=== PATIENT | female | born 1995 | race Caucasian/White ===

== ENCOUNTER 2024-05-22 09:03 | Day surgery (SDC) | payer OTHER, SELFPAY ==
[2024-05-16 11:35] VITALS: BMI 21.6
--- NOTE | 2024-05-21 12:05 | P.CONAN_ITS ---
Documented by User: Crystal Walker NP 05/21/24 12:06 HPI - Anesthesia Eval Consult details Narrative: 28yo F for Lateral Rectus Eye Muscle Recession Medically optimized for surgery per [facility] Past Medical History Medical History (Updated 05/16/24 @ 11:25 by Rsoeanna Chinchilla RN) Weakness of pelvic floor Pelvic pain Pelvic floor dysfunction Palpitations Ovarian cyst Mononucleosis Migraine Long COVID IBS (irritable bowel syndrome) Fibromyalgia Dyspareunia in female Diarrhea Cystic acne COVID-19 Chest pain Back pain Anemia Abnormal TSH Abdominal pain Hiatal hernia Surgical History Surgical History (Updated 05/16/24 @ 11:26 by Roseanna Chinchilla RN) History of laparoscopy H/O colonoscopy History of esophagogastroduodenoscopy (EGD) Social History Social History Patient Tobacco Use Status: Never used Tobacco Use of substances other than those prescribed or required for medical reasons: No Are you DNR?: No Advance Directives: No Advance Directives Information Provided: Yes Advance Directives on File: No Recently lost weight without trying: No Nutrition Risks: No Nutritional Risk Patient : No Meds Allergies Allergy/AdvReac Type Severity Reaction Status Date / Time environmental allergies Allergy Unknown Verified 05/16/24 11:27 metoclopramide [From Reglan] AdvReac Agitated Verified 05/22/24 09:29 Home Medications ?Medication ?Instructions ?Recorded ?Confirmed ?Last Taken ?Type acetaminophen 325 mg tablet 650 mg PO Q6H PRN Pain 05/16/24 05/16/24 Unknown History diclofenac sodium 1 % topical gel 2 g topical QID PRN Pain 05/16/24 05/16/24 Unknown History (Voltaren Arthritis Pain) famotidine 20 mg tablet 20 mg PO BID PRN Acid Reflux 05/16/24 05/16/24 Unknown History fluticasone propionate 50 1 spray intranasal BID 05/16/24 05/16/24 Unknown History mcg/actuation nasal spray,suspension hydroxyzine HCl 10 mg tablet 10 mg PO TID PRN Anxiety 05/16/24 05/16/24 Unknown History pantoprazole 20 mg tablet,delayed 20 mg PO DAILY 05/16/24 05/16/24 Unknown History release (Protonix) Exam Height,Weight and Vital Signs: Height 5 ft 6.14 in Weight 61 kg Pertinent Lab Results Pertinent Lab Results: CBC and BMP 04/2024 from outside facility WNL Narrative Narrative: EKG 04/2024 NSR Assessment and Plan Assessment Anesthesia Assessment: Chart Reviewed Documented by User: Therese Jose MD 05/22/24 11:04 [facility] Past Medical History Medical History (Updated 05/16/24 @ 11:25 by Roseanna Chinchilla RN) Weakness of pelvic floor Pelvic pain Pelvic floor dysfunction Palpitations Ovarian cyst Mononucleosis Migraine Long COVID IBS (irritable bowel syndrome) Fibromyalgia Dyspareunia in female Diarrhea Cystic acne COVID-19 Chest pain Back pain Anemia Abnormal TSH Abdominal pain Hiatal hernia Family History Family history of problems with anesthesia: No Surgical History Surgical History (Updated 05/16/24 @ 11:26 by Roseanna Chinchilla RN) History of laparoscopy H/O colonoscopy History of esophagogastroduodenoscopy (EGD) History of Problems with Anesthesia: No Social History Social History Patient Tobacco Use Status: Never used Tobacco Use of substances other than those prescribed or required for medical reasons: No Are you DNR?: No Advance Directives: No Advance Directives Information Provided: Yes Advance Directives on File: No Recently lost weight without trying: No Nutrition Risks: No Nutritional Risk Patient : No Meds Allergies Allergy/AdvReac Type Severity Reaction Status Date / Time environmental allergies Allergy Unknown Verified 05/16/24 11:27 metoclopramide [From Reglan] AdvReac Agitated Verified 05/22/24 09:29 Home Medications ?Medication ?Instructions ?Recorded ?Confirmed ?Last Taken ?Type acetaminophen 325 mg tablet 650 mg PO Q6H PRN Pain 05/16/24 05/16/24 Unknown History diclofenac sodium 1 % topical gel 2 g topical QID PRN Pain 05/16/24 05/16/24 Unknown History (Voltaren Arthritis Pain) famotidine 20 mg tablet 20 mg PO BID PRN Acid Reflux 05/16/24 05/16/24 Unknown History fluticasone propionate 50 1 spray intranasal BID 05/16/24 05/16/24 Unknown History mcg/actuation nasal spray,suspension hydroxyzine HCl 10 mg tablet 10 mg PO TID PRN Anxiety 05/16/24 05/16/24 Unknown History pantoprazole 20 mg tablet,delayed 20 mg PO DAILY 05/16/24 05/16/24 Unknown History release (Protonix) Exam Airway Mallampati Class: II TM Dist: >3cm Neck ROM: Full Heart: rrr Lungs: cta Assessment and Plan Assessment Anesthesia Assessment: Anesthesia Plan Discussed Final Anesthetic Review Family History of Problems with Anesthesia: No History of Problems with Anesthesia: No NPO: Yes ASA Class: II Final Preanesthetic Review: No Changes in Pt Med Stat, Meds/Allgs Chart Reviewed and Consent Obtained/Reviewed Patient Risk: Low Procedure Risk: Low Anesthetic Plan Anesthetic Plan: GA Disposition: Standard PACU
[2024-05-22] VITALS (8 sets, daily range): BP systolic 111–130; BP diastolic 70–83; PULSE 62–85; RESP 14–16; TEMP 36.3–36.4; O2SAT 100; BMI 21.4
--- OUTSIDE RECORDS SUMMARY | 2024-05-22 09:06 | XMS_ITS | Continuity of Care Document ---
Author Organization [facility] Address [address] [place] [address]- Care Team Providers Care Wood Box Maker Name Role Phone Mary Ellen SRINIVASAN, Anitha Primary Care Physician Encounter [facility] Date(s): 02/22/20 - 02/22/[address] [address]- [place] Encounter Diagnosis Abdominal pain, diffuse(Final) - 02/22/20 Discharge Disposition: A-D/C Home Attending Physician: Ulysses Monique MD Admitting Physician: Ulysses Monique MD Referring Physician: Not on Staff, Referring MD Allergies, Adverse Reactions, Alerts Substance Reaction Severity Status NKA Active Immunizations Given and Recorded Vaccine Date Status Refusal Reason influenza virus vaccine, inactivated 1 07/22/19 Gi pedro pablo influenza virus vaccine, inactivated 07/13/18 Give n influenza virus vaccine, inactivated 2 07/19/17 Re corded influenza virus vaccine, inactivated 07/27/16 Give n tetanus/diphtheria/pertussis, acel(Tdap) 01/26/17 Given tetanus/diphtheria/pertussis, acel(Tdap) 12/06/05 Given Varicella Virus Vaccine 3 05/21/09 Given Meningococcal Polysaccharide Vaccine 12/14/07 Give n Gardasil (oldterm) 4 06/19/07 Given Gardasil (oldterm) 02/14/07 Given Gardasil (oldterm) 12/13/06 Given Measles/Mumps/Rubella Virus Vaccine 5 11/30/98 Giv en Hepatitis B Vaccine (old term) 6 09/07/94 Given 1Result Comment: [facility] [id number] [facility] 3Admin Note: 1st dove 11/21/1995 2nd done 05/21/2009 4Admin Note: 1st done 12/13/2006 2nd done 02/14/2007 3rd done 06/19/2007 5Admin Note: 1st done 02/24/1995 2nd done 11/30/1998 6Admin Note: 1st done 1993 2nd done 1993 3rd done 09/07/1994 Medications Bactrim DS 800 mg-160 mg oral tablet 1 tablet, By Mouth, Every 12 hours, for 5 days, # 10 tablet, 0 Refills, Acute 02/24/20 15:40:00 EDT, 02/19/20 15:40:00 EDT, Tablet, [facility]/pharmacy #[id number], 1 tablet By Mouth Every 12 hours,x5 days, 168, cm, 02/19/20 15:07:00 EDT, Height, 64, kg, 09/08/19... Start Date: 02/19/20 Stop Date: 02/24/20 Status: Ordered naratriptan 2.5 mg oral tablet 1 tablet = 2.5 mg, By Mouth, Daily, PRN for migraine headache, may repeat dose once in 4 hours, # 9tablet, 1 Refills, Maintenance, 10/11/19 14:31:00 EST, Tablet, [facility]/pharmacy #[id number], 168, cm, 10/11/19 13:21:00 EST, Height, 64, kg, 09/08/19 14:41:00 ES... Start Date: 10/11/19 Status: Ordered Taytulla 1 mg-20 mcg oral capsule 1 capsule, By Mouth, Daily, # 28 capsule, 0 Refills, Maintenance, 09/12/19 16:20:00 EST, Capsule Start Date: 09/12/19 Status: Ordered Problem List Condition Effective Dates Status Health Status Inform ant Anxiety(Confirmed) Active Back pain(Confirmed) Active Diarrhea(Confirmed) Active Fibromyalgia(Confirmed) 1 09/15/17 Active IBS - Irritable bowel syndrome(Confirmed) 2 Active Anemia, iron deficiency(Confirmed) 3 Active Migraine(Confirmed) 2005 Active Ovarian cyst(Confirmed) Active 1negative celiac screen in [address] romero 3she does have heavy monthly period Vital Signs Most recent to oldest [Reference Range]: 1 2 Height 165 cm (6/6/20 7:11 PM) 165 cm (02/22/20 5:12 PM) Weight 60.9 kg (02/22/20:11 PM) 60.9 kg (02/22/20:12 PM) Oxygen Saturation [94-100 %] 100 % (02/22/20:11 PM) 100 % (02/22/20:12 PM) Pulse Rate [55-90 bpm] 83 bpm (02/22/20:11 PM) 83 bpm (02/22/20:12 PM) Body Mass Index [18.5-24.99] 22.37 (02/22/20: PM) Blood Pressure [90-138/55-84 mm Hg] 114/ 81mm Hg (02/22/20:11 PM) 125/80mm Hg (02/22/20:12 PM) Respiratory Rate [16-30 br/min] 17 br/mi n (02/22/20:11 PM) 17 br/min (02/22/20:12 PM) Temperature [96.8-100.4 DegF] 97.5 DegF (02/22/20 5:12 PM) Temperature Route Temporal (02/22/20 5:12 PM) Dry Weight 60.9 kg (02/22/20:11 PM) 60.9 kg (02/22/20:12 PM) Dry Weight Obtained Via Standing scale (02/22/20 5:12 PM) Social History Social History Type Response Smoking Status Never smoker; Tobacc o user in household: No entered on: 09/26/13 Sex
--- OUTSIDE RECORDS SUMMARY | 2024-05-22 09:06 | XMS_ITS | Continuity of Care Document ---
Author Organization [facility] Address [address] [place] [address]- Care Team Providers Care Portrait Studio Photographer Name Role Phone Nicholas HAULAGE BOSS, Elisa M Primary Care Physician Encounter [facility] Date(s): 05/26/20 - 06/27/20 [facility] [address] [place] [address]- [facility] Attending Physician: Bony Padilla Allergies, Adverse Reactions, Alerts Substance Reaction Severity [...] (old term) 6 09/07/94 Given 1Result Comment: [facility] [id number] [facility] 3Admin Note: 1st dove 11/21/1995 2nd done 05/21/2009 4Admin Note: 1st done 12/13/2006 2nd done 02/14/2007 3rd done 06/19/2007 5Admin Note: 1st done 02/24/1995 2nd done 11/30/1998 6Admin Note: 1st done 1993 2nd done 1993 3rd done 09/07/1994 Medications Carafate 1 gm oral tablet 1 Gm, 1, tablet, By Mouth, 2 times a day, # 60 tablet, Refills 0, Tot. Refills 0, Maintenance, 06/08/20 9:10:00 EDT, Route to Pharmacy Electronically, [facility]/pharmacy #[id number], 168, cm, 06/08/20 7:01:00 EDT, Height, 58.7, kg, 06/08/20 7:01:00 EDT, Dry Weight Start Date: 06/08/20 Status: Ordered Lo Loestrin Fe By Mouth, Daily, 0 Refills, Maintenance, 04/05/20 20:23:00 EDT Start Date: 04/05/20 Status: Ordered omeprazole 20 mg oral delayed release tablet 1 tablet = 20 mg, By Mouth, Daily, # 90 tablet, 0 Refills, Maintenance, 06/17/20 14:00:00 EDT, CR Tablet Start Date: 06/17/20 Status: Ordered Problem List Condition Effective Dates Status Health Status Inform ant Anxiety(Confirmed) Active Back pain(Confirmed) Active Chronic back pain(Confirmed) Active Diarrhea(Confirmed) Active Fibromyalgia(Confirmed) 1 09/15/17 Active IBS - Irritable bowel syndrome(Confirmed) 2 Active Anemia, iron deficiency(Confirmed) 3 Active Migraine(Confirmed) 2005 Active Ovarian cyst(Confirmed) Active 1negative celiac screen in [address] romero 3she does have heavy monthly period Social History Social History Type Response Smoking Status Never smoker; Tobacc o user in household: No entered on: 09/26/13 Sex
--- OUTSIDE RECORDS SUMMARY | 2024-05-22 09:06 | XMS_ITS | Continuity of Care Document ---
Author Organization [facility] Address [address] [place] [id number]- Care Team Providers Care Nut Dehydrator Operator Name Role Phone Nicholas HOTEL MAINTENANCE TECHNICIAN, Elisa M Primary Care Physician Encounter [facility] Date(s): 08/03/23 - 09/02/23 [facility] [address] [place] [id number]- [place] Allergies, Adverse Reactions, Alerts Substance Reaction Severity Status Reglan agitation Active Immunizations Given and Recorded Vaccine Date Status Refusal Reason influenza virus vaccine, inactivated 1 08/08/22 Gi pedro pablo influenza virus vaccine, inactivated 2 08/02/21 Gi pedro pablo influenza virus vaccine, inactivated 07/17/20 Give n influenza virus vaccine, inactivated 3 07/22/19 Gi pedro pablo influenza virus vaccine, inactivated 07/13/18 Give n influenza virus vaccine, inactivated 4 07/19/17 Re corded influenza virus vaccine, inactivated 07/27/16 Give n influenza virus vaccine, inactivated 06/28/11 Stevan rded influenza virus vaccine, inactivated 10/20/09 Stevan rded influenza virus vaccine, inactivated 08/23/08 Stevan rded SARS-CoV-2 (COVID-19) mRNA BNT-162b2 vac 10/14/21 Recorded SARS-CoV-2 (COVID-19) mRNA BNT-162b2 vac 01/12/21 Recorded SARS-CoV-2 (COVID-19) mRNA BNT-162b2 vac 12/22/20 Recorded tetanus/diphtheria/pertussis, acel(Tdap) 01/26/17 Given tetanus/diphtheria/pertussis, acel(Tdap) 12/06/05 Given Varicella Virus Vaccine 5 05/21/09 Given Varicella Virus Vaccine 11/21/95 Recorded Meningococcal Polysaccharide Vaccine 12/14/07 Give n Meningococcal Conjugate Vaccine 12/14/07 Recorded Gardasil (oldterm) 6 06/19/07 Given Gardasil (oldterm) 02/14/07 Given Gardasil (oldterm) 12/13/06 Given Measles/Mumps/Rubella Virus Vaccine 7 11/30/98 Giv en Measles/Mumps/Rubella Virus Vaccine 02/24/95 Recor ded diphtheria/tetanus/pertussis, acel(DTaP) 11/26/98 Recorded Hepatitis B Vaccine (old term) 8 09/07/94 Given hepatitis B pediatric vaccine 93 Recorded hepatitis B pediatric vaccine 93 Recorded 1Result Comment: [facility] [id number] 2Result Comment: [facility]: [id number] 3Result Comment: [facility] [id number] [facility] 5Admin Note: 1st dove 11/21/1995 2nd done 05/21/2009 6Admin Note: 1st done 12/13/2006 2nd done 02/14/2007 3rd done 06/19/2007 7Admin Note: 1st done 02/24/1995 2nd done 11/30/1998 8Admin Note: 1st done 1993 2nd done 1993 3rd done 09/07/1994 Medications Ajovy 225 mg/1.5 mL subcutaneous solution = 225 mg, Subcutaneous Infusion, Every 28 days, 0 Refills, Maintenance, 06/29/23 9:04:00 EDT, Partial fill upon patient request if the prescription is for a schedule II opioid drug. Start Date: 06/29/23 Status: Ordered Carafate 1 gm/10 ml oral suspension 10 mL = 1 Gm, By Mouth, 3 times a day before meals and bedtime, # 560 mL, 0 Refills, Maintenance, 05/19/23 22:44:00 EDT, [facility]/pharmacy #[id number], Partial fill upon patient request if the prescription is for a schedule II opioid drug., 165.1, cm, 05/19/23 1... Start Date: 05/19/23 Stop Date: 06/02/23 Status: Ordered cefuroxime 500 mg oral tablet 1 tablet = 500 mg, By Mouth, 2 times a day, # 14 tablet, 0 Refills, Maintenance, 08/19/23 11:00:00 EST, Tablet, Partial fill upon patient request if the prescription is for a schedule II opioid drug. Start Date: 08/19/23 Stop Date: 08/26/23 Status: Ordered chlorhexidine topical 0.12% liquid 15 mL = 0.018 Gm, By Mouth, 2 times a day, # 480 mL, 0 Refills, Maintenance, 06/29/23 12:46:00 EDT,Liquid, [id number], Partial fill upon patient request if the prescription is for a scheduleII opioid drug., 15 mL By Mouth 2 times a day, 165.... Start Date: 06/29/23 Status: Ordered diclofenac sodium 75 mg oral delayed release tablet 1 tablet = 75 mg, By Mouth, 2 times a day, PRN PAIN, with food, # 30 tablet, 0 Refills, Maintenance, 07/03/23 16:09:00 EDT, EC Tablet, [id number], Partial fill upon patient request if the prescription is for a schedule II opioid drug., 165.1,... Start Date: 07/03/23 Stop Date: 07/18/23 Status: Ordered Diflucan 150 mg oral tablet 1 tablet = 150 mg, By Mouth, Once, # 1 tablet, 1 Refills, Soft Stop, 08/31/23 14:59:00 EST, Tablet,[id number], Partial fill upon patient request if the prescription is for a schedule II opioid drug., 168, cm, 08/30/23 13:48:00 EST, Height, 58... Start Date: 08/31/23 Status: Ordered fluticasone 27.5 mcg/inh nasal spray 1 sprays, Nares, Both, Daily, PRN Cold Symptoms, # 10 Gm, 0 Refills, Maintenance, 07/24/23 15:00:00EST, [place], [id number], Partial fill upon patient request if the prescription is for a schedule II opioid drug., 1 sprays Nares, Both Daily,PRN... Start Date: 07/24/23 Status: Ordered gabapentin 300 mg oral capsule 300 mg, 1, capsule, By Mouth, Daily at bedtime, PRN, # 15 capsule, Refills 0, Tot. Refills 0, Maintenance, [facility], 07/03/23 16:09:00 EDT, Route to Pharmacy Electronically, [facility]/pharmacy #[id number], Partial fill upon patient request if the prescriptio... Start Date: 07/03/23 Stop Date: 07/18/23 Status: Ordered June By Mouth, Daily, 0 Refills, Maintenance, 08/08/22 13:49:00 EST, Partial fill upon patient request if the prescription is for a schedule II opioid drug. Start Date: 08/08/22 Status: Ordered metroNIDAZOLE 500 mg oral tablet 1 tablet = 500 mg, By Mouth, Every 8 hours, for 7 days, do not drink alcohol may take with food to minimize abdominal discomfort, # 21 tablet, 0 Refills, Acute 09/07/23 15:43:00 EST, 08/31/23 15:43:00 EST, Tablet, [facility]/pharmacy #[id number], Partial fill upo... Start Date: 08/31/23 Stop Date: 09/07/23 Status: Ordered mirtazapine 7.5 mg oral tablet See Instructions, TAKE 1 TABLET BY MOUTH DAILY FOR 1 WEEK AND THEN INCREASE TO 2 TABLETS DAILY, # 180 tablet, 1 Refills, Maintenance, 07/07/23 6:25:00 EDT, [id number], 165.1, cm, 07/03/23 15:14:00 EDT, Height, 64.3, kg, 05/19/23 19:22:00 EDT, Dry... Start Date: 07/07/23 Status: Ordered omeprazole 20 mg oral enteric coated capsule 1 capsule, By Mouth, 2 times a day, # 180 capsule, 1 Refills, Maintenance, 06/24/23 16:07:00 EDT, [id number], 165.1, cm, 06/12/23 14:42:00 EDT, Height, 64.3, kg, 05/19/23 19:22:00 EDT, Dry Weight Start Date: 06/24/23 Status: Ordered Xyzal 5 mg oral tablet 1 tablet = 5 mg, By Mouth, Daily in PM, # 30 tablet, 6 Refills, Maintenance, 08/30/23 14:06:00 EST,Tablet, [facility]/pharmacy #[id number], Partial fill upon patient request if the prescription is for a scheduleII opioid drug., 1 tablet By Mouth Daily in PM,x30... Start Date: 08/30/23 Stop Date: 03/27/24 Status: Ordered Problem List Condition Confirmation Course Effective Dates Status Health St atus Informant Anxiety Confirmed Active Anxiety about health Confirmed Active Back pain Confirmed Active Chronic back pain Confirmed Active Diarrhea Confirmed Active Fibromyalgia 1 Confirmed 09/15/17 Active IBS - Irritable bowel syndrome 2 Confirmed Active Anemia, iron deficiency 3 Confirmed Active Migraine Confirmed 2005 Active Ovarian cyst Confirmed Active 1negative celiac screen in [address] romero 3she does have heavy monthly period Social History Social History Type Response Smoking Status Never smoker; Tobacc o user in household: No entered on: 09/26/13 Sex Patient Care team information Care Team Personnel Name: Ulysses Desai MD Position: [facility] OCTAVE BOARD RACKER MD Member Role: [employer] OCTAVE BOARD RACKER Physician Address: Address: [address] [place] [address] [facility] [address]- Name: Elisa Peterson NP Position: [facility] PCO Associate Professional Member Role: PCP Address: Address: [address] [place] [id number] Name: Josette Bhardwaj [place] Position: [facility] RN Member Role: Primary Care Nurse Care Team Related Persons Name: HUBER ORLANDO Address: [address] [place] [address] Name: HUBER ORLANDO Address: home [address] [place] [address] Name: HUBER ORLANDO Address: home [address] [place] [address] Name: JUAN ORLANDO Address: home [address]
--- OUTSIDE RECORDS SUMMARY | 2024-05-22 09:06 | XMS_ITS | Continuity of Care Document ---
Author Organization [facility] Address [address] [place] [address]- Care Team Providers Care Barrel Straightener Name Role Phone Nicholas TOE FORMER, Elisa M Primary Care Physician Encounter [facility] Date(s): 10/15/21 - 11/14/21 [facility] [address] [place] [address]- Attending Physician: Alejandro Lamb Admitting Physician: AdmAlejandro cooley Referring Physician: AdmtrAlejandro Allergies, Adverse Reactions, Alerts Substance Reaction Severity Status Reglan agitation Active Immunizations Given and Recorded Vaccine Date Status Refusal Reason influenza virus vaccine, inactivated 1 08/02/21 Gi pedro pablo influenza virus vaccine, inactivated 07/17/20 Give n influenza virus vaccine, inactivated 2 07/22/19 Gi pedro pablo influenza virus vaccine, inactivated 07/13/18 Give n influenza virus vaccine, inactivated 3 07/19/17 Re corded influenza virus vaccine, inactivated 07/27/16 Give n tetanus/diphtheria/pertussis, acel(Tdap) 01/26/17 Given tetanus/diphtheria/pertussis, acel(Tdap) 12/06/05 Given Varicella Virus Vaccine 4 05/21/09 Given Meningococcal Polysaccharide Vaccine 12/14/07 Give n Gardasil (oldterm) 5 06/19/07 Given Gardasil (oldterm) 02/14/07 Given Gardasil (oldterm) 12/13/06 Given Measles/Mumps/Rubella Virus Vaccine 6 11/30/98 Giv en Hepatitis B Vaccine (old term) 7 09/07/94 Given 1Result Comment: [facility]: [id number] 2Result Comment: [facility] [phone] 3Location History: [facility] 4Admin Note: 1st dove 11/21/1995 2nd done 05/21/2009 5Admin Note: 1st done 12/13/2006 2nd done 02/14/2007 3rd done 06/19/2007 6Admin Note: 1st done 02/24/1995 2nd done 11/30/1998 7Admin Note: 1st done 1993 2nd done 1993 3rd done 09/07/1994 Medications docusate-senna 50 mg-187 mg oral tablet See Instructions, may take 2 tablets twice a day until regularly moving bowels, then prn, # 60 tablet, 0 Refills, Acute 09/30/22 10:00:00 EST, 09/30/21 19:43:00 EST, Tablet, [facility]/pharmacy #[id number], may take 2 tablets twice a day until regularly moving bow... Start Date: 09/30/21 Stop Date: 09/30/22 Status: Ordered famotidine 20 mg oral tablet 20 mg, 1, tablet, By Mouth, 2 times a day, # 20 tablet, Refills 0, Tot. Refills 0, Maintenance, 10/07/21 8:52:00 EST, Route to Pharmacy Electronically, [facility]/pharmacy #[id number], Partial fill upon patient request if the prescription is for a schedule II opio... Start Date: 10/07/21 Stop Date: 10/17/21 Status: Ordered Misc Rx bcp pill, By Mouth, Daily, Refills 0, Maintenance, 08/11/21 20:44:00 EST, Supply Start Date: 08/11/21 Status: Ordered omeprazole 20 mg oral enteric coated capsule 1 capsule = 20 mg, By Mouth, Daily, # 14 tablet, 0 Refills, Maintenance, 10/17/21 15:42:00 EST, EC Capsule, [facility]/pharmacy #[id number], Partial fill upon patient request if the prescription is for a scheduleII opioid drug., 168, cm, 10/17/21 12:39:00 EST, He... Start Date: 10/17/21 Status: Ordered Problem List Condition Effective Dates [...]
--- OUTSIDE RECORDS SUMMARY | 2024-05-22 09:06 | XMS_ITS | Continuity of Care Document ---
Author Organization [facility] Address [address] [place] [address]- Care Team Providers Care Polysomnography Technician Name Role Phone Elisa Peterson NP Primary Care Physician Encounter [facility] Date(s): 07/23/20 - 11/20/[facility] [address] [address]- Attending Physician: Elisa Peterson NP Allergies, Adverse Reactions, Alerts Substance Reaction Severity Status NKA Active Immunizations Given and Recorded Vaccine Date Status Refusal Reason influenza virus vaccine, inactivated 07/17/20 Give n influenza virus vaccine, inactivated 1 07/22/19 Gi [...] (old term) 6 09/07/94 Given 1Result Comment: [facility] [id number] [facility] 3Admin Note: 1st dove 11/21/1995 2nd done 05/21/2009 4Admin Note: 1st done 12/13/2006 2nd done 02/14/2007 3rd done 06/19/2007 5Admin Note: 1st done 02/24/1995 2nd done 11/30/1998 6Admin Note: 1st done 1993 2nd done 1993 3rd done 09/07/1994 Medications diclofenac 3% topical gel 1 application, Topically, 2 times a day, PRN Pain , Moderate, # 100 Gm, 0 Refills, Maintenance, 11/13/20 15:14:00 EST, Gel, [facility]/pharmacy #[id number], Partial fill upon patient request if the prescription is for a schedule II opioid drug., 1 application Topi... Start Date: 11/13/20 Status: Ordered ibuprofen 800 mg oral tablet 800 mg, 1, tablet, By Mouth, 3 times a day, for 14 days, # 42 tablet, Refills 0, Tot. Refills 0, Acute 12/02/20 12:50:00 EDT, 11/18/20 12:50:00 EST, Route to Pharmacy Electronically, [facility]/pharmacy #[id number], Partial fill upon patient request if the prescri... Start Date: 11/18/20 Stop Date: 12/02/20 Status: Ordered Lo Loestrin Fe By Mouth, Daily, 0 Refills, Maintenance, 04/05/20 20:23:00 EDT Start Date: 04/05/20 Status: Ordered Problem List Condition Effective Dates [...]
--- OUTSIDE RECORDS SUMMARY | 2024-05-22 09:06 | XMS_ITS | Continuity of Care Document ---
Author Organization [facility] Address [address] [place] [address]- Care Team Providers Care Shoe Shanker Name Role Phone Elisa Peterson NP Primary Care Physician Encounter [facility] NBR [id number] Date(s): 06/17/20 - 06/24/20 [facility] [address] [address]- Encounter Diagnosis IBS - Irritable bowel syndrome(Discharge Diagnosis) - 06/17/20 Anxiety(Discharge Diagnosis) - 06/17/20 Multiple joint pain(Discharge Diagnosis) - 06/17/20 Chronic back pain(Discharge Diagnosis) - 06/17/20 Attending Physician: Elisa Peterson NP Allergies, Adverse [...] (old term) 6 09/07/94 Given 1Result Comment: [facility] [id number] 2[facility] 3Admin Note: [...] 06/08/20 9:10:00 EDT, Route to Pharmacy Electronically, [facility]/pharmacy #[id number], 168, cm, 06/08/20 7:01:00 [...] romero 3she does have heavy monthly period Diagnosis Diagnosis Type Effective Dates Health Status Cl inical Service Informant IBS - Irritable bowel syndrome Discharge Diagnosis 06/17/20 Anxiety Discharge Diagnosis 06/17/20 Multiple joint pain Discharge Diagnosis 06/17/20 Chronic back pain Discharge Diagnosis 06/17/20 Vital Signs Most recent to oldest [Reference Range]: 1 Height 168 cm (06/17/20 1:56 PM) Weight 59.2 kg (06/17/20 1:56 PM) Oxygen Saturation [94-100 %] 95 % (06/17/20 1:56 PM) Pulse Rate [55-90 bpm] 79 bpm (06/17/20 1:56 PM) Body Mass Index [18.5-24.99] 20.98 (06/17/20 1:56 PM) Blood Pressure [90-138/55-84 mm Hg] 122/ 84mm Hg (06/17/20 1:56 PM) Temperature [96.8-100.4 DegF] 97.6 DegF (06/17/20 1:56 PM) Liters per Minute 0 L/min (06/17/20 1:56 PM) Mode of Delivery (Oxygen) Room air (06/17/20 1:56 PM) Blood pressure sites Arm, left (06/17/20 1:56 PM) Temperature Route Temporal (06/17/20 1:56 PM) Weight Obtained Via Standing scale (06/17/20 1:56 PM) Social History Social History Type Response Smoking Status Never smoker; Tobacc o user in household: No entered on: 09/26/13 Sex
--- OUTSIDE RECORDS SUMMARY | 2024-05-22 09:06 | XMS_ITS | Continuity of Care Document ---
Author Organization [facility] Address [address] [place] [address]- Care Team Providers Care Wharf Worker Name Role Phone Nicholas OVER HAULER HELPER, Elisa M Primary Care Physician Encounter [facility] Date(s): 09/07/21 - 09/14/21 [facility] [address] [place] [address]- Attending Physician: Melvin Kate Allergies, Adverse Reactions, Alerts Substance Reaction Severity [...] (old term) 7 09/07/94 Given 1Result Comment: [facility]: [id number] 2Result Comment: [facility] [id number] 3[facility] 4Admin Note: 1st dove 11/21/1995 2nd done 05/21/2009 5Admin Note: 1st done 12/13/2006 2nd done 02/14/2007 3rd done 06/19/2007 6Admin Note: 1st done 02/24/1995 2nd done 11/30/1998 7Admin Note: 1st done 1993 2nd done 1993 3rd done 09/07/1994 Medications amitriptyline 10 mg oral tablet 10 mg, 1, tablet, By Mouth, Daily at bedtime, # 30 tablet, Refills 5, Tot. Refills 5, Maintenance, 08/02/21 7:53:00 EST, Route to Pharmacy Electronically, [facility]/pharmacy #[id number], 167.64, cm, 08/02/21 7:31:00 EST, Height, 63, kg, 06/24/21 0:41:00 EDT, Dry... Start Date: 08/02/21 Stop Date: 01/29/22 Status: Ordered amoxicillin-clavulanate 875 mg-125 mg oral tablet 1 tablet, By Mouth, Every 12 hours, for 10 days, # 20 tablet, 0 Refills, Acute 09/17/21 8:43:00 EST, 09/07/21 8:43:00 EST, Tablet, [facility]/pharmacy #[id number], Partial fill upon patient request if the prescription is for a schedule II opioid drug., 167.64, cm,... Start Date: 09/07/21 Stop Date: 09/17/21 Status: Ordered Flonase 50 mcg/inh nasal spray 1 sprays, Nares, Both, 2 times a day, # 16 Gm, 0 Refills, Maintenance, 01/29/21 20:47:00 EDT, [place], [facility]/pharmacy #[id number], Partial fill upon patient request if the prescription is for a schedule II opioid drug., 1 sprays Nares, Both 2 times a day, 168,... Start Date: 01/29/21 Status: Ordered LORazepam 0.5 mg oral tablet 1 tablet = 0.5 mg, By Mouth, Daily at bedtime, 0 Refills, Maintenance, 02/01/21 7:31:00 EDT, Tablet, Partial fill upon patient request if the prescription is for a schedule II opioid drug. Start Date: 02/01/21 Status: Ordered Misc Rx bcp pill, By Mouth, Daily, Refills 0, Maintenance, 08/11/21 20:44:00 EST, Supply Start Date: 08/11/21 Status: Ordered omeprazole 20 mg oral delayed release tablet 1 tablet = 20 mg, By Mouth, 2 times a day, # 28 tablet, 0 Refills, Maintenance, 08/12/21 0:53:00 EST, CR Tablet, [facility]/pharmacy #[id number], Partial fill upon patient request if the prescription is for a schedule II opioid drug., 167.64, cm, 08/11/21 20:39:00... Start Date: 08/12/21 Stop Date: 08/26/21 Status: Ordered ondansetron 4 mg oral tablet, disintegrating 1 tablet = 4 mg, By Mouth, Every 8 hours, PRN as needed for nausea/vomiting, # 12 tablet, 0 Refills, Maintenance, 08/12/21 0:54:00 EST, DIS Tablet, [facility]/pharmacy #[id number], Partial fill upon patient request if the prescription is for a schedule II opioid d... Start Date: 08/12/21 Status: Ordered Problem List Condition Effective Dates [...]
--- OUTSIDE RECORDS SUMMARY | 2024-05-22 09:06 | XMS_ITS | Continuity of Care Document ---
Author Organization [facility] Address [address] [place] [address]- Care Team Providers Care Recovery Specialist Name Role Phone Nicholas TRAVEL INSURANCE AGENT, Elisa M Primary Care Physician Encounter [facility] Date(s): 03/04/24 - 04/03/24 [facility] [address] [place] [address]- [place] Allergies, Adverse Reactions, Alerts Substance Reaction Severity Status Reglan agitation Active Other Environmental Allergy Active Immunizations Given and Recorded Vaccine Date [...] B pediatric vaccine 93 Recorded 1Result Comment: [facility] [id number] 2Result Comment: [facility]: [id number] 3Result Comment: [facility] [id number] 319 01 4[facility] 5Admin Note: 1st dove 11/21/1995 2nd done 05/21/2009 6Admin Note: 1st done 12/13/2006 2nd done 02/14/2007 3rd done 06/19/2007 7Admin Note: 1st done 02/24/1995 2nd done 11/30/1998 8Admin Note: 1st done 1993 2nd done 1993 3rd done 09/07/1994 Medications acetaminophen 325 mg oral tablet 650 mg, 2, tablet, By Mouth, Every 6 hours, PRN, # 24 tablet, Refills 0, Tot. Refills 0, Maintenance, Pain , Moderate, 01/29/24 14:53:00 EDT, Route to Pharmacy Electronically, [facility]/pharmacy #[id number], Partial fill upon patient request if the prescription i... Start Date: 01/29/24 Status: Ordered benzoyl peroxide-clindamycin 5%-1% topical gel 1 application, Topically, 2 times a day, # 50 Gm, 3 Refills, Maintenance, 03/29/24 11:48:00 EDT, Gel, [facility]/pharmacy #[id number], Partial fill upon patient request if the prescription is for a schedule II opioid drug., 1 application Topically 2 times a day,x3... Start Date: 03/29/24 Stop Date: 07/27/24 Status: Ordered Diflucan 150 mg oral tablet 1 tablet = 150 mg, By Mouth, Once, Repeat dose if symptoms persist after 48 hrs, # 2 tablet, 0 Refills, Soft Stop, 03/27/24 13:14:00 EDT, Tablet, [facility]/pharmacy #[id number], Partial fill upon patient requestif the prescription is for a schedule II opioid alyssa... Start Date: 03/27/24 Status: Ordered famotidine 20 mg oral tablet 20 mg, 1, tablet, By Mouth, 2 times a day, PRN, # 30 tablet, Refills 0, Tot. Refills 0, Maintenance, Control of Stomach Acid, 01/09/24 0:16:00 EDT, Route to Pharmacy Electronically, [facility]/pharmacy #[id number], Partial fill upon patient request if the prescrip... Start Date: 01/09/24 Status: Ordered fluticasone 50 mcg/inh nasal spray 1 sprays = 50 mcg, Nares, Both, 2 times a day, # 16 Gm, 0 Refills, Maintenance, 02/21/24 17:46:00 EDT, [place], [facility]/pharmacy #[id number], Partial fill upon patient request if the prescription is for a schedule II opioid drug., 1 sprays Nares, Both 2 times a d... Start Date: 02/21/24 Status: Ordered hydrOXYzine hydrochloride 10 mg oral tablet 1 tablet = 10 mg, By Mouth, 3 times a day, PRN for anxiety, # 42 tablet, 0 Refills, Maintenance, 01/16/24 16:47:00 EDT, Tablet, [facility]/pharmacy #[id number], Partial fill upon patient request if the prescription is for a schedule II opioid drug., 168, cm, 01/15... Start Date: 01/16/24 Status: Ordered hyoscyamine 0.125 mg oral tablet 0.125 mg, 1, tablet, By Mouth, 4 times a day, PRN, # 40 tablet, Refills 0, Tot. Refills 0, Maintenance, for spasm, 03/27/24 0:47:00 EDT, Route to Pharmacy Electronically, [facility]/pharmacy #[id number], Partial fill upon patient request if the prescription is for... Start Date: 03/27/24 Status: Ordered omeprazole 20 mg oral enteric coated capsule 1 capsule, By Mouth, 2 times a day, # 180 capsule, 0 Refills, Maintenance, 01/25/24 10:16:00 EDT, [id number], 168, cm, 01/24/24 14:42:00 EDT, Height, 63.5, kg, 01/08/24 20:41:00 EDT, Dry Weight Start Date: 01/25/24 Status: Ordered sucralfate 1 gm/10 ml oral suspension 10 mL = 1 Gm, By Mouth, 3 times a day before meals and bedtime, # 1,200 mL, 0 Refills, Maintenance,03/27/24 0:48:00 EDT, [facility]/pharmacy #[id number], Partial fill upon patient request if the prescription is for a schedule II opioid drug., 168, cm, 03/26/24 22... Start Date: 03/27/24 Status: Ordered Problem List Condition Confirmation Course Effective Dates Status Health St atus Informant Anxiety Confirmed Active Anxiety about health Confirmed Active Back pain Confirmed Active Chronic back pain Confirmed Active COVID-19 1 Confirmed 03/19/24 Active Cystic acne Confirmed Active Diarrhea Confirmed Active Fibromyalgia 2 Confirmed 09/15/17 Active IBS - Irritable bowel syndrome 3 Confirmed Active Anemia, iron deficiency 4 Confirmed Active Migraine Confirmed 2005 Active Ovarian cyst Confirmed Active Dyspareunia in female Confirmed Active Pelvic pain Confirmed Active Weakness of pelvic floor Confirmed Active Pelvic floor dysfunction Confirmed Active Abnormal TSH Confirmed Active 1Problem added by Discern Expert 2negative celiac screen in [address] romero 4she does have heavy monthly period Social History Social History Type Response Smoking Status Never smoker; Tobacc o user in household: No entered on: 09/26/13 Sex Patient Care team information Care Team Personnel Name: Giselle SRINIVASAN, Ulysses W Position: [facility] CUTLET MAKER PORK MD Member Role: Lifetime CUTLET MAKER PORK Physician Address: Address: [address] [place] [address] [facility] [address]- Name: Elisa Peterson NP Position: [facility] PCO Associate Professional Member Role: PCP Address: Address: [address] [place] [address]- Name: Josette Bhardwaj [place] Position: [facility] Staff Member Role: Primary Care Nurse Care Team Related Persons Name: HUBER ORLANDO Address: home [address] [place] [id number] Name: HUBER ORLANDO Address: home [address] [place] [address], [place] [address] Name: HUBER ORLANDO Address: home [address] [address] Name: JUAN ORLANDO Address: home [address] [address]
--- OUTSIDE RECORDS SUMMARY | 2024-05-22 09:06 | XMS_ITS | Continuity of Care Document ---
Author Organization [facility] Address [address] [place] [address]- Care Team Providers Care Net Web Application Developer Name Role Phone Nicholas PILE DRIVING TECHNICIAN, Elisa Reynaga Primary Care Physician Encounter [facility] Date(s): 06/19/20 - 07/19/20 [facility] [address] [place] [address]- Allergies, Adverse Reactions, Alerts Substance Reaction Severity [...] (old term) 6 09/07/94 Given 1Result Comment: [facility] [id number] [phone] 01 2[facility] 3Admin Note: 1st dove 11/21/1995 2nd done 05/21/2009 4Admin Note: 1st done 12/13/2006 2nd done 02/14/2007 3rd done 06/19/2007 5Admin Note: 1st done 02/24/1995 2nd done 11/30/1998 6Admin Note: 1st done 1993 2nd done 1993 3rd done 09/07/1994 Medications Lo Loestrin Fe By Mouth, Daily, 0 Refills, Maintenance, 04/05/20 20:23:00 EDT Start Date: 04/05/20 Status: Ordered Riboflavin By Mouth, Daily, 0 Refills, Maintenance, 07/17/20 14:12:00 EDT Start Date: 07/17/20 Status: Ordered Problem List Condition Effective Dates [...]
--- OUTSIDE RECORDS SUMMARY | 2024-05-22 09:06 | XMS_ITS | Continuity of Care Document ---
Author Organization [facility] Address [address] [place] [address]- Care Team Providers Care Accounting Officer Name Role Phone Nicholas DAMAGED FREIGHT INSPECTOR, Elisa M Primary Care Physician Encounter [facility] NBR [id number] Date(s): 03/04/21 - 03/04/[address] [address]- Discharge Disposition: A-D/C Home Attending Physician: Ousmane Guzman MD Admitting Physician: Ousmane Guzman MD Referring Physician: Not on Staff, Referring [...] Comment: [facility] [id number] [phone] 2[facility] 3Admin Note: 1st dove 11/21/1995 2nd done 05/21/2009 4Admin Note: 1st done 12/13/2006 2nd done 02/14/2007 3rd done 06/19/2007 5Admin Note: 1st done 02/24/1995 2nd done 11/30/1998 6Admin Note: 1st done 1993 2nd done 1993 3rd done 09/07/1994 Medications Bactrim DS 800 mg-160 mg oral tablet 1 tablet, By Mouth, 2 times a day, for 7 days, # 14 tablet, 0 Refills, Acute 03/11/21 22:50:00 EDT,03/04/21 22:50:00 EDT, Tablet, [facility]/pharmacy #[id number], Partial fill upon patient request if the prescription is for a schedule II opioid drug., 1 tablet By... Start Date: 03/04/21 Stop Date: 03/11/21 Status: Ordered Flonase 50 mcg/inh nasal spray 1 sprays, Nares, Both, 2 times a day, # 16 Gm, 0 Refills, Maintenance, 01/29/21 20:47:00 EDT, [place], [facility]/pharmacy #[id number], Partial fill upon patient request if the prescription is for a schedule II opioid drug., 1 sprays Nares, Both 2 times a day, 168,... Start Date: 01/29/21 Status: Ordered loratadine 10 mg oral capsule 1 capsule = 10 mg, By Mouth, Daily, # 24 capsule, 0 Refills, Maintenance, 01/29/21 20:47:00 EDT, Capsule, [facility]/pharmacy #[id number], Partial fill upon patient request if the prescription is for a schedule II opioid drug., 168, cm, 01/29/21 17:27:00 EDT, [place]... Start Date: 01/29/21 Status: Ordered LORazepam 0.5 mg oral tablet 1 tablet = 0.5 mg, By Mouth, Daily at bedtime, 0 Refills, Maintenance, 02/01/21 7:31:00 EDT, Tablet, Partial fill upon patient request if the prescription is for a schedule II opioid drug. Start Date: 02/01/21 Status: Ordered phenazopyridine 200 mg oral tablet 200 mg, 1, tablet, By Mouth, 3 times a day, for 3 days, # 9 tablet, Refills 0, Tot. Refills 0, Acute 03/07/21 22:50:00 EDT, 03/04/21 22:50:00 EDT, Route to Pharmacy Electronically, [facility]/pharmacy #[id number], Partial fill upon patient request if the prescript... Start Date: 03/04/21 Stop Date: 03/07/21 Status: Ordered Problem List Condition Effective Dates [...] recent to oldest [Reference Range]: 1 2 3 Height 168 cm (03/04/21 11:49 PM) 168 cm (03/04/21 3:59 PM) 168 cm (03/04/21 3:59 PM) Weight 61.9 kg (03/04/21 11:49 PM) 61.9 kg (03/04/21 3:59 PM) 61.9 kg (03/04/21 3:59 PM) Oxygen Saturation [94-100 %] 99 % (03/04/21 11:49 PM) 100 % (03/04/21 7:00 PM) 100 % (03/04/21 3:59 PM) Pulse Rate [55-90 bpm] 77 bpm (03/04/21 11:49 PM) 88 bpm (03/04/21 7:00 PM) 85 bpm (03/04/21 3:59 PM) Body Mass Index [18.5-24.99] 21.93 (03/04/21 11:49 PM) 21.93 (03/04/21 3:59 PM) Blood Pressure [90-138/55-84 mm Hg] 122/82mm Hg (03/04/21 11:49 PM) 146/83mm Hg *H* (03/04/21 7:00 PM) 144/90mm Hg *H* (03/04/21 3:59 PM) Respiratory Rate [16-30 br/min] 16 br/min (03/04/21 11:49 PM) 16 br/min (03/04/21 7:00 PM) 18 br/min (03/04/21 3:59 PM) Temperature [96.8-100.4 DegF] 99 DegF (03/04/21 3:59 PM) Mode of Delivery (Oxygen) Room air (03/04/21 11:49 PM) Room air (03/04/21 7:00 PM) Room air (03/04/21 3:59 PM) Blood pressure sites Arm, right (03/04/21 11:49 PM) Arm, left (03/04/21 7:00 PM) Arm, left (03/04/21 3:59 PM) Temperature Route Temporal (03/04/21 3:59 PM) Dry Weight 61.9 kg (03/04/21 11:49 PM) 61.9 kg (03/04/21 3:59 PM) 61.9 kg (03/04/21 3:59 PM) Social History Social History Type Response Smoking Status Never smoker; Tobacc o user in household: No entered on: 09/26/13 Sex
--- OUTSIDE RECORDS SUMMARY | 2024-05-22 09:07 | XMS_ITS | Continuity of Care Document ---
Author Organization [facility] Address [address] [facility] [facility], [address] Floor, [address] [place] [address]- Care Team Providers Care Global Marketing Manager Name Role Phone Nicholas GENERAL ENGINEER, Elisa M Primary Care Physician Encounter [facility] Date(s): 06/25/20 - 07/25/20 [facility] [address] [facility], [address]rd [address], [address] [place] [address] Allergies, Adverse Reactions, Alerts Substance Reaction Severity [...] Comment: [facility] [id number] [phone] 2[facility] 3Admin Note: [...]
--- OUTSIDE RECORDS SUMMARY | 2024-05-22 09:07 | XMS_ITS | Continuity of Care Document ---
Author Organization [facility] Address [address] [place] [address]- Care Team Providers Care Creative Services Producer Name Role Phone Nicholas POOL HALL INSPECTOR, Elisa Reynaga Primary Care Physician Encounter [facility] Date(s): 09/23/21 - 10/23/21 [facility] [address] [place] [address]- [place] Allergies, Adverse Reactions, Alerts Substance Reaction [...] (old term) 7 09/07/94 Given 1Result Comment: [facility]: [id number] 2Result Comment: [facility] [id number] [phone] 3[facility] 4Admin Note: [...] 09/30/22 10:00:00 EST, 09/30/21 19:43:00 EST, Tablet, [facility]/pharmacy #[id number], may take 2 tablets twice a day until regularly moving bow... Start Date: 09/30/21 Stop Date: 09/30/22 Status: Ordered famotidine 20 mg oral tablet 20 mg, 1, tablet, By Mouth, 2 times a day, # 20 tablet, Refills 0, Tot. Refills 0, Maintenance, 10/07/21 8:52:00 EST, Route to Pharmacy Electronically, [facility]/pharmacy #[id number], Partial fill upon patient request if the [...] Refills, Maintenance, 10/17/21 15:42:00 EST, EC Capsule, [facility]/pharmacy #[id number], Partial fill upon patient request if the [...]
--- OUTSIDE RECORDS SUMMARY | 2024-05-22 09:07 | XMS_ITS | Continuity of Care Document ---
Author Organization [facility] Address [address] [place] [address]- Care Team Providers Care Isolation Washer Name Role Phone Nicholas LABORER EGG [employer]UC[employer], Elisa M Primary Care Physician Encounter [facility] Date(s): 05/22/23 - 06/21/23 [facility] [address] [place] [address]- [place] Allergies, Adverse Reactions, Alerts Substance Reaction [...] influenza virus vaccine, inactivated 07/27/16 Give n SARS-CoV-2 (COVID-19) mRNA BNT-162b2 vac 10/14/21 Recorded [...] B pediatric vaccine 93 Recorded 1Result Comment: [facility] [id number] 2Result Comment: [facility]: [id number] 3Result Comment: [facility] [id number] [facility] 5[facility] Note: 1st dove 11/21/1995 2nd done 05/21/2009 6Admin Note: 1st done 12/13/2006 2nd done 02/14/2007 3rd done 06/19/2007 7Admin Note: 1st done 02/24/1995 2nd done 11/30/1998 8Admin Note: 1st done 1993 2nd done 1993 3rd done 09/07/1994 Medications Carafate 1 gm/10 ml oral suspension 10 mL = 1 Gm, By Mouth, 3 times a day before meals and bedtime, # 560 mL, 0 Refills, Maintenance, 05/19/23 22:44:00 EDT, [facility]/pharmacy #[id number], Partial fill upon patient request if the prescription is for a schedule II opioid drug., 165.1, cm, 05/19/23 1... Start Date: 05/19/23 Stop Date: 06/02/23 Status: Ordered By Mouth, Daily, 0 Refills, Maintenance, 08/08/22 13:49:00 EST, Partial fill upon patient request if the prescription is for a schedule II opioid drug. Start Date: 08/08/22 Status: Ordered Lomotil 0.025 mg-2.5 mg oral tablet 1, tablet, By Mouth, 4 times a day, PRN, for 10 days, # 24 tablet, Refills 1, Tot. Refills 1, Acute, for loose stool, 07/02/23 15:25:00 EDT, 06/12/23 15:25:00 EDT, Route to Pharmacy Electronically, [facility]/pharmacy #[id number] Tablet, Partial fill upon patient... Start Date: 06/12/23 Stop Date: 07/02/23 Status: Ordered omeprazole 20 mg oral enteric coated capsule 1 capsule, By Mouth, 2 times a day, # 180 capsule, 1 Refills, Maintenance, 11/01/22 10:45:00 EST, [id number], 168, cm, 11/01/22 10:19:00 EST, Height, 64, kg, 10/25/22 12:27:00 EST, Dry Weight Start Date: 11/01/22 Stop Date: 04/30/23 Status: Ordered Problem List Condition Confirmation Course Effective Dates Status Health St atus Informant Anxiety Confirmed Active Anxiety about health Confirmed Active Back pain Confirmed Active Chronic back pain Confirmed Active Diarrhea Confirmed Active Fibromyalgia 1 Confirmed 09/15/17 Active IBS - Irritable bowel syndrome 2 Confirmed Active Anemia, iron deficiency 3 Confirmed Active Migraine Confirmed 2006 Active Ovarian cyst Confirmed Active 1negative celiac screen in [address] romero 3she does have heavy monthly period Social History Social History Type Response Smoking Status Never smoker; Tobacc o user in household: No entered on: 09/26/13 Sex Patient Care team information Care Team Personnel Name: Giselle SRINIVASAN, Ulysses W Position: [facility] BUSHWALKING GUIDE MD Member Role: Lifetime BUSHWALKING GUIDE Physician Address: Address: [address] [place] [address] [place] [address]- Name: Elisa Peterson NP Position: [facility] PCO Associate Professional Member Role: PCP Address: Address: [address] [place] [id number] Name: Josette Bhardwaj [place] Position: [facility] RN Member Role: Primary Care Nurse Care Team Related Persons Name: JOHANNYHUBER Address: home [address] [place] [address] Name: JOHANNY HUBER Reynaga Address: home [address] [place] [address] Name: JOHANNY HUBER Reynaga Address: home [address] [place] [address] Name: JOHANNY JUAN Address: home [address]
--- OUTSIDE RECORDS SUMMARY | 2024-05-22 09:07 | XMS_ITS | Continuity of Care Document ---
Author Organization [facility] r Address [address] [place] [address]- Care Team Providers Care Tractor Trailer Operator Name Role Phone Nicholas SOLE TACKER, Elisa Reynaga Primary Care Physician Encounter [facility] NBR [id number] Date(s): 11/19/20 - 04/12/[address] [address]- Encounter Diagnosis Lumbago with sciatica, left side(Final) - Discharge Disposition: A-D/C Home Attending Physician: Jacki Smith NP Admitting Physician: Jacki Smith NP Referring Physician: Jacki Smith NP Allergies, Adverse Reactions, Alerts Substance Reaction [...] (old term) 6 09/07/94 Given 1Result Comment: [facility] [id number] [facility] 3Admin Note: 1st dove 11/21/1995 2nd done 05/21/2009 4Admin Note: 1st done 12/13/2006 2nd done 02/14/2007 3rd done 06/19/2007 5Admin Note: 1st done 02/24/1995 2nd done 11/30/1998 6Admin Note: 1st done 1993 2nd done 1993 3rd done 09/07/1994 Medications Flonase 50 mcg/inh nasal spray 1 sprays, Nares, Both, 2 times a day, # 16 Gm, 0 Refills, Maintenance, 01/29/21 20:47:00 EDT, [place], [facility]/pharmacy #[id number], Partial fill upon patient request if the prescription is for a schedule II opioid drug., 1 sprays Nares, Both 2 times a day, 168,... Start Date: 01/29/21 Status: Ordered loratadine 10 mg oral capsule 1 capsule = 10 mg, By Mouth, Daily, # 24 capsule, 0 Refills, Maintenance, 01/29/21 20:47:00 EDT, Capsule, [facility]/pharmacy #[id number], Partial fill upon patient [...] opioid drug. Start Date: 02/01/21 Status: Ordered Problem List Condition Effective Dates [...]
--- OUTSIDE RECORDS SUMMARY | 2024-05-22 09:07 | XMS_ITS | Continuity of Care Document ---
Author Organization [facility] Address [address] [place] [address]- Care Team Providers Care Hot Punch Press Operator Name Role Phone Elisa Peterson NP Primary Care Physician Encounter [facility] NBR [id number] Date(s): 03/29/24 - 04/05/24 [facility] [address] [place] [address]- Encounter Diagnosis IBS - Irritable bowel syndrome(Discharge Diagnosis) - 03/29/24 Migraine(Discharge Diagnosis) - 03/29/24 Cystic acne(Discharge Diagnosis) - 03/29/24 History of palpitations(Discharge Diagnosis) - 03/29/24 CAMERON (generalized anxiety disorder)(Discharge Diagnosis) - 03/29/24 Attending Physician: Elisa Peterson NP Allergies, Adverse [...] B pediatric vaccine 93 Recorded 1Result Comment: [facility] [id number] 2Result Comment: [facility]: [id number] 3Result Comment: [facility] [id number] [facility] 5Admin Note: [...] 01/29/24 14:53:00 EDT, Route to Pharmacy Electronically, [facility]/pharmacy #[id number], Partial fill upon patient request if the prescription i... Start Date: 01/29/24 Status: Ordered benzoyl peroxide-clindamycin 5%-1% topical gel 1 application, Topically, 2 times a day, # 50 Gm, 3 Refills, Maintenance, 03/29/24 11:48:00 EDT, Gel, [facility]/pharmacy #[id number], Partial fill upon patient request [...] Refills, Soft Stop, 03/27/24 13:14:00 EDT, Tablet, [facility]/pharmacy #[id number], Partial fill upon patient requestif the prescription is for a schedule II opioid alyssa... Start Date: 03/27/24 Status: Ordered famotidine 20 mg oral tablet 20 mg, 1, tablet, By Mouth, 2 times a day, PRN, # 30 tablet, Refills 0, Tot. Refills 0, Maintenance, Control of Stomach Acid, 01/09/24 0:16:00 EDT, Route to Pharmacy Electronically, [facility]/pharmacy #[id number], Partial fill upon patient request if the prescrip... Start Date: 01/09/24 Status: Ordered fluticasone 50 mcg/inh nasal spray 1 sprays = 50 mcg, Nares, Both, 2 times a day, # 16 Gm, 0 Refills, Maintenance, 02/21/24 17:46:00 EDT, [place], [facility]/pharmacy #[id number], Partial fill upon patient request if the prescription is for a schedule II opioid drug., 1 sprays Nares, Both 2 times a d... Start Date: 02/21/24 Status: Ordered hydrOXYzine hydrochloride 10 mg oral tablet 1 tablet = 10 mg, By Mouth, 3 times a day, PRN for anxiety, # 42 tablet, 0 Refills, Maintenance, 01/16/24 16:47:00 EDT, Tablet, [facility]/pharmacy #[id number], Partial fill upon patient request if the prescription is for a schedule II opioid drug., 168, cm, 01/15... Start Date: 01/16/24 Status: Ordered hyoscyamine 0.125 mg oral tablet 0.125 mg, 1, tablet, By Mouth, 4 times a day, PRN, # 40 tablet, Refills 0, Tot. Refills 0, Maintenance, for spasm, 03/27/24 0:47:00 EDT, Route to Pharmacy Electronically, [facility]/pharmacy #[id number], Partial fill upon patient request if the prescription is for... Start Date: 03/27/24 Status: Ordered omeprazole 20 mg oral enteric coated capsule 1 capsule, By Mouth, 2 times a day, # 180 capsule, 0 Refills, Maintenance, 01/25/24 10:16:00 EDT[id number], 168, cm, 01/24/24 14:42:00 EDT, Height, 63.5, kg, 01/08/24 20:41:00 EDT, Dry Weight Start Date: 01/25/24 Status: Ordered sucralfate 1 gm/10 ml oral suspension 10 mL = 1 Gm, By Mouth, 3 times a day before meals and bedtime, # 1,200 mL, 0 Refills, Maintenance,03/27/24 0:48:00 EDT, [id number], Partial fill upon patient request if the [...] 2negative celiac screen in [address] ormero 4she does have heavy monthly period Diagnosis Diagnosis Type Effective Dates Health Status Clinical Service Informant IBS - Irritable bowel syndrome Discharge Diagnosis 03/29/24 Migraine Discharge Diagnosis 03/29/24 Cystic acne Discharge Diagnosis 03/29/24 History of palpitations Discharge Diagnosis 03/29/24 CAMERON (generalized anxiety disorder) Discharge Diagnosis 03/29/24 Vital Signs Most recent to oldest [Reference Range]: 1 Height 168 cm (03/29/24 8:23 AM) Weight 62.1 kg (03/29/24 8:23 AM) Oxygen Saturation [94-100 %] 100 % (03/29/24 8:23 AM) Pulse Rate [55-90 bpm] 52 bpm *L* (03/29/24 8:23 AM) Body Mass Index [18.5-24.99 kg/m2] 22 kg /m2 (03/29/24 8:23 AM) Blood Pressure [90-138/55-84 mm Hg] 110/ 50mm Hg (03/29/24 8:23 AM) Respiratory Rate [16-30 br/min] 15 br/mi n *L* (03/29/24 8:23 AM) Mode of Delivery (Oxygen) Room air (03/29/24 8:23 AM) Blood pressure sites Arm, left (03/29/24 8:23 AM) Dry Weight 62.1 kg (03/29/24 8:23 AM) Weight Obtained Via Standing scale (03/29/24 8:23 AM) Dry Weight Obtained Via Standing scale (03/29/24 8:23 AM) Social History Social History Type Response Smoking Status Never smoker; Tobacc o user in household: No entered on: 09/26/13 Sex Note * Mary Naranjo: PERFORM Event Display: Patient Education/Instruction Authored Date: [id number] Ambulatory Adult Visit Summary [facility] [address] [address] Name: REGULO ORLANDO : 1995?? Visit: 03/29/2024 08:19?? Ambulatory Visit Instructions ?? Your Care Team Primary Care Provider Elisa Peterson NP? This Visit Provider Elisa ePterson NP. Your Diagnosis IBS - Irritable bowel syndrome Migraine Cystic acne History of palpitations CAMERON (generalized anxiety disorder) Vitals Signs Pulse Rate:??52 bpm??Low Height: 168 cm Respiratory Rate:??15 br/min??Low Weight: 62.1 kg Systolic Blood Pressure: 110 mm Hg Body Mass Index: 22 kg/m2 Diastolic Blood Pressure:??50 mm Hg??Low Body surface area: 1.7 Oxygen Saturation: 100 % ?? What to do next Scheduled Follow-Up Appointments Monday 11:30 AM EDT ?? With: Vandana EDGAR, Jade Reynaga Where: [facility] [address], [address] [place] [address]- Status: Pending Monday 11:00 AM EDT ?? With: Myke Cordova Where: [facility] [address] [place] [address] [address] [address]- Status: Pending Monday 3:15 PM EDT ?? With: Joellen SRINIVASAN, Enedina Reynaga Where: [facility] [address] [place] [address]- Status: Pending Monday 1:00 PM EDT ?? With: Nicholas EDGAR, Elisa Reynaga Where: [facility] [address] [place] [address]- Status: Pending Future Orders Chlamydia/Neisseria RNA, TMA, Ur/TP/Swab - Routine, Vagina, Once, Collected by Ashia Ray RN,02/14/24 17:39:58 EDT, Order for Today, [facility], Swab?? Vaginosis Vaginitis Panel (BV, CV/TV) - Routine, Vaginal Swab, Once, 02/14/24 17:46:00 EDT, Order for Today, [facility], Swab?? Medications The list below reflects the information in our records and provided by you today along with any changes made during this visit. Please continue your medications until treatment is completed or stopped by your provider. If this is different from the information you have or there are other questions,please contact the prescribing provider. What How Much When Why Instructions Unchanged Acetaminophen (acetaminophen 325 mg oral tablet) 2 tab(s) Oral Every 6 hours as needed for Pain , Moderate Neck pain Unchanged Benzoyl Peroxide-Clindamycin Topical (benzoyl peroxide-clindamycin 5%- 1% topical gel) 1 anne Topically Twice a day Duration: 30 Days Unchanged Famotidine (famotidine 20 mg oral tablet) 1 tab(s) Oral Twice a day as needed for Control of Stomach Acid Unchanged Fluconazole (Diflucan 150 mg oral tablet) 1 tab(s) Oral Once Repeat dose if symptoms persist after 48 hrs ?? Unchanged Fluticasone Nasal (fluticasone 50 mcg/ inh nasal spray) 1 spray(s) Nares, Both Twice a day Unchanged HydrOXYzine (hydrOXYzine hydrochloride 10 mg oral tablet) 1 tab(s) Oral 3 times a day as needed for for anxiety Unchanged Hyoscyamine (hyoscyamine 0.125 mg oral tablet) 1 tab(s) Oral 4 times a day as needed for for spasm Unchanged Omeprazole (omeprazole 20 mg oral enteric coated capsule) 1 capsule Oral Twice a day Unchanged Ondansetron (ondansetron 4 mg oral tablet, disintegrating) 1 tab(s) Oral Every 8 hours as needed for Nausea & Vomiting Unchanged Sucralfate (sucralfate 1 gm/ 10 ml oral suspension) 10 Milliliter Oral 3 times a day before meals and bedtime Medications and Immunizations Administered Medications Given During Visit No medications given during this visit.?? Allergies (NKA means No Known Allergies) Other Environmental Allergy Reglan??(agitation) Common Emergency Awareness Tips IS IT A STROKE? Act FAST and Check for these signs: FACE Does the face look uneven? ARM Does one arm drift down? SPEECH Does their speech sound strange? TIME Call at any sign of stroke ?? Heart Attack Signs Chest discomfort: Most heart attacks involve discomfort in the center of the chest and lasts more than a few minutes, or goes away and comes back. It can feel like uncomfortable pressure, squeezing, fullness or pain. Discomfort in upper body: Symptoms can include pain or discomfort in one or both arms, back, neck, jaw or stomach. Shortness of breath: With or without discomfort. Other signs: Breaking out in a cold sweat, nausea, or lightheaded. Remember, MINUTES DO MATTER. If you experience any of these heart attack warning signs, call to get immediate medical attention! ?? Smoking can increase your chances of developing chronic health problems and can cause harmful effects to other family members in your house. If you smoke, you are strongly encouraged to quit. Please call [employer] Link at [phone] or 3-934-481-[employer] (0854) or log in to [email or web address] for referrals to smoking cessation programs. ?? The National Suicide Prevention Hotline is available 10/04 if you or someone you know needs to find a reason to keep living. By calling 6-058-478-oend (3619) you'll be connected to a skilled, trained counselor at a crisis center in your area. [facility] [employer] Portal You can view and manage your care through the patient portal or by using a health care anne of your choosing. [employer] is a website that allows you to securely view your medical information including your hospital discharge summary, office visit summaries, medications and follow-up visits. You can also request appointments, renew medications, and request access to your medical information using a health care anne of your choosing, or just ask a question. You can enroll at [email or web address] or register during your next office visit. [facility], in keeping with [facility] guidance, no longer requires face masks for staff, patientsor visitors in most situations. Similiar to time spent indoors at other locations, there is the chance that you were exposed to repiratory viruses during your time with us (such as flu or COVID-19). If you develop symptoms concerning for a viral respiratory infection, please seek testing (and treatment if indicated) from your medical provider or home test kit. ?? Disclaimer: The information provided is of a general nature and is intended to be used in conjunction with the recommendations and advice of your health care practitioner. Every effort has been made to ensure that the information provided is accurate and complete at the time it is provided to you however, as your needs change, or, as new information becomes available, different or additional instructions may be required. ?? If you have questions, please consult with your primary care provider or pharmacist, as appropriate. This information is not intended to serve as substitution for assessment and evaluation by a qualified health care provider. If you do not have a primary care provider, you may find a [facility] provider by calling [facility] [employer] Link at [phone]. Patient Care team information Care Team Personnel Name: Ulysses Desai MD Position: [facility] MIXER AND SCALER MD Member Role: Lifetime MIXER AND SCALER Physician Address: Address: [address] [place] [address] [place] [address]- [place] Name: Elisa Peterson NP Position: [facility] PCO Associate Professional Member Role: PCP Address: Address: [address] [place] [id number]- [place] Name: Josette Bhardwaj [place] Position: [facility] Office Staff Member Role: Primary Care Nurse Care Team Related Persons Name: JOHANNYHUBER Spears Address: home [address] [place] [address] Name: HUBER ORLANDO Address: home [address] [place] [address] Name: HUBER ORLANDO Address: home [address] [place] [address] Name: JUAN ORLANDO Address: home [address] [address]
--- OUTSIDE RECORDS SUMMARY | 2024-05-22 09:07 | XMS_ITS | Continuity of Care Document ---
Author Organization [facility] Address [address] [place] [address]- Care Team Providers Care Chemical Engineer Name Role Phone Nicholas SENIOR INFRASTRUCTURE ENGINEER, Elisa Reynaga Primary Care Physician Encounter [facility] Date(s): 03/26/24 - 03/27/[address] [address]- Discharge Disposition: A-D/C Home Attending Physician: Karel Garcia MD Admitting Physician: Karel Garcia MD Referring Physician: Not on Staff, Referring [...] B pediatric vaccine 93 Recorded 1Result Comment: [facility] [id number] 2Result Comment: [facility]: [id number] 3Result Comment: [facility] [id number] [phone] 4Location History: [facility] 5Admin Note: 1st dove 11/21/1995 2nd done [...] 01/29/24 14:53:00 EDT, Route to Pharmacy Electronically, [facility]/pharmacy #[id number], Partial fill upon patient request if the prescription i... Start Date: 01/29/24 Status: Ordered Diflucan 150 mg oral tablet 1 tablet = 150 mg, By Mouth, Once, Repeat dose if symptoms persist after 48 hrs, # 2 tablet, 0 Refills, Soft Stop, 03/27/24 13:14:00 EDT, Tablet, [facility]/pharmacy #[id number], Partial fill upon patient requestif the prescription is for a schedule II opioid alyssa... Start Date: 03/27/24 Status: Ordered famotidine 20 mg oral tablet 20 mg, 1, tablet, By Mouth, 2 times a day, PRN, # 30 tablet, Refills 0, Tot. Refills 0, Maintenance, Control of Stomach Acid, 01/09/24 0:16:00 EDT, Route to Pharmacy Electronically, [facility]/pharmacy #[id number], Partial fill upon patient request if the prescrip... Start Date: 01/09/24 Status: Ordered fluticasone 50 mcg/inh nasal spray 1 sprays = 50 mcg, Nares, Both, 2 times a day, # 16 Gm, 0 Refills, Maintenance, 02/21/24 17:46:00 EDT, [place], [facility]/pharmacy #[id number], Partial fill upon patient request if the prescription is for a schedule II opioid drug., 1 sprays Nares, Both 2 times a d... Start Date: 02/21/24 Status: Ordered hydrOXYzine hydrochloride 10 mg oral tablet 1 tablet = 10 mg, By Mouth, 3 times a day, PRN for anxiety, # 42 tablet, 0 Refills, Maintenance, 01/16/24 16:47:00 EDT, Tablet, [facility]/pharmacy #[id number], Partial fill upon patient request if the prescription is for a schedule II opioid drug., 168, cm, 01/15... Start Date: 01/16/24 Status: Ordered hyoscyamine 0.125 mg oral tablet 0.125 mg, 1, tablet, By Mouth, 4 times a day, PRN, # 40 tablet, Refills 0, Tot. Refills 0, Maintenance, for spasm, 03/27/24 0:47:00 EDT, Route to Pharmacy Electronically, [facility]/pharmacy #[id number], Partial fill upon patient request if the prescription is for... Start Date: 03/27/24 Status: Ordered omeprazole 20 mg oral enteric coated capsule 1 capsule, By Mouth, 2 times a day, # 180 capsule, 0 Refills, Maintenance, 01/25/24 10:16:00 EDT, [facility] STORE [id number], 168, cm, 01/24/24 14:42:00 EDT, Height, 63.5, kg, 01/08/24 20:41:00 EDT, Dry Weight Start Date: 01/25/24 Status: Ordered ondansetron 4 mg oral tablet, disintegrating 1 tablet = 4 mg, By Mouth, Every 8 hours, PRN Nausea & Vomiting, # 20 tablet, 0 Refills, Acute 04/03/24 0:48:00 EDT, 03/27/24 0:47:00 EDT, Tablet, [facility]/pharmacy #[id number], Partial fill upon patient request if the prescription is for a schedule II opioid Start Date: 03/27/24 Stop Date: 04/03/24 Status: Ordered sucralfate 1 gm/10 ml oral suspension 10 mL = 1 Gm, By Mouth, 3 times a day before meals and bedtime, # 1,200 mL, 0 Refills, Maintenance,03/27/24 0:48:00 EDT, [id number], Partial fill upon patient request if the prescription is for a schedule II opioid drug., 168, cm, 03/26/24 22... Start Date: 03/27/24 Status: Ordered Problem List Condition Confirmation Course Effective Dates Status Health St atus Informant Anxiety Confirmed Active Anxiety about health Confirmed Active Back pain Confirmed Active Chronic back pain Confirmed Active COVID-19 1 Confirmed 03/19/24 Active Diarrhea Confirmed Active Fibromyalgia 2 Confirmed [...] romero 4she does have heavy monthly period Results Radiology Reports * Exam Date Time Procedure Performing Provider Status 03/26/24 10:[address] Abd/Pelvis W/ IV Contrast Only Tanya Bazan; Auth (Verified) Notes: (CT Abd/Pelvis W/ IV Contrast Only) Reason For Exam: Pain RESULT: CT Abd/Pelvis W/ IV Contrast Only CT Abd/Pelvis W/ IV Contrast Only INDICATION: upper abd pain, nausea, acid reflux and diarrhea x4 days. Denies fever chills. +covid 1.5 weeks ago.; TECHNIQUE: Helical CT scan through the abdomen and pelvis with IV contrast formatted in 3 planes. 100 cc of Omnipaque 300 was administered intravenously.Weight-based protocol using automatic tube modulation was used to optimize exposure parameters. CTDIvol Body: 10.14 mGy, DLP Body: 497 mGy*cm. COMPARISON: 10/17/2023 FINDINGS: VEHICLE CALIBRATION ENGINEER VIEW FINDINGS, LINES AND TUBES: None. LOWER CHEST: Clear lungs. No pleural abnormalities. Normal heart size. No pericardial effusion. DIAPHRAGM: Normal. LIVER: Normal. GALLBLADDER, BILE DUCTS AND JORGE LUIS HEPATIS: Normal. SPLEEN: Normal. PANCREAS: Normal. ADRENAL GLANDS: Normal. RIGHT KIDNEY AND URETER: Normal. LEFT KIDNEY AND URETER: Normal. URINARY BLADDER: Normal. STOMACH, SMALL BOWEL AND LARGE BOWEL: Normal. No evidence of intestinal inflammation, obstruction or mass. APPENDIX: Normal. REPRODUCTIVE ORGANS: Normal. No pelvic masses or fluid collections. OMENTUM, PERITONEUM AND MESENTERY: No ascites, pneumoperitoneum or omental lesions LYMPH NODES: Normal. VASCULATURE: Normal aorta, no aneurysm. No venous thrombosis. ABDOMINAL WALL and RETROPERITONEAL MUSCLES: Normal. BONES: Normal. IMPRESSION: Normal. WSN: [id number] Ordering Physician: Karel Garcia Dictated By: Hayden Olmedo MD Dictated Date/Time: 03/27/24 1:54 pm Reviewed By: Hayden Olmedo MD Signed By: Hayden Olmedo MD Signed Date/Time: 03/27/24 1:54 pm Transcribed By: SAVANNAH Transcribed Date/Time: 03/27/24 10:24 am Vital Signs Most recent to oldest [Reference Range]: 1 2 3 Height 168 cm (03/27/24 1:02 AM) 168 cm (03/26/24 10:19 PM) 168 cm (03/26/24 6:04 PM) Weight 61.6 kg (03/27/24 1:02 AM) 61.6 kg (03/26/24: PM) 61.6 kg (03/26/24 6:04 PM) Oxygen Saturation [94-100 %] 100 % (03/27/24 1:02 AM) 100 % (03/26/24: PM) 100 % (03/26/24 6:04 PM) Pulse Rate [55-90 bpm] 74 bpm (03/27/24 1:02 AM) 52 bpm *L* (03/26/24 10: PM) 94 bpm *H* (03/26/24 6:04 PM) Body Mass Index [18.5-24.99 kg/m2] 21.83 kg/m2 (03/27/24 1:02 AM) 21.83 kg/m2 (03/26/24 10:19 PM) Blood Pressure [90-138/55-84 mm Hg] 121/80mm Hg (03/27/24 1:02 AM) 114/90mm Hg (03/26/24 10:19 PM) 146/93mm Hg *H* (03/26/24 6:04 PM) Respiratory Rate [16-30 br/min] 19 br/min (03/27/24 1:02 AM) 12 br/min *L* (03/26/24 10:19 PM) 15 br/min *L* (03/26/24 6:04 PM) Temperature [96.8-100.4 DegF] 97.9 DegF (03/27/24 1:02 AM) 98.2 DegF (03/26/24 6:04 PM) Mode of Delivery (Oxygen) Room air (03/27/24 1:02 AM) Room air (03/26/24 10:19 PM) Room air (03/26/24 6:04 PM) Blood pressure sites Arm, left (03/27/24 1:02 AM) Arm, right (03/26/24 10:19 PM) Arm, left (03/26/24 6:04 PM) Temperature Route Oral (03/27/24 1:02 AM) Temporal (03/26/24 6:04 PM) Dry Weight 61.6 kg (03/27/24 1:02 AM) 61.6 kg (03/26/24 10:19 PM) 61.6 kg (03/26/24 6:04 PM) Weight Obtained Via Standing scale (03/26/24 6:04 PM) Dry Weight Obtained Via Standing scale (03/26/24 6:04 PM) Social History Social History Type Response Smoking Status Never smoker; Tobacc o user in household: No entered on: 09/26/13 Sex Note * Radha SRINIVASAN, Karel: PERFORM, SIGN, VERIFY Event Display: Patient Education Handout Authored Date: Patient Care team information Care Team Personnel Name: Ulysses Desai MD Position: [facility] RESIDUE FURNACE OPERATOR MD Member Role: Lifetime RESIDUE FURNACE OPERATOR Physician Address: Address: [address] [place] [address] [place] [address]- [place] Name: Nicholas EDGAR, Elisa Reynaga Position: [facility] PCO Associate Professional Member Role: PCP Address: Address: [address] [place] [id number]- Name: Josette Bhardwaj [place] Position: [facility] Office Staff Member Role: Primary Care Nurse Care Team Related Persons Name: HUBER ORLANDO Address: home [address] [place] [address] Name: HUBER ORLANDO Address: home [address] [place] [address] Name: HUBER ORLANDO Address: home [address] [place] [address] Name: JUAN ORLANDO Address: home [address] [address]
--- OUTSIDE RECORDS SUMMARY | 2024-05-22 09:07 | XMS_ITS | Continuity of Care Document ---
Author Organization [facility] Address [address] [place] [address]- Care Team Providers Care Shrimp Pond Laborer Name Role Phone Nicholas ROTARY KILN OPERATOR, Elisa Reynaga Primary Care Physician Encounter [facility] Date(s): 11/25/20 - 12/25/20 [facility] [address] [address] Attending Physician: Admlenora, Som8 Admitting Physician: Admtr, Som8 Referring Physician: Admtr, Ar8 Allergies, Adverse Reactions, Alerts Substance Reaction Severity [...] (old term) 6 09/07/94 Given 1Result Comment: [facility] [id number] [facility] 3Admin Note: [...] 0 Refills, Maintenance, 11/13/20 15:14:00 EST, Gel, [id number], Partial fill upon patient request if the prescription is for a schedule II opioid drug., 1 application Topi... Start Date: 11/13/20 Status: Ordered Lo Loestrin Fe By Mouth, [...]
--- OUTSIDE RECORDS SUMMARY | 2024-05-22 09:07 | XMS_ITS | Continuity of Care Document ---
Author Organization [facility] Address [address] [place] [address]- Care Team Providers Care Forge Hand Name Role Phone Nicholas JUNIOR NETWORK ENGINEER, Elisa M Primary Care Physician Encounter [facility] [id number] Date(s): 01/29/24 - 01/29/[address] [address]- Discharge Disposition: A-D/C Home Attending Physician: Enrico Magallanes MD Admitting Physician: Enrico Magallanes MD Referring Physician: Not on Staff, Referring [...] B pediatric vaccine 93 Recorded 1Result Comment: [facility] 30840-462-07 2Result Comment: [facility]: [id number] 3Result Comment: [facility] [id number] [phone] 4Location History: [facility] 5Admin Note: 1st dove 11/21/1995 2nd done [...] 01/29/24 14:53:00 EDT, Route to Pharmacy Electronically, [facility]/pharmacy #[id number], Partial fill upon patient request if the prescription i... Start Date: 01/29/24 Status: Ordered famotidine 20 mg oral tablet 20 mg, 1, tablet, By Mouth, 2 times a day, PRN, # 30 tablet, Refills 0, Tot. Refills 0, Maintenance, Control of Stomach Acid, 01/09/24 0:16:00 EDT, Route to Pharmacy Electronically, [facility]/pharmacy #0911, Partial fill upon patient request if the prescrip... Start Date: 01/09/24 Status: Ordered hydrOXYzine hydrochloride 10 mg oral tablet 1 tablet = 10 mg, By Mouth, 3 times a day, PRN for anxiety, # 42 tablet, 0 Refills, Maintenance, 01/16/24 16:47:00 EDT, Tablet, [facility]/pharmacy #[id number], Partial fill upon patient request if the prescription is for a schedule II opioid drug., 168, cm, 01/15... Start Date: 01/16/24 Status: Ordered ibuprofen 600 mg oral tablet 600 mg, 1, tablet, By Mouth, Daily, PRN, Take with food. Take sparingly, # 20 tablet, Refills 0, Tot. Refills 0, Acute 02/17/24 8:00:00 EDT, Headache, 12/26/23 16:09:00 EDT, Route to Pharmacy Electronically, [facility]/pharmacy #[id number], Partial fill upon patie... Start Date: 12/26/23 Stop Date: 02/17/24 Status: Ordered loratadine 10 mg oral capsule 1 capsule = 10 mg, By Mouth, Daily, As needed for symptoms of allergic reaction., # 10 capsule, 0 Refills, Maintenance, 12/31/23 1:48:00 EDT, Capsule, [facility]/pharmacy #[id number], Partial fill upon patient request if the prescription is for a schedule II opioi... Start Date: 12/31/23 Status: Ordered omeprazole 20 mg oral enteric coated capsule 1 capsule, By Mouth, 2 times a day, # 180 capsule, 0 Refills, Maintenance, 01/25/24 10:16:00 EDT, [facility], 168, cm, 01/24/24 14:42:00 EDT, Height, 63.5, kg, 01/08/24 20:41:00 EDT, Dry Weight Start Date: 01/25/24 Status: Ordered Xyzal 5 mg oral tablet 1 tablet = 5 mg, By Mouth, Daily in PM, # 30 tablet, 6 Refills, Maintenance, 08/30/23 14:06:00 EST,Tablet, [id number], Partial fill upon patient request [...] oldest [Reference Range]: 1 2 3 Height 165 cm (01/29/24 10:00 PM) 165 cm (01/29/24 7:07 PM) 165 cm (01/29/24 7:04 PM) Weight 61.6 kg (01/29/24 10:00 PM) 61.6 kg (01/29/24 7:07 PM) 61.6 kg (01/29/24 7:04 PM) Oxygen Saturation [94-100 %] 100 % (01/29/24 10:19 PM) 100 % (01/29/24 10:00 PM) 99 % (01/29/24 7:04 PM) Pulse Rate [55-90 bpm] 78 bpm (01/29/24 10:19 PM) 75 bpm (01/29/24 10:00 PM) 100 bpm *H* (01/29/24 7:04 PM) Body Mass Index [18.5-24.99 kg/m2] 22.63 kg/m2 (01/29/24 10:00 PM) 22.63 kg/m2 (01/29/24 7:04 PM) Blood Pressure [90-138/55-84 mm Hg] 116/85mm Hg (01/29/24 10:19 PM) 112/67mm Hg (01/29/24 10:00 PM) 140/90mm Hg *H* (01/29/24 7:07 PM) Respiratory Rate [16-30 br/min] 18 br/min (01/29/24 10:19 PM) 17 br/min (01/29/24 10:00 PM) 22 br/min (01/29/24 7:04 PM) Temperature [96.8-100.4 DegF] 97.8 DegF (01/29/24 7:04 PM) Mode of Delivery (Oxygen) Room air (01/29/24 10:19 PM) Room air (01/29/24 10:00 PM) Room air (01/29/24 7:04 PM) Blood pressure sites Arm, left (01/29/24 10:19 PM) Arm, left (01/29/24 10:00 PM) Arm, left (01/29/24 7:07 PM) Temperature Route Temporal (01/29/24 7:04 PM) Dry Weight 61.6 kg (01/29/24 10:00 PM) 61.6 kg (01/29/24 7:07 PM) 61.6 kg (01/29/24 7:04 PM) Weight Obtained Via Standing scale (01/29/24 7:04 PM) Social History Social History Type Response Smoking Status Never smoker; Tobacc o user in household: No entered on: 09/26/13 Sex Patient Care team information Care Team Personnel Name: Giselle SRINIVASAN, Ulysses Thornton Position: [facility] AV SPECIALIST MD Member Role: Lifetime AV SPECIALIST Physician Address: Address: [address] [place] [address] [facility] [place], [place] [address] Name: Elisa Peterson NP Position: [facility] PCO Associate Professional Member Role: PCP Address: Address: [address] [place] [id number] Name: Josette Bhardwaj [place] Position: [facility] RN Member Role: Primary Care Nurse Care Team Related Persons Name: HUBER ORLANDO Address: home [address] [place] [address] Name: JOHANNY HUBER Reynaga Address: home [address] [place] [address] Name: JOHANNY HUBER M Address: home [address] [place] [address] Name: JUAN ORLANDO Address: home [address]
--- OUTSIDE RECORDS SUMMARY | 2024-05-22 09:07 | XMS_ITS | Continuity of Care Document ---
Author Organization [facility] Address [address] [place] [address]- Care Team Providers Care Chief Librarian Extension Department Name Role Phone Nicholas STAFF SCIENTIST, Elisa Reynaga Primary Care Physician Encounter [facility] Date(s): 09/14/20 - 10/14/20 [facility] [address] [place] [address]- Allergies, Adverse Reactions, Alerts Substance Reaction Severity [...] (old term) 6 09/07/94 Given 1Result Comment: [facility] [id number] 2[facility] 3Admin Note: 1st dove 11/21/1995 2nd done 05/21/2009 4Admin Note: 1st done 12/13/2006 2nd done 02/14/2007 3rd done 06/19/2007 5Admin Note: 1st done 02/24/1995 2nd done 11/30/1998 6Admin Note: 1st done 1993 2nd done 1993 3rd done 09/07/1994 Medications amitriptyline 10 mg oral tablet 10 mg, 1, tablet, By Mouth, Daily at bedtime, # 30 tablet, Refills 0, Maintenance, 09/08/20 13:45:00 EST, Partial fill upon patient request if the prescription is for a schedule II opioid drug. Start Date: 09/08/20 Status: Ordered Lo Loestrin Fe By Mouth, [...]
--- OUTSIDE RECORDS SUMMARY | 2024-05-22 09:07 | XMS_ITS | Continuity of Care Document ---
Author Organization [facility] Address [address], [address], [address] [place] [address]- Care Team Providers Care Loom Operator Apprentice Name Role Phone Nicholas SSDS MK 2 ADVANCED OPERATOR, Elisa M Primary Care Physician En[place] [facility] Date(s): 04/10/23 - 07/12/23 [facility] [address], [address], [address] [place] [id number] Attending Physician: Not on Staff, Attending MD Allergies, Adverse Reactions, Alerts Substance Reaction [...] pediatric vaccine 93 Recorded 1Result Comment: [facility] [id number] 2Result Comment: [facility]: [id number] 3Result Comment: [facility] [id number] 4[facility] 5Admin Note: [...] opioid drug. Start Date: 06/29/23 Status: Ordered amoxicillin 500 mg oral tablet TAKE 1 TABLET BY MOUTH EVERY 6 HOURS UNTIL FINISHED Start Date: 07/03/23 Status: Ordered Carafate 1 gm/10 ml oral suspension 10 mL = 1 Gm, By Mouth, 3 times a day before meals and bedtime, # 560 mL, 0 Refills, Maintenance, 05/19/23 22:44:00 EDT, [facility]/pharmacy #[id number], Partial fill upon patient request if the prescription is for a schedule II opioid drug., 165.1, cm, 05/19/23 1... Start Date: 05/19/23 Stop Date: 06/02/23 Status: Ordered chlorhexidine topical 0.12% liquid 15 mL = 0.018 Gm, By Mouth, 2 times a day, # 480 mL, 0 Refills, Maintenance, 06/29/23 12:46:00 EDT,Liquid, [facility]/pharmacy #[id number], Partial fill upon patient [...] Refills, Maintenance, 07/03/23 16:09:00 EDT, EC Tablet, [facility]/pharmacy #[id number], Partial fill upon patient request if the prescription is for a schedule II opioid drug., 165.1,... Start Date: 07/03/23 Stop Date: 07/18/23 Status: Ordered gabapentin 300 mg oral capsule 300 mg, 1, capsule, By Mouth, Daily at bedtime, PRN, # 15 capsule, Refills 0, Tot. Refills 0, Maintenance, [facility], 07/03/23 16:09:00 EDT, Route to Pharmacy Electronically, [facility]/pharmacy #[id number], Partial fill upon patient request if the prescriptio... Start Date: 07/03/23 Stop Date: 07/18/23 Status: Ordered Junel Fe 1.5/30 By Mouth, Daily, 0 Refills, Maintenance, 08/08/22 13:49:00 EST, Partial fill upon patient request if the prescription is for a schedule II opioid drug. Start Date: 08/08/22 Status: Ordered mirtazapine 7.5 mg oral tablet See Instructions, TAKE 1 TABLET BY MOUTH DAILY FOR 1 WEEK AND THEN INCREASE TO 2 TABLETS DAILY, # 180 tablet, 1 Refills, Maintenance, 07/07/23 6:25:00 EDT, [id number], 165.1, cm, 07/03/23 15:14:00 EDT, Height, 64.3, kg, 05/19/23 19:22:00 EDT, Dry... Start Date: 07/07/23 Status: Ordered omeprazole 20 mg oral enteric coated capsule 1 capsule, By Mouth, 2 times a day, # 180 capsule, 1 Refills, Maintenance, 06/24/23 16:07:00 EDT, [facility], 165.1, cm, 06/12/23 14:42:00 EDT, Height, 64.3, kg, 05/19/23 19:22:00 EDT, Dry Weight Start Date: 06/24/23 Status: Ordered Problem List Condition Confirmation Course [...] Team Personnel Name: Ulysses Desai MD Position: [facility] SPECIAL INVESTIGATOR MD Member Role: Lifetime SPECIAL INVESTIGATOR Physician Address: Address: [address] [place] [address] [place] [address]- Name: Elisa Peterson NP Position: [facility] PCO Associate Professional Member Role: PCP Address: Address: [address] [place] [id number] Name: Josette Bhardwaj [place] Position: [facility] RN Member Role: Primary Care Nurse Care Team Related Persons Name: HUBER ORLANDO Address: home [address] [place] [address] Name: HUBER ORLANDO Address: home [address] [place] [address] Name: HUBER ORLANDO Address: home [address] [place] [address] Name: JUAN ORLANDO Address: home [address]
--- OUTSIDE RECORDS SUMMARY | 2024-05-22 09:07 | XMS_ITS | Continuity of Care Document ---
Author Organization [facility] [place] Address [address] [place] [address]- Care Team Providers Care Credit Control Assistant Name Role Phone Nicholas SECURITY SYSTEM ENGINEER, Elisa M Primary Care Physician Encounter [facility] Date(s): 06/12/20 - 07/12/20 [facility] [place] [address] [place] [address]- [facility] Allergies, Adverse Reactions, Alerts Substance Reaction Severity [...] (old term) 6 09/07/94 Given 1Result Comment: [facility] [id number] 2[facility] 3Admin Note: [...] 06/08/20 9:10:00 EDT, Route to Pharmacy Electronically, [facility]/pharmacy #[id number], 168, cm, 06/08/20 7:01:00 EDT, Height, [...]
--- OUTSIDE RECORDS SUMMARY | 2024-05-22 09:07 | XMS_ITS | Continuity of Care Document ---
[facility] Organization [facility] Address [address] [place] [address]- Care Team Providers Care Vice President Of Nursing Name Role Phone Elisa Peterson NP Primary Care Physician Encounter [facility] Date(s): 04/24/24 [facility] [address] [address]- [place] Encounter Diagnosis Myalgia(Discharge Diagnosis) - 04/24/24 Hiatal hernia with GERD(Discharge Diagnosis) - 04/24/24 Anxiety about health(Discharge Diagnosis) - 04/25/24 Cystic acne(Discharge Diagnosis) - 04/25/24 History of COVID-19(Discharge Diagnosis) - 04/25/24 Attending Physician: Elisa Peterson NP Allergies, Adverse [...] B pediatric vaccine 93 Recorded 1Result Comment: [facility] [id number] 2Result Comment: [facility]: [id number] 3Result Comment: [facility] [id number] 4[facility] 5Admin Note: [...] 01/29/24 14:53:00 EDT, Route to Pharmacy Electronically, [facility]/pharmacy #[id number], Partial fill upon patient request if the prescription i... Start Date: 01/29/24 Status: Ordered benzoyl peroxide 10% topical cream 1 application, Topically, Daily, keep away from eyes and mucous membranes clean affected area before application, # 120 Gm, 6 Refills, Maintenance, 04/24/24 13:03:00 EDT, Cream, Partial fill upon patient request if the prescription is for a schedule... Start Date: 04/24/24 Stop Date: 11/20/24 Status: Ordered clindamycin 1% topical gel 1 application, Topically, Daily at bedtime, apply a thin film apply a thin film to affected area after washing, # 30 Gm, 6 Refills, Maintenance, 04/24/24 13:02:00 EDT, Gel, [facility]/pharmacy #[id number], Partial fill upon patient request if the prescription is... Start Date: 04/24/24 Stop Date: 11/20/24 Status: Ordered Doxycycline Maintenance, 04/23/24 10:48:00 EDT Start Date: 04/23/24 Status: Ordered famotidine 20 mg oral tablet 20 mg, 1, tablet, By Mouth, 2 times a day, PRN, # 30 tablet, Refills 0, Tot. Refills 0, Maintenance, Control of Stomach Acid, 01/09/24 0:16:00 EDT, Route to Pharmacy Electronically, [facility]/pharmacy #[id number], Partial fill upon patient request if the prescrip... Start Date: 01/09/24 Status: Ordered fluticasone 50 mcg/inh nasal spray 1 sprays = 50 mcg, Nares, Both, 2 times a day, # 16 Gm, 0 Refills, Maintenance, 02/21/24 17:46:00 EDT, [place], [facility]/pharmacy #[id number], Partial fill upon patient request if the prescription is for a schedule II opioid drug., 1 sprays Nares, Both 2 times a d... Start Date: 02/21/24 Status: Ordered hydrOXYzine hydrochloride 10 mg oral tablet 1 tablet = 10 mg, By Mouth, 3 times a day, PRN for anxiety, # 42 tablet, 0 Refills, Maintenance, 01/16/24 16:47:00 EDT, Tablet, [id number], Partial fill upon patient request if the prescription is for a schedule II opioid drug., 168, cm, 01/15... Start Date: 01/16/24 Status: Ordered Protonix 20 mg oral delayed release tablet 1 tablet = 20 mg, By Mouth, Daily, # 30 tablet, 11 Refills, Maintenance, 04/15/24 11:34:00 EDT, CR Tablet, 168, cm, 04/15/24 11:16:00 EDT, Height, 60.6, kg, 04/15/24 7:38:00 EDT, Dry Weight Start Date: 04/15/24 Status: Ordered Voltaren Arthritis Pain 1% topical gel = 2 Gm, Topically, 4 times a day, PRN Pain , Moderate, not to exceed 8 grams/day/single joint of upper extremities, # 100 Gm, 0 Refills, Maintenance, 04/12/24 10:18:00 EDT, [id number], Partial fill upon patient request if the prescription is f... Start Date: 04/12/24 Status: Ordered Problem List Condition Confirmation Course Effective Dates Status Health St atus Informant Anxiety Confirmed Active Anxiety about health Confirmed Active Back pain Confirmed Active Chronic back pain Confirmed Active Long COVID Confirmed Active COVID-19 1 Confirmed 03/19/24 Active [...] romero 4she does have heavy monthly period Diagnosis Diagnosis Type Effective Dates Health Status inical Service Informant Anxiety about health Discharge Diagnosis 04/25/24 Cystic acne Discharge Diagnosis 04/25/24 History of COVID-19 Discharge Diagnosis 04/25/24 Myalgia Discharge Diagnosis 04/24/24 Hiatal hernia with GERD Discharge Diagnosis 04/24/24 Vital Signs Most recent to oldest [Reference Range]: 1 Height 165 cm (04/24/24 12:27 PM) Weight 60.6 kg (04/24/24 12: PM) Oxygen Saturation [94-100 %] 99 % (04/24/24 12: PM) Pulse Rate [55-90 bpm] 110 bpm *H* (04/24/24 12: PM) Body Mass Index [18.5-24.99 kg/m2] 22.26 kg/m2 (04/24/24 12:27 PM) Blood Pressure [90-138/55-84 mm Hg] 130/ 80mm Hg (04/24/24 12: PM) Respiratory Rate [16-30 br/min] 15 br/mi n *L* (04/24/24 12:27 PM) Mode of Delivery (Oxygen) Room air (04/24/24 12:27 PM) Blood pressure sites Arm, left (04/24/24 12:27 PM) Dry Weight 60.6 kg (04/24/24 12:27 PM) Weight Obtained Via Standing scale (04/24/24 12:27 PM) Dry Weight Obtained Via Standing scale (04/24/24 12:27 PM) Social History Social History Type Response Smoking Status Never smoker; Tobacc o user in household: No entered on: 09/26/13 Sex Note * Keeley Grewal: PERFORM Event Display: Patient Education/Instruction Authored Date: [id number] Ambulatory Adult Visit Summary [facility] [address] [address] Name: REGULO ORLANDO : 1995?? Visit: 04/24/2024 12:24?? Ambulatory Visit Instructions ?? Your Care Team Primary Care Provider Elisa Peterson NP? This Visit Provider Elisa Peterson NP. Your Diagnosis Myalgia Hiatal hernia with GERD Vitals Signs Pulse Rate:??110 bpm??High Height: 165 cm Respiratory Rate:??15 br/min??Low Weight: 60.6 kg Systolic Blood Pressure: 130 mm Hg Body Mass Index: 22.26 kg/m2 Diastolic Blood Pressure: 80 mm Hg Body surface area: 1.67 Oxygen Saturation: 99 % ?? What to do next Scheduled Follow-Up Appointments Monday 7:00 AM EDT ?? With: Elisa Peterson NP Where: [facility] [address] [address]- Status: Pending Monday 1:00 PM EDT ?? With: Elisa Peterson NP Where: [facility] [address] [address]- Status: Pending Monday 8:30 AM EDT ?? With: Vandana EDGAR, Jade Reynaga Where: [facility] [address] [facility] 3rd Floor, [address] [place] [address]- Status: Pending Future Orders Vaginosis Vaginitis Panel (BV, CV/TV) - Routine, [...] provider. What How Much When Why Instructions New Benzoyl Peroxide Topical (benzoyl peroxide 10% topical cream) 1 anne Topically Daily Duration: 30 Days Refills: 6 keep away from eyes and mucous membranes clean affected area before application ?? New Clindamycin Topical (clindamycin 1% topical gel) 1 anne Topically Daily at Bedtime Duration: 30 Days Refills: 6 apply a thin film apply a thin film to affected area after washing ?? Pickup at [facility]/pharmacy #[id number] Unchanged Acetaminophen (acetaminophen 325 mg oral tablet) 2 tab(s) Oral Every 6 hours as needed for Pain , Moderate Neck pain Unchanged Diclofenac Topical (Voltaren Arthritis Pain 1% topical gel) 2 gram Topically 4 times a day as needed for Pain , Moderate Neck pain without injury not to exceed 8 grams/ day/ single joint of upper extremities ?? Unchanged Doxycycline Unchanged Famotidine (famotidine 20 mg oral tablet) 1 tab(s) Oral Twice a day as needed for Control of Stomach Acid Unchanged Fluticasone Nasal (fluticasone 50 mcg/ inh nasal spray) 1 spray(s) Nares, Both Twice a day Unchanged HydrOXYzine (hydrOXYzine hydrochloride 10 mg oral tablet) 1 tab(s) Oral 3 times a day as needed for for anxiety Unchanged Pantoprazole (Protonix 20 mg oral delayed release tablet) 1 tab(s) Oral Daily Unchanged Sucralfate (sucralfate 1 gm/ 10 ml oral suspension) 10 Milliliter Oral 3 times a day before meals and bedtime Pharmacy Information [facility]/pharmacy #[id number]: [address], [place] [id number] [phone] Medications and Immunizations Administered Medications Given During [...] are strongly encouraged to quit. Please call [facility] [facility] at [phone] or [phone] ([phone]) or log in to [email or web address] for referrals to smoking cessation programs. ?? The National Suicide Prevention Hotline is available 10/04 if you or someone you know needs to find a reason to keep living. By calling 8-510-210-[employer] (5041) you'll be connected to a skilled, trained counselor at a crisis center in your area. [facility] Portal You can view and manage your care through the patient portal or by using a health care anne of your choosing. [employer] is a website that allows you to securely view your medical information including your hospital discharge summary, office visit summaries, medications and follow-up visits. You can also request appointments, renew medications, and request access to your medical information using a health care anne of your choosing, or just ask a question. You can enroll at [email or web address] or register during your next office visit. [facility], in keeping with [facility] guidance, no longer requires face masks for [...] primary care provider, you may find a [facility] provider by calling [facility] at [phone]. Patient Care team information Care Team Personnel Name: Ulysses Desai MD Position: [facility] ROD HANGER MD Member Role: Lifetime ROD HANGER Physician Address: Address: [address] [place] [address] [place] [address]- Name: Elisa Peterson NP Position: [facility] PCO Associate Professional Member Role: PCP Address: Address: [address] [place] [address] [facility] Name: Josette Bhardwaj [place] Position: [facility] Office Staff Member Role: Primary Care Nurse Care Team Related Persons Name: JOHANNY HUBER Address: home [address] [place] [address] Name: JOHANNY HUBER M Address: home [address] [place] [address] Name: JOHANNY HUBER M Address: home [address] [place] [address] Name: JUAN ORLANDO Address: home [address]
--- OUTSIDE RECORDS SUMMARY | 2024-05-22 09:07 | XMS_ITS | Continuity of Care Document ---
Author Organization [facility] Address [address] [facility], 3r d Floor, [address] [place] [address]- Care Team Providers Care Dermatology Physician Name Role Phone Nicholas EDGAR, Elisa M Primary Care Physician Encounter [facility] Date(s): 01/02/23 - 02/01/23 [facility] [address] [facility], 3rd Floor, [address] [place] [id number] Allergies, Adverse Reactions, Alerts Substance Reaction [...] B pediatric vaccine 93 Recorded 1Result Comment: [facility] [id number] 2Result Comment: [facility]: [id number] 3Result Comment: [facility] [id number] 4[facility] 5Admin Note: 1st dove 11/21/1995 2nd done 05/21/2009 6Admin Note: 1st done 12/13/2006 2nd done 02/14/2007 3rd done 06/19/2007 7Admin Note: 1st done 02/24/1995 2nd done 11/30/1998 8Admin Note: 1st done 1993 2nd done 1993 3rd done 09/07/1994 Medications Ajovy Autoinjector 225 mg/1.5 mL subcutaneous solution = 225 mg, Subcutaneous Injection, Every 28 days, # 1 kit, 2 Refills, Maintenance, 01/14/23 13:47:00EDT, [facility]/pharmacy #[id number], Partial fill upon patient request if the prescription is for a schedule IIopioid drug., 168, cm, 01/12/23 9:03:00 EDT, Height... Start Date: 01/14/23 Status: Ordered ARIPiprazole 2 mg oral tablet 2 mg, 1, tablet, TAKE 1 TABLET BY MOUTH EVERY DAY IN THE MORNING Start Date: 12/06/22 Status: Ordered Ativan 0.5 mg oral tablet 1 tablet = 0.5 mg, By Mouth, Daily, MassPat checked, # 5 tablet, 0 Refills, Maintenance, 12/17/21 15:33:00 EDT, Tablet, [facility]/pharmacy #[id number], Partial fill upon patient request if the prescription is for a schedule II opioid drug., 168, cm, 11/25/21 10:4... Start Date: 12/17/21 Status: Ordered diclofenac potassium 50 mg oral tablet 1 tablet = 50 mg, By Mouth, 3 times a day, PRN for pain, # 30 tablet, 0 Refills, Maintenance, 11/01/22 10:46:00 EST, Tablet, Partial fill upon patient request if the prescription is for a schedule IIopioid drug. Start Date: 11/01/22 Status: Ordered Flonase 50 mcg/inh nasal spray 1 sprays = 50 mcg, Nares, Both, 2 times a day, # 9.9 mL, 6 Refills, Maintenance, 11/01/22 10:44:00 EST, Nasal [place], [facility]/pharmacy #[id number], Partial fill upon patient request if the prescription is for aschedule II opioid drug., 1 sprays Nares, Both 2 ti... Start Date: 11/01/22 Status: Ordered .530 By Mouth, Daily, 0 Refills, Maintenance, 08/08/22 13:49:00 EST, Partial fill upon patient request if the prescription is for a schedule II opioid drug. Start Date: 08/08/22 Status: Ordered Misc Rx bcp pill, By Mouth, Daily, Refills 0, Maintenance, 08/11/21 20:44:00 EST, Supply Start Date: 08/11/21 Status: Ordered Nurtec ODT 75 mg oral tablet, disintegrating 1 tablet = 75 mg, By Mouth, Every 24 hours, PRN as needed for migraine headache, not to exceed 75 mg in 24 hours, # 8 tablet, 5 Refills, Acute 12/07/23 10:26:00 EDT, 12/06/22 10:26:00 EDT, DIS Tablet, [facility]/pharmacy #[id number], Partial fill upon patient requ... Start Date: 12/06/22 Stop Date: 12/07/23 Status: Ordered omeprazole 20 mg oral enteric coated capsule 1 capsule, By Mouth, 2 times a day, # 180 capsule, 1 Refills, Maintenance, 11/01/22 10:45:00 EST, [id number], 168, cm, 11/01/22 10:19:00 EST, Height, 64, kg, 10/25/22 12:27:00 EST, Dry Weight Start Date: 11/01/22 Stop Date: 04/30/23 Status: Ordered verapamil 120 mg oral capsule, extended release 1 capsule = 120 mg, By Mouth, Daily at bedtime, # 30 capsule, 2 Refills, Maintenance, 12/06/22 9:51:00 EDT, CR Capsule, [facility]/pharmacy #[id number], Partial fill upon patient request if the prescription is for a schedule II opioid drug., 168, cm, 12/06/22 9:08... Start Date: 12/06/22 Status: Ordered Xyzal 5 mg oral tablet 1 tablet = 5 mg, By Mouth, Daily in PM, # 90 tablet, 1 Refills, Maintenance, 10/24/22 16:56:00 EST,Tablet, [facility]/pharmacy #[id number], Partial fill upon patient request if the prescription is for a scheduleII opioid drug., 1 tablet By Mouth Daily in PM,x90... Start Date: 10/24/22 Stop Date: 04/22/23 Status: Ordered Problem List Condition Confirmation Course [...] Personnel Name: Giselle SRINIVASAN, Ulysses Thornton Position: [facility] HEAT TREATER HEAD MD Member Role: Lifetime HEAT TREATER HEAD Physician Address: Address: [address] [place] [address] [facility] [place], [place] [address] Name: Elisa Peterson NP Position: [facility] PCO Associate Professional Member Role: PCP Address: Address: [address] [place] [address]- Name: Josette De Anda Position: [facility] RN Member Role: Primary Care Nurse Care Team Related Persons Name: HUBER ORLANDO Address: home [address] [place] [address] Name: HUBER ORLANDO Address: home [address] [place] [address] Name: HUBER ORLANDO Address: home [address] [place] [address] [place] [address] Name: JUAN ORLANDO Address: home [address] [address]
--- OUTSIDE RECORDS SUMMARY | 2024-05-22 09:07 | XMS_ITS | Continuity of Care Document ---
Author Organization [facility] Address [address] [place] [address]- Care Team Providers Care Brick Or Block Maker Name Role Phone Anitha Hyde MD Primary Care Physician [place] [facility] Date[place] 04/28/20 - 05/28/20 [facility] [address] [place] [address]- [facility] Allergies, Adverse Reactions, Alerts Substance Reaction Severity [...] (old term) 6 09/07/94 Given 1Result Comment: [facility] [id number] 2[facility] 3Admin Note: [...]
--- OUTSIDE RECORDS SUMMARY | 2024-05-22 09:07 | XMS_ITS | Continuity of Care Document ---
Author Organization [facility] Address [address] [facility], 3r d Floor, [address] [place] [address]- Care Team Providers Care Optical Mechanic Apprentice Name Role Phone Nicholas WATERPROOFING SUPERVISOR, Elisa Reynaga Primary Care Physician Encounter [facility] Date(s): 05/25/23 - 06/24/23 [facility] [address] [facility], 3rd Floor, [address] [place] [address]- Allergies, Adverse Reactions, Alerts Substance Reaction Severity [...] vaccine 93 Recorded 1Result Comment: [facility] [id number] 2Result Comment: [facility]: [id number] 3Result Comment: [facility] [id number] [phone] 4[facility] 5Admin Note: [...] mL, 0 Refills, Maintenance, 05/19/23 22:44:00 EDT, [facility]/pharmacy #[id number], Partial fill upon patient request if the prescription is for a schedule II opioid drug., 165.1, cm, 05/19/23 1... Start Date: 05/19/23 Stop Date: 06/02/23 Status: Ordered June By Mouth, Daily, 0 [...] 06/12/23 15:25:00 EDT, Route to Pharmacy Electronically, [facility]/pharmacy #[id number] Tablet, Partial fill upon patient... Start Date: 06/12/23 Stop Date: 07/02/23 Status: Ordered omeprazole 20 mg oral enteric coated capsule 1 capsule, By Mouth, 2 times a day, # 180 capsule, 1 Refills, Maintenance, 06/24/23 16:07:00 EDT, [id number], 165.1, cm, 06/12/23 14:42:00 EDT, Height, 64.3, [...] Team Personnel Name: Ulysses Desai MD Position: [facility] SUPPLY CHAIN TECH MD Member Role: Lifetime SUPPLY CHAIN TECH Physician Address: Address: [address] [place] [address] [place] [address]- Name: Elisa Peterson NP Position: [facility] PCO Associate Professional Member Role: PCP Address: Address: [address] [place] [address] Name: Josette Bhardwaj [place] Position: [facility] RN Member Role: Primary Care Nurse Care Team Related Persons Name: HUBER ORLANDO Address: home [address] [place] [address] Name: HUBER ORLANDO Address: home [address] [place] [address] Name: JOHANNY HUBER M Address: home [address] [place] [address] Name: JUAN ORLANDO Address: home [address]
--- OUTSIDE RECORDS SUMMARY | 2024-05-22 09:07 | XMS_ITS | Continuity of Care Document ---
Author Organization [facility] Address [address] [place] [address]- Care Team Providers Care Scrubber System Attendant Name Role Phone Mary Ellen SRINIVASAN, Anitha Primary Care Physician Encounter [facility] Date(s): 09/08/19 - 09/15/19 [facility] [address] [place] [address]- [facility] Attending Physician: Araseli Lopez MD Referring Physician: Anitha Hyde MD Allergies, Adverse Reactions, Alerts Substance Reaction [...] term) 6 09/07/94 Given 1Result Comment: [facility] [id number] [phone] 2[facility] 3Admin Note: 1st dove 11/21/1995 2nd done 05/21/2009 4Admin Note: 1st done 12/13/2006 2nd done 02/14/2007 3rd done 06/19/2007 5Admin Note: 1st done 02/24/1995 2nd done 11/30/1998 6Admin Note: 1st done 1993 2nd done 1993 3rd done 09/07/1994 Medications Augmentin 875 mg-125 mg oral tablet 1 tablet, By Mouth, Every 12 hours, for 10 days, # 20 tablet, 0 Refills, Acute 09/22/19 16:21:00 EST, 09/12/19 16:21:00 EST, Tablet, [facility]/pharmacy #[id number], 168, cm, 09/12/19 15:53:00 EST, Height, 64, kg, 09/08/19 14:41:00 EST, Dry Weight Start Date: 09/12/19 Stop Date: 09/22/19 Status: Ordered sertraline 25 mg oral tablet 1 tablet = 25 mg, By Mouth, Daily, # 30 tablet, 0 Refills, Maintenance, 09/12/19 16:21:00 EST, Tablet, [facility]/pharmacy #[id number], 168, cm, 09/12/19 15:53:00 EST, Height, 64, kg, 09/08/19 14:41:00 EST, Dry Weight Start Date: 09/12/19 Stop Date: 10/12/19 Status: Ordered Taytulla 1 mg-20 mcg oral [...] oldest [Reference Range]: 1 Height 168 cm (09/08/19 2:41 PM) Weight 64 kg (09/08/19 2:41 PM) Oxygen Saturation [94-100 %] 100 % (09/08/19 2:41 PM) Pulse Rate [55-90 bpm] 70 bpm (09/08/19 2:41 PM) Body Mass Index [18.5-24.99] 22.68 (09/08/19 2:41 PM) Blood Pressure [90-138/55-84 mm Hg] 134/ 92mm Hg (09/08/19 2:41 PM) Respiratory Rate [16-30 br/min] 17 br/mi n (09/08/19 2:41 PM) Temperature [96.8-100.4 DegF] 99.0 DegF (09/08/19 2:41 PM) Mode of Delivery (Oxygen) Room air (09/08/19 2:41 PM) Blood pressure sites Arm, right (09/08/19 2:41 PM) Temperature Route Oral (09/08/19 2:41 PM) Dry Weight 64 kg (09/08/19 2:41 PM) Dry Weight Obtained Via Standing scale (09/08/19 2:41 PM) Social History Social History Type Response Smoking Status Never smoker; Tobacc o user in household: No entered on: 09/26/13 Sex
--- OUTSIDE RECORDS SUMMARY | 2024-05-22 09:07 | XMS_ITS | Continuity of Care Document ---
Author Organization [facility] Address [address] [place] [address]- Care Team Providers Care Sr. Merchandise Planner Name Role Phone Anitha Hyde MD Primary Care Physician ( [phone] Encounter [facility] Date(s): 05/06/20 - 06/05/20 [facility] [address] [place] [address]- [facility] Allergies, Adverse Reactions, Alerts Substance Reaction Severity [...] (old term) 6 09/07/94 Given 1Result Comment: [facility] [id number] 2[facility] 3Admin Note: [...]
--- OUTSIDE RECORDS SUMMARY | 2024-05-22 09:07 | XMS_ITS | Continuity of Care Document ---
Author Organization [facility] Address [address] [place] [address]- Care Team Providers Care Fire Systems Inspector Name Role Phone Nicholas WINDOWS SECURITY ENGINEER, Elisa M Primary Care Physician Encounter [facility] Date(s): 02/15/24 - 03/16/24 [facility] [address] [place] [address]- Allergies, Adverse Reactions, Alerts Substance Reaction Severity [...] B pediatric vaccine 93 Recorded 1Result Comment: [facility] 60683-366-54 2Result Comment: [facility]: [id number] 3Result Comment: [facility] [id number] 4[facility] 5Admin Note: [...] 01/29/24 14:53:00 EDT, Route to Pharmacy Electronically, [facility]/pharmacy #[id number], Partial fill upon patient request if the prescription i... Start Date: 01/29/24 Status: Ordered famotidine 20 mg oral tablet 20 mg, 1, tablet, By Mouth, 2 times a day, PRN, # 30 tablet, Refills 0, Tot. Refills 0, Maintenance, Control of Stomach Acid, 01/09/24 0:16:00 EDT, Route to Pharmacy Electronically, [facility]/pharmacy #[id number], Partial fill upon patient request if the prescrip... Start Date: 01/09/24 Status: Ordered fluticasone 50 mcg/inh nasal spray 1 sprays = 50 mcg, Nares, Both, 2 times a day, # 16 Gm, 0 Refills, Maintenance, 02/21/24 17:46:00 EDT, [place], [facility]/pharmacy #[id number], Partial fill upon patient request if the prescription is for a schedule II opioid drug., 1 sprays Nares, Both 2 times a d... Start Date: 02/21/24 Status: Ordered hydrOXYzine hydrochloride 10 mg oral tablet 1 tablet = 10 mg, By Mouth, 3 times a day, PRN for anxiety, # 42 tablet, 0 Refills, Maintenance, 01/16/24 16:47:00 EDT, Tablet, [facility]/pharmacy #[id number], Partial fill upon patient request if the prescription is for a schedule II opioid drug., 168, cm, 01/15... Start Date: 01/16/24 Status: Ordered loratadine 10 mg oral capsule 1 capsule = 10 mg, By Mouth, Daily, As needed for symptoms of allergic reaction., # 10 capsule, 0 Refills, Maintenance, 12/31/23 1:48:00 EDT, Capsule, [facility]/pharmacy #[id number], Partial fill upon patient request if the prescription is for a schedule II opioi... Start Date: 12/31/23 Status: Ordered loratadine 10 mg oral tablet 10 mg, 1, tablet, By Mouth, Daily, # 30 tablet, Refills 0, Tot. Refills 0, Maintenance, 02/21/24 17:46:00 EDT, Route to Pharmacy Electronically, [facility]/pharmacy #[id number], Partial fill upon patient request if the prescription is for a schedule II opioid drug... Start Date: 02/21/24 Status: Ordered omeprazole 20 mg oral enteric coated capsule 1 capsule, By Mouth, 2 times a day, # 180 capsule, 0 Refills, Maintenance, 01/25/24 10:16:00 EDT, [id number], 168, cm, 01/24/24 14:42:00 EDT, Height, 63.5, [...] dysfunction Confirmed Active Abnormal TSH Confirmed Active 1negative celiac screen in [address] romero 3she does have heavy monthly period Social History Social History Type Response Smoking Status Never smoker; Tobacc o user in household: No entered on: 09/26/13 Sex Patient Care team information Care Team Personnel Name: Giselle SRINIVASAN, Ulysses Thornton Position: [facility] PROMOTIONS OFFICER MD Member Role: Lifetime PROMOTIONS OFFICER Physician Address: Address: [address] [place] [address] [facility] [place], [place] [address] Name: Elisa Peterson NP Position: [facility] PCO Associate Professional Member Role: PCP Address: Address: [address] [place] [address]- Name: Josette Bhardwaj [place] Position: [facility] Office Staff Member Role: Primary Care Nurse Care Team Related Persons Name: JOHANNY HUBER Address: home [address] [place] [address] Name: HUBER ORLANDO Address: home [address] [place] [address] Name: JOHANNY HUBER M Address: home [address] [place] [address] Name: JUAN ORLANDO Address: home [address]
--- OUTSIDE RECORDS SUMMARY | 2024-05-22 09:07 | XMS_ITS | Continuity of Care Document ---
Author Organization [facility] Address [address] [place] [address]- Care Team Providers Care Mid Level Java Developer Name Role Phone Nicholas TRIMMER BUFFING WHEEL, Elisa M Primary Care Physician Encounter [facility] NBR [id number] Date(s): 07/31/23 - 08/30/23 [facility] [address] [place] [address]- [place] Allergies, Adverse Reactions, Alerts Substance Reaction [...] B pediatric vaccine 93 Recorded 1Result Comment: [facility] [id number] 2Result Comment: [facility]: [id number] 3Result Comment: [facility] [id number] 4[facility] 5Admin Note: [...] mL, 0 Refills, Maintenance, 05/19/23 22:44:00 EDT, [id number], Partial fill upon patient [...] mL, 0 Refills, Maintenance, 06/29/23 12:46:00 EDT,Liquid, [facility]/pharmacy #[id number], Partial fill upon [...] Refills, Maintenance, 07/03/23 16:09:00 EDT, EC Tablet, [facility]/pharmacy #[id number], Partial fill upon patient request if the prescription is for a schedule II opioid drug., 165.1,... Start Date: 07/03/23 Stop Date: 07/18/23 Status: Ordered fluticasone 27.5 mcg/inh nasal spray 1 sprays, Nares, Both, Daily, PRN Cold Symptoms, # 10 Gm, 0 Refills, Maintenance, 07/24/23 15:00:00EST, [place], [facility]/pharmacy #[id number], Partial fill upon patient request if the prescription is for a schedule II opioid drug., 1 sprays Nares, Both Daily,PRN... Start Date: 07/24/23 Status: Ordered gabapentin 300 mg oral capsule 300 mg, 1, capsule, By Mouth, Daily at bedtime, PRN, # 15 capsule, Refills 0, Tot. Refills 0, Maintenance, [facility], 07/03/23 16:09:00 EDT, Route to Pharmacy Electronically, [facility]/pharmacy #[id number], Partial fill upon patient request if the prescriptio... Start Date: 07/03/23 Stop Date: 07/18/23 Status: Ordered Junel Fe 1.530 By Mouth, Daily, 0 Refills, Maintenance, 08/08/22 13:49:00 EST, Partial fill upon patient request if the prescription is for a schedule II opioid drug. Start Date: 08/08/22 Status: Ordered mirtazapine 7.5 mg oral tablet See Instructions, TAKE 1 TABLET BY MOUTH DAILY FOR 1 WEEK AND THEN INCREASE TO 2 TABLETS DAILY, # 180 tablet, 1 Refills, Maintenance, 07/07/23 6:25:00 EDT, [id number], 165.1, cm, 07/03/23 15:14:00 EDT, Height, 64.3, kg, 05/19/23 19:22:00 EDT, Dry... Start Date: 07/07/23 Status: Ordered omeprazole 20 mg oral enteric coated capsule 1 capsule, By Mouth, 2 times a day, # 180 capsule, 1 Refills, Maintenance, 06/24/23 16:07:00 EDT, [id number], 165.1, cm, 06/12/23 14:42:00 EDT, Height, 64.3, kg, 05/19/23 19:22:00 EDT, Dry Weight Start Date: 06/24/23 Status: Ordered Xyzal 5 mg oral tablet 1 tablet = 5 mg, By Mouth, Daily in PM, # 30 tablet, 6 Refills, Maintenance, 08/30/23 14:06:00 EST,Tablet, [id number], Partial fill upon patient request if the [...] Team Personnel Name: Ulysses Desai MD Position: [facility] STRAIGHTENING MACHINE OPERATOR MD Member Role: Lifetime STRAIGHTENING MACHINE OPERATOR Physician Address: Address: [address] [place] [address] [facility] [address] Name: Elisa Peterson NP Position: [facility] PCO Associate Professional Member Role: PCP Address: Address: [address] [place] [address]- Name: Josette Bhardwaj [place] Position: [facility] RN Member Role: Primary Care Nurse Care Team Related Persons Name: HUBER ORLANDO Address: home [address] [place] [id number] Name: JOHANNY HUBER M Address: home [address] [place] [address] Name: HUBER ORLANDO Address: home [address] [place] [address] Name: JUAN ORLANDO Address: home [address] [address]
--- OUTSIDE RECORDS SUMMARY | 2024-05-22 09:07 | XMS_ITS | Continuity of Care Document ---
Author Organization [facility] Address [address] [place] [address]- Care Team Providers Care Lacquer Coater Name Role Phone Nicholas BODY CORPORATE MANAGER, Elisa Reynaga Primary Care Physician Encounter [facility] NBR [id number] Date(s): 01/18/23 - 02/17/23 [facility] [address] [place] [address]- [place] Allergies, Adverse Reactions, Alerts Substance Reaction [...] B pediatric vaccine 93 Recorded 1Result Comment: [facility] [id number] 2Result Comment: [facility]: [id number] 3Result Comment: [facility] [id number] 4[facility] 5Admin Note: [...] 1 kit, 2 Refills, Maintenance, 01/14/23 13:47:00EDT, [facility]/pharmacy #[id number], Partial fill upon [...] 0 Refills, Maintenance, 12/17/21 15:33:00 EDT, Tablet, [facility]/pharmacy #[id number], Partial fill upon [...] 6 Refills, Maintenance, 11/01/22 10:44:00 EST, Nasal [place], [facility]/pharmacy #[id number], Partial fill upon patient request if the prescription is for aschedule II opioid drug., 1 sprays Nares, Both 2 ti... Start Date: 11/01/22 Status: Ordered 1.530 By Mouth, Daily, 0 Refills, Maintenance, [...] 10:26:00 EDT, 12/06/22 10:26:00 EDT, DIS Tablet, [facility]/pharmacy #[id number], Partial fill upon patient requ... Start [...] Refills, Maintenance, 12/06/22 9:51:00 EDT, CR Capsule, [facility]/pharmacy #[id number], Partial fill upon patient request if the prescription is for a schedule II opioid drug., 168, cm, 12/06/22 9:08... Start Date: 12/06/22 Status: Ordered Xyzal 5 mg oral tablet 1 tablet = 5 mg, By Mouth, Daily in PM, # 90 tablet, 1 Refills, Maintenance, 10/24/22 16:56:00 EST,Tablet, [facility]/pharmacy #[id number], Partial fill upon [...] Team Personnel Name: Ulysses Desai MD Position: [facility] SUBSEA ENGINEER Member Role: Lifetime SUBSEA ENGINEER Physician Address: Address: [address] [place] [address] [facility] [place], [place] [address] Name: Elisa Peterson NP Position: [facility] PCO Associate Professional Member Role: PCP Address: Address: [address] [place] [address]- Name: Josette Bhardwaj [place] Position: [facility] GLENDY VERA Member Role: Primary Care Nurse Care Team Related Persons Name: HUBER ORLANDO Address: home [address] [place] [address] Name: HUBER ORLANDO Address: home [address] [place] [address] Name: HUBER ORLANDO Address: home [address] [place] [address], [place] [address] Name: JUAN ORLANDO Address: home [address] [address]
--- OUTSIDE RECORDS SUMMARY | 2024-05-22 09:07 | XMS_ITS | Continuity of Care Document ---
Author Organization [facility] [place] Address [address] [place] [address]- Care Team Providers Care Wind Turbine Engineer Name Role Phone Nicholas MEDICARE COMPLIANCE AUDITOR, Elisa M Primary Care Physician Encounter [facility] Date(s): 10/02/20 - 11/01/20 [facility] [place] [address] [place], [place] [address] Attending Physician: Alejandro Lamb Admitting Physician: Alejandro Lamb Referring Physician: Alejandro Lmab Allergies, Adverse Reactions, Alerts Substance Reaction Severity [...] Given 1Result Comment: [facility] [id number] 2[facility] 3Admin Note: [...]
--- OUTSIDE RECORDS SUMMARY | 2024-05-22 09:07 | XMS_ITS | Continuity of Care Document ---
Author Organization [facility] Address [address] [place] [address]- Care Team Providers Care Carpet Jack Name Role Phone Nicholas STEWARD/STEWARDESS THIRD, Elisa Reynaga Primary Care Physician Encounter [facility] Date(s): 11/18/20 - [facility]25/[email or web address] [address] [place] [address]- Attending Physician: Enedina Cuenca MD Allergies, Adverse Reactions, Alerts Substance Reaction [...] (old term) 6 09/07/94 Given 1Result Comment: [facility] [id number] 2[facility] 3Admin Note: [...] 0 Refills, Maintenance, 11/13/20 15:14:00 EST, Gel, [facility]/pharmacy #[id number], Partial fill upon patient request if the prescription is for a schedule II opioid drug., 1 application Topi... Start Date: 11/13/20 Status: Ordered ibuprofen 800 mg oral tablet 800 mg, 1, tablet, By Mouth, 3 times a day, for 14 days, # 42 tablet, Refills 0, Tot. Refills 0, Acute 12/02/20 12:50:00 EDT, 11/18/20 12:50:00 EST, Route to Pharmacy Electronically, [facility]/pharmacy #[id number], Partial fill upon patient [...] oldest [Reference Range]: 1 Height 168 cm (11/18/20 12:41 PM) Social History Social History Type Response Smoking Status Never smoker; Tobacc o user in household: No entered on: 09/26/13 Sex
--- OUTSIDE RECORDS SUMMARY | 2024-05-22 09:07 | XMS_ITS | Continuity of Care Document ---
Author Organization [facility] Address [address] [place] [address]- Care Team Providers Care Medical Lab Technologist Name Role Phone Nicholas WH[place] RIVER GUIDE, Elisa M Primary Care Physician Encounter [facility] Date(s): 03/10/22 - 04/09/22 [facility] [address] [place] [address]- [place] Allergies, Adverse Reactions, Alerts Substance Reaction [...] (old term) 7 09/07/94 Given 1Result Comment: [facility]: [id number] 2Result Comment: [facility] [id number] 3[facility] 4Admin Note: 1st dove 11/21/1995 2nd done 05/21/2009 5Admin Note: 1st done 12/13/2006 2nd done 02/14/2007 3rd done 06/19/2007 6Admin Note: 1st done 02/24/1995 2nd done 11/30/1998 7Admin Note: 1st done 1993 2nd done 1993 3rd done 09/07/1994 Medications Ativan 0.5 mg oral tablet 1 tablet = 0.5 mg, By Mouth, Daily, MassPat checked, # 5 tablet, 0 Refills, Maintenance, 12/17/21 15:33:00 EDT, Tablet, [facility]/pharmacy #[id number], Partial fill upon patient request if the prescription is for a schedule II opioid drug., 168, cm, 11/25/21 10:4... Start Date: 12/17/21 Status: Ordered docusate-senna 50 mg-187 mg oral tablet See Instructions, may take 2 tablets twice a day until regularly moving bowels, then prn, # 60 tablet, 0 Refills, Acute 09/30/22 10:00:00 EST, 09/30/21 19:43:00 EST, Tablet, [id number], may take 2 tablets twice a day until regularly moving bow... Start Date: 09/30/21 Stop Date: 09/30/22 Status: Ordered Misc Rx bcp pill, By Mouth, Daily, Refills 0, Maintenance, 08/11/21 20:44:00 EST, Supply Start Date: 08/11/21 Status: Ordered omeprazole 20 mg oral enteric coated capsule 1 capsule, By Mouth, Daily, # 30 capsule, 2 Refills, Maintenance, 03/15/22 9:38:00 EDT, [id number], 167, cm, 02/28/22 19:44:00 EDT, Height, 62, kg, 02/28/22 19:44:00 EDT, Dry Weight Start Date: 03/15/22 Status: Ordered Problem List Condition Effective Dates [...]
--- OUTSIDE RECORDS SUMMARY | 2024-05-22 09:07 | XMS_ITS | Continuity of Care Document ---
Author Organization [facility] Address [address] [place] [address]- Care Team Providers Care Military Equipment Specialist Name Role Phone Mary Ellen SRINIVASAN, Anitha Primary Care Physician En[facility] Date(s): 12/11/19 - 12/21/19 [facility] [address] [place] [address]- [facility] Attending Physician: AdmAlejandro cooley Admitting Physician: AdmtrAlejandro Referring Physician: Admtr, ArAury Allergies, Adverse Reactions, Alerts Substance Reaction Severity [...] (old term) 6 09/07/94 Given 1Result Comment: [facility] [id number] 2[facility] 3Admin Note: 1st dove 11/21/1995 2nd done 05/21/2009 4Admin Note: 1st done 12/13/2006 2nd done 02/14/2007 3rd done 06/19/2007 5Admin Note: 1st done 02/24/1995 2nd done 11/30/1998 6Admin Note: 1st done 1993 2nd done 1993 3rd done 09/07/1994 Medications naratriptan 2.5 mg oral tablet 1 tablet = 2.5 mg, By Mouth, Daily, PRN for migraine headache, may repeat dose once in 4 hours, # 9tablet, 1 Refills, Maintenance, 10/11/19 14:31:00 EST, Tablet, [facility]/pharmacy #[id number], 168, cm, 10/11/19 13:21:00 EST, Height, 64, kg, 09/08/19 14:41:00 ES... Start Date: 10/11/19 Status: Ordered sertraline 25 mg oral tablet 1 tablet = 25 mg, By Mouth, Daily, # 30 tablet, 5 Refills, Maintenance, 11/05/19 14:45:00 EST, Tablet, [facility]/pharmacy #[id number], 168, cm, 10/14/19 13:34:00 EST, Height, 64, kg, 09/08/19 14:41:00 EST, Dry Weight Start Date: 11/05/19 Stop Date: 05/03/20 Status: Ordered Taytulla 1 mg-20 mcg oral [...]
--- OUTSIDE RECORDS SUMMARY | 2024-05-22 09:08 | XMS_ITS | Continuity of Care Document ---
Author Organization [facility] Address [address], [address], [address] [place] [address]- Care Team Providers Care Aircraft Powertrain Repairer Name Role Phone Mary Ellen SRINIVASAN, Anitha Primary Care Physician ( [phone] Encounter [facility] Date(s): 11/26/19 - 12/03/19 [facility] [address], [address], [address] [place] [address] [facility] Attending Physician: Jacki Tucker MD Allergies, Adverse Reactions, Alerts Substance Reaction [...] (old term) 6 09/07/94 Given 1Result Comment: [facility] [id number] [phone] 2[facility] 3Admin Note: [...] 1 Refills, Maintenance, 10/11/19 14:31:00 EST, Tablet, [facility]/pharmacy #[id number], 168, cm, 10/11/19 13:21:00 EST, Height, 64, kg, 09/08/19 14:41:00 ES... Start Date: 10/11/19 Status: Ordered sertraline 25 mg oral tablet 1 tablet = 25 mg, By Mouth, Daily, # 30 tablet, 5 Refills, Maintenance, 11/05/19 14:45:00 EST, Tablet, [facility]/pharmacy #[id number], 168, cm, 10/14/19 13:34:00 EST, Height, [...]
--- OUTSIDE RECORDS SUMMARY | 2024-05-22 09:08 | XMS_ITS | Continuity of Care Document ---
Author Organization [facility] Address [address] [place] [address]- Care Team Providers Care Utility Mechanic Name Role Phone Nicholas INSEAMER, Elisa M Primary Care Physician Encounter [facility] Date(s): 06/29/23 - [facility] [address] [address]- [place] Encounter Diagnosis Acute pharyngitis(Discharge Diagnosis) - 06/29/23 Attending Physician: Cheng Galdamez MD Allergies, Adverse Reactions, Alerts Substance Reaction [...] pediatric vaccine 93 Recorded 1Result Comment: [facility] [id number] 2Result Comment: [facility]: [id number] 3Result Comment: [facility] [phone] [facility] 5Admin Note: [...] mL, 0 Refills, Maintenance, 05/19/23 22:44:00 EDT, [facility]/pharmacy #[id number], Partial fill upon patient request if the prescription is for a schedule II opioid drug., 165.1, cm, 05/19/23 1... Start Date: 05/19/23 Stop Date: 06/02/23 Status: Ordered chlorhexidine topical 0.12% liquid 15 mL = 0.018 Gm, By Mouth, 2 times a day, # 480 mL, 0 Refills, Maintenance, 06/29/23 12:46:00 EDT,Liquid, [facility]/pharmacy #[id number], Partial fill upon [...] Refills, Maintenance, 07/03/23 16:09:00 EDT, EC Tablet, [facility]/pharmacy #[id number], Partial fill upon patient request if the prescription is for a schedule II opioid drug., 165.1,... Start Date: 07/03/23 Stop Date: 07/18/23 Status: Ordered gabapentin 300 mg oral capsule 300 mg, 1, capsule, By Mouth, Daily at bedtime, PRN, # 15 capsule, Refills 0, Tot. Refills 0, Maintenance, [facility], 07/03/23 16:09:00 EDT, Route to Pharmacy Electronically, [facility]/pharmacy #[id number], Partial fill upon patient request if the prescriptio... Start Date: 07/03/23 Stop Date: 07/18/23 Status: Ordered June Fe 1.530 By Mouth, Daily, 0 Refills, [...] Refills, Maintenance, 07/07/23 6:25:00 EDT, [id number], 165.1, cm, 07/03/23 15:14:00 EDT, Height, 64.3, kg, 05/19/23 19:22:00 EDT, Dry... Start Date: 07/07/23 Status: Ordered omeprazole 20 mg oral enteric coated capsule 1 capsule, By Mouth, 2 times a day, # 180 capsule, 1 Refills, Maintenance, 06/24/23 16:07:00 EDT, [id number], 165.1, cm, 06/12/23 14:42:00 EDT, Height, 64.3, [...] Effective Dates Health Status Clinical Service Informant Acute pharyngitis Discharge Diagnosis 06/29/23 Vital Signs Most recent to oldest [Reference Range]: 1 Height 165.10 cm (06/29/23 9:01 AM) Social History Social History Type Response Smoking Status Never smoker; Tobacc o user in household: No entered on: 09/26/13 Sex Note * Kiana Bernabe: PERFORM, SIGN, VERIFY Event Display: Patient Education/Instruction Authored Date: [id number] [facility] *BMP Quab Adlt Med Bltn Clinical Summary Name REGULO ORLANDO Age 27 Years 1995 PCP Elisa Peterson NP PCP Visit Date 06/29/2023 09:02:00 Additional Instructions: Scheduled Appointments?? Future Appointments ?*BMP??Quab??Adlt??Med??Bltn ?[address]??[place],??[place],??[address] ?Phone:??--?Fax:??-- ?Appt. Date:??08/09/2023?1:00 PM ?Scheduled Provider:??Elisa Peterson NP. Follow-Up Instructions ?? Diagnosis Acute pharyngitis, unspecified Medications: Please continue your medications until treatment is completed or stopped by your provider. Discuss any questions related to medications with your provider. New Medications [facility]/pharmacy #[id number], [address] [place], [place] [id number], [phone] Chlorhexidine Topical (chlorhexidine topical 0.12% liquid) 15 Milliliter Oral twice a day. Refills:0. Next Dose: Medications to Continue with No Changes These medications were not printed or sent to your pharmacy Atropine / Diphenoxylate (Lomotil 0.025 mg-2.5 mg oral tablet) 1 tab(s) Oral 4 times a day as needed for loose stool for 10 Days. Refills: 1. Next Dose: Ethinyl Estradiol / Norethindrone () Oral Daily. Next Dose: fremanezumab (Ajovy 225 mg/1.5 mL subcutaneous solution) 225 Milligram Subcutaneous Infusion Every 28 days. Next Dose: Omeprazole (omeprazole 20 mg oral enteric coated capsule) 1 capsule Oral twice a day. Refills: 1. Next Dose: Sucralfate (Carafate 1 gm/10 ml oral suspension) 10 Milliliter Oral 3 times a day before meals and bedtime for 14 Days. Refills: 0. Next Dose: Allergy Info:?? Reglan Medications Given This Visit Future Orders ?No future orders Vital Signs Height 165.10 cm Weight BMI Blood Pressure / Temperature Pulse Rate Respiratory Rate 02 Sat Mode of Delivery / You can now view a summary of your hospital visit from the comfort of your home through a free online portal called Spotie. Spotie is a website that allows you to securely view your medical information including discharge summary, medications and follow-up visits. ??You can alsosend a secure electronic message to your doctor???s office to request appointments, renew medications or just ask a question. You can enroll at [email or web address] or register during your next office visit. Disclaimer:?? The information provided is of a general nature and is intended to be used in conjunction with the recommendations and advice of your health care practitioner. ??Every effort has been made to ensure that the information provided is accurate and complete at the time it is provided to you however, as your needs change, or, as new ??information becomes available, different or additional instructions may be required. If you have questions, please consult with your primary care provider or pharmacist, as appropriate. ??This information is not intended to serve as substitution for assessment and evaluation by a qualified health care provider. If you do not have a primary care provider, you may find a [facility] provider by calling [facility] at [phone]. [facility], in keeping with [facility] guidance, no longer requires face masks for staff, patientsor visitors in most situations. Similar to time spent indoors at other locations, there is the chance that you were exposed to respiratory viruses during your time with us (such as flu or COVID-19).? If you develop symptoms concerning for a viral respiratory infection, please seek testing (and treatment if indicated) from your medical provider or home test kit. For information about the plan of care including goals and instructions for your diagnosis, please see the patient education orders section of this document. Patient Education Materials?? The content of this educational material or handout may have been modified, supplemented, or adapted from its original content and format to support your individualized medical care. Patient Care team information Care Team Personnel Name: Ulysses Desai MD Position: S SYSTEMS PROJECT MANAGER Member Role: Lifetime SYSTEMS PROJECT MANAGER Physician Address: Address: [address] [place] [address] [facility] [address] Name: Nicholas INSEAMER, Elisa Reynaga Position: [facility] PCO Associate Professional Member Role: PCP Address: Address: [address] [place] [address] - Name: Josette Bhardwaj [place] Position: [facility] RN Member Role: Primary Care Nurse Care Team Related Persons Name: JOHANNYHUBER Spears Address: home [address] [place] [address] Name: HUBER ORLANDO Address: home [address] [place] [address] Name: JOHANNY HUBER M Address: home [address] [place] [address] Name: JUAN ORLANDO Address: home [address] [address]
--- OUTSIDE RECORDS SUMMARY | 2024-05-22 09:08 | XMS_ITS | Continuity of Care Document ---
Author Organization [facility] Address [address] [place] [address]- Care Team Providers Care Research Mechanic Name Role Phone Mary Ellen SRINIVASAN, Anitha Primary Care Physician ( [phone] Encounter [facility] Date(s): 09/08/19 - 09/18/19 [facility] [address] [place] [address]- [facility] Attending Physician: AdmAlejandro cooley Admitting Physician: AdmtrAlejandro Referring Physician: Admtr, Ar8 Allergies, Adverse Reactions, [...] Comment: [facility] [id number] [phone] 2[facility] 3Admin Note: [...] 09/22/19 16:21:00 EST, 09/12/19 16:21:00 EST, Tablet, [facility]/pharmacy #[id number], 168, cm, 09/12/19 15:53:00 EST, Height, 64, kg, 09/08/19 14:41:00 EST, Dry Weight Start Date: 09/12/19 Stop Date: 09/22/19 Status: Ordered sertraline 25 mg oral tablet 1 tablet = 25 mg, By Mouth, Daily, # 30 tablet, 0 Refills, Maintenance, 09/12/19 16:21:00 EST, Tablet, [facility]/pharmacy #[id number], 168, cm, 09/12/19 15:53:00 EST, Height, [...]
--- OUTSIDE RECORDS SUMMARY | 2024-05-22 09:08 | XMS_ITS | Continuity of Care Document ---
Author Organization [facility] al Address [address] [place] [address]- Care Team Providers Care Engineer System Administrator Name Role Phone Anitha Hyde MD Primary Care Physician Encounter [facility] Date(s): 04/25/20 - 04/25/[address] [address]- [facility] Discharge Disposition: A-D/C Home Attending Physician: Shantel Ramos MD Admitting Physician: Shantel Ramos MD Referring Physician: Not on Staff, Referring [...] (old term) 6 09/07/94 Given 1Result Comment: [facility] [id number] [phone] 2[facility] 3Admin Note: 1st dove 11/21/1995 2nd done 05/21/2009 4Admin Note: 1st done 12/13/2006 2nd done 02/14/2007 3rd done 06/19/2007 5Admin Note: 1st done 02/24/1995 2nd done 11/30/1998 6Admin Note: 1st done 1993 2nd done 1993 3rd done 09/07/1994 Medications Cymbalta 20 mg oral enteric coated capsule 1 capsule = 20 mg, By Mouth, 2 times a day, # 60 capsule, 0 Refills, Maintenance, 04/23/20 13:01:00EDT, EC Capsule, [id number], 165, cm, 04/09/20 13:14:00 EDT, Height, 60.45, kg, 04/05/20 22:39:00 EDT, Dry Weight Start Date: 04/23/20 Status: Ordered Lo Loestrin Fe By Mouth, Daily, 0 Refills, Maintenance, 04/05/20 20:23:00 EDT Start Date: 04/05/20 Status: Ordered magnesium oxide 400 mg oral tablet 1 tablet = 400 mg, By Mouth, Daily, for 30 days, # 30 tablet, 5 Refills, Acute 09/19/20 13:24:00 EST, 03/23/20 13:24:00 EDT, Tablet, [id number], 166, cm, 03/23/20 13:04:00 EDT, Height, 60.7, kg, 02/29/20 0:40:00 EDT, Dry Weight Start Date: 03/23/20 Stop Date: 09/19/20 Status: Ordered topiramate 25 mg oral tablet 2 tablet = 50 mg, By Mouth, 2 times a day, # 120 tablet, 3 Refills, Maintenance, 04/20/20 10:49:00 EDT, [id number], 165, cm, 04/09/20 13:14:00 EDT, Height, 60.45, kg, 04/05/20 22:39:00 EDT, Dry Weight Start Date: 04/20/20 Status: Ordered Problem List Condition Effective Dates Status Health Status Inform ant Anxiety(Confirmed) Active Back pain(Confirmed) Active Diarrhea(Confirmed) Active Fibromyalgia(Confirmed) 1 09/15/17 Active IBS - Irritable bowel syndrome(Confirmed) 2 Active Anemia, iron deficiency(Confirmed) 3 Active Migraine(Confirmed) 2006 Active Ovarian cyst(Confirmed) Active 1negative celiac screen in [address] romero 3she does have heavy monthly period Vital Signs Most recent to oldest [Reference Range]: 1 2 3 Height 167.64 cm (04/25/20 12:39 AM) Weight 59.7 kg (04/25/20 12:39 AM) Oxygen Saturation [94-100 %] 100 % (04/25/20 8:34 AM) 100 % (04/25/20 5:16 AM) 100 % (04/25/20 12:39 AM) Pulse Rate [55-90 bpm] 80 bpm (04/25/20 8:34 AM) 94 bpm *H* (04/25/20 5:16 AM) 101 bpm *H* (04/25/20 12:39 AM) Blood Pressure [90-138/55-84 mm Hg] 105/72mm Hg (04/25/20 8:34 AM) 133/95mm Hg (04/25/20 5:16 AM) 140/86mm Hg *H* (04/25/20 12:39 AM) Respiratory Rate [16-30 br/min] 16 br/min (04/25/20 5:16 AM) 18 br/min (04/25/20 12:39 AM) Mode of Delivery (Oxygen) Room air (04/25/20 8:34 AM) Room air (04/25/20 5:16 AM) Room air (04/25/20 12:39 AM) Dry Weight 59.7 kg (04/25/20 12:39 AM) Weight Obtained Via Standing scale (04/25/20 12:39 AM) Dry Weight Obtained Via Standing scale (04/25/20 12:39 AM) Social History Social History Type Response Smoking Status Never smoker; Tobacc o user in household: No entered on: 09/26/13 Sex
--- OUTSIDE RECORDS SUMMARY | 2024-05-22 09:08 | XMS_ITS | Continuity of Care Document ---
Author Organization [facility] Address [address] [place] [address]- Care Team Providers Care Fire Extinguisher Installer Name Role Phone Nicholas HAND KISS SETTER, Elisa M Primary Care Physician Encounter [facility] Date(s): 03/04/21 - [facility]03[facility] [address] [place] [address]- Allergies, Adverse Reactions, Alerts Substance Reaction Severity [...] (old term) 6 09/07/94 Given 1Result Comment: [facility] [id number] 2[facility] 3Admin Note: [...] Gm, 0 Refills, Maintenance, 01/29/21 20:47:00 EDT, [place], [id number], Partial fill upon patient request if the prescription is for a schedule II opioid drug., 1 sprays Nares, Both 2 times a day, 168,... Start Date: 01/29/21 Status: Ordered loratadine 10 mg oral capsule 1 capsule = 10 mg, By Mouth, Daily, # 24 capsule, 0 Refills, Maintenance, 01/29/21 20:47:00 EDT, Capsule, [id number], Partial fill upon patient request [...]
--- OUTSIDE RECORDS SUMMARY | 2024-05-22 09:08 | XMS_ITS | Continuity of Care Document ---
Author Organization [facility] r Address [address] [place] [address]- Care Team Providers Care Buoy Tender Name Role Phone Nicholas SHOP COOPER, Elisa Reynaga Primary Care Physician Encounter [facility] NBR [id number] Date(s): 01/25/23 - 02/24/[address] [address] Attending Physician: Alejandro Lamb Admitting Physician: AdmAlejandro [...] B pediatric vaccine 93 Recorded 1Result Comment: [facility] [id number] 2Result Comment: [facility]: [id number] 3Result Comment: [facility] [id number] [phone] 4[facility] 5Admin Note: [...] 1 kit, 2 Refills, Maintenance, 01/14/23 13:47:00EDT, [facility]/pharmacy #[id number], Partial fill upon patient request [...] 0 Refills, Maintenance, 12/17/21 15:33:00 EDT, Tablet, [facility]/pharmacy #[id number], Partial fill upon patient request [...] 6 Refills, Maintenance, 11/01/22 10:44:00 EST, Nasal [place], [facility]/pharmacy #[id number], Partial fill upon patient request [...] 10:26:00 EDT, 12/06/22 10:26:00 EDT, DIS Tablet, [id number], Partial fill upon patient requ... Start [...] Refills, Maintenance, 12/06/22 9:51:00 EDT, CR Capsule, [facility]/pharmacy #[id number], Partial fill upon patient request if the prescription is for a schedule II opioid drug., 168, cm, 12/06/22 9:08... Start Date: 12/06/22 Status: Ordered Xyzal 5 mg oral tablet 1 tablet = 5 mg, By Mouth, Daily in PM, # 90 tablet, 1 Refills, Maintenance, 10/24/22 16:56:00 EST,Tablet, [facility]/pharmacy #[id number], Partial fill upon patient request [...] Name: Ulysses Desai MD Position: [facility] SQUIRREL MAN MD Member Role: Lifetime SQUIRREL MAN Physician Address: Address: [address] [place] [address] [place] [address]- Name: Elisa Peterson NP Position: [facility] PCO Associate Professional Member Role: PCP Address: Address: [address] [place] [address]- [place] Name: Josette Bhardwaj [place] Position: [facility] RN Member Role: Primary Care Nurse Care Team Related Persons Name: HUBER ORLANDO Address: home [address] [place] [address] Name: HUBER ORLANDO M Address: home [address] [place] [address] Name: HUBER ORLANDO Address: home [address] [place] [address] Name: JUAN ORLANDO Address: [place] [id number]
--- OUTSIDE RECORDS SUMMARY | 2024-05-22 09:08 | XMS_ITS | Continuity of Care Document ---
Author Organization [facility] Address [address] [place] [address]- Care Team Providers Care Chef Instructor Name Role Phone Anitha Hyde MD Primary Care Physician Encounter [facility] Date(s): 04/03/20 - 05/03/20 [facility] [address] [place] [address]- [facility] Allergies, Adverse Reactions, Alerts Substance [...] term) 6 09/07/94 Given 1Result Comment: [facility] [id number] [phone] 2[facility] 3Admin Note: 1st dove 11/21/1995 2nd done 05/21/2009 4Admin Note: 1st done 12/13/2006 2nd done 02/14/2007 3rd done 06/19/2007 5Admin Note: 1st done 02/24/1995 2nd done 11/30/1998 6Admin Note: 1st done 1993 2nd done 1993 3rd done 09/07/1994 Medications Effexor XR 37.5 mg oral capsule, extended release 37.5 mg, 1, capsule, By Mouth, Daily, # 14 capsule, Refills 0, Tot. Refills 0, Maintenance, 05/01/20 11:14:00 EDT, Route to Pharmacy Electronically, [facility]/pharmacy #[id number], 167.64, cm, 04/25/20 0:39:00 EDT, Height, 60, kg, 04/26/20 21:40:00 EDT, Dry Weight Start Date: 05/01/20 Stop Date: 05/15/20 Status: Ordered Lo Loestrin Fe By Mouth, [...]
--- OUTSIDE RECORDS SUMMARY | 2024-05-22 09:08 | XMS_ITS | Continuity of Care Document ---
Author Organization [facility] Address [address] [place] [address]- Care Team Providers Care Bone Grinder Name Role Phone Nicholas BANK TELLER, Elisa Reynaga Primary Care Physician [facility] [id number] Date(s): 01/27/23 - 02/26/23 [facility] [address] [place] [address]- [place] Allergies, Adverse Reactions, Alerts Substance Reaction [...] pediatric vaccine 93 Recorded 1Result Comment: [facility] [id number] 2Result Comment: [facility]: [id number] 3Result Comment: [facility] [id number] 4[facility] 5Admin Note: [...] 1 kit, 2 Refills, Maintenance, 01/14/23 13:47:00EDT, [facility]/pharmacy #[id number], Partial fill upon patient request [...] 0 Refills, Maintenance, 12/17/21 15:33:00 EDT, Tablet, [facility]/pharmacy #[id number], Partial fill upon patient request [...] 6 Refills, Maintenance, 11/01/22 10:44:00 EST, Nasal [place], [facility]/pharmacy #[id number], Partial fill upon patient request [...] 10:26:00 EDT, 12/06/22 10:26:00 EDT, DIS Tablet, [facility]/pharmacy #[id number], Partial fill upon patient requ... [...] Refills, Maintenance, 12/06/22 9:51:00 EDT, CR Capsule, [facility]/pharmacy #[id number], Partial fill upon patient request if the prescription is for a schedule II opioid drug., 168, cm, 12/06/22 9:08... Start Date: 12/06/22 Status: Ordered Xyzal 5 mg oral tablet 1 tablet = 5 mg, By Mouth, Daily in PM, # 90 tablet, 1 Refills, Maintenance, 10/24/22 16:56:00 EST,Tablet, [facility]/pharmacy #[id number], Partial fill upon patient request [...] Personnel Name: Giselle SRINIVASAN, Ulysses Thornton Position: [facility] RN PROCEDURE MD Member Role: Lifetime RN PROCEDURE Physician Address: Address: [address] [place] [address] [facility] [place] [place] [address] Name: Elisa Peterson NP Position: [facility] PCO Associate Professional Member Role: PCP Address: Address: [address] [place] [address]- Name: Josette Bhardwaj [place] Position: [facility] RN Member Role: Primary Care Nurse Care Team Related Persons Name: HUBER ORLANDO Address: home [address] [place] [address] Name: HUBER ORLANDO Address: home [address] [place] [address] Name: HUBER ORLANDO Address: home [address] [place] [address], [place] [address] Name: JUAN ORLANDO Address: home [address] [address]
--- OUTSIDE RECORDS SUMMARY | 2024-05-22 09:08 | XMS_ITS | Continuity of Care Document ---
Author Organization [facility] Address [address] [place] [address]- Care Team Providers Care Braider Tender Name Role Phone Nicholas HARP MAKER, Elisa Reynaga Primary Care Physician Encounter [facility] Date(s): 02/29/24 - 03/01/[address] [address]- Encounter Diagnosis Body aches(Final) - 03/01/24 Headache(Final) - 03/01/24 Discharge Disposition: A-D/C Home Attending Physician: Kath Dumont DO Admitting Physician: Kath Dumont DO Referring Physician: Not on Staff, Referring MD [...] B pediatric vaccine 93 Recorded 1Result Comment: [facility] [id number] 2Result Comment: [facility]: [id number] 3Result Comment: [facility] [id number] 4[facility] 5Admin Note: [...] 01/29/24 14:53:00 EDT, Route to Pharmacy Electronically, [facility]/pharmacy #[id number], Partial fill upon patient request if the prescription i... Start Date: 01/29/24 Status: Ordered famotidine 20 mg oral tablet 20 mg, 1, tablet, By Mouth, 2 times a day, PRN, # 30 tablet, Refills 0, Tot. Refills 0, Maintenance, Control of Stomach Acid, 01/09/24 0:16:00 EDT, Route to Pharmacy Electronically, [facility]/pharmacy #[id number], Partial fill upon patient request if the prescrip... Start Date: 01/09/24 Status: Ordered fluticasone 50 mcg/inh nasal spray 1 sprays = 50 mcg, Nares, Both, 2 times a day, # 16 Gm, 0 Refills, Maintenance, 02/21/24 17:46:00 EDT, [place], [facility]/pharmacy #[id number], Partial fill upon patient request if the prescription is for a schedule II opioid drug., 1 sprays Nares, Both 2 times a d... Start Date: 02/21/24 Status: Ordered hydrOXYzine hydrochloride 10 mg oral tablet 1 tablet = 10 mg, By Mouth, 3 times a day, PRN for anxiety, # 42 tablet, 0 Refills, Maintenance, 01/16/24 16:47:00 EDT, Tablet, [facility]/pharmacy #[id number], Partial fill upon patient request if the prescription is for a schedule II opioid drug., 168, cm, 01/15... Start Date: 01/16/24 Status: Ordered loratadine 10 mg oral capsule 1 capsule = 10 mg, By Mouth, Daily, As needed for symptoms of allergic reaction., # 10 capsule, 0 Refills, Maintenance, 12/31/23 1:48:00 EDT, Capsule, [facility]/pharmacy #[id number], Partial fill upon patient request if the prescription is for a schedule II opioi... Start Date: 12/31/23 Status: Ordered loratadine 10 mg oral tablet 10 mg, 1, tablet, By Mouth, Daily, # 30 tablet, Refills 0, Tot. Refills 0, Maintenance, 02/21/24 17:46:00 EDT, Route to Pharmacy Electronically, [facility]/pharmacy #[id number], Partial fill upon patient request if the prescription is for a schedule II opioid drug... Start Date: 02/21/24 Status: Ordered omeprazole 20 mg oral enteric coated capsule 1 capsule, By Mouth, 2 times a day, # 180 capsule, 0 Refills, Maintenance, 01/25/24 10:16:00 EDT, [facility] STORE [id number], 168, cm, 01/24/24 14:42:00 EDT, Height, 63.5, kg, 01/08/24 20:41:00 EDT, Dry Weight Start Date: 01/25/24 Status: Ordered Xyzal 5 mg oral tablet 1 tablet = 5 mg, By Mouth, Daily in PM, # 30 tablet, 6 Refills, Maintenance, 08/30/23 14:06:00 EST,Tablet, [facility]/pharmacy #[id number], Partial fill upon patient request if the [...] 1negative celiac screen in [address] romreo 3she does have heavy monthly period Vital Signs Most recent to oldest [Reference Range]: 1 2 Height 168 cm (03/01/24 2:05 AM) 168 cm (02/29/24 10:12 PM) Weight 63.2 kg (03/01/24 2:05 AM) 63.2 kg (02/29/24 10:12 PM) Oxygen Saturation [94-100 %] 98 % (03/01/24 2:05 AM) 100 % (02/29/24 10:12 PM) Pulse Rate [55-90 bpm] 64 bpm (03/01/24 2:05 AM) 90 bpm (02/29/24 10:12 PM) Body Mass Index [18.5-24.99 kg/m2] 22.39 kg/m2 (03/01/24 2:05 AM) Blood Pressure [90-138/55-84 mm Hg] 107/ 66mm Hg (03/01/24 2:05 AM) 139/96mm Hg *H* (02/29/24 10:12 PM) Respiratory Rate [16-30 br/min] 15 br/mi n *L* (03/01/24 2:05 AM) 16 br/min (02/29/24 10:12 PM) Temperature [96.8-100.4 DegF] 98.4 DegF (02/29/24 10:12 PM) Mode of Delivery (Oxygen) Room air (03/01/24 2:05 AM) Room air (02/29/24 10:12 PM) Blood pressure sites Arm, left (03/01/24 2:05 AM) Arm, left (02/29/24 10:12 PM) Temperature Route Temporal (02/29/24 10:12 PM) Dry Weight 63.2 kg (03/01/24 2:05 AM) 63.2 kg (02/29/24 10:12 PM) Social History Social History Type Response Smoking Status Never smoker; Tobacc o user in household: No entered on: 09/26/13 Sex Note * Kath Dumont DO: PERFORM, SIGN, VERIFY Event Display: Patient Education Handout Authored Date: [id number] * Kath Dumont DO: PERFORM Event Display: Patient Education Leaflets Authored Date: [id number] Hypokalemia ?? [id number] Hypokalemia Hypokalemia means a low level of potassium in the blood. This most often occurs in people who take water pills (diuretics). It can also result from severe vomiting or diarrhea.??You may also have it if you??take laxatives for long periods of time. It sometimes happens if you have low magnesium (hypo magnesemia). If you have this,??your??healthcare provider will treat the low??magnesium first. A mild case of hypokalemia often causes no symptoms. It is only found with blood testing. More severe potassium loss causes: ??? Overall weakness ??? Muscle or stomach cramps ??? Rapid or irregular heartbeats (heart palpitations) ??? Low blood pressure ??? Muscle weakness ??? Short-term paralysis in some people Home care ??? Take any potassium supplements as prescribed. ??? Eat foods rich in potassium. High amounts of potassium are found in baked potatoes, baked sweet potatoes, spinach, cantaloupe, cod, halibut, salmon, and scallops. White, red, or lameida beans are also very good sources. So are avocados, orange juice, bananas, and tomato juice. ??? If you take certain types of diuretics, you will also need to take potassium supplements. Talk with your healthcare provider. ?? Follow-up care Follow up with your??healthcare provider??for a repeat blood test within the next week, or as advised by our staff. ?? When to get medical advice Call your healthcare provider right away if you have: ??? Increased weakness,??fatigue, or muscle cramps ??? Dizziness ?? Call 911 Call 911 if you have: ??? Irregular heartbeat, extra beats, or very fast heart rate ??? Loss of consciousness ?? Last Reviewed Date: 2022 ?? [id number] [employer]. All rights reserved. This information is not intended as a substitute for professional medical care. Always follow your healthcare professional's instructions. ?? * Kath Dumont DO: PERFORM Event Display: Patient Education Leaflets Authored Date: [id number] Headache, Unspecified ?? [id number] Headache, Unspecified A number of things can cause headaches. The cause of your headache isn???t clear. But it doesn???t seem to be a sign of any serious illness. Headache affects almost everyone at some time. It's the most common reason people miss days from work or school. A physical and nervous system exam can help rule out any serious causes of headache. Sometimes you may need more testing. This could include blood work or imaging tests of the head, such as a CAT scan or MRI. You could have a tension headache or a migraine headache. Stress can cause a tension headache. This can happen if you tense the muscles of your shoulders, neck, and scalp without knowing it. If this stress lasts long enough, you may develop a tension headache. It's not clear why migraines occur, but certain things called triggers can raise the risk of havinga migraine attack. Migraine triggers may include emotional stress or depression, or by hormone changes during the menstrual cycle. Other triggers include control pills and other medicines, alcohol or caffeine, foods with tyramine, such as aged cheese or wine, eyestrain, weather changes, missed meals, and lack of sleep or oversleeping. Other causes of headache include: ??? Viral illness with high fever ??? Head injury with concussion ??? Sinus, ear, or throat infection ??? Dental pain and jaw joint (TMJ) pain More serious but less common causes of headache include stroke, brain hemorrhage, brain tumor, meningitis, and encephalitis. Home care Follow these tips when taking care of yourself at home: ??? Don???t drive yourself home if you weregiven pain medicine for your headache. Instead, have someone else drive you home. Try to sleep whenyou get home. You should feel much better when you wake up. ??? Apply heat to the back of your neckto ease a neck muscle spasm. Take care of a migraine headache by putting an ice pack on your forehead or at the base of your skull. ??? If you have nausea or vomiting, eat a light diet until your headache eases. ??? If you have a migraine headache, use sunglasses when in the daylight or around bright indoor lighting until your symptoms get better. Bright glaring light can make this type of headache worse. ?? Follow-up care Follow up with your healthcare provider, or as advised. Talk with your provider if you have frequent headaches. They can help figure out a treatment plan. By knowing the earliest signs of headache, and starting treatment right away, you may be able to stop the pain yourself. ?? When to get medical advice Call your healthcare provider right away??if any of the following occur: ??? Your head pain suddenly gets worse after sexual intercourse or strenuous activity ??? Your head pain doesn???t get better within 24 hours ??? You have new symptoms ??? You aren???t able to keep liquids down (repeated vomiting) ??? Fever of 100.4??F (38??C) or higher, or as directed by your healthcare provider ??? Stiff neck ??? Extreme drowsiness, confusion, or fainting ??? Dizziness or dizziness with spinning sensation (vertigo) ??? Weakness in an arm or leg or one side of your face ??? You have trouble talking or seeing ?? Last Reviewed Date: 2022 ?? [id number] [employer]. All rights reserved. This information is not intended as a substitute for professional medical care. Always follow your healthcare professional's instructions. ?? Patient Care team information Care Team Personnel Name: Ulysses Desai MD Position: [facility] HVAC SALES REPRESENTATIVE MD Member Role: [employer] HVAC SALES REPRESENTATIVE Physician Address: Address: [address] [place] [address] [facility] [place] [address]- Name: Nicholas EDGAR, Elisa Reynaga Position: [facility] PCO Associate Professional Member Role: PCP Address: Address: [address] [place] [address]- Name: Josette Bhardwaj [place] Position: [facility] Office Staff Member Role: Primary Care Nurse Care Team Related Persons Name: HUBER ORLANDO Address: home [address] [place] [address] Name: HUBER ORLANDO Address: home [address] [place] [address] Name: HUBER ORLANDO Address: [address] [place] [address] Name: JUAN ORLANDO Address: home [address] [address]
--- OUTSIDE RECORDS SUMMARY | 2024-05-22 09:08 | XMS_ITS | Continuity of Care Document ---
Author Organization [facility] Address [address] [place] [address]- Care Team Providers Care Patient Safety Coordinator Name Role Phone Anitha Hyde MD Primary Care Physician Encounter [facility] Date(s): 05/07/20 - 06/06/20 [facility] [address] [place] [address]- [facility] Attending Physician: Alejandro Lamb Admitting Physician: Alejandro Lamb Referring Physician: Alejandro Lamb Allergies, Adverse Reactions, Alerts Substance Reaction Severity [...] (old term) 6 09/07/94 Given 1Result Comment: [facility] [id number] 2[facility] 3Admin Note: [...]
--- OUTSIDE RECORDS SUMMARY | 2024-05-22 09:08 | XMS_ITS | Continuity of Care Document ---
Author Organization [facility] Address [address] [place] [address]- Care Team Providers Care Blue Leather Setter Name Role Phone Nicholas AEROSPACE PROJECT MANAGER, Elisa M Primary Care Physician Encounter [facility] Date(s): 06/01/20 - 07/01/20 [facility] [address] [place] [address]- [facility] Attending Physician: Not on Staff, Attending MD Referring Physician: Bhavna Sanchez Allergies, Adverse Reactions, Alerts Substance Reaction Severity [...] (old term) 6 09/07/94 Given 1Result Comment: [facility] [id number] 2[facility] 3Admin Note: [...] 06/08/20 9:10:00 EDT, Route to Pharmacy Electronically, [facility]/pharmacy #[id number], 168, cm, 06/08/20 7:01:00 EDT, [...]
--- OUTSIDE RECORDS SUMMARY | 2024-05-22 09:08 | XMS_ITS | Continuity of Care Document ---
Author Organization [facility] Address [address] [place] [address]- Care Team Providers Care Hand Decorator Name Role Phone Nicholas APPLICATION SECURITY ARCHITECT, Elisa M Primary Care Physician Encounter [facility] Date(s): 10/07/21 - 11/06/21 [facility] [address] [place] [address]- Attending Physician: Alejandro Lamb Admitting Physician: Alejandro [...] term) 7 09/07/94 Given 1Result Comment: [facility]: [id number] 2Result Comment: [facility] [id number] 3Location History: [facility] 4Admin Note: 1st dove 11/21/1995 2nd done [...] 09/30/22 10:00:00 EST, 09/30/21 19:43:00 EST, Tablet, [facility]/pharmacy #[id number], may take 2 tablets twice a day until regularly moving bow... Start Date: 09/30/21 Stop Date: 09/30/22 Status: Ordered famotidine 20 mg oral tablet 20 mg, 1, tablet, By Mouth, 2 times a day, # 20 tablet, Refills 0, Tot. Refills 0, Maintenance, 10/07/21 8:52:00 EST, Route to Pharmacy Electronically, [facility]/pharmacy #[id number], Partial fill upon patient request if the prescription is for a schedule II opio... Start Date: 10/07/21 Stop Date: 10/17/21 Status: Ordered lidocaine 5% topical ointment 1 application, Topically, 3 times a day, for 10 days, # 30 Gm, 0 Refills, Acute 11/08/21 2:57:00 EST, 10/29/21 2:57:00 EST, Ointment, [facility]/pharmacy #[id number], Partial fill upon patient request if the prescription is for a schedule II opioid drug., 1 applic... Start Date: 10/29/21 Stop Date: 11/08/21 Status: Ordered Misc Rx bcp pill, By Mouth, Daily, Refills 0, Maintenance, 08/11/21 20:44:00 EST, Supply Start Date: 08/11/21 Status: Ordered omeprazole 20 mg oral enteric coated capsule 1 capsule = 20 mg, By Mouth, Daily, # 14 tablet, 0 Refills, Maintenance, 10/17/21 15:42:00 EST, EC Capsule, [facility]/pharmacy #[id number], Partial fill upon patient request if the prescription is for a scheduleII opioid drug., 168, cm, 10/17/21 12:39:00 Hardy BOOKER. Start Date: 10/17/21 Status: Ordered Problem List [...]
--- OUTSIDE RECORDS SUMMARY | 2024-05-22 09:08 | XMS_ITS | Continuity of Care Document ---
Author Organization [facility] Address [address] [place] [address]- Care Team Providers Care Social Work Professor Name Role Phone Nicholas CLINIC BUSINESS MANAGER, Elisa M Primary Care Physician Encounter [facility] Date(s): 03/10/22 - 04/09/22 [facility] [address] [place] [address]- [place] Allergies, Adverse Reactions, Alerts Substance Reaction [...] (old term) 7 09/07/94 Given 1Result Comment: [facility]: [id number] 2Result Comment: [facility] [id number] 3[facility] 4Admin Note: [...] 0 Refills, Maintenance, 12/17/21 15:33:00 EDT, Tablet, [facility]/pharmacy #[id number], Partial fill upon patient request if the prescription is for a schedule II opioid drug., 168, cm, 11/25/21 10:4... Start Date: 12/17/21 Status: Ordered docusate-senna 50 mg-187 mg oral tablet See Instructions, may take 2 tablets twice a day until regularly moving bowels, then prn, # 60 tablet, 0 Refills, Acute 09/30/22 10:00:00 EST, 09/30/21 19:43:00 EST, Tablet, [facility]/pharmacy #[id number], may take 2 tablets twice [...]
--- OUTSIDE RECORDS SUMMARY | 2024-05-22 09:08 | XMS_ITS | Continuity of Care Document ---
Author Organization [facility] Address [address] [place] [address]- Care Team Providers Care Furnace Attendant Name Role Phone Nicholas CIRCULATION REPRESENTATIVE, Elisa M Primary Care Physician Encounter [facility] Date(s): 06/13/23 - [facility] [address] [address]- [place] Allergies, Adverse Reactions, Alerts Substance Reaction [...] B pediatric vaccine 93 Recorded 1Result Comment: [facility] 13317-963-65 2Result Comment: [facility]: [id number] 3Result Comment: [facility] [id number] 4[facility] 5Admin Note: [...] mL, 0 Refills, Maintenance, 05/19/23 22:44:00 EDT, [facility]/pharmacy #[id number], Partial fill upon patient request if the prescription is for a schedule II opioid drug., 165.1, cm, 05/19/23 1... Start Date: 05/19/23 Stop Date: 06/02/23 Status: Ordered chlorhexidine topical 0.12% liquid 15 mL = 0.018 Gm, By Mouth, 2 times a day, # 480 mL, 0 Refills, Maintenance, 06/29/23 12:46:00 EDT,Liquid, [facility]/pharmacy #[id number], Partial fill upon patient [...] Refills, Maintenance, 07/03/23 16:09:00 EDT, EC Tablet, [facility]/pharmacy #[id number], Partial fill upon patient request if the prescription is for a schedule II opioid drug., 165.1,... Start Date: 07/03/23 Stop Date: 07/18/23 Status: Ordered gabapentin 300 mg oral capsule 300 mg, 1, capsule, By Mouth, Daily at bedtime, PRN, # 15 capsule, Refills 0, Tot. Refills 0, Maintenance, [facility], 07/03/23 16:09:00 EDT, Route to Pharmacy Electronically, [facility]/pharmacy #[id number], Partial fill upon patient [...] tablet, 1 Refills, Maintenance, 07/07/23 6:25:00 EDT, [facility], 165.1, cm, 07/03/23 15:14:00 EDT, Height, 64.3, kg, 05/19/23 19:22:00 EDT, Dry... Start Date: 07/07/23 Status: Ordered omeprazole 20 mg oral enteric coated capsule 1 capsule, By Mouth, 2 times a day, # 180 capsule, 1 Refills, Maintenance, 06/24/23 16:07:00 EDT, [facility] 75238, 165.1, cm, 06/12/23 14:42:00 EDT, Height, 64.3, [...] Personnel Name: Giselle SRINIVASAN, Ulysses Thornton Position: [facility] GRAY TENDER MD Member Role: [employer] GRAY TENDER Physician Address: Address: [address] [place] [address] [place] [address]- Name: Elisa Peterson NP Position: [facility] PCO Associate Professional Member Role: PCP Address: Address: [address] [place] [id number] Name: Josette Bhardwaj [place] Position: [facility] RN Member Role: Primary Care Nurse Care Team Related Persons Name: HUBER ORLANDO Address: home [address] [place] [address] Name: HUBER ORLANDO Address: home [address] [place] [address] Name: HUBER ORLANDO Address: home [address] [place] [address] Name: JUAN ORLANDO Address: home [address]
--- OUTSIDE RECORDS SUMMARY | 2024-05-22 09:08 | XMS_ITS | Continuity of Care Document ---
Author Organization [facility] Address [address] [place] [address]- Care Team Providers Care Test Consultant Name Role Phone Nicholas CUP SETTER LOCKSTITCH, Elisa M Primary Care Physician Encounter [email or web address] [id number] Date(s): 09/04/23 - 10/04/23 [facility] [address] [place] [address]- [place] Allergies, Adverse Reactions, Alerts Substance Reaction [...] B pediatric vaccine 93 Recorded 1Result Comment: [facility] 12514-891-09 2Result Comment: [facility][NOTE 3]: [id number] 3Result Comment: [facility]NOTE 3] [id number] 4[facility] 5Admin Note: 1st dove 11/21/1995 2nd done 05/21/2009 6Admin Note: 1st done 12/13/2006 2nd done 02/14/2007 3rd done 06/19/2007 7Admin Note: 1st done 02/24/1995 2nd done 11/30/1998 8Admin Note: 1st done 1993 2nd done 1993 3rd done 09/07/1994 Medications clindamycin 300 mg oral capsule 1 capsule = 300 mg, By Mouth, 3 times a day, for 10 days, # 30 capsule, 0 Refills, Acute 10/08/23 17:09:00 EST, 09/28/23 17:09:00 EST, Capsule, [facility]/pharmacy #[id number], Partial fill upon patient request if the prescription is for a schedule II opioid drug.... Start Date: 09/28/23 Stop Date: 10/08/23 Status: Ordered diclofenac sodium 75 mg oral [...] Date: 07/03/23 Stop Date: 07/18/23 Status: Ordered fluconazole 150 mg oral tablet See Instructions, 1 tablet By Mouth Once, may repeat every 3 days until symptoms resolve, # 3 tablet, 0 Refills, Soft Stop, 09/20/23 10:02:00 EST, [id number], Partial fill upon patient request if the prescription is for a schedule II opioid drYumiko. Start Date: 09/20/23 Status: Ordered fluticasone 27.5 mcg/inh nasal spray 1 sprays, Nares, Both, Daily, PRN Cold Symptoms, # 10 Gm, 0 Refills, Maintenance, 07/24/23 15:00:00EST, [place], [id number], Partial fill upon patient request if the prescription is for a schedule II opioid drug., 1 sprays Nares, Both Daily,PRN... Start Date: 07/24/23 Status: Ordered omeprazole 20 mg oral enteric coated capsule 1 capsule, By Mouth, 2 times a day, # 180 capsule, 1 Refills, Maintenance, 06/24/23 16:07:00 EDT, [facility], 165.1, cm, 06/12/23 14:42:00 EDT, Height, 64.3, [...] Team Personnel Name: Ulysses Desai MD Position: [facility] CATHEAD WORKER MD Member Role: [employer] CATHEAD WORKER Physician Address: Address: [address] [place] [address] [place] [address]- [place] Name: Elisa Peterson NP Position: [facility] PCO Associate Professional Member Role: PCP Address: Address: [address] [place] [address]- Name: Josette Bhardwaj [place] Position: [facility] RN Member Role: Primary Care Nurse Care Team Related Persons Name: HUBER ORLANDO Address: home [address] [place] [address] Name: HUBER ORLANDO Address: home [address] [place] [address] Name: HUBER ORLANDO Address: [address] [place] [address] Name: JUAN ORLANDO Address: [address]
--- OUTSIDE RECORDS SUMMARY | 2024-05-22 09:08 | XMS_ITS | Continuity of Care Document ---
Author Organization [facility] al Address [address] [place] [address]- Care Team Providers Care Nematologist Name Role Phone Nicholas MEDICAL SCIENTIFIC LIAISON, Elisa M Primary Care Physician Encounter [facility] Date(s): 10/17/21 - 10/17/[address] [address]- Discharge Disposition: A-D/C Home Attending Physician: Enrico [...] (old term) 7 09/07/94 Given 1Result Comment: [facility]: [id number] 2Result Comment: [facility] [id number] 3[facility] 4Admin Note: [...] 09/30/22 10:00:00 EST, 09/30/21 19:43:00 EST, Tablet, [facility]/pharmacy #[id number], may take 2 tablets twice a day until regularly moving bow... Start Date: 09/30/21 Stop Date: 09/30/22 Status: Ordered famotidine 20 mg oral tablet 20 mg, 1, tablet, By Mouth, 2 times a day, # 20 tablet, Refills 0, Tot. Refills 0, Maintenance, 10/07/21 8:52:00 EST, Route to Pharmacy Electronically, [facility]/pharmacy #[id number], Partial fill upon patient request if the [...] Refills, Maintenance, 10/17/21 15:42:00 EST, EC Capsule, [facility]/pharmacy #[id number], Partial fill upon patient [...] [Reference Range]: 1 2 Height 168 cm (10/17/21 3:54 PM) 168 cm (10/17/21 12:39 PM) Weight 62 kg (10/17/21 3:54 PM) 62 kg (10/17/21 12:39 PM) Oxygen Saturation [94-100 %] 100 % (10/17/21 3:54 PM) 99 % (10/17/21 12:39 PM) Pulse Rate [55-90 bpm] 88 bpm (10/17/21 3:54 PM) 86 bpm (10/17/21 12:39 PM) Body Mass Index [18.5-24.99] 21.97 (10/17/21 3:54 PM) Blood Pressure [90-138/55-84 mm Hg] 128/ 83mm Hg (10/17/21 3:54 PM) 125/84mm Hg (10/17/21 12:39 PM) Respiratory Rate [16-30 br/min] 18 br/mi n (10/17/21 3:54 PM) 18 br/min (10/17/21 12:39 PM) Temperature [96.8-100.4 DegF] 97.9 DegF (10/17/21 3:54 PM) 97.8 DegF (10/17/21 12:39 PM) Mode of Delivery (Oxygen) Room air (10/17/21 3:54 PM) Room air (10/17/21 12:39 PM) Blood pressure sites Arm, right (10/17/21 3:54 PM) Arm, right (10/17/21 12:39 PM) Temperature Route Oral (10/17/21 3:54 PM) Temporal (10/17/21 12:39 PM) Dry Weight 62 kg (10/17/21 3:54 PM) 62 kg (10/17/21 12:39 PM) Weight Obtained Via Standing scale (10/17/21 12:39 PM) Social History Social History Type Response Smoking Status Never smoker; Tobacc o user in household: No entered on: 09/26/13 Sex
--- OUTSIDE RECORDS SUMMARY | 2024-05-22 09:08 | XMS_ITS | Continuity of Care Document ---
Author Organization [facility] al Address [address] [place] [address]- Care Team Providers Care Mercury Recoverer Name Role Phone Nicholas CHILDREN'S COUNSELOR, Elisa Reynaga Primary Care Physician Encounter [facility] Date(s): 10/29/21 - 10/29/[address] [address]- Encounter Diagnosis Rib injury(Final) - 10/29/21 Discharge Disposition: A-D/C Home Attending Physician: Michael Gentile DO Admitting Physician: Michael Gentile DO Referring Physician: Not on Staff, Referring [...] (old term) 7 09/07/94 Given 1Result Comment: [facility]: [id number] 2Result Comment: [facility] [id number] 3[facility] 4Admin Note: [...] 09/30/22 10:00:00 EST, 09/30/21 19:43:00 EST, Tablet, [facility]/pharmacy #[id number], may take 2 tablets twice a day until regularly moving bow... Start Date: 09/30/21 Stop Date: 09/30/22 Status: Ordered famotidine 20 mg oral tablet 20 mg, 1, tablet, By Mouth, 2 times a day, # 20 tablet, Refills 0, Tot. Refills 0, Maintenance, 10/07/21 8:52:00 EST, Route to Pharmacy Electronically, [facility]/pharmacy #[id number], Partial fill upon patient request if the prescription is for a schedule II opio... Start Date: 10/07/21 Stop Date: 10/17/21 Status: Ordered lidocaine 5% topical ointment 1 application, Topically, 3 times a day, for 10 days, # 30 Gm, 0 Refills, Acute 11/08/21 2:57:00 EST, 10/29/21 2:57:00 EST, Ointment, [facility]/pharmacy #[id number], Partial [...] Refills, Maintenance, 10/17/21 15:42:00 EST, EC Capsule, [id number], Partial fill upon patient [...] romero 3she does have heavy monthly period Results Radiology Reports * Exam Date Time Procedure Performing Provider Status 10/29/21 2:39 AM Ribs W/ PA Chest Right Carleen Silva; Auth (Verified) Notes: (Ribs W/ PA Chest Right) Reason For Exam: Pain RESULT: Ribs W/ PA Chest Right Ribs W/ PA Chest Right PA chest with frontal and oblique views of the right ribs, 4 views total Hx of Present Illness: On Monday was doing on line challenge, pushed self too hard and now is having pain on right side. Axillary area around to back.; Reason: Pain; Clinical Question(s): Fracture COMPARISON: Chest radiograph 01/29/2021 FINDINGS: LINES AND TUBES: None. LUNGS AND PLEURA: The lungs are clear, and the pulmonary vascularity is normal. No effusion or pneumothorax. HEART, MEDIASTINUM AND ALESSANDRA: Normal. BONES: No fractures or bone lesions. SOFT TISSUES: Normal. IMPRESSION: Normal. WSN: [id number] Ordering Physician: Michael Gentile Dictated By: Enedina Buckner MD Dictated Date/Time: 10/29/21 8:15 am Reviewed By: Enedina Buckner MD Signed By: Enedina Buckner MD Signed Date/Time: 10/29/21 8:15 am Transcribed By: SAVANNAH Transcribed Date/Time: 10/29/21 8:13 am Vital Signs Most recent to oldest [Reference Range]: 1 2 Height 168 cm (10/29/21 1:47 AM) Weight 58.6 kg (10/29/21 1:47 AM) Oxygen Saturation [94-100 %] 99 % (10/29/21 3:48 AM) 98 % (10/29/21 1:47 AM) Pulse Rate [55-90 bpm] 86 bpm (10/29/21 3:48 AM) 92 bpm *H* (10/29/21 1:47 AM) Blood Pressure [90-138/55-84 mm Hg] 117/ 69mm Hg (10/29/21 3:48 AM) 121/82mm Hg (10/29/21 1:47 AM) Respiratory Rate [16-30 br/min] 20 br/mi n (10/29/21 3:48 AM) 20 br/min (10/29/21 1:47 AM) Temperature [96.8-100.4 DegF] 98.1 DegF (10/29/21 3:48 AM) Mode of Delivery (Oxygen) Room air (10/29/21 3:48 AM) Room air (10/29/21 1:47 AM) Blood pressure sites Arm, left (10/29/21 3:48 AM) Arm, left (10/29/21 1:47 AM) Temperature Route Oral (10/29/21 3:48 AM) Dry Weight 58.8 kg (10/29/21 1:47 AM) Weight Obtained Via Standing scale (10/29/21 1:47 AM) Dry Weight Obtained Via Standing scale (10/29/21 1:47 AM) Social History Social History Type Response Smoking Status Never smoker; Tobacc o user in household: No entered on: 09/26/13 Sex
--- OUTSIDE RECORDS SUMMARY | 2024-05-22 09:09 | XMS_ITS | Continuity of Care Document ---
Author Organization [facility] Address [address] [place] [address]- Care Team Providers Care Hatchery Manager Name Role Phone Mary Ellen SRINIVASAN, Anitha Primary Care Physician Encounter [facility] Date(s): 10/29/19 - 12/19/[address] [address]- [facility] Discharge Disposition: A-D/C Home Attending Physician: Jacki Tucker MD Admitting Physician: Jacki Tucker MD Referring Physician: Jacki Tucker MD Allergies, Adverse Reactions, [...] term) 6 09/07/94 Given 1Result Comment: [facility] [id number] 2[facility] 3Admin Note: [...] 1 Refills, Maintenance, 10/11/19 14:31:00 EST, Tablet, [facility]/pharmacy #[id number], 168, cm, 10/11/19 13:21:00 EST, Height, 64, kg, 09/08/19 14:41:00 ES... Start Date: 10/11/19 Status: Ordered sertraline 25 mg oral tablet 1 tablet = 25 mg, By Mouth, Daily, # 30 tablet, 5 Refills, Maintenance, 11/05/19 14:45:00 EST, Tablet, [facility]/pharmacy #[id number], 168, cm, 10/14/19 13:34:00 EST, Height, [...]
--- OUTSIDE RECORDS SUMMARY | 2024-05-22 09:09 | XMS_ITS | Continuity of Care Document ---
Author Organization [facility] Address [address] [place] [address]- Care Team Providers Care Economic Forecaster Name Role Phone Nicholas TAG MACHINE OPERATOR, Elisa M Primary Care Physician Encounter [facility] Date(s): 01/28/21 - 02/27/21 [facility] [address] [place] [address]- Allergies, Adverse Reactions, Alerts Substance Reaction Severity [...] (old term) 6 09/07/94 Given 1Result Comment: [facility] [id number] 2[facility] 3Admin Note: [...] Gm, 0 Refills, Maintenance, 01/29/21 20:47:00 EDT, [place], [id number], Partial fill upon patient request [...]
--- OUTSIDE RECORDS SUMMARY | 2024-05-22 09:09 | XMS_ITS | Continuity of Care Document ---
Author Organization [facility] Address [address] [place] [address]- Care Team Providers Care Valet Parker Name Role Phone Nicholas VENDING ATTENDANT, Elisa M Primary Care Physician Encounter [facility] Date(s): 08/17/20 - 09/16/20 [facility] [address] [place] [address]- Attending Physician: Alejandro Lamb Admitting Physician: Alejandro Lamb Referring Physician: AdmtrAlejandro Allergies, Adverse Reactions, Alerts [...] [facility] [id number] [phone] 2[facility] 3Admin Note: [...]
--- OUTSIDE RECORDS SUMMARY | 2024-05-22 09:09 | XMS_ITS | Continuity of Care Document ---
Author Organization [facility] Address [address] [place] [address]- Care Team Providers Care Dowel Sticker Operator Name Role Phone Elisa Peterson NP Primary Care Physician Encounter [facility] Date(s): 12/26/22 - 02/04/[address] [address] Attending Physician: Elisa Peterson NP Admitting Physician: Elisa Peterson NP Referring Physician: Elisa Peterson NP Allergies, Adverse Reactions, [...] B pediatric vaccine 93 Recorded 1Result Comment: [facility] [id number] 2Result Comment: [facility]: [id number] 3Result Comment: [facility] [id number] [phone] 4[facility] 5Admin Note: [...] 1 kit, 2 Refills, Maintenance, 01/14/23 13:47:00EDT, [facility]/pharmacy #[id number], Partial fill upon patient [...] 0 Refills, Maintenance, 12/17/21 15:33:00 EDT, Tablet, [facility]/pharmacy #[id number], Partial fill upon patient [...] 6 Refills, Maintenance, 11/01/22 10:44:00 EST, Nasal [place], [facility]/pharmacy #[id number], Partial fill upon patient request if the prescription is for aschedule II opioid drug., 1 sprays Nares, Both 2 ti... Start Date: 11/01/22 Status: Ordered June.530 By Mouth, Daily, 0 Refills, Maintenance, 08/08/22 [...] Refills, Maintenance, 12/06/22 9:51:00 EDT, CR Capsule, [facility]/pharmacy #[id number], Partial fill upon patient request if the prescription is for a schedule II opioid drug., 168, cm, 12/06/22 9:08... Start Date: 12/06/22 Status: Ordered Xyzal 5 mg oral tablet 1 tablet = 5 mg, By Mouth, Daily in PM, # 90 tablet, 1 Refills, Maintenance, 10/24/22 16:56:00 EST,Tablet, [facility]/pharmacy #[id number], Partial fill upon patient [...] Personnel Name: Giselle SRINIVASAN, Ulysses Thornton Position: [facility] ELECTRONIC PUBLISHER MD Member Role: Lifetime ELECTRONIC PUBLISHER Physician Address: Address: [address] [place] [address] [facility] [place] [address]- Name: Elisa Peterson NP Position: [facility] PCO Associate Professional Member Role: PCP Address: Address: [address] [place] [address]- Name: Josette De Anda Position: [facility] RN Member Role: Primary Care Nurse Care Team Related Persons Name: HUBER ORLANDO Address: home [address] [facility] [address] [place] [address] Name: HUBER ORLANDO Address: home [address] [place] [address] Name: HUBER ORLANDO Address: home [address] [place] [address] Name: JUAN ORLANDO Address: home [address] [address]
--- OUTSIDE RECORDS SUMMARY | 2024-05-22 09:09 | XMS_ITS | Continuity of Care Document ---
Author Organization [facility] Address [address] [place] [address]- Care Team Providers Care Sales & Service Associate Name Role Phone Nicholas MAJOR ACCOUNT REPRESENTATIVE, Elisa M Primary Care Physician [id number] Date(s): 08/31/23 - 09/30/[address] [facility] [address] [place] [address]- [place] Allergies, Adverse Reactions, Alerts Substance Reaction [...] B pediatric vaccine 93 Recorded 1Result Comment: [facility] [id number] 2Result Comment: [facility]: [id number] 3Result Comment: [facility] [id number] [phone] 4[facility] 5Admin Note: [...] 10/08/23 17:09:00 EST, 09/28/23 17:09:00 EST, Capsule, [facility]/pharmacy #[id number], Partial fill upon patient request if the prescription is for a schedule II opioid drug.... Start Date: 09/28/23 Stop Date: 10/08/23 Status: Ordered diclofenac sodium 75 mg oral delayed release tablet 1 tablet = 75 mg, By Mouth, 2 times a day, PRN PAIN, with food, # 30 tablet, 0 Refills, Maintenance, 07/03/23 16:09:00 EDT, EC Tablet, [facility]/pharmacy #[id number], Partial fill upon [...] 10 Gm, 0 Refills, Maintenance, 07/24/23 15:00:00EST, [place], [id number], Partial fill upon patient request if the prescription is for a schedule II opioid drug., 1 sprays Nares, Both Daily,PRN... Start Date: 07/24/23 Status: Ordered omeprazole 20 mg oral enteric coated capsule 1 capsule, By Mouth, 2 times a day, # 180 capsule, 1 Refills, Maintenance, 06/24/23 16:07:00 EDT, [id number], 165.1, cm, 06/12/23 14:42:00 EDT, Height, 64.3, [...] 1negative celiac screen in [address] rmoero 3she does have heavy monthly period Social History Social History Type Response Smoking Status Never smoker; Tobacc o user in household: No entered on: 09/26/13 Sex Patient Care team information Care Team Personnel Name: Ulysses Desai MD Position: [facility] DISTRIBUTION MANAGER MD Member Role: Lifetime DISTRIBUTION MANAGER Physician Address: Address: [address] [place] [address] [place] [address]- [place] Name: Elisa Peterson NP Position: [facility] PCO Associate Professional Member Role: PCP Address: Address: [address] [place] [address]- Name: Josette Bhardwaj [place] Position: [facility] RN Member Role: Primary Care Nurse Care Team Related Persons Name: HUBER ORLANDO Address: home [address] [place] [address] Name: HUBER ORLANDO Address: home [address] [place] [address] Name: HUBER ORLANDO Address: home [address] [place] [address] Name: JUAN ORLANDO Address: [address]
--- OUTSIDE RECORDS SUMMARY | 2024-05-22 09:09 | XMS_ITS | Continuity of Care Document ---
Author Organization [facility] Address [address] [place] [address]- Care Team Providers Care Social Welfare Clerk Name Role Phone Not on Staff, PCP Primary Care Physician Unavail able Encounter [facility] NBR [id number] Date(s): 04/14/23 - 04/15/[address] [address]- Encounter Diagnosis GERD (gastroesophageal reflux disease)(Final) - 04/15/23 Discharge Disposition: A-D/C Home Attending Physician: Kath [...] B pediatric vaccine 93 Recorded 1Result Comment: [facility] [id number] 2Result Comment: [facility]: [id number] 3Result Comment: [facility] [phone] 4Location History: [facility] 5Admin Note: 1st dove 11/21/1995 2nd done 05/21/2009 6Admin Note: 1st done 12/13/2006 2nd done 02/14/2007 3rd done 06/19/2007 7Admin Note: 1st done 02/24/1995 2nd done 11/30/1998 8Admin Note: 1st done 1993 2nd done 1993 3rd done 09/07/1994 Medications Ajovy Autoinjector 225 mg/1.5 mL subcutaneous solution = 225 mg, Subcutaneous Injection, Every 28 days, # 1 kit, 2 Refills, Maintenance, 01/14/23 13:47:00EDT, [facility]/pharmacy #[id number], Partial fill upon patient request if the prescription is for a schedule IIopioid drug., 168, cm, 01/12/23 9:03:00 EDT, Height... Start Date: 01/14/23 Status: Ordered Ativan 0.5 mg oral tablet 1 tablet = 0.5 mg, By Mouth, Daily, MassPat checked, # 5 tablet, 0 Refills, Maintenance, 12/17/21 15:33:00 EDT, Tablet, [facility]/pharmacy #[id number], Partial fill upon patient request if the prescription is for a schedule II opioid drug., 168, cm, 11/25/21 10:4... Start Date: 12/17/21 Status: Ordered cefpodoxime 100 mg oral tablet 1 tablet = 100 mg, By Mouth, Every 12 hours, for 5 days, # 10 tablet, 0 Refills, Acute 04/17/23 9:55:00 EDT, 04/12/23 9:55:00 EDT, Tablet, [facility]/pharmacy #[id number], Partial fill upon patient request if theprescription is for a schedule II opioid drug., 126... Start Date: 04/12/23 Stop Date: 04/17/23 Status: Ordered diclofenac potassium 50 mg oral [...] day, # 16 Gm, 0 Refills, Maintenance, 03/29/23 15:19:00 EDT, [place], [facility]/pharmacy #[id number], Partial fill upon patient request if the prescription is for a schedule II opioid drug., 1 sprays Nares, Both 2 times a day, 126.8... Start Date: 03/29/23 Status: Ordered Flonase 50 mcg/inh nasal spray 1 sprays = 50 mcg, Nares, Both, 2 times a day, # 9.9 mL, 6 Refills, Maintenance, 11/01/22 10:44:00 EST, Nasal [place], [facility]/pharmacy #[id number], Partial fill upon patient request if the prescription is for aschedule II opioid drug., 1 sprays Nares, Both 2 ti... Start Date: 11/01/22 Status: Ordered Junel Fe 1.5/30 By Mouth, Daily, 0 Refills, Maintenance, 08/08/22 13:49:00 EST, Partial fill upon patient request if the prescription is for a schedule II opioid drug. Start Date: 08/08/22 Status: Ordered loratadine 10 mg oral tablet 10 mg, 1, tablet, By Mouth, Daily, # 30 tablet, Refills 0, Tot. Refills 0, Maintenance, 03/29/23 15:20:00 EDT, Route to Pharmacy Electronically, [facility]/pharmacy #[id number], Partial fill upon patient request if the prescription is for a schedule II opioid drug... Start Date: 03/29/23 Status: Ordered magnesium oxide 400 mg oral tablet 1 tablet = 400 mg, By Mouth, Daily, # 30 tablet, 2 Refills, Acute 04/10/24 10:25:00 EDT, 04/10/23 10:25:00 EDT, [id number], Partial fill upon patient request if the prescription is for a schedule II opioid drug., 126.8, cm, 04/10/23 9:40:00 ED... Start Date: 04/10/23 Stop Date: 04/10/24 Status: Ordered mirtazapine 7.5 mg oral tablet 2 tablet = 15 mg, By Mouth, Daily at bedtime, Take 1 tablet by mouth for 1 week and then increase to 2 tablets by moth., # 60 tablet, 2 Refills, Maintenance, 04/10/23 10:26:00 EDT, [facility]/pharmacy #[id number], Partial fill upon patient request if the prescript... Start Date: 04/10/23 Status: Ordered Misc Rx bcp pill, By [...] Dry Weight Start Date: 11/01/22 Stop Date: 8/13/23 Status: Ordered Xyzal 5 mg oral tablet 1 tablet = 5 mg, By Mouth, Daily in PM, # 90 tablet, 1 Refills, Maintenance, 10/24/22 16:56:00 EST,Tablet, [id number], Partial fill upon patient request if the [...] oldest [Reference Range]: 1 2 3 Height 164 cm (04/15/23 1:27 AM) 164 cm (04/14/23 11:38 PM) 164 cm (04/14/23 9:11 PM) Weight 65.5 kg (04/15/23 1:27 AM) 65.5 kg (04/14/23 11:38 PM) 65.5 kg (04/14/23 9:11 PM) Oxygen Saturation [94-100 %] 98 % (04/15/23 1:27 AM) 96 % (04/14/23 11:38 PM) 100 % (04/14/23 9:11 PM) Pulse Rate [55-90 bpm] 76 bpm (04/15/23 1:27 AM) 79 bpm (04/14/23 11:38 PM) 85 bpm (04/14/23 9:11 PM) Body Mass Index [18.5-24.99 kg/m2] 24.35 kg/m2 (04/15/23 1:27 AM) 24.35 kg/m2 (04/14/23 11:38 PM) Blood Pressure [90-138/55-84 mm Hg] 112/78mm Hg (04/15/23 1:27 AM) 129/79mm Hg (04/14/23 11:38 PM) 134/92mm Hg (04/14/23 9:11 PM) Respiratory Rate [16-30 br/min] 18 br/min (04/15/23 1:27 AM) 18 br/min (04/14/23 11:38 PM) 20 br/min (04/14/23 9:11 PM) Temperature [96.8-100.4 DegF] 98.0 DegF (04/14/23 9:11 PM) Mode of Delivery (Oxygen) Room air (04/15/23 1:27 AM) Room air (04/14/23 11:38 PM) Room air (04/14/23 9:11 PM) Blood pressure sites Arm, left (04/15/23 1:27 AM) Arm, left (04/14/23 11:38 PM) Arm, left (04/14/23 9:11 PM) Temperature Route Temporal (04/14/23 9:11 PM) Dry Weight 65.5 kg (04/15/23 1:27 AM) 65.5 kg (04/14/23 11:38 PM) 65.5 kg (04/14/23 9:11 PM) Weight Obtained Via Standing scale (04/14/23 9:11 PM) Dry Weight Obtained Via Standing scale (04/14/23 9:11 PM) Social History Social History Type Response Smoking Status Never smoker; Tobacc o user in household: No entered on: 09/26/13 Sex Note * Kath Dumont DO: PERFORM, SIGN, VERIFY Event Display: Patient Education Handout Authored Date: [id number] * Kath Dumont DO: PERFORM Event Display: Patient Education Leaflets Authored Date: [id number] GERD (Adult) ?? [id number] GERD (Adult) The esophagus is a tube that carries food from the mouth to the stomach. A valve (lower esophageal sphincter) prevents stomach acid from flowing upward. Sometimes this valve doesn't work correctly. Then stomach contents may flow (reflux) into the esophagus. When it happens again and again, it's called??GERD (gastroesophageal reflux disease).??GERD can irritate the esophagus. It can cause pain. Itcan also cause problems with swallowing or breathing. In severe cases, GERD can cause pneumonia that keeps coming back. This is from breathing in particles (aspiration). Symptoms of reflux include burning, pressure, or sharp pain in the upper belly (abdomen). Symptoms may also be in the mid- to lower chest. The pain can spread to the neck, back, or shoulder. You may have: ??? Belching ??? Acid taste in the back of the throat ??? Chronic cough ??? Sore throat ??? Hoarseness GERD symptoms often occur during the day after a big meal. They can also occur at night when lying down.?? Home care Lifestyle changes can help ease symptoms. Your healthcare provider may also prescribe medicines.??Symptoms often get better with treatment. But if treatment is stopped, the symptoms often return after a few months. Most people with GERD will need to continue treatment. Or they may need treatment onand off. Lifestyle changes ??? Limit or don't eat fatty, fried, or spicy foods. Also limit coffee, chocolate, mint, and foods with high acid content. These include tomatoes and citrus fruit and juices (orange, grapefruit, and lemon). ??? Don???t eat large meals, especially at night. Frequent, smaller meals are best. Don't lie down right after eating. And don???t eat anything 3 hours before going to bed. ??? Don't drink alcohol or smoke. As much as possible, stay away from secondhand smoke. ??? If you are overweight, losing weight will reduce symptoms.? Don't wear tight clothing around your stomach area. ??? If your symptoms occur during sleep, use a foam wedge to raise your upper body not just your head. Or place 4-inch blocks under the head of your bed. Or use 2 bed risers under your bed frame. ??? Talk with your provider if you have trouble making the suggested lifestyle changes. They may be able to give you resources to help. Medicines Medicines can help ease the symptoms of GERD. They also help prevent damage to the esophagus. Discuss a medicine plan with your healthcare provider. This may include one or more of these medicines: ??? Antacids. These help neutralize the normal acids in your stomach. ??? Acid blockers (histamine or H2 blockers). These decrease how much acid your stomach makes. ??? Acid inhibitors (proton pump inhibitors PPIs). These also decrease how much acid your body makes, but in a different way from the blockers. They may work better. But they can take a little longer to do so. Take an antacid 30 to 60 minutes after eating and at bedtime, but not at the same time as an acid [place]. Try not to take medicines such as ibuprofen and aspirin. If you take aspirin for your heart or other health reasons, talk with your healthcare provider about stopping it. ?? Follow-up care Follow up with your healthcare provider as advised. ?? When to seek medical advice Call your healthcare provider if any of the following occur: ??? Stomach pain gets worse or moves to the lower right belly (appendix area) ??? Chest pain appears or gets worse, or spreads to the back, neck, shoulder, or arm ??? An [id number] trial of medicine doesn't relieve your symptoms ???Weight loss that can't be explained ??? Trouble or pain swallowing ??? Frequent vomiting (can???t keep down liquids) ??? Blood in the stool or vomit (red or black in color) ??? Feeling weak or dizzy ??? Fever of 100.4??F (38??C) or higher, or as directed by your healthcare provider ??? Symptoms getworse or you have new symptoms ?? Last Reviewed Date: 2021 ?? [id number] [employer]. All rights reserved. This information is not intended as a substitute for professional medical care. Always follow your healthcare professional's instructions. ?? * Kath Dumont DO: PERFORM Event Display: Patient Education Leaflets Authored Date: [id number] GERD (Gastroesophageal Reflux Disease) ?? GERD (Gastroesophageal Reflux Disease) - Video Gastroesophageal reflux disease (GERD) is more commonly known as acid indigestion or heartburn. It is a burning feeling behind the breastbone. This video takes a look at the possible causes of GERD, typical symptoms, and when treatment is warranted. To view the video go to this web address: https://bit.ly/[email or web address] Or, scan this QR code with your smart phone Last Reviewed Date: 2021 ?? 4040-0460 [employer]. All rights reserved. This information is not intended as a substitute for professional medical care. Always follow your healthcare professional's instructions. ?? Patient Care team information Care Team Personnel Name: Ulysses Desai MD Position: [facility] ACCREDITED FARM MANAGER MD Member Role: [employer]etime ACCREDITED FARM MANAGER Physician Address: Address: [address] [place] [address] [facility] [address]- [place] Name: Josette Bhardwaj [place] Position: [facility] RN Member Role: Primary Care Nurse Name: Not on Staff, PCP Position: [facility] Physician (General Medicine) Member Role: PCP Name: Daljit Stinson Position: [facility] ED OA Member Role: Patient Care Provider Name: Kath Dumont DO Position: [facility] ED Medicine MD Member Role: ED Attending Physician Address: Address: [address] [place] [address] [place] [address]- [place] Name: Alessia Shane RN Position: [facility] ED RN W/OE and Tasks Member Role: Patient Care Provider Care Team Related Persons Name: HUBER ORLANDO Address: home [address] [place] [address] Name: JOHANNY HUBER Ronnell Address: home [address] [place] [address] Name: JOHANNY HUBER Reynaga Address: home [address] [place] [address] Name: JUAN ORLANDO Address: home [address] [address]
--- OUTSIDE RECORDS SUMMARY | 2024-05-22 09:09 | XMS_ITS | Continuity of Care Document ---
Author Organization [facility] Address [address] [place] [address]- Care Team Providers Care Ropeman Name Role Phone Mary Ellen SRINIVASAN, Anitha Primary Care Physician Encounter [facility] Date(s): 07/22/19 - 09/28/19 [facility] [address] [place] [address]- [facility] Attending Physician: Anitha Hyde MD Allergies, Adverse Reactions, [...] (old term) 6 09/07/94 Given 1Result Comment: [facility] [id number] [facility] 3Admin Note: 1st dove 11/21/1995 2nd done 05/21/2009 4Admin Note: 1st done 12/13/2006 2nd done 02/14/2007 3rd done 06/19/2007 5Admin Note: 1st done 02/24/1995 2nd done 11/30/1998 6Admin Note: 1st done 1993 2nd done 1993 3rd done 09/07/1994 Medications sertraline 25 mg oral tablet 1 tablet = 25 mg, By Mouth, Daily, # 30 tablet, 0 Refills, Maintenance, 09/12/19 16:21:00 EST, Tablet, [id number], 168, cm, 09/12/19 15:53:00 EST, Height, [...]
--- OUTSIDE RECORDS SUMMARY | 2024-05-22 09:09 | XMS_ITS | Continuity of Care Document ---
Author Organization [facility] Address [address] [place] [address]- Care Team Providers Care Pharmaceutical Compounding Supervisor Name Role Phone Nicholas EDGAR, Elisa M Primary Care Physician Encounter [facility] Date(s): 04/30/24 - 04/30/[address] [address]- Discharge Disposition: A-D/C Home Attending Physician: Tony Wade MD Admitting Physician: Tony Wade MD Referring Physician: Not on Staff, Referring [...] [facility][NOTE 3] [id number] 2Result Comment: [facility][NOTE 3]: [id number] 3Result Comment: [facility][NOTE 3] [id number] [phone] 4Location History: [facility] 5Admin Note: 1st dove 11/21/1995 2nd done [...] 01/29/24 14:53:00 EDT, Route to Pharmacy Electronically, [facility]/pharmacy #[id number], Partial fill upon patient request if the [...] 6 Refills, Maintenance, 04/24/24 13:02:00 EDT, Gel, [facility]/pharmacy #[id number], Partial fill upon patient [...] 01/09/24 0:16:00 EDT, Route to Pharmacy Electronically, [facility]/pharmacy #[id number], Partial fill upon patient request if the prescrip... Start Date: 01/09/24 Status: Ordered fluticasone 50 mcg/inh nasal spray 1 sprays = 50 mcg, Nares, Both, 2 times a day, # 16 Gm, 0 Refills, Maintenance, 02/21/24 17:46:00 EDT, [place], [facility]/pharmacy #[id number], Partial fill upon patient request if the prescription is for a schedule II opioid drug., 1 sprays Nares, Both 2 times a d... Start Date: 02/21/24 Status: Ordered hydrOXYzine hydrochloride 10 mg oral tablet 1 tablet = 10 mg, By Mouth, 3 times a day, PRN for anxiety, # 42 tablet, 0 Refills, Maintenance, 01/16/24 16:47:00 EDT, Tablet, [facility]/pharmacy #[id number], Partial fill upon patient [...] Dry Weight Start Date: 04/15/24 Status: Ordered sucralfate 1 gm/10 ml oral suspension 10 mL = 1 Gm, By Mouth, 3 times a day before meals and bedtime, # 1,200 mL, 0 Refills, Maintenance,03/27/24 0:48:00 EDT, [facility]/pharmacy #[id number], Partial fill upon patient request if the prescription is for a schedule II opioid drug., 168, cm, 03/26/24 22... Start Date: 03/27/24 Status: Ordered Voltaren Arthritis Pain 1% topical gel = 2 Gm, Topically, 4 times a day, PRN Pain , Moderate, not to exceed 8 grams/day/single joint of upper extremities, # 100 Gm, 0 Refills, Maintenance, 04/12/24 10:18:00 EDT, [facility]/pharmacy #[id number], Partial fill upon patient [...] romero 4she does have heavy monthly period Vital Signs Most recent to oldest [Reference Range]: 1 2 Height 168 cm (04/30/24 7:20 PM) 168 cm (04/30/24 4:45 PM) Weight 61.1 kg (04/30/24 7:20 PM) 61.1 kg (04/30/24 4:45 PM) Oxygen Saturation [94-100 %] 100 % (04/30/24 7:20 PM) 100 % (04/30/24 4:45 PM) Pulse Rate [55-90 bpm] 75 bpm (04/30/24 7:20 PM) 84 bpm (04/30/24 4:45 PM) Body Mass Index [18.5-24.99 kg/m2] 21.65 kg/m2 (04/30/24 7:20 PM) Blood Pressure [90-138/55-84 mm Hg] 117/ 81mm Hg (04/30/24 7:20 PM) 125/88mm Hg (04/30/24 4:45 PM) Respiratory Rate [16-30 br/min] 16 br/mi n (04/30/24 7:20 PM) 20 br/min (04/30/24 4:45 PM) Temperature [96.8-100.4 DegF] 98 DegF (04/30/24:20 PM) 97.8 DegF (04/30/24 4:45 PM) Mode of Delivery (Oxygen) Room air (04/30/24 7:20 PM) Room air (04/30/24 4:45 PM) Blood pressure sites Arm, left (04/30/24:20 PM) Temperature Route Oral (04/30/24:20 PM) Temporal (04/30/24 4:45 PM) Dry Weight 61.1 kg (04/30/24:20 PM) 61.1 kg (04/30/24 4:45 PM) Social History Social History Type Response Smoking Status Never smoker; Tobacc o user in household: No entered on: 09/26/13 Sex Note * Tony Wade MD: PERFORM, SIGN, VERIFY Event Display: Patient Education Handout Authored Date: [id number] * Tony Wade MD: PERFORM Event Display: Patient Education Leaflets Authored Date: [id number] Unknown Causes of Abdominal Pain(Adult) ?? [id number] Unknown Causes of Abdominal Pain(Adult) The exact cause of your belly (abdominal) pain is not clear. Your exam and tests don't suggest a dangerous cause at this time. This does not mean that this is something to worry about. Everyone likesto know the exact cause of the problem. But sometimes with belly pain, there is no clear-cut cause,and this could be a good thing. Your symptoms can be treated, and you should feel better.?? Your condition does not seem serious now. But sometimes the signs of a serious problem may take more time to appear. For this reason,??it's important for you to watch for any new symptoms, problems,??or worsening of your condition. Over the next few days, the abdominal pain may come and go. Or it may be constant. Other common symptoms can include nausea and vomiting. Sometimes it can be difficult to tell if you feel nauseous. You may just feel bad and not connect that feeling to nausea. Constipation, diarrhea, and a fever maygo along with the pain. The pain may continue even if treated correctly over the following days. Depending on how things go, sometimes the cause can become clear and you may need more??or different treatment. You may also need other evaluations, medicines, or tests. Home care Your healthcare provider may prescribe medicine for pain, symptoms, or an infection. ??Follow the healthcare provider's instructions for taking these medicines. General care ??? Rest as much as you can until your next exam. No strenuous activities. ??? Try to not do anything that may have caused your symptoms. This might be not taking any medicines unless otherwise directed by your healthcare provider. It might be not eating certain foods or doing certain activities. ??? Find positions that ease discomfort. A small pillow placed on your belly may help relieve pain. ??? Something warm on your belly such as a heating pad may help, but be careful not to burn yourself. Diet ??? Don???t??force yourself to eat, especially if having cramps, vomiting, or diarrhea. ??? Water is important so you don't get dehydrated. Soup may also be good. Sports drinks may also help, especially if they are not too acidic. Don't drink sugary drinks as this can make things worse. Take liquids in small amounts. Don???t??guzzle them. ??? Caffeine sometimes makes the pain and cramping worse. ??? Don???t take??dairy products if you have vomiting or diarrhea. ??? Don't eat large amounts at a time. Eat several small meals during the day instead of 2 or 3 larger meals. Wait a few minutesbetween bites. ??? Eat a diet low in fiber (called a low-residue diet). Foods allowed include refined breads, white rice, fruit and vegetable juices without pulp, tender meats. These foods will pass more easily through the intestine. ??? Don???t have??whole-grain foods, whole fruits and vegetables,meats, seeds and nuts, fried or fatty foods, dairy, alcohol and spicy foods until your symptoms go away. ?? Follow-up care Follow up with your healthcare provider, or as advised, if your pain does not begin to improve in the next 24 hours. ?? Call 911 Call?? 911 if any of these occur: ??? Trouble breathing ??? Confusion ??? Fainting or loss of consciousness ??? Rapid heart rate ??? Seizure ?? When to seek medical advice Call your healthcare provider right away if any of these occur: ??? Pain gets worse or moves to theright lower abdomen ??? New or worsening vomiting or diarrhea ??? Swelling of the abdomen ??? Unable to pass stool for more than??3 days ??? Fever of 100.4??F (38??C) or higher, or as directed by your healthcare provider ??? Blood in vomit or bowel movements (dark red or black color) ??? Yellow color of eyes and skin (jaundice) ??? Weakness, dizziness ??? Chest, arm, back, neck, or jaw pain ??? Can't keep down medicines, liquids, or water because of too much vomiting ??? If you have a vagina: unexpected vaginal bleeding or missed period ?? Last Reviewed Date: 2021 ?? [id number] [employer]. All rights reserved. This information is not intended as a substitute for professional medical care. Always follow your healthcare professional's instructions. ?? Patient Care team information Care Team Personnel Name: Ulysses Desai MD Position: [facility] CENTRAL OFFICE SUPERVISOR MD Member Role: [employer] CENTRAL OFFICE SUPERVISOR Physician Address: Address: [address] [place] [address] [facility] [address]- Name: Elisa Petersno NP Position: [facility] PCO Associate Professional Member Role: PCP Address: Address: [address] [place] [address]- [place] Name: Josette Bhardwaj [place] Position: [facility] Office Staff Member Role: Primary Care Nurse Care Team Related Persons Name: HUBER ORLANDO Address: home [address] [address] Name: HUBER ORLANDO Address: home [address] [place] [address] Name: HUBER ORLANDO Address: home [address] [place] [address] Name: JUAN ORLANDO Address: [place] [id number]
--- OUTSIDE RECORDS SUMMARY | 2024-05-22 09:09 | XMS_ITS | Continuity of Care Document ---
[facility] Address [address] [place] [address]- Care Team Providers Care Importer Exporter Name Role Phone Nicholas CIRCUS ROUSTABOUT, Elisa M Primary Care Physician Encounter [facility] NBR [id number] Date(s): 10/16/23 - 10[facility]23/23 [facility] [address] [address]- [place] Encounter Diagnosis Acid reflux(Discharge Diagnosis) - 10/16/23 Attending Physician: Jase Lee NP Allergies, Adverse Reactions, Alerts Substance Reaction [...] Recorded 1Result Comment: [facility] [id number] 2Result Comment: [facility]: [id number] 3Result Comment: [facility] [id number] [facility] Note: 1st dove 11/21/1995 2nd done 05/21/2009 6Admin Note: 1st done 12/13/2006 2nd done 02/14/2007 3rd done 06/19/2007 7Admin Note: 1st done 02/24/1995 2nd done 11/30/1998 8Admin Note: 1st done 1993 2nd done 1993 3rd done 09/07/1994 Medications diclofenac sodium 75 mg oral delayed release tablet 1 tablet = 75 mg, By Mouth, 2 times a day, PRN PAIN, with food, # 30 tablet, 0 Refills, Maintenance, 07/03/23 16:09:00 EDT, EC Tablet, [facility]/pharmacy #[id number], Partial fill upon patient request if the prescription is for a schedule II opioid drug., 165.1,... Start Date: 07/03/23 Stop Date: 07/18/23 Status: Ordered fluconazole 150 mg oral tablet See Instructions, 1 tablet By Mouth Once, may repeat every 3 days until symptoms resolve, # 3 tablet, 0 Refills, Soft Stop, 09/20/23 10:02:00 EST, [facility]/pharmacy #[id number], Partial fill upon patient request if the prescription is for a schedule II opioid drYumiko. Start Date: 09/20/23 Status: Ordered fluticasone 27.5 mcg/inh nasal spray 1 sprays, Nares, Both, Daily, PRN Cold Symptoms, # 10 Gm, 0 Refills, Maintenance, 07/24/23 15:00:00EST, [place], [id number], Partial fill upon patient request if the prescription is for a schedule II opioid drug., 1 sprays Nares, Both Daily,PRN... Start Date: 07/24/23 Status: Ordered omeprazole 20 mg oral enteric coated capsule 1 capsule, By Mouth, 2 times a day, # 180 capsule, 1 Refills, Maintenance, 06/24/23 16:07:00 EDT, [id number], 165.1, cm, 06/12/23 14:42:00 EDT, Height, 64.3, [...] Diagnosis Diagnosis Type Effective Dates Health Status Clini khushboo Service Informant Acid reflux Discharge Diagnosis 10/16/23 Vital Signs Most recent to oldest [Reference Range]: 1 Height 168 cm (10/16/23 9:19 AM) Oxygen Saturation [94-100 %] 100 % (10/16/23 9:19 AM) Pulse Rate [55-90 bpm] 80 bpm (10/16/23 9:19 AM) Blood Pressure [90-138/55-84 mm Hg] 113/ 74mm Hg (10/16/23 9:19 AM) Temperature [96.8-100.4 DegF] 97.8 DegF (10/16/23 9:19 AM) Mode of Delivery (Oxygen) Room air (10/16/23 9:19 AM) Blood pressure sites Arm, left (10/16/23 9:19 AM) Temperature Route Temporal (10/16/23 9:19 AM) Weight Obtained Via Standing scale (10/16/23 9:19 AM) Social History Social History Type Response Smoking Status Never smoker; Tobacc o user in household: No entered on: 09/26/13 Sex Note * Amanda Wong: PERFORM, SIGN, VERIFY Event Display: Patient Education/Instruction Authored Date: [id number] [facility] *BMP Quab Adlt Med Bltn Clinical Summary Name REGULO ORLANDO Age 27 Years 1995 PCP Nicholas CIRCUS ROUSTABOUT, Elisa Reynaga PCP Visit Date 10/16/2023 09:00:00 Additional Instructions: Scheduled Appointments?? Future Appointments ?*[place] ?[address]??[place] ?Phone:??--?Fax:??-- ?Appt. Date:??10/30/2023?11:20 AM ?Scheduled Provider:??Kurt SRINIVASAN, Ousmane Esparza Follow-Up Instructions ?? Diagnosis Right upper quadrant pain; Palpitations; Gastro-esophageal reflux disease without esophagitis; Other specified disorders of ear, bilateral; Diarrhea, unspecified Medications: Please continue your medications until treatment is completed or stopped by your provider. Discuss any questions related to medications with your provider. Medications to Continue with No Changes These medications were not printed or sent to your pharmacy Diclofenac (diclofenac sodium 75 mg oral delayed release tablet) 1 tab(s) Oral twice a day as needed PAIN for 15 Days. with food. Refills: 0. Next Dose: Fluconazole (fluconazole 150 mg oral tablet) 1 tablet By Mouth Once, may repeat every 3 days until symptoms resolve. Refills: 0. Next Dose: Fluticasone Nasal (fluticasone 27.5 mcg/inh nasal spray) 1 spray(s) Nares, Both Daily as needed Cold Symptoms. Refills: 0. Next Dose: levocetirizine (Xyzal 5 mg oral tablet) 1 tab(s) Oral Daily in PM for 30 Days. Refills: 6. Next Dose: Omeprazole (omeprazole 20 mg oral enteric coated capsule) 1 capsule Oral twice a day. Refills: 1. Next Dose: Allergy Info:?? Reglan Medications Given This Visit Future Orders ?CT Abd W/ IV + Oral Contrast? Order Date:10/16/23?- Complete on or after?10/16/23 Vital Signs Height 168 cm Weight BMI Blood Pressure 113 mm Hg/74 mm Hg Temperature 97.8 DegF Pulse Rate 80 bpm Respiratory Rate 02 Sat Mode of Delivery 100 %/Room air You can now view a summary of your hospital visit from the comfort of your home through a free online portal called [employer]. [employer] is a website that allows you to securely view your medical information including discharge summary, medications and follow-up visits. ??You can alsosend a secure electronic message to your doctor???s office to request appointments, renew medications or just ask a question. You can enroll at [email or web address] or register during your next office [...] primary care provider, you may find a [facility] provider by calling [facility] [employer] Link at [phone]. [facility], in keeping with [facility] guidance, no longer requires face masks for [...] format to support your individualized medical care. What Is Acid Reflux? Do you have to clear your throat or cough often? Are you hoarse? Do you have difficulty swallowing?If you have these or other throat symptoms, you may have acid reflux (when stomach acid washes up and irritates your throat). Why You Have Throat Symptoms At both ends of the esophagus (the tube that carries food to the stomach) are the esophageal sphincters. These muscles relax to let food pass, then tighten to keep stomach acid down. When the lower esophageal sphincter (LES) doesn???t tighten enough, acid can reflux from the stomach into the esophagus. This may cause heartburn. If the upper esophageal sphincter (UES) also doesn???t work well, acid can travel higher and enter your throat (pharynx). In many cases, this causes throat symptoms. Common Throat Symptoms ??? Frequent need to clear your throat ??? Feeling like you???re choking ??? Chronic cough ??? Hoarseness ??? Trouble swallowing ??? Sensation of having ???a lump in the throat? Sour or acid taste ??? Recurrent sore throat ?? [id number] [employer]. [address] [place] [address], [place] [address]. All rights reserved. This information is not intended as a substitute for professional medical care. Always follow your healthcare professional's instructions. Self-Care for Vomiting and Diarrhea Vomiting and diarrhea can make you miserable. Your stomach and bowels are reacting to an irritant. This might be??food, medicine, or viral stomach flu. Vomiting and diarrhea are 2 ways your body can remove the problem from your system. Nausea is a symptom that discourages you from eating. This gives your stomach and bowels time to recover. To get back to normal, start with self-care to ease your discomfort. Drink liquids Drink or sip liquids to avoid losing too much fluid (dehydration): ??? Clear liquids such as water or broth are the best choices. ??? Do not drink beverages with a lot of sugar in them, such as juices and sodas. These can make diarrhea worse. ??? Do not drink sport drinks such as??electrolyte solutions. These don???t have the right mix of water, sugar, and minerals. They can also make the symptoms worse. ??? Suck on ice chips if the thought of drinking something makes you queasy. When you???re able to eat again ??? As your appetite comes back, you can resume your normal diet. ??? Ask your doctor whether??you should stay away from??any foods. Medicines ??? Vomiting and diarrhea are ways your body uses to rid itself of harmful substances such as bacteria. DO NOT use antidiarrheal or antivomiting (antiemetic) medicines unless your healthcare providertells you to do so. ??? Aspirin, medicine with aspirin, and many aspirin substitutes can irritate your stomach. So avoid them when you have stomach upset. ??? Certain prescription and jpom-xsf-eiiximt medicines can cause vomiting and diarrhea. Talk with your doctor about any medicines you take that may be causing these symptoms. ??? Certain vpft-agm-gehvfow antihistamines can help control nausea. Other medicines can help soothe stomach upset. Ask your healthcare provider which medicines may help you. When to call your healthcare provider Call your doctor if you have: ??? Bloody or black vomit or stools ??? Severe, steady abdominal pain ??? Vomiting with a severe headache or vomiting after a head injury ??? Vomiting and diarrhea together for more than an hour ??? An inability to hold down even sips of liquids for more than 12??hours ??? Vomiting that lasts more than 24 hours ??? Severe diarrhea that lasts more than 2??days ??? Yellowish color to your skin or the whites of your eyes ?? [id number] [employer]. [address] [place] [address]. All rights reserved. This information is not intended as a substitute for professional medical care. Always follow your healthcare professional's instructions. Patient Care team information Care Team Personnel Name: Ulysses Desai MD Position: [facility] RESEARCH GENETICIST MD Member Role: [employer] RESEARCH GENETICIST Physician Address: Address: [address] [place] [address] [facility] [place] [address]- Name: Elisa Peterson NP Position: [facility] PCO Associate Professional Member Role: PCP Address: Address: [address] [place] [id number]- Name: Josette Bhardwaj [place] Position: [facility] RN Member Role: Primary Care Nurse Care Team Related Persons Name: HUBER ORLANDO Address: home [address] [place] [address] Name: HUBER ORLANDO Address: home [address] [place] [address] Name: HUBER ORLANDO Address: home [address] [place] [address] Name: JUAN ORLANDO Address: home [address]
--- OUTSIDE RECORDS SUMMARY | 2024-05-22 09:09 | XMS_ITS | Continuity of Care Document ---
Author Organization [facility] Address [address] [place] [address]- Care Team Providers Care Blister Rust Eradicator Name Role Phone Nicholas PREMIX CONCRETE BATCHER, Elisa M Primary Care Physician Encounter [facility] Date(s): 03/29/21 - 04/28/21 [facility] [place] [facility] [address] [place] [address]- Allergies, Adverse Reactions, Alerts Substance Reaction Severity [...] (old term) 6 [birth year]94 Given 1Result Comment: [facility] [id number] [facility] 3Admin Note: [...] Gm, 0 Refills, Maintenance, 01/29/21 20:47:00 EDT, [place], [id number], Partial fill upon patient request [...]
--- OUTSIDE RECORDS SUMMARY | 2024-05-22 09:09 | XMS_ITS | Continuity of Care Document ---
Author Organization [facility] [employer] [facility] [employer] Address [address] [place] [address]- Care Team Providers Care Leather Coater Name Role Phone Elisa Peterson NP Primary Care Physician Encounter [facility] NBR [id number] Date(s): 11/22/22 - 11/29/22 [facility] [employer] Adult [facility] [address] [place] [address]- Encounter Diagnosis Allergic conjunctivitis(Discharge Diagnosis) - 11/22/22 Chronic sinusitis(Discharge Diagnosis) - 11/22/22 Migraines(Discharge Diagnosis) - 11/22/22 CAMERON (generalized anxiety disorder)(Discharge Diagnosis) - 11/22/22 Visual disturbance(Discharge Diagnosis) - 11/22/22 Attending Physician: Elisa Peterson NP Allergies, Adverse [...] B pediatric vaccine 93 Recorded 1Result Comment: [facility] [id number] 2Result Comment: [facility]: [id number] 3Result Comment: [facility] [phone] [facility]: [...] 0 Refills, Maintenance, 12/17/21 15:33:00 EDT, Tablet, [facility]/pharmacy #[id number], Partial fill upon patient request if the [...] 6 Refills, Maintenance, 11/01/22 10:44:00 EST, Nasal Tererro, [facility]/pharmacy #[id number], Partial fill upon patient request if the prescription is for aschedule II opioid drug., 1 sprays Nares, Both 2 ti... Start Date: 11/01/22 Status: Ordered Junel Fe .530 By Mouth, Daily, 0 Refills, Maintenance, [...] capsule, 1 Refills, Maintenance, 11/01/22 10:45:00 EST, [facility]/pharmacy #[id number], 168, cm, 11/01/22 10:19:00 EST, Height, 64, kg, 10/25/22 12:27:00 EST, Dry Weight Start Date: 11/01/22 Stop Date: 04/30/23 Status: Ordered riboflavin 400 mg oral capsule 1 capsule = 400 mg, By Mouth, Daily, # 30 capsule, 6 Refills, Maintenance, 11/22/22 14:29:00 EST, [facility]/pharmacy #[id number], Partial fill upon patient request if the prescription is for a schedule II opioiddrug., 168, cm, 11/22/22 14:02:00 EST, Height, 64,... Start Date: 11/22/22 Stop Date: 06/20/23 Status: Ordered Xyzal 5 mg oral tablet 1 tablet = 5 mg, By Mouth, Daily in PM, # 90 tablet, 1 Refills, Maintenance, 10/24/22 16:56:00 EST,Tablet, [facility]/pharmacy #[id number], Partial fill upon patient request if the prescription is for a scheduleII opioid drug., 1 tablet By Mouth Daily in PM,x90... Start Date: 10/24/22 Stop Date: 04/22/23 Status: Ordered Problem List Condition Confirmation Course Effective Dates Status Health St atus Informant Anxiety Confirmed Active Back pain Confirmed Active Chronic [...] Effective Dates Health Status Clinical Service Informant Allergic conjunctivitis Discharge Diagnosis 11/22/22 Chronic sinusitis Discharge Diagnosis 11/22/22 Migraines Discharge Diagnosis 11/22/22 CAMERON (generalized anxiety disorder) Discharge Diagnosis 11/22/22 Visual disturbance Discharge Diagnosis 11/22/22 Vital Signs Most recent to oldest [Reference Range]: 1 Height 168 cm (11/22/22 2:02 PM) Weight 67.3 kg (11/22/22 2:02 PM) Oxygen Saturation [94-100 %] 98 % (11/22/22 2:02 PM) Pulse Rate [55-90 bpm] 92 bpm *H* (11/22/22 2:02 PM) Body Mass Index [18.5-24.99 kg/m2] 23.84 kg/m2 (11/22/22 2:02 PM) Blood Pressure [90-138/55-84 mm Hg] 128/ 76mm Hg (11/22/22 2:02 PM) Respiratory Rate [16-30 br/min] 16 br/mi n (11/22/22 2:02 PM) Temperature [96.8-100.4 DegF] 97.0 DegF (11/22/22 2:02 PM) Mode of Delivery (Oxygen) Room air (11/22/22 2:02 PM) Blood pressure sites Arm, left (11/22/22 2:02 PM) Temperature Route Temporal (11/22/22 2:02 PM) Weight Obtained Via Standing scale (11/22/22 2:02 PM) Social History Social History Type Response Smoking Status Never smoker; Tobacc o user in household: No entered on: 09/26/13 Sex Note * Kiana Bernabe: PERFORM, SIGN, VERIFY Event Display: Patient Education/Instruction Authored Date: [id number] [facility] *[facility]MP [facility] Med Bltn Clinical Summary Name REGULO ORLANDO Age 27 Years 1995 PCP Nicholas EDGAR, Elisa Reynaga PCP Visit Date 11/22/2022 13:57:00 Additional Instructions: Scheduled Appointments?? Future Appointments ?*[facility] ?Phone:??--?Fax:??-- ?Appt. Date:??11/30/2022?12:00 PM ?Scheduled Provider:??Sharon Bonilla ?*BMP??Quab??[facility]lt??Med??Bltn ?[address],??[place],??[address] ?Phone:??--?Fax:??-- ?Appt. Date:??12/19/2022?2:00 PM ?Scheduled Provider:??Elisa Peterson NP. ?*BMP??Quab??Adlt??Med??Bltn ?[address],??[place],??[address] ?Phone:??--?Fax:??-- ?Appt. Date:??02/06/2023?1:00 PM ?Scheduled Provider:??Nicholas EDGAR , Elisa Sweeney Follow-Up Instructions ?? With: Address: When: Elisa Peterson [address] [place] [address], [address] [place] [address] Business (1) Comments: f/u with me in 2 months. Refer to ENT and Neurology. F/u with psych. Diagnosis Chronic sinusitis, unspecified; Generalized anxiety disorder; Unspecified visual disturbance; Migraine, unspecified, not intractable, without status migrainosus; Acute atopic conjunctivitis, unspecified eye Medications: Please continue your medications until treatment is completed or stopped by your provider. Discuss any questions related to medications with your provider. New Medications [facility]/pharmacy #[id number], [address] [place], [place] [id number], [phone] Riboflavin (riboflavin 400 mg oral capsule) 1 capsule Oral Daily for 30 Days. Refills: 6. Next Dose: Medications to Continue with No Changes These medications were not printed or sent to your pharmacy Diclofenac (diclofenac potassium 50 mg oral tablet) 1 tab(s) Oral 3 times a day as needed for pain. Next Dose: Ethinyl Estradiol / Norethindrone () Oral Daily. Next Dose: Fluticasone Nasal (Flonase 50 mcg/inh nasal spray) 1 spray(s) Nares, Both twice a day. Refills: 6. Next Dose: levocetirizine (Xyzal 5 mg oral tablet) 1 tab(s) Oral Daily in PM for 90 Days. Refills: 1. Next Dose: Lorazepam (Ativan 0.5 mg oral tablet) 1 tab(s) Oral Daily. MassPat checked. Refills: 0. Next Dose: Miscellaneous Rx (Misc Rx) bcp pill Oral Daily. Next Dose: Omeprazole (omeprazole 20 mg oral enteric coated capsule) 1 capsule Oral twice a day for 90 Days. Refills: 1. Next Dose: Allergy Info:?? Reglan Medications Given This Visit Future Orders ?No future orders Vital Signs Height 168 cm Weight 67.3 kg BMI 23.84 kg/m2 Blood Pressure 128 mm Hg/76 mm Hg Temperature 97.0 DegF Pulse Rate 92 bpm Respiratory Rate 16 br/min 02 Sat Mode of Delivery 98 %/Room air You can now view a summary of your hospital visit from the comfort of your home through a free online portal called [employer]. [employer] is a website that allows you to securely view your medical information including discharge summary, medications and follow-up visits. ??You can alsosend a secure electronic message to your doctor???s office to request appointments, renew medications or just ask a question. You can enroll at [email or web address] or register during your next office [...] primary care provider, you may find a [facility] provider by calling [facility] at [phone]. For information about the plan of care including goals and instructions for your diagnosis, please see the patient education orders section of this document. Patient Education Materials?? The content of this educational material or handout may have been modified, supplemented, or adapted from its original content and format to support your individualized medical care. Anxiety??Reaction Anxiety is the feeling we all get when we think something bad might happen. It is a normal responseto stress and usually causes only a mild reaction. When anxiety becomes more severe, it can??interfere with daily life. In some cases, you may not even be aware of what it is you???re anxious about. There may also be a genetic link or it may be a learned behavior in the home. Both psychological and physical triggers cause stress reaction. It's often a response to fear or emotional stress, real or imagined. This stress may come from home, family, work, or social relationships. During an anxiety reaction, you may feel: ??? Helpless ??? Nervous ??? Depressed ??? Irritable Your body may show signs of anxiety in many ways. You may experience: ??? Dry mouth ??? Shakiness ??? Dizziness ??? Weakness ??? Trouble breathing ??? Breathing fast (hyperventilating) ??? Chest pressure ??? Sweating ??? Headache ??? Nausea ??? Diarrhea ??? Tiredness ??? Inability to sleep ??? Sexual problems Home care ??? Try to locate the sources of stress in your life. They may not be obvious. These may include: ??? Daily hassles of life (traffic jams, missed appointments, car troubles, etc.) ??? Major life changes, both good (new baby, job promotion) and bad (loss of job, loss of loved one) ??? Overload: feeling that you have too many responsibilities and can't take care of all of them atonce ??? Feeling helpless, feeling that your problems are beyond what you???re able to solve ??? Notice how your body reacts to stress. Learn to listen to your body signals. This will help youtake action before the stress becomes severe. ??? When you can, do something about the source of your stress. (Avoid hassles, limit the amount ofchange that happens in your life at one time and take a break when you feel overloaded). ??? Unfortunately, many stressful situations can't be avoided. It is necessary to learn how to better manage stress. There are many proven methods that will reduce your anxiety. These include simple things like exercise, good nutrition and adequate rest. Also, there are certain techniques that are helpful: ??? Relaxation ??? Breathing exercises ??? Visualization ??? Biofeedback ??? Meditation For more information about this, consult your doctor or go to a local bookstore and review the manybooks and tapes available on this subject. Follow-up care If you feel that your anxiety is not responding to self-help measures, contact your doctor or make an appointment with a counselor. You may need short-term psychological counseling and temporary medicine to help you manage stress. Call 911 Call your healthcare provider right away if any of these occur: ??? Trouble breathing ??? Confusion ??? Drowsiness or trouble wakening ??? Fainting or loss of consciousness ??? Rapid heart rate ??? Seizure ??? New chest pain that becomes more severe, lasts longer, or spreads into your shoulder, arm, neck, jaw, or back When to seek medical advice Call your healthcare provider right away if any of these occur: ??? Your symptoms get worse ??? Severe headache not relieved by rest and mild pain reliever ?? [id number] [employer]. [address] [place] [address]. All rights reserved. This information is not intended as a substitute for professional medical care. Always follow your healthcare professional's instructions. Self-Care for Sinusitis Sinusitis can often be managed with self-care. Self-care can keep sinuses moist and make you feel more comfortable. Remember to follow your doctor's instructions closely, which can make a big difference in getting your sinus problem under control. Drink fluids Drinking extra fluids ??? a glass every hour or two ??? helps thin your mucus, allowing it to drainfrom your sinuses more easily. A humidifier helps in much the same way. Fluids can also offset the drying effects of certain drugs. Use saltwater rinses Rinses help keep your sinuses and nose moist. Mix a teaspoon of salt in 8 ounces of fresh, warm water. Use a bulb syringe to gently squirt the water into your nose a few times a day. You can also buyready-made saline nasal sprays. Apply hot or cold packs Applying heat to the area surrounding your sinuses may make you feel more comfortable. Use a hot water bottle or a hand towel dipped in hot water. Some people also find ice packs effective for relieving pain. Medications Your doctor may prescribe medications to help treat your sinusitis. If you have an infection, antibiotics can help clear it up. If you are prescribed antibiotics, take all pills on schedule until they are gone, even if you feel better. Decongestants help relieve swelling. Use decongestant sprays for short periods only under the direction of your doctor. If you have allergies, your doctor may prescribe medications to help relieve them. ?? [phone] [employer]. [address] [place] [address]. All rights reserved. This information is not intended as a substitute for professional medical care. Always follow your healthcare professional's instructions. Self-Care for Headaches Most headaches aren't serious and can be relieved with self-care. But some headaches may be a sign of another health problem like eye trouble or high blood pressure. To find the best treatment, learnwhat kind of headaches you get. For tension headaches, self-care will usually help. To treat migraines, ask your??healthcare provider??for advice. It is also possible to get both tension and migraineheadaches. Self-care involves relieving the pain and avoiding headache ???triggers?? if you can. Ways to reduce pain and tension Try these steps: ??? Apply a cold compress or ice pack to the pain site. ??? Drink fluids. If nausea makes it hard to drink, try sucking on ice. ??? Rest. Protect yourself from bright light and loud noises. ??? Calm your emotions by imagining a peaceful scene. ??? Massage tight neck, shoulder, and head muscles. ??? To relax muscles, soak in a hot bath or use a hot shower. Use medicines Aspirin or aspirin substitutes, such as ibuprofen and acetaminophen, can relieve headache. Remember: Never give aspirin to anyone 18 years old or younger because of the risk of developing Gold syndrome. Use pain medicines only when necessary. Track your headaches Keeping a headache diary can help you and your??healthcare provider??identify what's causing your headaches: ??? Note when each headache happens. ??? Identify your activities and the foods you've eaten??6 to 8??hours before the headache began. ??? Look for any trends or triggers. Signs of tension headache Any of the following can be signs: ??? Dull pain or feeling of pressure in a tight band around your head ??? Pain in your neck or shoulders ??? Headache without a definite beginning or end ??? Headache after an activity such as driving or working on a computer Signs of migraine Any of the following can be signs: ??? Throbbing pain on one or both sides of your head ??? Nausea or vomiting ??? Extreme sensitivity to light, sound, and smells ??? Bright spots, flashes, or other visual changes ??? Pain or nausea so severe that you can't continue your daily activities Call your??healthcare provider If you have any of the following symptoms, contact your healthcare provider: ??? A headache that lingers after a recent injury or bump to the head. ??? A fever with a stiff neck or pain when you bend your head toward your chest. ??? A headache along with slurred speech, changes in your vision, or numbness or weakness in your arms or legs. ??? A headache for longer than??3 days. ??? Frequent headaches,??especially in the morning. ??? Headaches with seizures ??? Seek immediate medical attention if you have a headache that you would call the worst headacheyou have ever had. ?? [phone] [employer]. [address] [place] [address]. All rights reserved. This information is not intended as a substitute for professional medical care. Always follow your healthcare professional's instructions. Patient Care team information Care Team Personnel Name: Elisa Peterson NP Position: [facility] PCO Associate Professional Member Role: PCP Address: Address: [address] [place] [address]- Name: Josette De Anda Position: [facility] RN Member Role: Primary Care Nurse Care Team Related Persons Name: HUBER ORLANDO Address: home [address] [address] Name: HUBER ORLANDO Address: home [address] [place] [id number] Name: HUBER ORLANDO Address: home [address] [place] [id number] Name: JUAN ORLANDO Address: home [address] [address]
--- OUTSIDE RECORDS SUMMARY | 2024-05-22 09:09 | XMS_ITS | Continuity of Care Document ---
Author Organization [facility] Address [address] [place] [address]- Care Team Providers Care Nurse Ortho Name Role Phone Elisa Peterson NP Primary Care Physician Encounter [facility] NBR [id number] Date(s): 01/24/24 - 01/31/24 [facility] Adult [address] [address]- [place] Encounter Diagnosis Saddle anesthesia(Discharge Diagnosis) - 01/24/24 Left sided sciatica(Discharge Diagnosis) - 01/24/24 Urinary incontinence(Discharge Diagnosis) - 01/24/24 CAMERON (generalized anxiety disorder)(Discharge Diagnosis) - 01/24/24 Attending Physician: Keron Jones MD Referring Physician: Elisa Peterson NP Allergies, Adverse [...] Comment: [facility] [phone] 2Result Comment: [facility]: [phone] 3Result Comment: [facility] [id number] [phone] [facility] 5Admin Note: [...] 01/29/24 14:53:00 EDT, Route to Pharmacy Electronically, [facility]/pharmacy #[id number], Partial fill upon patient request if the prescription i... Start Date: 01/29/24 Status: Ordered famotidine 20 mg oral tablet 20 mg, 1, tablet, By Mouth, 2 times a day, PRN, # 30 tablet, Refills 0, Tot. Refills 0, Maintenance, Control of Stomach Acid, 01/09/24 0:16:00 EDT, Route to Pharmacy Electronically, [facility]/pharmacy #[id number], Partial fill upon patient request if the prescrip... Start Date: 01/09/24 Status: Ordered hydrOXYzine hydrochloride 10 mg oral tablet 1 tablet = 10 mg, By Mouth, 3 times a day, PRN for anxiety, # 42 tablet, 0 Refills, Maintenance, 01/16/24 16:47:00 EDT, Tablet, [facility]/pharmacy #[id number], Partial [...] 12/26/23 16:09:00 EDT, Route to Pharmacy Electronically, [facility]/pharmacy #[id number], Partial fill upon patie... Start Date: 12/26/23 Stop Date: 02/17/24 Status: Ordered loratadine 10 mg oral capsule 1 capsule = 10 mg, By Mouth, Daily, As needed for symptoms of allergic reaction., # 10 capsule, 0 Refills, Maintenance, 12/31/23 1:48:00 EDT, Capsule, [facility]/pharmacy #[id number], Partial fill upon patient request if the prescription is for a schedule II opioi... Start Date: 12/31/23 Status: Ordered omeprazole 20 mg oral enteric coated capsule 1 capsule, By Mouth, 2 times a day, # 180 capsule, 0 Refills, Maintenance, 01/25/24 10:16:00 EDT, [facility] STORE [id number], 168, cm, 01/24/24 14:42:00 EDT, Height, 63.5, [...] Effective Dates Health Status Clinical Service Informant Saddle anesthesia Discharge Diagnosis 01/24/24 Left sided sciatica Discharge Diagnosis 01/24/24 Urinary incontinence Discharge Diagnosis 01/24/24 CAMERON (generalized anxiety disorder) Discharge Diagnosis 01/24/24 Vital Signs Most recent to oldest [Reference Range]: 1 Height 168 cm (01/24/24 2:42 PM) Weight 62.4 kg (01/24/24 2:42 PM) Oxygen Saturation [94-100 %] 100 % (01/24/24 2:42 PM) Pulse Rate [55-90 bpm] 85 bpm (01/24/24 2:42 PM) Body Mass Index [18.5-24.99 kg/m2] 22.11 kg/m2 (01/24/24 2:42 PM) Blood Pressure [90-138/55-84 mm Hg] 101/ 68mm Hg (01/24/24 2:42 PM) Temperature [96.8-100.4 DegF] 97.1 DegF (01/24/24 2:42 PM) Mode of Delivery (Oxygen) Room air (01/24/24 2:42 PM) Blood pressure sites Arm, left (01/24/24 2:42 PM) Temperature Route Temporal (01/24/24 2:42 PM) Weight Obtained Via Standing scale (01/24/24 2:42 PM) Social History Social History Type Response Smoking Status Never smoker; Tobacc o user in household: No entered on: 09/26/13 Sex Note * Amanda Wong: PERFORM Event Display: Patient Education/Instruction Authored Date: [id number] Ambulatory Adult Visit Summary [facility] [address] [address] Name: REGULO ORLANDO : 1995?? Visit: 01/24/2024 14:40?? Ambulatory Visit Instructions ?? Your Care Team Primary Care Provider Elisa Peterson NP? This Visit Provider Elisa Peterson NP. Your Diagnosis Saddle anesthesia Left sided sciatica Urinary incontinence CAMERON (generalized anxiety disorder) Vitals Signs Temperature: 97.1 DegF Height: 168 cm Pulse Rate: 85 bpm Weight: 62.4 kg Systolic Blood Pressure: 101 mm Hg Body Mass Index: 22.11 kg/m2 Diastolic Blood Pressure: 68 mm Hg Body surface area: 1.71 Oxygen Saturation: 100 % ?? What to do next Scheduled Follow-Up Appointments Monday 3:25 PM EDT ?? With: Raymundo Leon MD Where: [facility] [address] [place] [address]- Status: Pending Monday 8:20 AM EDT ?? With: Elisa Peterson NP Where: [facility] [address] [place] [address]- Status: Pending Monday 8:20 AM EDT ?? With: Elisa Peterson NP Where: [facility] [address] [place] [address]- Status: Pending Monday 11:30 AM EDT ?? With: Jade Ross NP Where: [facility] [address] [facility] [address] [facility], [address] [place] [address]- Status: Pending Monday 11:00 AM EDT ?? With: Myke Cordova Where: [facility] [address] [facility] [address] [address]- Status: Pending Follow-Up Appointments Follow Up with??Elisa Peterson NP When:??03/19/2024 08:20 AM EDT Why: follow up booked 03/19/24 820?? Where: [address] [place] [address]- Follow Up with??Nicholas EDGAR, Elisa Reynaga When:??02/27/2024 08:20 AM EDT Why: follow up booked 02/27/24 820 Where: [address] [place] [address]- Future Orders MRI Lumbar Spine W/O Contrast, Routine, Reason for Exam: Other:, No-No Pacemaker or Neurostimulator, Can Patient Stand Alone?, Once, *Est. 01/24/24 Medications The list below reflects the information in our records and provided by you today along with any changes made during this visit. Please continue your medications until treatment is completed or stopped by your provider. If this is different from the information you have or there are other questions,please contact the prescribing provider. What How Much When Why Instructions Unchanged Famotidine (famotidine 20 mg oral tablet) 1 tab(s) Oral Twice a day as needed for Control of Stomach Acid Unchanged HydrOXYzine (hydrOXYzine hydrochloride 10 mg oral tablet) 1 tab(s) Oral 3 times a day as needed for for anxiety Unchanged Ibuprofen (ibuprofen 600 mg oral tablet) 1 tab(s) Oral Daily as needed for Headache Tension headache Left eye pain Take with food. Take sparingly ?? Unchanged levocetirizine (Xyzal 5 mg oral tablet) 1 tab(s) Oral Daily in PM Duration: 30 Days Unchanged Loratadine (loratadine 10 mg oral capsule) 1 capsule Oral Daily As needed for symptoms of allergic reaction. ?? Unchanged Omeprazole (omeprazole 20 mg oral enteric coated capsule) 1 capsule Oral Twice a day Test Performed Below is a partial list of the tests performed during your Visit. You may have had other tests and procedures not included in this list. Please discuss all test results with your provider. POC UA ([facility] SITE) Lab Test Results Below is a partial list of the most recent Laboratory test results done during your Visit. You may have had other tests and procedures not included in this list. Please discuss all test results with your provider. Test Name Test Result Date/Time POC UA Glucose NEGATIVE 01/24/2024 15:15 EDT POC UA Bilirubin NEGATIVE 01/24/2024 15:15 EDT POC UA Ketones NEGATIVE 01/24/2024 15:15 EDT POC UA Specific [place] 1.020 01/24/2024 15:15 EDT POC UA Blood NEGATIVE 01/24/2024 15:15 EDT POC UA PH 7.0 1 01/24/2024 15:15 EDT POC UA Protein NEGATIVE 01/24/2024 15:15 EDT POC UA Urobilinogen 0.2 mg/dL 01/24/2024 15:15 EDT POC UA Nitrite NEGATIVE 01/24/2024 15:15 EDT POC UA Leukocytes NEGATIVE 01/24/2024 15:15 EDT POC UA Color YELLOW 01/24/2024 15:15 EDT POC UA Clarity CLEAR 01/24/2024 15:15 EDT Medications and Immunizations Administered Medications Given During Visit No medications given during this visit.?? Allergies (NKA means No Known Allergies) Reglan??(agitation) Common Emergency Awareness Tips IS IT [...] are strongly encouraged to quit. Please call [employer] at [phone] or [phone]) or log in to [email or web address] for referrals to smoking cessation programs. ?? The National Suicide Prevention Hotline is available 10/04 if you or someone you know needs to find a reason to keep living. By calling 4-190-290-talk (6478) you'll be connected to a skilled, trained counselor at a crisis center in your area. [facility] iCook[employer]tw Portal You can view and manage your care through the patient portal or by using a health care anne of your choosing. [employer] is a website that allows you to securely view your medical information including your hospital discharge summary, office visit summaries, medications and follow-up visits. You can also request appointments, renew medications, and request access to your medical information using a health care anne of your choosing, or just ask a question. You can enroll at [email or web address] or register during your next office visit. [facility], in keeping with [facility] guidance, no longer requires face [...] primary care provider, you may find a [facility] provider by calling [facility] iCook[employer]tw Link at [phone]. Patient Care team information Care Team Personnel Name: Ulysses Desai MD Position: [facility] ADOBE BLOCK MAKER Member Role: [employer] ADOBE BLOCK MAKER Physician Address: Address: [address] [place] [address] [place] [address]- [place] Name: Elisa Peterson NP Position: [facility] PCO Associate Professional Member Role: PCP Address: Address: [address] [place] [address]- [place] Name: Josette Bhardwaj [place] Position: [facility] [place] Member Role: Primary Care Nurse Care Team Related Persons Name: HUBER ORLANDO Address: home [address] [place] [address] Name: HUBER ORLANDO Address: home [address] [place] [address] Name: HUBER ORLANDO Address: home [address] [place] [address] Name: JUAN ORLANDO Address: home [address] [address]
--- OUTSIDE RECORDS SUMMARY | 2024-05-22 09:09 | XMS_ITS | Continuity of Care Document ---
Author Organization [facility] Address [address] [place] [address]- Care Team Providers Care Tank Car Inspector Name Role Phone Nicholas TYPEWRITER MECHANIC, Elisa M Primary Care Physician Encounter [facility] NBR [id number] Date(s): 09/08/23 - 10[facility]08/[facility] [address] [place] [address]- [place] Allergies, Adverse Reactions, Alerts Substance Reaction [...] 1Result Comment: [facility] [phone] 2Result Comment: [facility]: [id number] 3Result Comment: [facility] [id number] [phone] [facility] 5Admin Note: [...] Refills, Maintenance, 07/03/23 16:09:00 EDT, EC Tablet, [facility]/pharmacy #[id number], Partial fill upon patient request if the prescription is for a schedule II opioid drug., 165.1,... Start Date: 07/03/23 Stop Date: 07/18/23 Status: Ordered fluconazole 150 mg oral tablet See Instructions, 1 tablet By Mouth Once, may repeat every 3 days until symptoms resolve, # 3 tablet, 0 Refills, Soft Stop, 09/20/23 10:02:00 EST, [facility]/pharmacy #[id number], Partial fill upon patient request if the prescription is for a schedule II opioid drYumiko. Start Date: 09/20/23 Status: Ordered fluticasone 27.5 mcg/inh nasal spray 1 sprays, Nares, Both, Daily, PRN Cold Symptoms, # 10 Gm, 0 Refills, Maintenance, 07/24/23 15:00:00EST, [place], [facility]/pharmacy #[id number], Partial fill upon patient request if the prescription is for a schedule II opioid drug., 1 sprays Nares, Both Daily,PRN... Start Date: 07/24/23 Status: Ordered omeprazole 20 mg oral enteric coated capsule 1 capsule, By Mouth, 2 times a day, # 180 capsule, 1 Refills, Maintenance, 06/24/23 16:07:00 EDT, [facility] STORE 22259, 165.1, cm, 06/12/23 14:42:00 EDT, Height, 64.3, kg, 05/19/23 19:22:00 EDT, Dry Weight Start Date: 06/24/23 Status: Ordered Xyzal 5 mg oral tablet 1 tablet = 5 mg, By Mouth, Daily in PM, # 30 tablet, 6 Refills, Maintenance, 08/30/23 14:06:00 EST,Tablet, [facility]/pharmacy #[id number], Partial fill upon patient request [...] Name: Giselle SRINIVASAN, Ulysses Thornton Position: [facility] PLANNING TECHNICIAN MD Member Role: Lifetime PLANNING TECHNICIAN Physician Address: Address: [address] [place] [address] [place] [address]- Name: Elisa Peterson NP Position: [facility] PCO Associate Professional Member Role: PCP Address: Address: [address] [place] [address]- Name: Josette Bhardwaj [place] Position: [facility] RN Member Role: Primary Care Nurse Care Team Related Persons Name: HUBER ORLANDO Address: home [address] [place] [address] Name: JOHANNY HUBER M Address: home [address] [place] [address] Name: JOHANNY HUBER Ronnell Address: home [address] [place] [address] Name: JUAN ORLANDO Address: home [address] [address]
--- OUTSIDE RECORDS SUMMARY | 2024-05-22 09:09 | XMS_ITS | Continuity of Care Document ---
Author Organization [facility] Address [address] [place] [address]- Care Team Providers Care Vegetable Handler Name Role Phone Nicholas OPTIMIZATION ANALYST, Elisa Reynaga Primary Care Physician Encounter [facility] Date(s): 06/24/20 - 07/24/20 [facility] [address] [place] [address]- Allergies, Adverse Reactions, Alerts Substance Reaction Severity [...] term) 6 09/07/94 Given 1Result Comment: [facility] [id number] [phone] 2[facility] 3Admin Note: [...]
--- OUTSIDE RECORDS SUMMARY | 2024-05-22 09:09 | XMS_ITS | Continuity of Care Document ---
Author Organization [facility] Address [address] [place] [address]- Care Team Providers Care Tool And Die Maker Level Five Name Role Phone Anitha Hyde MD Primary Care Physician ( [phone] Encounter [facility] Date(s): 03/23/20 - 03/30/20 [facility] Adult [address] [place] [address]- [facility] Encounter Diagnosis Anxiety(Discharge Diagnosis) - 03/23/20 Migraine(Discharge Diagnosis) - 03/23/20 Attending Physician: Anitha Hyde MD Allergies, Adverse [...] Comment: [facility] [id number] [phone] 2[facility] 3Admin Note: 1st dove 11/21/1995 2nd done 05/21/2009 4Admin Note: 1st done 12/13/2006 2nd done 02/14/2007 3rd done 06/19/2007 5Admin Note: 1st done 02/24/1995 2nd done 11/30/1998 6Admin Note: 1st done 1993 2nd done 1993 3rd done 09/07/1994 Medications magnesium oxide 400 mg oral tablet 1 tablet = 400 mg, By Mouth, Daily, for 30 days, # 30 tablet, 5 Refills, Acute 09/19/20 13:24:00 EST, 03/23/20 13:24:00 EDT, Tablet, [facility]/pharmacy #[id number], 166, cm, 03/23/20 13:04:00 EDT, Height, 60.7, kg, 02/29/20 0:40:00 EDT, Dry Weight Start Date: 03/23/20 Stop Date: 09/19/20 Status: Ordered riboflavin 100 mg oral tablet 4 tablet = 400 mg, By Mouth, Daily, # 120 tablet, 5 Refills, Maintenance, 03/23/20 16:44:00 EDT, Tablet, [id number], 166, cm, 03/23/20 13:04:00 EDT, Height, 60.7, kg, 02/29/20 0:40:00 EDT, Dry Weight Start Date: 03/23/20 Stop Date: 09/19/20 Status: Ordered riboflavin 400 mg oral capsule 1 capsule = 400 mg, By Mouth, Daily, # 30 capsule, 5 Refills, Maintenance, 03/23/20 13:24:00 EDT, Capsule, [id number], 166, cm, 03/23/20 13:04:00 EDT, Height, 60.7, kg, 02/29/20 0:40:00 EDT, Dry Weight Start Date: 03/23/20 Stop Date: 09/19/20 Status: Ordered Taytulla 1 mg-20 mcg oral [...] Dates Health Status Clini khushboo Service Informant Anxiety Discharge Diagnosis 03/23/20 Migraine Discharge Diagnosis 03/23/20 Vital Signs Most recent to oldest [Reference Range]: 1 Height 166 cm (03/23/20 1:04 PM) Social History Social History Type Response Smoking Status Never smoker; Tobacc o user in household: No entered on: 09/26/13 Sex
--- OUTSIDE RECORDS SUMMARY | 2024-05-22 09:09 | XMS_ITS | Continuity of Care Document ---
Author Organization [facility] Address [address] [place] [address]- Care Team Providers Care Fashion Styling Intern Name Role Phone Nicholas EDGAR, Elisa Reynaga Primary Care Physician Encounter [facility] Date(s): 05/19/23 - 05/19/[address] [address]- Discharge Disposition: A-D/C Home Attending Physician: Ousmane [...] pediatric vaccine 93 Recorded 1Result Comment: [facility] [phone] 2Result Comment: [facility]: [id number] 3Result Comment: [facility] [id number] [phone] [facility]: [...] mL, 0 Refills, Maintenance, 05/19/23 22:44:00 EDT, [facility]/pharmacy #[id number], Partial fill upon patient request if the prescription is for a schedule II opioid drug., 165.1, cm, 05/19/23 1... Start Date: 05/19/23 Stop Date: 06/02/23 Status: Ordered By Mouth, Daily, 0 Refills, Maintenance, 08/08/22 13:49:00 EST, Partial fill upon patient request if the prescription is for a schedule II opioid drug. Start Date: 08/08/22 Status: Ordered omeprazole 20 mg oral enteric coated capsule 1 capsule, By Mouth, 2 times a day, # 180 capsule, 1 Refills, Maintenance, 11/01/22 10:45:00 EST, [id number], 168, cm, 11/01/22 10:19:00 EST, Height, 64, kg, 10/25/22 12:27:00 EST, Dry Weight Start Date: 11/01/22 Stop Date: 04/30/23 Status: Ordered ondansetron 4 mg oral tablet, disintegrating 1 tablet = 4 mg, By Mouth, Every 8 hours, PRN Nausea & Vomiting, for 10 days, # 30 tablet, 0 Refills, Acute 05/29/23 22:44:00 EDT, 05/19/23 22:44:00 EDT, Tablet, [id number], Partial fill upon patient request if the prescription is for a schedu... Start Date: 05/19/23 Stop Date: 05/29/23 Status: Ordered Toradol Inj 15 mg, Injection, IV Push Slowly, Once, STAT, 05/19/23 20:21:00 EDT, Stop date 05/19/23 20:21:00 EDT Start Date: 05/19/23 Stop Date: 05/19/23 Status: Completed Problem List Condition Confirmation Course Effective Dates [...] oldest [Reference Range]: 1 2 3 Height 165.10 cm (05/19/23 7:12 PM) Weight 64.3 kg (05/19/23 7:12 PM) Oxygen Saturation [94-100 %] 100 % (05/19/23 7:12 PM) 99 % (05/19/23 7:11 PM) Pulse Rate [55-90 bpm] 94 bpm *H* (05/19/23 7:12 PM) 98 bpm *H* (05/19/23 7:11 PM) Blood Pressure [90-138/55-84 mm Hg] 132/97mm Hg (05/19/23 7:12 PM) Respiratory Rate [16-30 br/min] 17 br/min (05/19/23 8:59 PM) 18 br/min (05/19/23 7:12 PM) 16 br/min (05/19/23 7:11 PM) Temperature [96.8-100.4 DegF] 97.8 DegF (05/19/23 7:12 PM) Mode of Delivery (Oxygen) Room air (05/19/23 7:12 PM) Room air (05/19/23 7:11 PM) Blood pressure sites Arm, left (05/19/23 7:12 PM) Temperature Route Temporal (05/19/23 7:12 PM) Dry Weight 64.3 kg (05/19/23 7:12 PM) Weight Obtained Via Standing scale (05/19/23 7:12 PM) Dry Weight Obtained Via Standing scale (05/19/23 7:12 PM) Social History Social History Type Response Smoking Status Never smoker; Tobacc o user in household: No entered on: 09/26/13 Sex Note * Thomas SRINIVASAN, Ousmane Galvan: PERFORM Event Display: Patient Education Leaflets Authored Date: [id number] Diet for Vomiting or Diarrhea (Adult) ?? [id number] Diet for Vomiting or Diarrhea (Adult) Your symptoms may return or get worse after eating certain foods listed below. If this happens, stop eating these foods until your symptoms ease and you feel better. Once the vomiting stops, follow the steps below.?? During the first 12 to 24 hours During the first 12 to 24 hours, follow this diet: ??? Drinks.??Have plain water, sports drinks (like electrolyte solutions), drinks without caffeine, mineral water (plain or flavored), and clear fruit juices. Don't have drinks with caffeine or citrus juices. This is because they are high in acid and can irritate your stomach. ??? Soups. Have clear broth. ??? Desserts. Have plain gelatin, frozen ice pops, and fruit juice bars without pieces of fruit. As you feel better, you may add 6??to 8 ounces of yogurt per day. If you have diarrhea, don't have??foods or drinks with sugar, high-fructose corn syrup, or sugar alcohols. ?? During the next 24 hours During the next 24 hours, you may add these to the above: ??? Hot cereal, plain toast, bread, rolls, and crackers ??? Plain noodles, rice, mashed potatoes, and chicken noodle or rice soup ??? Unsweetened canned fruit (not pineapple) and bananas Don't eat more than??15 grams of fat a day. Do this by staying away from margarine, butter, oils, mayonnaise, sauces, gravies, fried foods, peanut butter, meat, poultry, and fish. Don't eat much fiber. Stay away from??raw or cooked vegetables, fresh fruits (except bananas), and bran cereals. Limit how much??caffeine and chocolate you have. Don't use any??spices or seasonings except salt. ?? During the next 24 hours Slowly go back to your normal diet, as you feel better and your symptoms ease. ?? Last Reviewed Date: 2022 ?? [id number] [employer]. All rights reserved. This information is not intended as a substitute for professional medical care. Always follow your healthcare professional's instructions. ?? * Thomas SRINIVASAN, Ousmane Galvan: PERFORM Event Display: Patient Education Leaflets Authored Date: [id number] Epigastric Pain (Uncertain Cause) ?? [id number] Epigastric Pain (Uncertain Cause) Epigastric pain is pain in the upper abdomen. It can be a sign of disease. Common causes include: ??? Acid reflux (stomach acid flowing up into the esophagus) ??? Gastritis (irritation of the stomach lining). Most often this is from aspirin or NSAIDs (nonsteroidal anti-inflammatory drugs) such asibuprofen, bacteria called H. pylori, or frequent alcohol use. ??? Peptic ulcer disease ??? Inflammation of the pancreas (pancreatitis) ??? Gallstone ??? Inflammation in the gallbladder (cholecystitis) Pain may be dull or burning. It may spread upward to the chest or to the back. There may be other symptoms such as belching, bloating, cramps, or hunger pains. There may be weight loss or poor appetite, nausea, or vomiting. Since the cause of your pain is not certain yet, you may need more tests. Sometimes your healthcareprovider will treat you for the most likely condition to see if there is improvement before doing more tests. Talk with your provider about what is best for you. Home care Medicines ??? Antacids help neutralize the normal acids in your stomach. If you don???t like the liquid, you can try a chewable one. You may find one works better than another for you. Overuse can cause diarrhea or constipation. Call your provider if you have questions about your medicines or concerns about side effects. ??? Acid blockers (H2 blockers) decrease acid production. Examples are cimetidine and famotidine. ??? Acid inhibitors (PPIs) decrease acid production in a different way than blockers. You may find they work better but can take a little longer to take effect. Examples are omeprazole, lansoprazole, pantoprazole, rabeprazole, and esomeprazole. Many of these are available eajz-yjy-smqiglm or as generics. ??? Take an antacid 30 to 60??minutes after eating and at bedtime, but not at the same time as an acid [place]. ??? Try not to take NSAIDs such as ibuprofen. Aspirin may also cause problems, but if you are taking it for your heart or other medical reasons, talk to your healthcare provider before stopping it. Diet ??? If certain foods seem to cause your pain, try not to eat them. Certain foods can worsen symptoms of gastritis. Limit or avoid fatty, fried, and spicy foods, as well as coffee, chocolate, mint, and foods with high acid content such as tomatoes and citrus fruit and juices (orange, grapefruit, lemon). ??? Eat slowly and chew food well before swallowing. ??? Don't drink alcohol. It can irritate the stomach. If you have trouble giving up alcohol, ask your provider for treatment resources. ??? Don't consume caffeine or use tobacco. These can delay healing??and worsen your problem. ??? Try eating smaller meals with snacks in between. Don't eat large meals before bedtime. ??? Keep an emptystomach for 2 to 3 hours before lying down. ??? Prop the head of the bed up if you have overnight symptoms. This helps acid clear from your esophagus. ?? Follow-up care Follow up with your healthcare provider or as advised. ?? When to seek medical advice Call your healthcare provider right away if any of the following occur: ??? Stomach pain worsens ormoves to the right lower part of the abdomen ??? Frequent vomiting (can???t keep down liquids) ??? Blood in the stool or vomit (red or black color) ??? Fever of 100.4??F (38??C) or higher, or as directed by your healthcare provider ??? Abdominal swelling ??? Worsening symptoms or new symptoms ?? Call 911 Call 911 if any of these occur: ??? Chest pain appears, or if pain worsens or spreads to the back, neck, shoulder, or arm ??? Feeling weak or dizzy, fainting, or having trouble breathing ?? Last Reviewed Date: 2022 ?? [employer]. All rights reserved. This information is not intended as a substitute for professional medical care. Always follow your healthcare professional's instructions. ?? * Thomas SRINIVASAN, Ousmane Galvan: PERFORM Event Display: Patient Education Leaflets Authored Date: [id number] Gastritis or Ulcer, No Antibiotic Treatment ?? [id number] Gastritis or Ulcer, No Antibiotic Treatment Gastritis??is irritation and inflammation of the stomach lining. This means the lining is red and swollen. It can cause shallow sores in the stomach lining called erosions. An??ulcer??is a deeper open sore in the lining of the stomach. It may also occur in the first part of the small intestine (duodenum).??The causes and symptoms of gastritis and ulcers are very similar. Causes and risk factors for both problems can include: ??? Long-term use of nonsteroidal anti-inflammatory drugs (NSAIDs) such as aspirin and ibuprofen ??? H. pylori??bacteria infection ??? Tobacco use ??? Alcohol use ??? Certain other conditions such asimmune disorders, certain medicines such as high-dose iron supplements, and street drugs such as cocaine Symptoms for both problems can include: ??? Dull or burning pain in the upper part of the belly ??? Loss of appetite ??? Heartburn or upsetstomach ??? Frequent burping ??? Bloated feeling ??? Nausea with or without vomiting You likely had an assessment to help find the exact cause and extent of your problem. This may haveincluded a health history, exam, and certain tests. Results showed that your problem is not from ??H. pylori??infection. For this reason, you don't need antibiotics as part of your treatment. Whether your problem is gastritis or an ulcer, you will still need to take other medicines. You will also need to follow instructions to help reduce stomach irritation so your stomach can heal.?? Home care ??? Take any medicines you???re prescribed exactly as directed. Common medicines used to treat gastritis include: o Antacids.??These help neutralize the normal acids in your stomach. o Proton pump inhibitors.??These block your stomach from making any acid. o H2??blockers. These reduce theamount of acid your stomach makes. o Bismuth subsalicylate.??This helps protect the lining of your stomach from acid. ??? Don't take any NSAIDs during your treatment. If you take NSAID to help treat other health problems, tell your healthcare provider. They may need to adjust your medicine plan or change the dosage. ??? Don???t use tobacco. Also don???t drink alcohol. These products can increase the amount of acid your stomach makes. This can delay healing. It can also worsen symptoms. ?? Follow-up care Follow up with your healthcare provider, or as advised. In some cases, you may need more tests. ?? When to seek medical advice Call your healthcare provider right away if any of these occur: ??? Fever of 100.4??F (38??C) or higher, or as directed by your healthcare??provider ??? Stomach pain that gets worse or moves to the lower right part of belly ??? Extreme tiredness (fatigue) ??? Weakness or dizziness ??? Continued weight loss ??? Frequent vomiting,??blood in your vomit, or coffee-groundlike substance in your vomit ??? Black, tarry, or bloody stools ??? Symptoms get worse or you have new symptoms ?? Call 911 Call 911??if any of these occur: ??? Chest pain appears or worsens, or spreads to the back, neck, shoulder, or arm ??? Unusually fast heart rate ??? Trouble breathing or swallowing ??? Confusion ??? Extreme drowsiness or trouble waking up ??? Fainting ??? Large amounts of blood present in vomit or stool ?? Last Reviewed Date: 2021 ?? [id number] [employer]. All rights reserved. This information is not intended as a substitute for professional medical care. Always follow your healthcare professional's instructions. ?? Patient Care team information Care Team Personnel Name: Ulysses Desai MD Position: [facility] SR. DIRECTOR MD Member Role: [employer] SR. DIRECTOR Physician Address: Address: [address] [place] [address] [place] [address]- Name: Nicholas METAL FABRICATING SHOP HELPER, Elisa Reynaga Position: [facility] PCO Associate Professional Member Role: PCP Address: Address: [address] [place] [phone]- [place] Name: Josette Bhardwaj [place] Position: [facility] RN Member Role: Primary Care Nurse Name: Tony Isaacs RN Position: [facility] ED RN W/OE and Tasks Member Role: Patient Care Provider Name: Ousmane Guzman MD Position: [facility] ED Medicine MD Member Role: Admitting Physician Address: Address: [address] [place] [address] [place] [address]- Name: Noa Yu Position: [facility] ED TA [facility] Member Role: ED Associate Name: Rosi Cole RN Position: [facility] ED RN W/OE and Tasks Member Role: Patient Care Provider Care Team Related Persons Name: HUBER ORLANDO Address: home [address] [place] [address] Name: JOHANNY HUBER Reynaga Address: home [address] [place] [address] Name: JOHANNY HUBER Ronnell Address: home [address] [place] [address] Name: JUAN ORLANDO Address: home [address]
--- OUTSIDE RECORDS SUMMARY | 2024-05-22 09:09 | XMS_ITS | Continuity of Care Document ---
Author Organization [facility] Address [address] [place] [address]- Care Team Providers Care Mathematics Academic Chair Name Role Phone Nicholas LINK AND LINK KNITTING MACHINE OPERATOR, Elisa M Primary Care Physician Encounter [facility] [id number] Date(s): 01/11/24 - 02/10/24 [facility] [facility] [address] [address]- [place] Allergies, Adverse Reactions, Alerts Substance Reaction [...] B pediatric vaccine 93 Recorded 1Result Comment: [facility] [id number] 2Result Comment: [facility]: [phone] 3Result Comment: [facility] [id number] [phone] [facility] 5[facility] Note: [...] 01/29/24 14:53:00 EDT, Route to Pharmacy Electronically, [facility]/pharmacy #[id number], Partial fill upon patient request if the prescription i... Start Date: 01/29/24 Status: Ordered famotidine 20 mg oral tablet 20 mg, 1, tablet, By Mouth, 2 times a day, PRN, # 30 tablet, Refills 0, Tot. Refills 0, Maintenance, Control of Stomach Acid, 01/09/24 0:16:00 EDT, Route to Pharmacy Electronically, [facility]/pharmacy #[id number], Partial fill upon patient request if the prescrip... Start Date: 01/09/24 Status: Ordered hydrOXYzine hydrochloride 10 mg oral tablet 1 tablet = 10 mg, By Mouth, 3 times a day, PRN for anxiety, # 42 tablet, 0 Refills, Maintenance, 01/16/24 16:47:00 EDT, Tablet, [facility]/pharmacy #[id number], Partial [...] 12/26/23 16:09:00 EDT, Route to Pharmacy Electronically, [facility]/pharmacy #[id number], Partial fill upon patie... Start Date: 12/26/23 Stop Date: 02/17/24 Status: Ordered loratadine 10 mg oral capsule 1 capsule = 10 mg, By Mouth, Daily, As needed for symptoms of allergic reaction., # 10 capsule, 0 Refills, Maintenance, 12/31/23 1:48:00 EDT, Capsule, [facility]/pharmacy #[id number], Partial fill upon patient request if the prescription is for a schedule II opioi... Start Date: 12/31/23 Status: Ordered omeprazole 20 mg oral enteric coated capsule 1 capsule, By Mouth, 2 times a day, # 180 capsule, 0 Refills, Maintenance, 01/25/24 10:16:00 EDT[id number], 168, cm, 01/24/24 14:42:00 EDT, Height, 63.5, [...] Active Diarrhea Confirmed Active Fibromyalgia 1 Confirmed 12/29/17 Active IBS - Irritable bowel syndrome 2 [...] Team Personnel Name: Ulysses Desai MD Position: [facility] [employer] MD Member Role: [employer] Physician Address: Address: [address] [place] [address] [place] [address]- Name: Elisa Peterson NP Position: [facility] PCO Associate Professional Member Role: PCP Address: Address: [address] [place] [id number] Name: Josette Bhardwaj [place] Position: [facility] Staff Member Role: Primary Care Nurse Care Team Related Persons Name: HUBER ORLANDO Address: home [address] [place] [address] Name: HUBER ORLANDO Address: home [address] [place] [address] Name: HUBER ORLANDO Address: home [address] [place] [address] Name: JUAN ORLANDO Address: home [address] [address]
--- OUTSIDE RECORDS SUMMARY | 2024-05-22 09:09 | XMS_ITS | Continuity of Care Document ---
Author Organization [facility] Address [address] [facility], [address], [address] [place] [address]- Care Team Providers Care Adhesive Sprayer Name Role Phone Nicholas EDGAR, Elisa M Primary Care Physician Encounter [facility] Date(s): 06/28/23 - 07/28/23 [facility] [address] [facility], [address], [address] [place] [id number] Allergies, Adverse Reactions, Alerts Substance Reaction [...] 1Result Comment: [facility] [id number] 2Result Comment: [facility]: [phone] 3Result Comment: [facility] [phone] 4[facility] Note: [...] UNTIL FINISHED Start Date: 07/03/23 Status: Ordered Augmentin 875 mg-125 mg oral tablet 1 tablet, By Mouth, Every 12 hours, for 10 days, # 20 tablet, 0 Refills, Acute 08/03/23 14:59:00 EST, 07/24/23 14:59:00 EST, Tablet, [id number] Partial fill upon patient request if the prescription is for a schedule II opioid drug., 165.1, cm... Start Date: 07/24/23 Stop Date: 08/03/23 Status: Ordered Carafate 1 gm/10 ml oral suspension 10 mL = 1 Gm, By Mouth, 3 times a day before meals and bedtime, # 560 mL, 0 Refills, Maintenance, 05/19/23 22:44:00 EDT, [facility]/pharmacy #[id number], Partial fill upon patient request if the prescription is for a schedule II opioid drug., 165.1, cm, 05/19/23 1... Start Date: 05/19/23 Stop Date: 06/02/23 Status: Ordered chlorhexidine topical 0.12% liquid 15 mL = 0.018 Gm, By Mouth, 2 times a day, # 480 mL, 0 Refills, Maintenance, 06/29/23 12:46:00 EDT,Liquid, [facility]/pharmacy #[id number], Partial fill [...] Refills, Maintenance, 07/03/23 16:09:00 EDT, EC Tablet, [facility]/pharmacy #[id number], Partial fill upon patient request if the prescription is for a schedule II opioid drug., 165.1,... Start Date: 07/03/23 Stop Date: 07/18/23 Status: Ordered fluticasone 27.5 mcg/inh nasal spray 1 sprays, Nares, Both, Daily, PRN Cold Symptoms, # 10 Gm, 0 Refills, Maintenance, 07/24/23 15:00:00EST, [place], [facility]/pharmacy #[id number], Partial fill upon patient request if the prescription is for a schedule II opioid drug., 1 sprays Nares, Both Daily,PRN... Start Date: 07/24/23 Status: Ordered gabapentin 300 mg oral capsule 300 mg, 1, capsule, By Mouth, Daily at bedtime, PRN, # 15 capsule, Refills 0, Tot. Refills 0, Maintenance, [facility], 07/03/23 16:09:00 EDT, Route to Pharmacy Electronically, [facility]/pharmacy #[id number], Partial fill upon patient request if the prescriptio... Start Date: 07/03/23 Stop Date: 07/18/23 Status: Ordered By Mouth, Daily, 0 Refills, Maintenance, 08/08/22 13:49:00 EST, Partial fill upon patient request if the prescription is for a schedule II opioid drug. Start Date: 08/08/22 Status: Ordered mirtazapine 7.5 mg oral tablet See Instructions, TAKE 1 TABLET BY MOUTH DAILY FOR 1 WEEK AND THEN INCREASE TO 2 TABLETS DAILY, # 180 tablet, 1 Refills, Maintenance, 07/07/23 6:25:00 EDT, [id number], 165.1, cm, 07/03/23 15:14:00 EDT, Height, 64.3, kg, 05/19/23 19:22:00 EDT, Dry... Start Date: 07/07/23 Status: Ordered omeprazole 20 mg oral enteric coated capsule 1 capsule, By Mouth, 2 times a day, # 180 capsule, 1 Refills, Maintenance, 06/24/23 16:07:00 EDT, [id number], 165.1, cm, 06/12/23 14:42:00 EDT, Height, 64.3, [...] Team Personnel Name: Ulysses Desai MD Position: [facility] SENIOR OFFICE ASSISTANT MD Member Role: [employer] SENIOR OFFICE ASSISTANT Physician Address: Address: [address] [place] [address] [place] [address]- Name: Elisa Peterson NP Position: [facility] PCO Associate Professional Member Role: PCP Address: Address: [address] [place] [address]- Name: Josette Bhardwaj [place] Position: [facility] RN Member Role: Primary Care Nurse Care Team Related Persons Name: JOHANNYHUBER Spears Address: home [address] [place] [id number] Name: UHBER ORLANDO Address: home [address] [place] [address] Name: JOHANNY HUBER Ronnell Address: home [address] [place] [id number] Name: JUAN ORLANDO Address: home [address] [address]
--- OUTSIDE RECORDS SUMMARY | 2024-05-22 09:09 | XMS_ITS | Continuity of Care Document ---
Author Organization [facility] Professional[facility] Adult [facility] dicine Address [address] [place] [address]- Care Team Providers Care Ethics Instructor Name Role Phone Nicholas WATER USE INSPECTOR, Elisa M Primary Care Physician Encounter [facility] NBR [id number] Date(s): 05/11/23 - 09/08/23 [facility] Adult Medicine [address] [place] [address]- Attending Physician: Keron Jones MD Allergies, Adverse Reactions, Alerts Substance Reaction [...] Recorded 1Result Comment: [facility] [id number] 2Result Comment: [facility]: [id number] 3Result Comment: [facility] [id number] 4[facility] 5[facility] Note: [...] mL, 0 Refills, Maintenance, 05/19/23 22:44:00 EDT, [facility]/pharmacy #[id number], Partial fill upon patient request if the [...] 10 Gm, 0 Refills, Maintenance, 07/24/23 15:00:00EST, [place], [id number], Partial fill upon patient request if the prescription is for a schedule II opioid drug., 1 sprays Nares, Both Daily,PRN... Start Date: 07/24/23 Status: Ordered gabapentin 300 mg oral capsule 300 mg, 1, capsule, By Mouth, Daily at bedtime, PRN, # 15 capsule, Refills 0, Tot. Refills 0, Maintenance, SCIATICA PAIN, 07/03/23 16:09:00 EDT, Route to Pharmacy Electronically, [facility]/pharmacy #[id number], Partial fill upon patient request [...] Refills, Maintenance, 07/07/23 6:25:00 EDT, [facility], 165.1, cm, 07/03/23 15:14:00 EDT, Height, 64.3, kg, 05/19/23 19:22:00 EDT, Dry... Start Date: 07/07/23 Status: Ordered omeprazole 20 mg oral enteric coated capsule 1 capsule, By Mouth, 2 times a day, # 180 capsule, 1 Refills, Maintenance, 06/24/23 16:07:00 EDT, [facility], 165.1, cm, 06/12/23 14:42:00 EDT, Height, 64.3, kg, 05/19/23 19:22:00 EDT, Dry Weight Start Date: 06/24/23 Status: Ordered Xyzal 5 mg oral tablet 1 tablet = 5 mg, By Mouth, Daily in PM, # 30 tablet, 6 Refills, Maintenance, 08/30/23 14:06:00 EST,Tablet, [facility]/pharmacy #[id number], Partial fill upon patient request [...] Team Personnel Name: Ulysses Desai MD Position: [facility] AUTOMATION CONTROLS EXPERT MD Member Role: Lifetime AUTOMATION CONTROLS EXPERT Physician Address: Address: [address] [place] [address] [facility] [place], [place] [address] Name: Elisa Peterson NP Position: [facility] PCO Associate Professional Member Role: PCP Address: Address: [address] [place] [id number] Name: Josette Bhardwaj [place] Position: [facility] RN Member Role: Primary Care Nurse Care Team Related Persons Name: HUBER ORLANDO Address: home [address] [place] [id number] Name: HUBER ORLANDO Address: home [address] [place] [phone] Name: HUBER ORLANDO Address: home [address] [place] [id number] Name: JUAN ORLANDO Address: home [address] [address]
--- OUTSIDE RECORDS SUMMARY | 2024-05-22 09:09 | XMS_ITS | Continuity of Care Document ---
Author Organization [facility] Adult [facility] Address [address] [place] [address]- Care Team Providers Care Clearing Distribution Clerk Name Role Phone Elisa Peterson NP Primary Care Physician Encounter [facility] Date(s): 09/08/20 - 09/15/20 [facility] Adult [address] [address]- Encounter Diagnosis Anxiety and depression(Discharge Diagnosis) - 09/08/20 Irritability(Discharge Diagnosis) - 09/08/20 Attending Physician: Elisa Peterson NP Allergies, Adverse [...] (old term) 6 09/07/94 Given 1Result Comment: [facility] [id number] 2[facility] 3Admin Note: [...] opioid drug. Start Date: 09/08/20 Status: Ordered hydrOXYzine hydrochloride 50 mg oral tablet 1 tablet = 50 mg, By Mouth, 4 times a day, PRN for anxiety, # 20 tablet, 0 Refills, Acute 09/16/20 21:07:00 EST, 09/10/20 21:07:00 EST, Tablet, [facility]/pharmacy #[id number], Partial fill upon patient request if the prescription is for a schedule II opioid drug.... Start Date: 09/10/20 Stop Date: 09/16/20 Status: Ordered Lo Loestrin Fe By Mouth, [...] Effective Dates Health Status Clinical Service Informant Anxiety and depression Discharge Diagnosis 09/08/20 Irritability Discharge Diagnosis 09/08/20 Vital Signs Most recent to oldest [Reference Range]: 1 Height 168 cm (09/08/20 8:35 AM) Social History Social History Type Response Smoking Status Never smoker; Tobacc o user in household: No entered on: 09/26/13 Sex
--- OUTSIDE RECORDS SUMMARY | 2024-05-22 09:09 | XMS_ITS | Continuity of Care Document ---
Author Organization [facility] Address [address] [place] [address]- Care Team Providers Care Machine Specialist Name Role Phone Nicholas GLASS RIBBON MACHINE OPERATOR ASSISTANT, Elisa M Primary Care Physician Encounter [facility] NBR [id number] Date(s): 08/01/23 - 08/31/23 [facility] Adult Medicine [address] [place] [address]- [place] Allergies, Adverse Reactions, Alerts Substance Reaction [...] 93 Recorded 1Result Comment: [facility] [id number] 2Result Comment: [facility]: [id number] 3Result Comment: [facility] [id number] 4[facility] 5Admin Note: [...] mL, 0 Refills, Maintenance, 05/19/23 22:44:00 EDT, [facility]/pharmacy #[id number], Partial fill upon patient [...] 10 Gm, 0 Refills, Maintenance, 07/24/23 15:00:00EST, [place], [id number], Partial fill upon patient request if the prescription is for a schedule II opioid drug., 1 sprays Nares, Both Daily,PRN... Start Date: 07/24/23 Status: Ordered gabapentin 300 mg oral capsule 300 mg, 1, capsule, By Mouth, Daily at bedtime, PRN, # 15 capsule, Refills 0, Tot. Refills 0, Maintenance, SCIATICA PAIN, 07/03/23 16:09:00 EDT, Route to Pharmacy Electronically, [facility]/pharmacy #[id number], Partial fill upon patient [...] 09/07/23 15:43:00 EST, 08/31/23 15:43:00 EST, Tablet, [facility]/pharmacy #[id number], Partial fill upo... Start Date: 08/31/23 Stop Date: 09/07/23 Status: Ordered mirtazapine 7.5 mg oral tablet See Instructions, TAKE 1 TABLET BY MOUTH DAILY FOR 1 WEEK AND THEN INCREASE TO 2 TABLETS DAILY, # 180 tablet, 1 Refills, Maintenance, 07/07/23 6:25:00 EDT, [facility], 165.1, cm, 07/03/23 15:14:00 EDT, Height, 64.3, kg, 05/19/23 19:22:00 EDT, Dry... Start Date: 07/07/23 Status: Ordered omeprazole 20 mg oral enteric coated capsule 1 capsule, By Mouth, 2 times a day, # 180 capsule, 1 Refills, Maintenance, 06/24/23 16:07:00 EDT, [facility], 165.1, cm, 06/12/23 14:42:00 EDT, Height, 64.3, kg, 05/19/23 19:22:00 EDT, Dry Weight Start Date: 06/24/23 Status: Ordered Xyzal 5 mg oral tablet 1 tablet = 5 mg, By Mouth, Daily in PM, # 30 tablet, 6 Refills, Maintenance, 08/30/23 14:06:00 EST,Tablet, [facility]/pharmacy #[id number], Partial fill upon patient [...] Team Personnel Name: Ulysses Desai MD Position: [facility] END TRIMMER MD Member Role: Lifetime END TRIMMER Physician Address: Address: [address] [place] [address] [place] [address]- Name: Elisa Peterson NP Position: [facility] PCO Associate Professional Member Role: PCP Address: Address: [address] [place] [id number] Name: Josette Bhardwaj [place] Position: [facility] RN Member Role: Primary Care Nurse Care Team Related Persons Name: HUBER ORLANDO Address: home [address] [place] [address] Name: HUBER ORLANDO Address: home [address] [place] [address] Name: HUBER ORLANDO Address: home [address] [place] [address] Name: JUAN ORLANDO Address: home [address]
--- OUTSIDE RECORDS SUMMARY | 2024-05-22 09:09 | XMS_ITS | Continuity of Care Document ---
Author Organization [facility] Address [address] [place] [address]- Care Team Providers Care Manufacturing Engineer Assembly Name Role Phone Nicholas HARNESS FITTER, Elisa M Primary Care Physician Encounter [facility] Date(s): 05/01/24 - 05/08/24 [facility] [address] [place] [address]- Attending Physician: Mark Marley MD Referring Physician: Ruperto Holcomb MD Allergies, Adverse Reactions, Alerts Substance Reaction [...] Recorded 1Result Comment: [facility] [id number] 2Result Comment: [facility]: [id number] 3Result Comment: [facility] [id number] [phone] 4[facility] 5Admin Note: [...] 01/29/24 14:53:00 EDT, Route to Pharmacy Electronically, [facility]/pharmacy #[id number], Partial fill upon patient request if the [...] 6 Refills, Maintenance, 04/24/24 13:02:00 EDT, [place], [facility]/pharmacy #[id number], Partial fill upon patient request if the prescription is... Start Date: 04/24/24 Stop Date: 11/20/24 Status: Ordered cyclobenzaprine 5 mg oral tablet 1 tablet = 5 mg, By Mouth, Daily at bedtime, for 30 days, # 30 tablet, 3 Refills, Acute 09/05/24 15:01:00 EST, 05/08/24 15:01:00 EDT, [id number], Partial fill upon patient request if the prescription is for a schedule II opioid drug., 168, cm,... Start Date: 05/08/24 Stop Date: 09/05/24 Status: Ordered Doxycycline Maintenance, 04/23/24 10:48:00 EDT Start Date: 04/23/24 Status: Ordered famotidine 20 mg oral tablet 20 mg, 1, tablet, By Mouth, 2 times a day, PRN, # 30 tablet, Refills 0, Tot. Refills 0, Maintenance, Control of Stomach Acid, 01/09/24 0:16:00 EDT, Route to Pharmacy Electronically, [facility]/pharmacy #[id number], Partial fill upon patient request if the prescrip... Start Date: 01/09/24 Status: Ordered fluticasone 50 mcg/inh nasal spray 1 sprays = 50 mcg, Nares, Both, 2 times a day, # 16 Gm, 0 Refills, Maintenance, 02/21/24 17:46:00 EDT, [place], [facility]/pharmacy #[id number], Partial fill upon patient request if the prescription is for a schedule II opioid drug., 1 sprays Nares, Both 2 times a d... Start Date: 02/21/24 Status: Ordered hydrOXYzine hydrochloride 10 mg oral tablet 1 tablet = 10 mg, By Mouth, 3 times a day, PRN for anxiety, # 42 tablet, 0 Refills, Maintenance, 01/16/24 16:47:00 EDT, Tablet, [facility]/pharmacy #[id number], Partial fill upon [...] 0 Refills, Maintenance, 04/12/24 10:18:00 EDT, [facility], Partial fill upon patient request if the [...] oldest [Reference Range]: 1 Height 168 cm (05/01/24 2:23 PM) Weight 61.0 kg (05/01/24 2:23 PM) Oxygen Saturation [94-100 %] 98 % (05/01/24 2:23 PM) Pulse Rate [55-90 bpm] 78 bpm (05/01/24 2:23 PM) Body Mass Index [18.5-24.99 kg/m2] 21.61 kg/m2 (05/01/24 2:23 PM) Blood Pressure [90-138/55-84 mm Hg] 124/ 69mm Hg (05/01/24 2:23 PM) Respiratory Rate [16-30 br/min] 16 br/mi n (05/01/24 2:23 PM) Mode of Delivery (Oxygen) Room air (05/01/24 2:23 PM) Blood pressure sites Arm, left (05/01/24 2:23 PM) Weight Obtained Via Standing scale (05/01/24 2:23 PM) Social History Social History Type Response Smoking Status Never smoker; Tobacc o user in household: No entered on: 09/26/13 Sex Note * Sherly Barrett: PERFORM, SIGN, VERIFY Event Display: Patient Education/Instruction Authored Date: [id number] [facility] *BMA Preop Clinical Summary Name REGULO ORLANDO Age 28 Years 1995 PCP Nicholas HARNESS FITTER, Elisa Reynaga PCP Visit Date 05/01/2024 14:17:00 Patient Instructions Thank you for??coming to your visit today with the preoperative??medical evaluation clinic.?? We wish you a fast recovery??from your surgery.? Your medication instructions are summarized below.?? If??you??are prescribed any new??medications, develop any any new medical problems, or??are hospitalized for any reason prior to your surgery; please??contact us at [phone] and your surgeon's office immediately.? Please stop all vfck-spx-kkfchni medications including ibuprofen (Advil, Motrin), naproxen (Aleve),??fish oil, multivitamins, vitamin E, turmeric and all herbal??supplements 7-10 days prior to your procedure as these could increase your risk of bleeding complications.? If you require something for pain or a headache within 10 days of the surgery, it is safe to use acetaminophen (Tylenol) or any opiates prescribed to you. ??Examples of opiates include oxycodone, hydrocodone, and tramadol.?? The morning of surgery with a sip of water take all normal morning medications unless otherwise instructed. Protonix Hydroxzine Follow your surgeons instructions about eyedrops. Sherly Weinstein, FLOWER [facility] PreOperative Medicine Additional Instructions: Scheduled Appointments?? Future Appointments ?*[facility] ?[address] ?[place],??[place],??[address] ?Phone:??[phone]?Fax:??-- ?Appt. Date:??05/08/2024?2:30 PM ?Scheduled Provider:??Vandana EDGAR, Jade Reynaga ?*[facility] ?[address]??[place],??[place],??[address] ?Phone:??--?Fax:??-- ?Appt. Date:??05/09/2024?8:00 AM ?Scheduled Provider:??Luis EDGAR, Camille Dukes ?*[facility] ?Phone:??--?Fax:??-- ?Appt. Date:??05/09/2024?11:00 AM ?Scheduled Provider:??Jade LMKAYLEY, Mac ?*[facility]Adlt[facility]Med??Bltn ?[address]??[place],??[place],??[address] ?Phone:??--?Fax:??-- ?Appt. Date:??06/04/2024?10:40 AM ?Scheduled Provider:??Nicholas EDGAR , Elisa Reynaga. ?*[facility] ?[address]??[place],??[place],??[address] ?Phone:??[phone]?Fax:??-- ?Appt. Date:??06/11/2024?1:00 PM ?Scheduled Provider:??Zac SRINIVASAN, Stella ?*[facility] ?[address] ?[place],??[place],??[address] ?Phone:??[phone]?Fax:??-- ?Appt. Date:??06/18/2024?8:30 AM ?Scheduled Provider:??Vandana HARNESS FITTER, Jade Ronnell ?*[facility] ?[address]??[place],??[place],??[address] ?Phone:??--?Fax:??-- ?Appt. Date:??07/24/2024?8:45 AM ?Scheduled Provider:??Edward SRINIVASAN, Raymundo Follow-Up Instructions ?? Allergy Info:?? Other Environmental Allergy; Reglan Medications Given This Visit Vital Signs Height 168 cm Weight 61.0 kg BMI 21.61 kg/m2 Blood Pressure 124 mm Hg/69 mm Hg Temperature Pulse Rate 78 bpm Respiratory Rate 16 br/min 02 Sat Mode of Delivery 98 %/Room air You can now view a summary of your hospital visit from the comfort of your home through a free online portal called [employer]. [employer] is a website that allows you to securely view your medical information including discharge summary, medications and follow-up visits. ??You can alsosend a secure electronic message to your doctor???s office to request appointments, renew medications or just ask a question. You can enroll at [email or web address] or register during your next office [...] primary care provider, you may find a [facility] provider by calling [facility] Link at [phone]. [facility], in keeping with [facility] guidance, no longer requires face masks [...] Team Personnel Name: Ulysses Desai MD Position: [facility] THERMOFORMING OPERATOR MD Member Role: Lifetime THERMOFORMING OPERATOR Physician Address: Address: [address] [place] [address] [facility] [place], [place] [address] Name: Elisa Peterson NP Position: [facility] PCO Associate Professional Member Role: PCP Address: Address: [address] [place] [address] [facility] Name: Josette Bhardwaj [place] Position: [facility] Office Staff Member Role: Primary Care Nurse Care Team Related Persons Name: JOHANNYHUBER Spears Address: [address] [place] [address] Name: JOHANNY HUBER Ronnell Address: home [address] [place] [address] Name: JOHANNY HUBER Reynaga Address: home [address] [place] [address] Name: JOHANNY JUAN Address: home [address]
--- OUTSIDE RECORDS SUMMARY | 2024-05-22 09:09 | XMS_ITS | Continuity of Care Document ---
Author Organization [facility] [employer] Adult [facility] dicine Address [address] [place] [address]- Care Team Providers Care Wash Plant Operator Name Role Phone Nicholas CLINICAL REHABILITATION SPECIALIST, Elisa M Primary Care Physician Encounter [facility] NBR [id number] Date(s): 04/10/23 - 04/17/23 [facility] [employer] Adult [address] [address]- Encounter Diagnosis Skin lesions(Discharge Diagnosis) - 04/10/23 Strep pharyngitis(Discharge Diagnosis) - 04/10/23 Attending Physician: Keron Jones MD Allergies, Adverse [...] pediatric vaccine 93 Recorded 1Result Comment: [facility] [id number] 2Result Comment: [facility]: [id number] 3Result Comment: [facility] [id number] 4[facility] 5[facility] Note: [...] 1 kit, 2 Refills, Maintenance, 01/14/23 13:47:00EDT, [facility]/pharmacy #[id number], Partial fill upon patient request if the prescription is for a schedule IIopioid drug., 168, cm, 01/12/23 9:03:00 EDT, Height... Start Date: 01/14/23 Status: Ordered Ativan 0.5 mg oral tablet 1 tablet = 0.5 mg, By Mouth, Daily, MassPat checked, # 5 tablet, 0 Refills, Maintenance, 12/17/21 15:33:00 EDT, Tablet, [facility]/pharmacy #[id number], Partial fill upon [...] Gm, 0 Refills, Maintenance, 03/29/23 15:19:00 EDT, [place], [facility]/pharmacy #[id number], Partial fill upon patient request if the prescription is for a schedule II opioid drug., 1 sprays Nares, Both 2 times a day, 126.8... Start Date: 03/29/23 Status: Ordered Junel Fe 1.5/30 By Mouth, Daily, 0 Refills, Maintenance, 08/08/22 13:49:00 EST, Partial fill upon patient request if the prescription is for a schedule II opioid drug. Start Date: 08/08/22 Status: Ordered loratadine 10 mg oral tablet 10 mg, 1, tablet, By Mouth, Daily, # 30 tablet, Refills 0, Tot. Refills 0, Maintenance, 03/29/23 15:20:00 EDT, Route to Pharmacy Electronically, [facility]/pharmacy #[id number], Partial fill upon patient request if the prescription is for a schedule II opioid drug... Start Date: 03/29/23 Status: Ordered magnesium oxide 400 mg oral tablet 1 tablet = 400 mg, By Mouth, Daily, # 30 tablet, 2 Refills, Acute 04/10/24 10:25:00 EDT, 04/10/23 10:25:00 EDT, [facility]/pharmacy #[id number], Partial fill upon [...] tablet, 2 Refills, Maintenance, 04/10/23 10:26:00 EDT, [facility]/pharmacy #[id number], Partial fill upon [...] Date: 11/01/22 Stop Date: 04/30/23 Status: Ordered Xyzal 5 mg oral tablet 1 tablet = 5 mg, By Mouth, Daily in PM, # 90 tablet, 1 Refills, Maintenance, 10/24/22 16:56:00 EST,Tablet, [facility]/pharmacy #[id number], Partial fill upon [...] Effective Dates Health Status Clinical Service Informant Skin lesions Discharge Diagnosis 04/10/23 Strep pharyngitis Discharge Diagnosis 04/10/23 Vital Signs Most recent to oldest [Reference Range]: 1 Height 126.8 cm (04/10/23 3:41 PM) Social History Social History Type Response Smoking Status Never smoker; Tobacc o user in household: No entered on: 09/26/13 Sex Note * Kiana Bernabe: PERFORM, SIGN, VERIFY Event Display: Patient Education/Instruction Authored Date: [id number] [facility] *BMP [facility] Adlt Med Bltn Clinical Summary Name REGULO ORLANDO Age 27 Years 1995 PCP Nicholas CLINICAL REHABILITATION SPECIALIST, Elisa Reynaga PCP Visit Date 04/10/2023 15:20:00 Additional Instructions: Scheduled Appointments?? Future Appointments ?*[facility]Med??Bltn ?[address]??[place],??[place],??[address] ?Phone:??--?Fax:??-- ?Appt. Date:??04/12/2023?9:20 AM ?Scheduled Provider:??Keron Jones MD ?*[facility]??[facility]??Adlt??Med??Bltn ?[address]??[place],??[place],??[address] ?Phone:??--?Fax:??-- ?Appt. Date:??04/17/2023?8:20 AM ?Scheduled Provider:??Nicholas EDGAR , Elisa Reynaga. ?*[facility] ?[address] ?[place],??[place],??[address] ?Phone:??--?Fax:??-- ?Appt. Date:??06/12/2023?10:30 AM ?Scheduled Provider:??Vandana EDGAR, Jade Reynaga Follow-Up Instructions ?? Diagnosis Streptococcal pharyngitis; Disorder of the skin and subcutaneous tissue, unspecified Medications: Please continue your medications until [...] twice a day. Refills: 6. Next Dose: Fluticasone Nasal (Flonase 50 mcg/inh nasal spray) 1 spray(s) Nares, Both twice a day. Refills: 0. Next Dose: fremanezumab (Ajovy Autoinjector 225 mg/1.5 mL subcutaneous solution) 225 Milligram Subcutaneous Injection Every 28 days. Refills: 2. Next Dose: levocetirizine (Xyzal 5 mg oral tablet) 1 tab(s) Oral Daily in PM for 90 Days. Refills: 1. Next Dose: Loratadine (loratadine 10 mg oral tablet) 1 tab(s) Oral Daily. Refills: 0. Next Dose: Lorazepam (Ativan 0.5 mg oral tablet) 1 tab(s) Oral Daily. MassPat checked. Refills: 0. Next Dose: Magnesium Oxide (magnesium oxide 400 mg oral tablet) 1 tab(s) Oral Daily. Refills: 2. Next Dose: Mirtazapine (mirtazapine 7.5 mg oral tablet) 2 tab(s) Oral Daily at Bedtime. Take 1 tablet by mouthfor 1 week and then increase to 2 tablets by moth.. Refills: 2. Next Dose: Miscellaneous Rx (Misc Rx) bcp pill Oral Daily. Next Dose: Omeprazole (omeprazole 20 mg oral enteric coated capsule) 1 capsule Oral twice a day for 90 Days. Refills: 1. Next Dose: rimegepant (Nurtec ODT 75 mg oral tablet, disintegrating) 1 tab(s) Oral every 24 hours as needed asneeded for migraine headache. not to exceed 75 mg in 24 hours. Refills: 5. Next Dose: Allergy Info:?? Reglan Medications Given This Visit Future Orders ?No future orders Vital Signs Height 126.8 cm Weight BMI Blood Pressure / Temperature Pulse Rate Respiratory Rate 02 Sat Mode of Delivery / You can now view a summary of your hospital visit from the comfort of your home through a free online portal called [employer]. [employer] is a website that allows you to securely view your medical information including discharge summary, medications and follow-up visits. ??You can alsosend a secure electronic message to your doctor???s office to request appointments, renew medications or just ask a question. You can enroll at [email or web address] or register during your next office visit. [...] primary care provider, you may find a [facility] provider by calling [facility] clypd Link at [phone]. For information about the plan of care [...] Personnel Name: Giselle SRINIVASAN, Ulysses Thornton Position: [facility] HAND TACKER MD Member Role: Lifetime HAND TACKER Physician Address: Address: [address] [place] [address] Name: Elisa Peterson NP Position: [facility] PCO Associate Professional Member Role: PCP Address: Address: [address] [place] [id number] Name: Josette Bhardwaj [place] Position: [facility] RN Member Role: Primary Care Nurse Care Team Related Persons Name: HUBER ORLANDO Address: home [address] [place] [address] Name: HUBER ORLANDO Address: home [address] [place] [address] Name: HUBER ORLANDO Address: home [address] [place] [address] Name: JOHANNY JUAN Address: home [address] [address]
--- OUTSIDE RECORDS SUMMARY | 2024-05-22 09:09 | XMS_ITS | Continuity of Care Document ---
Author Organization [facility] Address [address] [place] [address]- Care Team Providers Care Button Riveter Name Role Phone Nicholas PRIMARY HEALTH CARE NURSE, Elisa Reynaga Primary Care Physician Encounter [facility] Date(s): 03/19/24 - 03/19/[address] [address]- Discharge Disposition: A-D/C Home Attending Physician: Thomas Arzola MD Admitting Physician: Thomas Arzola MD Referring Physician: Not on Staff, Referring [...] Comment: [facility] [phone] 2Result Comment: [facility]: [phone] 3Result Comment: [facility] [phone] [facility]: [...] 01/29/24 14:53:00 EDT, Route to Pharmacy Electronically, [id number], Partial fill upon patient request if the prescription i... Start Date: 01/29/24 Status: Ordered amoxicillin-clavulanate 875 mg-125 mg oral tablet 1 tablet, By Mouth, Every 12 hours, for 7 days, # 14 tablet, 0 Refills, Acute 03/25/24 16:55:00 EDT, 03/18/24 16:55:00 EDT, Tablet, [id number], Partial fill upon patient request if the prescription is for a schedule II opioid drug., 168, cm, 0... Start Date: 03/18/24 Stop Date: 03/25/24 Status: Ordered famotidine 20 mg oral tablet 20 mg, 1, tablet, By Mouth, 2 times a day, PRN, # 30 tablet, Refills 0, Tot. Refills 0, Maintenance, Control of Stomach Acid, 01/09/24 0:16:00 EDT, [id number] Partial fill upon patient request if the prescrip... Start Date: 01/09/24 Status: Ordered fluticasone 50 mcg/inh nasal spray 1 sprays = 50 mcg, Nares, Both, 2 times a day, # 16 Gm, 0 Refills, Maintenance, 02/21/24 17:46:00 EDT, [place], [id number], Partial fill upon patient request if the prescription is for a schedule II opioid drug., 1 sprays Nares, Both 2 times a d... Start Date: 02/21/24 Status: Ordered hydrOXYzine hydrochloride 10 mg oral tablet 1 tablet = 10 mg, By Mouth, 3 times a day, PRN for anxiety, # 42 tablet, 0 Refills, Maintenance, 01/16/24 16:47:00 EDT, Tablet, [id number], Partial fill upon patient request if the prescription is for a schedule II opioid drug., 168, cm, 01/15... Start Date: 01/16/24 Status: Ordered omeprazole 20 mg oral enteric coated capsule 1 capsule, By Mouth, 2 times a day, # 180 capsule, 0 Refills, Maintenance, 01/25/24 10:16:00 EDT, [id number], 168, cm, 01/24/24 14:42:00 EDT, Height, 63.5, kg, 01/08/24 20:41:00 EDT, Dry Weight Start Date: 01/25/24 Status: Ordered Problem List Condition Confirmation Course [...] Exam Date Time Procedure Performing Provider Status 03/19/24 6:[address] Orbits W/O Contrast Betty Clark; Trever uth (Verified) Notes: (CT Orbits W/O Contrast) Reason For Exam: left retro-orbital headache, worsening of chronic diplopia;Other: RESULT: CT Orbits W/O Contrast CT Orbits W/O Contrast Refer to EMR; Hx of Present Illness: this past , pt developed left sided face discomfort and headache. pt reports its a stabbing sensation.reports being evaluated discharged with ABTs. Pt reports + n v d. Vomit x2. Pt reports feeling pressure to left eye. pt reports bilat ear pain.; Reason:Other:; left retro- orbital headache, worsening of chronic diplopia; Clinical Question(s): Other:; Sp CLINICAL QUESTION: Other: TECHNIQUE: Spiral CT without contrast formatted in 3 planes. Automatic tube modulation was used to optimize exposure parameters. CTDIvol Head: 25.88 mGy, DLP Head: 443 mGy*cm. COMPARISON: None. FINDINGS: Periorbital soft tissues: Normal. Orbital soft tissues: The orbits are normal. The globes are intact. No intraconal abnormality. The extra-ocular muscles are symmetric. Orbital bones: Intact. No fractures or destructive changes. Paranasal Sinuses: Mild mucosal thickening in the ethmoid air cells and maxillary sinuses. No fluidlevels. Visualized portions of the paranasal sinuses and mastoid air cells are otherwise clear. Lower intracranial contents: No abnormalities are seen involving the portions of brain and extra-axial spaces included on the exam. Cranium and other bones: Intact. IMPRESSION: No acute findings. A similar preliminary report was provided by [facility]. WSN: [id number] Ordering Physician: Aiyana Evans Dictated By: Enedina Buckner MD Dictated Date/Time: 03/19/24 1:37 pm Reviewed By: Enedina Buckner MD Signed By: Enedina Buckner MD Signed Date/Time: 03/19/24 1:37 pm Transcribed By: SAVANNAH Transcribed Date/Time: 03/19/24 1:32 pm * Exam Date Time Procedure Performing Provider Status 03/19/24 6:[address] Head/Brain W/O Contrast Eduardo , Marcella y; Auth (Verified) Notes: (CT Head/Brain W/O Contrast) Reason For Exam: left retro-orbital headache, worsening of chronic diplopia;Other: RESULT: CT Head/Brain W/O Contrast CT Head/Brain W/O Contrast INDICATION: Left facial discomfort and headache, nausea and vomiting. Left eye pain. Bilateral ear pain. Worsening diplopia. COVID positive. TECHNIQUE: Noncontrast head CT using axial technique and reconstructed in axial and coronal planes.Iterative reconstruction techniques are used to optimize dose and image quality. CTDIvol Head: 47.90 mGy, DLP Head: 793 mGy*cm. COMPARISON: 06/22/2019 FINDINGS: Vertical Mill Operator view findings, lines and tubes: None. BRAIN AND EXTRA-AXIAL SPACES: No parenchymal hemorrhage, midline shift, or mass effect. Juárez-white matter differentiation is wellpreserved. No acute infarct. Ventricles, sulci, and basilar cisterns are normal. No white matter lesions. No subarachnoid hemorrhage. No subdural or epidural collection. CALVARIUM, SKULL BASE, AND SOFT TISSUES: No fractures or suspicious bony lesions. The paranasal sinuses and mastoid air cells are clear. Visualized orbits and globes are intact. The extracranial soft tissues are unremarkable. IMPRESSION: Normal. WSN: [id number] Ordering Physician: Aiyana Evans Dictated By: Hayden Olmedo MD Dictated Date/Time: 03/19/24 9:32 am Reviewed By: Hayden Olmedo MD Signed By: Hayden Olmedo MD Signed Date/Time: 03/19/24 9:32 am Transcribed By: SAVANNAH Transcribed Date/Time: 03/19/24 9:27 am Vital Signs Most recent to oldest [Reference Range]: 1 2 3 Height 170 cm (03/19/24 7:40 AM) 170 cm (03/19/24 6:05 AM) 170 cm (03/19/24 2:05 AM) Weight 62.4 kg (03/19/24 7:40 AM) 62.4 kg (03/19/24 6:05 AM) 62.4 kg (03/19/24 2:05 AM) Oxygen Saturation [94-100 %] 98 % (03/19/24 7:40 AM) 98 % (03/19/24 6:05 AM) 96 % (03/19/24 2:05 AM) Pulse Rate [55-90 bpm] 80 bpm (03/19/24 7:40 AM) 75 bpm (03/19/24 6:05 AM) 104 bpm *H* (03/19/24 2:05 AM) Body Mass Index [18.5-24.99 kg/m2] 21.59 kg/m2 (03/19/24 7:40 AM) 21.59 kg/m2 (03/19/24 6:05 AM) Blood Pressure [90-138/55-84 mm Hg] 120/84mm Hg (03/19/24 7:40 AM) 121/84mm Hg (03/19/24 6:05 AM) 121/88mm Hg (03/19/24 2:05 AM) Respiratory Rate [16-30 br/min] 16 br/min (03/19/24 7:40 AM) 18 br/min (03/19/24 6:05 AM) 20 br/min (03/19/24 2:05 AM) Temperature [96.8-100.4 DegF] 98.4 DegF (03/19/24 7:40 AM) 98.2 DegF (03/19/24 6:05 AM) 98.2 DegF (03/19/24 2:05 AM) Liters per Minute 0 L/min (03/19/24 6:05 AM) Mode of Delivery (Oxygen) Room air (03/19/24 7:40 AM) Room air (03/19/24 6:05 AM) Room air (03/19/24 2:05 AM) Blood pressure sites Arm, left (03/19/24 7:40 AM) Arm, left (03/19/24 6:05 AM) Arm, right (03/19/24 2:05 AM) Temperature Route Oral (03/19/24 7:40 AM) Oral (03/19/24 6:05 AM) Oral (03/19/24 2:05 AM) Dry Weight 62.4 kg (03/19/24 7:40 AM) 62.4 kg (03/19/24 6:05 AM) 62.4 kg (03/19/24 2:05 AM) Weight Obtained Via Standing scale (03/19/24 2:05 AM) Dry Weight Obtained Via Standing scale (03/19/24 2:05 AM) Social History Social History Type Response Smoking Status Never smoker; Tobacc o user in household: No entered on: 09/26/13 Sex Note * Thomas Arzola MD: PERFORM Event Display: Patient Education Leaflets Authored Date: [id number] Multiple Documents ?? [id number] Migraine Headache A migraine headache is an often severe type of headache. It's different from other types of headaches in that symptoms other than pain occur with it. For instance, a classic migraine headache means visual symptoms (or aura) such as flashes of light, blind spots, or other vision changes, warn you a headache is coming on. Nausea and vomiting, lightheadedness, sensitivity to light or sound, and other visual disturbances are common migraine symptoms.??The pain may last from a few hours to several days. It's not clear why migraines occur, but certain factors called triggers can raise the risk of having a migraine attack.??A migraine may be triggered by emotional stress??or depression, or by hormone changes during the menstrual cycle. Other triggers include certain control pills, overuse of migraine medicines, alcohol or caffeine, and foods with tyramine, such as aged cheese and wine. Eyestrain, weather changes, missed meals,??or too little or too much sleep can also trigger a migraine. Home care Follow these tips when taking care of yourself at home: ??? Don???t drive yourself home if you weregiven pain medicine for your headache or are having visual symptoms. Instead, have someone else drive you home. Try to sleep when you get home. You should feel much better when you wake up. ??? Cold can help ease migraine symptoms. Put an ice pack wrapped in a thin towel on your forehead or at the base of your skull. Put heat on the back of your neck to help ease any neck spasm. ??? Drink only clear liquids or eat a light diet until your symptoms get better. This will help you prevent nausea and vomiting. ?? How to prevent migraines Pay attention to what seems to trigger your headache. Try to stay away from the triggers when you can. If you have headaches often, consider keeping a headache diary. In it, write down what you were doing, feeling, or eating in the hours before each headache. Show this to your healthcare provider to help find the cause of your headaches. If stress seems to be a trigger for your headaches, figure out what is causing stress in your life.Learn new ways to handle your stress. Ideas include regular exercise, biofeedback, self-hypnosis, yoga, and meditation. Talk with your provider to find out more information about managing stress. Many books and digital media are also available on this subject. Tyramine is a substance found in many foods. It can trigger a migraine in some people. These foods contain tyramine: ??? Chocolate ??? Yogurt ??? All cheeses, but especially aged cheeses ??? Smoked or pickled fish and meat, including stevens, caviar, bologna, pepperoni, and salami ??? Liver ??? Avocados ??? Bananas??? Figs ??? Raisins ??? Red wine Try staying away from these foods for 1 to 2 months to see if you have fewer headaches. ?? How to treat future headaches ??? Take time out at the first sign of a headache, if possible. Find a quiet, dark, comfortable place to sit or lie down. Let yourself relax or sleep. ??? Put an ice pack wrapped in a thin towel on your forehead or on the area of greatest pain. A heating pad and massage may help if you are having a muscle spasm and tightness in your neck. ??? If you have been prescribed a medicine to stop a migraine headache, use this at the first warning sign of the headache for best results. First signs may be an aura or pain. ??? If you have been prescribed a medicine to prevent the headaches, it's important to take the medicine as directed. Many of these medicines may take a few weeks to start preventing headaches, so it's important to not give up on them right away. If you continue to have just as many headaches after taking these medicines for a while, talk with your healthcare provider to see if the dose needs to be changed or if a different medicine is advised. ??? If you need to take medicine often for your migraine, talk with your provider about other ways to prevent your headaches. ?? Follow-up care Follow up with your healthcare provider, or as advised. Talk with your provider if you have frequent headaches. They can figure out a treatment plan. Ask if you can have medicine to take at home the next time you get a bad headache. This may keep you from having to visit the emergency department inthe future. You may need to see a headache specialist (neurologist) if you continue to have headache s. ?? When to get medical care Call your healthcare provider right away??if any of these occur: ??? Your head pain gets worse, or doesn???t get better within 24 hours ??? You can???t keep liquids down (repeated vomiting) ??? Pain in your sinuses, ears, or throat ??? Fever of 100.4?? F (38?? C) or higher, or as advised by your provider ??? Stiff neck ??? Extreme drowsiness, confusion, or fainting ??? Dizziness, or dizziness with spinning sensation (vertigo) ??? Weakness or trouble feeling in an arm or leg, or on one side of your face ??? Trouble talking or seeing ?? Last Reviewed Date: 2022 ?? 3846-4941 [employer]. All rights reserved. This information is not intended as a substitute for professional medical care. Always follow your healthcare professional's instructions. ?? * Thomas Arzola MD: PERFORM Event Display: Patient Education Leaflets Authored Date: [id number] Multiple Documents ?? 323 Understanding Coronavirus Disease 2019 (COVID-19) Coronavirus disease 2019 (COVID-19) is a respiratory illness. It's caused by a new (novel) coronavirus called SARS-CoV-2. There are many types of coronavirus. Coronaviruses are a very common cause ofbronchitis. They may sometimes cause lung infection (pneumonia). Symptoms can range from mild to severe respiratory illness. These viruses are also found in some animals. COVID-19 was first found in people in [facility], in late 2019. In 2020, several cases of COVID-19 have been confirmed in the [place] COVID-19 is a rapidly- emerging infectious disease. This means that scientists are actively researching it.??There are information updates regularly. Public health officials are working to find the source. How the virus spreads is not yet fully understood, but it seems to spread and infect people fairly easily. Some people who have been infected in an area may be unsure how or where they became infected. The virus may be spread through droplets of fluid that a person coughs or sneezes into the air. It may be spread if you touch a surface with virus on it, such as a handle or object, and then touch your eyes, nose, or mouth. For the latest information, visit the CDC website at www.cdc.gov/coronavirus/2019-ncov. Or call 289-DKT-VKHH (187-800-7251). What are the symptoms of COVID-19? Some people have no symptoms or mild symptoms. Symptoms may appear 2 to 14 days after contact with the virus. Symptoms can include: ??? Fever ??? Coughing ??? Trouble breathing What are possible complications from COVID-19? In many cases, this virus can cause infection (pneumonia) in both lungs. In some cases, this can cause . Certain people are at higher risk for complications. This includes older adults and people with serious chronic health conditions such as heart or lung disease or diabetes. How is COVID-19 diagnosed? Your healthcare provider will ask about your symptoms. He or she will also ask about your recent travel and contact with sick people. If your healthcare provider thinks you may have COVID-19, he or she will work closely with your local health department on testing. Follow all instructions from yourhealthcare provider. COVID-19 is diagnosed by: ??? Nose and throat swab. A cotton-tipped swab is wiped inside your nose or throat. This is done tocheck for viruses in your nasal mucus. ??? Sputum culture. A small sample of mucus coughed from your lungs (sputum) is collected if you have a cough. It's checked for the virus. How is COVID-19 treated? There is currently no medicine to treat the virus. Treatment is done to help your body while it fights the virus. This is known as supportive care. Supportive care may include: ??? Pain medicine. These include acetaminophen and ibuprofen. They are used to help ease pain and reduce fever. ??? Bed rest. This helps your body fight the illness. For severe illness, you may need to stay in the hospital. Care during severe illness may include: ??? IV (intravenous) fluids. These are given through a vein to help keep your body hydrated. ??? Oxygen. Supplemental oxygen or ventilation with a breathing machine (ventilator) may be given. This isdone so you get enough oxygen in your body. Are you at risk for COVID-19? You are at risk for infection if you ???ve been to a place where people have been sick with this virus or if there are people with COVID-19 in your area. You are at risk if you: ??? Recently traveled to an area with a COVID-19 outbreak ??? Had contact with a sick person who recently traveled to an area with a COVID-19 outbreak ??? Had contact with a person who was diagnosed with or who may have COVID-19 ?? How can COVID-19 be prevented? There is no vaccine yet. The best prevention is to not have contact with the virus. The CDC advisesthat people should not travel to areas where there are COVID-19 outbreaks right now for any reason that is not urgent. For the most current CDC travel advisories, visit the CDC website at www.cdc.gov/ coronavirus/2019-ncov/travelers. ? To help prevent spreading the infection, wash your hands often, or use an alcohol-based hand residential worker. The CDC advises that you should not wear a facemask if you are not sick. Prepare and protect yourself from COVID-19: ??? Wash your hands often with soap and clean, running water for at least 20 seconds. ??? If you don't have access to soap and water, use an alcohol-based hand residential worker often. Make sure it has at least 60% alcohol. ??? Don't touch your eyes, nose, or mouth unless you have clean hands. ??? As much as possible, don't touch high-touch public surfaces such as doorknobs. Don't shake hands. ??? Clean home and work surfaces often with disinfectant. ??? Cough or sneeze into a tissue, then throw the tissue into the trash. If you don't have tissues, cough or sneeze into the bend of your elbow. ??? Stay informed about COVID-19 in your area. Follow local instructions about being in public. Be aware of events in your community that may be postponed or canceled such as school and sporting events. You may be advised not to attend public gatherings. You will be advised to stay about 6 feet from others as much as possible. This is called social distancing. ??? Check your home supplies. Consider keeping a 2-week supply of medicines, food, and other needed household items. ??? Make a plan for chil dcare, work, and ways to stay in touch with others. Know who will help you if you get sick. ??? Don't be around people who are sick. ??? There is no evidence right now that animals spread SARS-CoV-2.But it's always a good idea to wash your hands after touching any animals. Don't touch animals thatmay be sick. ??? Don ???t share eating or drinking utensils with sick people. ??? Don???t kiss someone who is sick. If you were in an area with COVID-19 in the last 14 days: ??? Call your healthcare provider and follow all instructions. Your activities and where you go maybe restricted for up to 2 weeks. ??? Take your temperature every morning and evening for at least 14 days. This is to check for fever. Keep a record of the readings. ??? Watch for symptoms of the virus. Call your provider if you have symptoms. Call your provider first before going to any clinic or hospital. ??? Stay home if you are sick for any reason. If you are sick with COVID-19 symptoms: ??? Stay home. Call your healthcare provider and tell them you have symptoms of COVID-19. Do this before going to any hospital or clinic. Follow your provider's instructions. You may be advised to isolate yourself at home. This is called self-isolation or self-quarantine. ??? Don ???t panic. Keep in mind that other illnesses can cause similar symptoms. ??? Stay away from work, school, and public places. Limit physical contact with family members. Limit visitors. Don't kiss anyone or share eating or drinking utensils. Clean surfaces you touch with disinfectant. This is to help prevent the virus from spreading. ??? Cough or sneeze into a tissue, then throw away the tissue in the trash. If youdon't have tissues, cough or sneeze into the bend of your elbow. ??? Wear a facemask only if you have symptoms ??? If you need to go in to a hospital or clinic, expect that the healthcare staff will wear protective equipment such as masks, gowns, gloves, and eye protection. You may be put in a separate room. This is to prevent the possible virus from spreading. ??? Tell the healthcare staff about recent travel. This includes local travel on public transport. Staff may need to find other people you have been in contact with. ??? Follow all instructions the healthcare staff give you. If you have been diagnosed with COVID-19 ??? Stay home. Don ???t leave your home unless you need to get medical care. Don't go to work, school, or public areas. Don't use public transportation or taxis. ??? Follow all instructions from yourhealthcare provider. Call your healthcare provider???s office before going. They can prepare and give you instructions. This will help prevent the virus from spreading. ??? If you need to go to a hospital or clinic, expect that the healthcare staff will wear protective equipment such as masks, gowns, gloves, and eye protection. You may be put in a separate room. This is to prevent the possible virus from spreading. ??? Wear a face mask. This is to protect other people from your germs. If you are not able to wear a mask, your caregivers should. ??? Stay away from other people in your home. ???Limit contact with pets and animals. Although there are no reports of pets getting sick with COVID-19, consider limiting contact with pets until more is known. ??? Don???t share household items or food. ??? Cover your face with a tissue when you cough or sneeze. Throw the tissue away. Then wash your hands. ??? Wash your hands often. If you are caring for a sick person: ??? Follow all instructions from healthcare staff. ??? Wash your hands often. ??? Wear protective clothing as advised. ??? Make sure the sick person wears a mask. If they can't wear a mask, don't stay in the same room with the person. If you must be in the same room, wear a facemask. ??? Keep trackof the sick person???s symptoms. ??? Clean surfaces, fabrics, and laundry thoroughly. ??? Keep other people and pets away from the sick person. When to call your healthcare provider Call your healthcare provider: ??? If you ???ve recently traveled or have been in an area with COVID-19 and have symptoms ??? If you have been diagnosed with COVID-19 and your symptoms are worse ? 7095-3467 [employer]. [address] [place] [address]. All rights reserved. This information is not intended as a substitute for professional medical care. Always follow your healthcare professional's instructions. ?? Patient Care team information Care Team Personnel Name: Ulysses Desai MD Position: [facility] NITRIC ACID CONCENTRATOR OPERATOR MD Member Role: [employer] NITRIC ACID CONCENTRATOR OPERATOR Physician Address: Address: [address] [place] [address] [facility] [place], [place] [address] Name: Elisa Peterson NP Position: [facility] PCO Associate Professional Member Role: PCP Address: Address: [address] [place] [id number] Name: Josette Bhardwaj [place] Position: [facility] Staff Member Role: Primary Care Nurse Care Team Related Persons Name: HUBER ORLANDO Address: home [address] [place] [address] Name: HUBER ORLANDO Address: home [address] [place] [address] Name: HUBER ORLANDO Address: home [address] [place] [address] Name: JUAN ORLANDO Address: home [address]
--- OUTSIDE RECORDS SUMMARY | 2024-05-22 09:09 | XMS_ITS | Continuity of Care Document ---
Author Organization [facility] Address [address], [address] [place] [address]- Care Team Providers Care Diagnostics Tech Name Role Phone Nicholas LUNCHROOM SUPERVISOR, Elisa M Primary Care Physician Encounter [facility] Date(s): 02/21/24 - 02/28/24 [facility] [address] [place], [place] [address] Attending Physician: Arelis Rivers MD Referring Physician: Not on Staff, Referring MD Allergies, Adverse Reactions, Alerts Substance Reaction Severity Status Reglan agitation Active Immunizations Given and Recorded Vaccine Date Status Refusal Reason influenza virus vaccine, inactivated 1 08/08/22 Gi pdero pablo influenza virus vaccine, inactivated 2 08/02/21 [...] 1Result Comment: [facility] [id number] 2Result Comment: [facility]: [id number] 3Result Comment: [facility] [id number] [phone] 4Location History: [facility] 5Admin Note: 1st dove 11/21/1995 2nd done [...] 01/29/24 14:53:00 EDT, Route to Pharmacy Electronically, [facility]/pharmacy #[id number], Partial fill upon patient request if the prescription i... Start Date: 01/29/24 Status: Ordered famotidine 20 mg oral tablet 20 mg, 1, tablet, By Mouth, 2 times a day, PRN, # 30 tablet, Refills 0, Tot. Refills 0, Maintenance, Control of Stomach Acid, 01/09/24 0:16:00 EDT, Route to Pharmacy Electronically, [facility]/pharmacy #[id number], Partial fill upon patient request if the prescrip... Start Date: 01/09/24 Status: Ordered fluticasone 50 mcg/inh nasal spray 1 sprays = 50 mcg, Nares, Both, 2 times a day, # 16 Gm, 0 Refills, Maintenance, 02/21/24 17:46:00 EDT, [place], [facility]/pharmacy #[id number], Partial fill upon patient request if the prescription is for a schedule II opioid drug., 1 sprays Nares, Both 2 times a d... Start Date: 02/21/24 Status: Ordered hydrOXYzine hydrochloride 10 mg oral tablet 1 tablet = 10 mg, By Mouth, 3 times a day, PRN for anxiety, # 42 tablet, 0 Refills, Maintenance, 01/16/24 16:47:00 EDT, Tablet, [facility]/pharmacy #[id number], Partial fill upon patient request if the prescription is for a schedule II opioid drug., 168, cm, 01/15... Start Date: 01/16/24 Status: Ordered loratadine 10 mg oral capsule 1 capsule = 10 mg, By Mouth, Daily, As needed for symptoms of allergic reaction., # 10 capsule, 0 Refills, Maintenance, 12/31/23 1:48:00 EDT, Capsule, [facility]/pharmacy #[id number], Partial fill upon patient request if the prescription is for a schedule II opioi... Start Date: 12/31/23 Status: Ordered loratadine 10 mg oral tablet 10 mg, 1, tablet, By Mouth, Daily, # 30 tablet, Refills 0, Tot. Refills 0, Maintenance, 02/21/24 17:46:00 EDT, Route to Pharmacy Electronically, [facility]/pharmacy #[id number], Partial fill upon patient request if the prescription is for a schedule II opioid drug... Start Date: 02/21/24 Status: Ordered omeprazole 20 mg oral enteric coated capsule 1 capsule, By Mouth, 2 times a day, # 180 capsule, 0 Refills, Maintenance, 01/25/24 10:16:00 EDT, [facility] STORE [id number], 168, cm, 01/24/24 14:42:00 EDT, Height, 63.5, kg, 01/08/24 20:41:00 EDT, Dry Weight Start Date: 01/25/24 Status: Ordered Xyzal 5 mg oral tablet 1 tablet = 5 mg, By Mouth, Daily in PM, # 30 tablet, 6 Refills, Maintenance, 08/30/23 14:06:00 EST,Tablet, [id number], Partial fill upon patient request if the [...] romero 3she does have heavy monthly period Procedures Procedure Date Related Diagnosis Body Site Status Laparoscopy 2020 Completed Vital Signs Most recent to oldest [Reference Range]: 1 Height 165 cm (02/21/24 3:02 PM) Weight 63.0 kg (02/21/24 3:02 PM) Body Mass Index [18.5-24.99 kg/m2] 23.14 kg/m2 (02/21/24 3:02 PM) Blood Pressure [90-138/55-84 mm Hg] 112/ 64mm Hg (02/21/24 3:02 PM) Blood pressure sites Arm, right (02/21/24 3:02 PM) Dry Weight 63.0 kg (02/21/24 3:02 PM) Weight Obtained Via Standing scale (02/21/24 3:02 PM) Dry Weight Obtained Via Standing scale (02/21/24 3:02 PM) Social History Social History Type Response Smoking Status Never smoker; Tobacc o user in household: No entered on: 09/26/13 Sex Patient Care team information Care Team Personnel Name: Ulysses Desai MD Position: [facility] SECRETARY ADMINISTRATIVE ASSISTANT MD Member Role: Lifetime SECRETARY ADMINISTRATIVE ASSISTANT Physician Address: Address: [address] [place] [address] [place] [address]- Name: Elisa Peterson NP Position: [facility] PCO Associate Professional Member Role: PCP Address: Address: [address] [place] [address]- Name: Josette Bhardwaj [place] Position: [facility] Office Staff Member Role: Primary Care Nurse Care Team Related Persons Name: HUBER ORLANDO Address: home [address] [place] [address] Name: HUBER ORLANDO Address: home [address] [place] [address] Name: HUBER ORLANDO Address: home [address] [place] [address] Name: JUAN ORLANDO Address: home [address] [address]
--- OUTSIDE RECORDS SUMMARY | 2024-05-22 09:10 | XMS_ITS | Continuity of Care Document ---
Author Organization [facility] Address [address] [place] [address]- Care Team Providers Care Street Railway Line Installer Name Role Phone Elisa Peterson NP Primary Care Physician Encounter [facility] Date(s): 12/19/22 - 12/26/22 [facility] [address] [place] [address]- [place] Encounter Diagnosis Palpitations(Discharge Diagnosis) - 12/19/22 IBS - Irritable bowel syndrome(Discharge Diagnosis) - 12/19/22 Anxiety about health(Discharge Diagnosis) - 12/22/22 Attending Physician: Elisa Peterson NP Allergies, Adverse [...] Recorded 1Result Comment: [facility] [id number] 2Result Comment: [facility]: [phone] 3Result Comment: [facility] [id number] [phone] [facility] 5Admin Note: 1st dove 11/21/1995 2nd done 05/21/2009 6Admin Note: 1st done 12/13/2006 2nd done 02/14/2007 3rd done 06/19/2007 7Admin Note: 1st done 02/24/1995 2nd done 11/30/1998 8Admin Note: 1st done 1993 2nd done 1993 3rd done 09/07/1994 Medications ARIPiprazole 2 mg oral tablet 2 mg, 1, tablet, TAKE 1 TABLET BY MOUTH EVERY DAY IN THE MORNING Start Date: 12/06/22 Status: Ordered Ativan 0.5 mg oral tablet 1 tablet = 0.5 mg, By Mouth, Daily, MassPat checked, # 5 tablet, 0 Refills, Maintenance, 12/17/21 15:33:00 EDT, Tablet, [facility]/pharmacy #[id number], Partial fill upon patient request if the [...] 6 Refills, Maintenance, 11/01/22 10:44:00 EST, Nasal [place], [id number], Partial fill upon patient request if the prescription is for aschedule II opioid drug., 1 sprays Nares, Both 2 ti... Start Date: 11/01/22 Status: Ordered By Mouth, Daily, 0 Refills, [...] Refills, Maintenance, 12/06/22 9:51:00 EDT, CR Capsule, [id number], Partial fill upon patient request if the prescription is for a schedule II opioid drug., 168, cm, 12/06/22 9:08... Start Date: 12/06/22 Status: Ordered Xyzal 5 mg oral tablet 1 tablet = 5 mg, By Mouth, Daily in PM, # 90 tablet, 1 Refills, Maintenance, 10/24/22 16:56:00 EST,Tablet, [id number], Partial fill upon patient request if the [...] Effective Dates Health Status Clinical Service Informant Palpitations Discharge Diagnosis 12/19/22 IBS - Irritable bowel syndrome Discharge Diagnosis 12/19/22 Anxiety about health Discharge Diagnosis 12/22/22 Vital Signs Most recent to oldest [Reference Range]: 1 2 Height 168 cm (12/19/22 2:44 PM) 168 cm (12/19/22 1:34 PM) Weight 64.5 kg (12/19/22 2:44 PM) 64.5 kg (12/19/22 1:34 PM) Oxygen Saturation [94-100 %] 98 % (12/19/22 1:34 PM) Pulse Rate [55-90 bpm] 84 bpm (12/19/22 1:34 PM) Body Mass Index [18.5-24.99 kg/m2] 22.85 kg/m2 (12/19/22 1:34 PM) Blood Pressure [90-138/55-84 mm Hg] 130/ 70mm Hg (12/19/22 1:34 PM) Respiratory Rate [16-30 br/min] 16 br/mi n (12/19/22 1:34 PM) Temperature [96.8-100.4 DegF] 97.4 DegF (12/19/22 1:34 PM) Mode of Delivery (Oxygen) Room air (12/19/22 1:34 PM) Blood pressure sites Arm, left (12/19/22 1:34 PM) Temperature Route Temporal (12/19/22 1:34 PM) Weight Obtained Via Standing scale (12/19/22 1:34 PM) Social History Social History Type Response Smoking Status Never smoker; Tobacc o user in household: No entered on: 09/26/13 Sex Note * Kiana Bernabe: PERFORM, SIGN, VERIFY Event Display: Patient Education/Instruction Authored Date: [id number] [facility] *BMP Quab Adlt Med Bltn Clinical Summary Name REGULO ORLANDO Age 27 Years 1995 PCP Nicholas EDGAR, Elisa Reynaga PCP Visit Date 12/19/2022 13:30:00 Additional Instructions: Scheduled Appointments?? Future Appointments ?*[facility] ?Phone:??--?Fax:??-- ?Appt. Date:??12/21/2022?12:30 PM ?Scheduled Provider:??Sharon Bonilla ?*BMP??[facility]Med[facility]Bltn ?[address],??[place],??[address] ?Phone:??--?Fax:??-- ?Appt. Date:??02/06/2023?1:00 PM ?Scheduled Provider:??Elisa Peterson NP. Follow-Up Instructions ?? With: Address: When: Elisa Peterson [address] [place] [address], [address] [place] [id number] Business (1) Comments: f/u with me in 3 months. Diagnosis Anxiety disorder, unspecified; Irritable bowel syndrome without diarrhea; Palpitations; Gastro-esophageal reflux disease without esophagitis Medications: Please continue your medications until treatment is completed or stopped by your provider. Discuss any questions related to medications with your provider. Medications to Continue with No Changes These medications were not printed or sent to your pharmacy Aripiprazole (ARIPiprazole 2 mg oral tablet) 1 tab(s). TAKE 1 TABLET BY MOUTH EVERY DAY IN THE MORNING. Next Dose: Diclofenac (diclofenac potassium 50 mg oral tablet) [...] in 24 hours. Refills: 5. Next Dose: Verapamil (verapamil 120 mg oral capsule, extended release) 1 capsule Oral Daily at Bedtime. Refills: 2. Next Dose: Allergy Info:?? Reglan Medications Given This Visit Future Orders ?No future orders Vital Signs Height 168 cm Weight 64.5 kg BMI 22.85 kg/m2 Blood Pressure 130 mm Hg/70 mm Hg Temperature 97.4 DegF Pulse Rate 84 bpm Respiratory Rate 16 br/min 02 Sat Mode of Delivery 98 %/Room air You can now view a summary of your hospital visit from the comfort of your home through a free online portal called [employer]. [employer] is a website that allows you to securely view your medical information including discharge summary, medications and follow-up visits. ??You can alsosend a secure electronic message to your doctor???s office to request appointments, renew medications or just ask a question. You can enroll at [email or web address] or register during your next office [...] primary care provider, you may find a [facility] provider by calling [facility] [employer] at [phone]. For information about the plan of care including goals and instructions for your diagnosis, please see the patient education orders section of this document. Patient Education Materials?? The content of this educational material or handout may have been modified, supplemented, or adapted from its original content and format to support your individualized medical care. Heart Palpitations Palpitations are the feeling that your heart is beating hard, fast, or irregular. Some describe it as pounding or skipped beats. Palpitations may occur in persons with heart disease, but can alsooccur in healthy persons. Heart-related causes: ??? Arrhythmia (a change from the heart's normal rhythm) ??? Disease of the heart valves Zkh-iodqx-ftsnxyy causes: ??? Certain medicines (such as asthma inhalers and decongestants) ??? Some herbal supplements, energy drinks and pills, and weight loss pills ??? Illegal stimulant drugs (such as cocaine, crank, methamphetamine, PCP, bath salts, ecstasy) ??? Caffeine, alcohol, and tobacco ??? Medical conditions such as thyroid disease, anemia, anxiety, and panic disorder Sometimes the cause cannot be found. Home care Follow these home care tips: 1. Avoid excess caffeine, alcohol, tobacco, and any stimulant drugs. 2. Tell your doctor about any prescription or vbxk-ftu-floonqu or herbal medicines you take. Follow-up care Follow up with your doctor or as advised by our staff. Call 911 This is the fastest and safest way to get to the emergency department. The paramedics can also begin treatment on the way to the hospital, if needed. Don't wait until your symptoms are severe to call 911. These are reasons to call 911: ??? Chest pain ??? Shortness of breath ??? Feeling lightheaded, faint, or dizzy ??? Fainting or loss of consciousness ??? Very irregular heartbeat ??? Rapid heart beat ??? Slower than usual heart rate ??? Chest pain with weakness, dizziness,??heavy sweating, nausea, or vomiting ??? Extreme drowsiness or confusion ??? Weakness of an arm or leg, or on 1 side of the face ??? Difficulty with speech or vision When to seek medical care Get prompt medical attention if you have palpitations and any of the following: ??? Weakness ??? Dizziness ??? Lightheadedness ?? [id number] [employer]. [address] [place] [address]. All rights reserved. This information is not intended as a substitute for professional medical care. Always follow your healthcare professional's instructions. Your Body???s Response to Anxiety Normal anxiety is part of the body???s natural defense system. It's an alert to a threat that is unknown, vague, or comes from your own internal fears.??While you???re in this state, your feelings can range from a vague sense of worry to physical sensations such as a pounding heartbeat. These feelings make you want to react to the threat. An anxiety response is normal in many situations. But whenyou have an anxiety disorder, the same response can occur at the wrong times. Anxiety can be helpful Normal anxiety is a signal from your brain that warns you of a threat and is a normal response to help you prevent something or decrease the bad effects of something you can't control. For example, anxiety is a normal response to situations that might damage your body, separate you from a loved one, or lose your job. The symptoms of anxiety can be physical and mental. How does it feel? At certain times, people with anxiety may have: ??? Dizziness ??? Muscle tension or pain ??? Restlessness ??? Sleeplessness ??? Difficulty concentrating ??? Racing heartbeat ??? Fast breathing ??? Shaking or trembling ??? Stomachache ??? Diarrhea ??? Loss of energy ??? Sweating ??? Cold, clammy hands ??? Chest pain ??? Dry mouth Anxiety can also be a problem Anxiety can become a problem when it is difficult to control, occurs for months, and interferes with important parts of your life. With an anxiety disorder, your body has the response described above, but in inappropriate ways. The response a person has depends on the anxiety disorder he or she has. With some disorders, the anxiety is way out of proportion to the threat that triggers it. With othe rs, anxiety may occur even when there isn???t a clear threat or trigger. Who does it affect? Some people are more prone to persistent anxiety than others. It tends to run in families, and it affects more younger people than older people. But no age, race, or gender is immune to anxiety problems. Anxiety can be treated The good news is that the anxiety that???s disrupting your life can be treated. Working with your doctor or other healthcare provider, you can develop skills to help you cope with anxiety. You can also gain the perspective you need to overcome your fears. Note:??Good sources of support or guidance can be found at your local hospital, mental health clinic, or an employee assistance program. If anxiety is wearing you down, here are some things you can do to cope: ??? Keep in mind that you can???t control everything about a situation. Change what you can and letthe rest take its course. ??? Exercise???it???s a great way to relieve tension and help your body feel relaxed. ??? Avoid caffeine and nicotine, which can make anxiety symptoms worse. ??? Fight the temptation to turn to alcohol or unprescribed drugs for relief. They only make thingsworse in the long run. ?? [phone] [employer]. [address] [place] [address], [place] [address]. All rights reserved. This information is not intended as a substitute for professional medical care. Always follow your healthcare professional's instructions. Anxiety??Reaction Anxiety is the feeling we all [...] by rest and mild pain reliever ?? 4678-5301 [employer]. [address] [place] [address]. All rights reserved. This information is not intended as a substitute for professional medical care. Always follow your healthcare professional's instructions. Patient Care team information Care Team Personnel Name: Elisa Peterson NP Position: [facility] PCO Associate Professional Member Role: PCP Address: Address: [address] [place] [address] Name: Josette De Anda Position: [facility] RN Member Role: Primary Care Nurse Care Team Related Persons Name: HUBER ORLANDO Address: [address] [address] Name: HUBER ORLANDO Address: home [address] [place] [address] Name: HUBER ORLANDO Address: home [address] [place] [address] Name: JUAN ORLANDO Address: home [address] [address]
--- OUTSIDE RECORDS SUMMARY | 2024-05-22 09:10 | XMS_ITS | Continuity of Care Document ---
Author Organization [facility] Address [address] [place] [address]- Care Team Providers Care Compliance Engineer Name Role Phone Elisa Peterson NP Primary Care Physician Encounter [facility] NBR [id number] Date(s): 10/17/22 - 11/19/22 [facility] [address] [address]- Attending Physician: Not on Staff, Attending MD Referring Physician: Elisa Peterson NP Allergies, [...] Vaccine 12/14/07 Give n Meningococcal Conjugate Vaccine 3/28/08 Recorded Gardasil (oldterm) 6 06/19/07 Given Gardasil (oldterm) 02/14/07 Given Gardasil (oldterm) 12/13/06 Given Measles/Mumps/Rubella Virus Vaccine 7 11/30/98 Giv en Measles/Mumps/Rubella Virus Vaccine 02/24/95 Recor ded diphtheria/tetanus/pertussis, acel(DTaP) 11/26/98 Recorded Hepatitis B Vaccine (old term) 8 09/07/94 Given hepatitis B pediatric vaccine 93 Recorded hepatitis B pediatric vaccine 93 Recorded 1Result Comment: [facility] [id number] 2Result Comment: [facility]: [id number] 3Result Comment: [facility] [id number] [phone] [facility] 5Admin Note: [...] Refills, Maintenance, 12/17/21 15:33:00 EDT, Tablet, [facility]/pharmacy #[id number], Partial fill upon patient request if [...] 6 Refills, Maintenance, 11/01/22 10:44:00 EST, Nasal [place], [id number], Partial fill upon patient request [...] capsule, 1 Refills, Maintenance, 11/01/22 10:45:00 EST, [facility]/pharmacy #[id number], 168, cm, 11/01/22 10:19:00 EST, Height, 64, kg, 10/25/22 12:27:00 EST, Dry Weight Start Date: 11/01/22 Stop Date: 04/30/23 Status: Ordered Xyzal 5 mg oral tablet 1 tablet = 5 mg, By Mouth, Daily in PM, # 90 tablet, 1 Refills, Maintenance, 10/24/22 16:56:00 EST,Tablet, [facility]/pharmacy #[id number], Partial fill upon patient request if [...] Care team information Care Team Personnel Name: Nicholas EDGAR, Elisa Reynaga Position: S PCO Associate Professional Member Role: PCP Address: Address: [address] [place] [address]- Name: Lashae VENTURA Josette Position: [facility] RN Member Role: Primary Care Nurse Care Team Related Persons Name: JOHANNYHUBER Spears Address: home [address] [place] [address] Name: HUBER ORLANDO Address: home [address] [place] [address] Name: FRANSISCA ORLANDOEN Ronnell Address: home [address] [place] [address] Name: JUAN ORLANDO Address: home [address] [address]
--- OUTSIDE RECORDS SUMMARY | 2024-05-22 09:10 | XMS_ITS | Continuity of Care Document ---
Author Organization [facility] Address [address] Floor, [address] [place] [address]- Care Team Providers Care Multiple Drum Sander Name Role Phone Nicholas EDGAR, Elisa M Primary Care Physician Encounter [facility] Date(s): 01/24/23 - 02/23/23 [facility] [address], [address]rd Floor, [address] [place] [address]- Allergies, Adverse Reactions, Alerts Substance Reaction Severity [...] pediatric vaccine 93 Recorded 1Result Comment: [facility] [id number] 2Result Comment: [facility]: [id number] 3Result Comment: [facility] [phone] [facility] 5Admin Note: [...] kit, 2 Refills, Maintenance, 01/14/23 13:47:00EDT, [facility]/pharmacy #[id number], Partial fill upon patient [...] Refills, Maintenance, 12/17/21 15:33:00 EDT, Tablet, [facility]/pharmacy #[id number], Partial fill upon patient [...] 6 Refills, Maintenance, 11/01/22 10:44:00 EST, Nasal [place], [facility]/pharmacy #[id number], Partial fill upon patient request if the prescription is for aschedule II opioid drug., 1 sprays Nares, Both 2 ti... Start Date: 11/01/22 Status: Ordered .30 By Mouth, Daily, 0 Refills, Maintenance, 08/08/22 [...] 10:26:00 EDT, 12/06/22 10:26:00 EDT, DIS Tablet, [facility]/pharmacy #[id number], Partial fill upon patient requ... Start [...] Refills, Maintenance, 12/06/22 9:51:00 EDT, CR Capsule, [facility]/pharmacy #[id number], Partial fill upon patient request if the prescription is for a schedule II opioid drug., 168, cm, 12/06/22 9:08... Start Date: 12/06/22 Status: Ordered Xyzal 5 mg oral tablet 1 tablet = 5 mg, By Mouth, Daily in PM, # 90 tablet, 1 Refills, Maintenance, 10/24/22 16:56:00 EST,Tablet, [facility]/pharmacy #[id number], Partial fill upon patient [...] Team Personnel Name: Ulysses Desai MD Position: [facility] ELEMENTARY SPECIAL EDUCATION TEACHER MD Member Role: [employer]etime ELEMENTARY SPECIAL EDUCATION TEACHER Physician Address: Address: [address] [place] [address] [facility] [place] [address] Name: Elisa Peterson NP Position: [facility] PCO Associate Professional Member Role: PCP Address: Address: [address] [place] [address]- Name: Josette Bhardwaj [place] Position: [facility] RN Member Role: Primary Care Nurse Care Team Related Persons Name: HUBER ORLANDO Address: home [address] [place] [address] Name: HUBER ORLANDO Address: home [address] [place] [address] Name: HUBER ORLANDO Address: home [address] [place] [address] [place] [address] Name: JUAN ORLANDO Address: home [address] [address]
--- OUTSIDE RECORDS SUMMARY | 2024-05-22 09:10 | XMS_ITS | Continuity of Care Document ---
Author Organization [facility] Address [address] [place] [address]- Care Team Providers Care Process Cheese Cooker Name Role Phone Elisa Peterson NP Primary Care Physician Encounter [facility] NBR [id number] Date(s): 08/08/22 - 08/15/22 [facility] [address] [address]- [place] Encounter Diagnosis Annual physical exam(Discharge Diagnosis) - 08/08/22 Nasal congestion(Discharge Diagnosis) - 08/08/22 Anxiety with depression(Discharge Diagnosis) - 08/08/22 GERD (gastroesophageal reflux disease)(Discharge Diagnosis) - 08/08/22 Attending Physician: Elisa Peterson NP Allergies, Adverse [...] B Vaccine (old term) 8 09/07/94 Given 1Result Comment: [facility] [id number] 2Result Comment: [facility]: [phone] 3Result Comment: [facility] [id number] [phone] [facility] 5Admin Note: [...] 0 Refills, Maintenance, 12/17/21 15:33:00 EDT, Tablet, [facility]/pharmacy #[id number], Partial fill upon patient request if the prescription is for a schedule II opioid drug., 168, cm, 11/25/21 10:4... Start Date: 12/17/21 Status: Ordered Flonase 50 mcg/inh nasal spray 1 sprays = 50 mcg, Nares, Both, 2 times a day, # 9.9 mL, 6 Refills, Maintenance, 08/08/22 14:03:00 EST, Nasal [place], [facility]/pharmacy #[id number], Partial fill upon patient request if the prescription is for aschedule II opioid drug., 1 sprays Nares, Both 2 ti... Start Date: 08/08/22 Status: Ordered Junel Fe By Mouth, Daily, 0 Refills, Maintenance, 08/08/22 13:49:00 EST, Partial fill upon patient request if the prescription is for a schedule II opioid drug. Start Date: 08/08/22 Status: Ordered Misc Rx bcp pill, By Mouth, Daily, Refills 0, Maintenance, 08/11/21 20:44:00 EST, Supply Start Date: 08/11/21 Status: Ordered omeprazole 20 mg oral enteric coated capsule 1 capsule, By Mouth, Daily, # 90 capsule, 1 Refills, Maintenance, 08/08/22 14:10:00 EST, [id number], 167, cm, 08/08/22 13:45:00 EST, Height, 62, kg, 02/28/22 19:44:00 EDT, Dry Weight Start Date: 08/08/22 Status: Ordered Problem List Condition Confirmation Course [...] Effective Dates Health Status Clinical Service Informant Annual physical exam Discharge Diagnosis 08/08/22 Nasal congestion Discharge Diagnosis 08/08/22 Anxiety with depression Discharge Diagnosis 08/08/22 GERD (gastroesophageal reflux disease) Discharge Diagnosis 08/08/22 Vital Signs Most recent to oldest [Reference Range]: 1 Height 167 cm (08/08/22 1:45 PM) Weight 64.5 kg (08/08/22 1:45 PM) Oxygen Saturation [94-100 %] 98 % (08/08/22 1:45 PM) Pulse Rate [55-90 bpm] 83 bpm (08/08/22 1:45 PM) Body Mass Index [18.5-24.99 kg/m2] 23.13 kg/m2 (08/08/22 1:45 PM) Blood Pressure [90-138/55-84 mm Hg] 114/ 72mm Hg (08/08/22 1:45 PM) Temperature [96.8-100.4 DegF] 97.5 DegF (08/08/22 1:45 PM) Mode of Delivery (Oxygen) Room air (08/08/22 1:45 PM) Blood pressure sites Arm, left (08/08/22 1:45 PM) Temperature Route Temporal (08/08/22 1:45 PM) Weight Obtained Via Pediatric scale (08/08/22 1:45 PM) Social History Social History Type Response Smoking Status Never smoker; Tobacc o user in household: No entered on: 09/26/13 Sex Note * Amanda Bonilla: PERFORM, SIGN, VERIFY Event Display: Patient Education/Instruction Authored Date: [id number] [facility] *BMP Quab Adlt Med Bltn Clinical Summary Name REGULO ORLANDO Age 26 Years 1995 PCP Nicholas SHELL FISHERMAN, Elisa Reynaga PCP Visit Date 08/08/2022 13:41:00 Additional Instructions: Scheduled Appointments?? Future Appointments ?No Future Appointments Scheduled Follow-Up Instructions ?? With: Address: When: Elisa Peterson [address] [place] [address], [address] [place], [place] [id number] [facility] (1) Comments: f/u with me in 6 months Diagnosis Encounter for general adult medical examination without abnormal findings; Other specified anxiety disorders; Gastro-esophageal reflux disease without esophagitis; Nasal congestion Medications: Please continue your medications until treatment is completed or stopped by your provider. Discuss any questions related to medications with your provider. New Medications [id number], [address], [place] [id number], [phone] Fluticasone Nasal (Flonase 50 mcg/inh nasal spray) 1 spray(s) Nares, Both twice a day. Refills: 6. Next Dose: Medications to Continue with No Changes [id number], [address], [place] [id number], [phone] Omeprazole (omeprazole 20 mg oral enteric coated capsule) 1 capsule Oral Daily. Refills: 1. Next Dose: These medications were not printed or sent to your pharmacy Ethinyl Estradiol / Norethindrone () Oral Daily. Next Dose: Lorazepam (Ativan 0.5 mg oral tablet) 1 tab(s) Oral Daily. MassPat checked. Refills: 0. Next Dose: Miscellaneous Rx (Misc Rx) bcp pill Oral Daily. Next Dose: No Longer Take the Following Medications Docusate-Senna (docusate-senna 50 mg-187 mg oral tablet) may take 2 tablets twice a day until regularly moving bowels, then prn. Refills: 0. Allergy Info:?? Reglan Medications Given This Visit Medication Dose Route influenza virus vaccine, inactivated (influenza virus, inactivated vacc) 0.5 mL Intramuscular Future Orders ?No future orders Vital Signs Height 167 cm Weight 64.5 kg BMI 23.13 kg/m2 Blood Pressure 114 mm Hg/72 mm Hg Temperature 97.5 DegF Pulse Rate 83 bpm Respiratory Rate 02 Sat Mode of Delivery 98 %/Room air You can now view a summary of your hospital visit from the comfort of your home through a free online portal called [employer]. [employer] is a website that allows you to securely view your medical information including discharge summary, medications and follow-up visits. ??You can alsosend a secure electronic message to your doctor???s office to request appointments, renew medications or just ask a question. You can enroll at [email or web address] or register during your next office visit. [...] primary care provider, you may find a [facility] provider by calling [facility] [facility] at [phone]. For information about the plan of care including goals and instructions for your diagnosis, please see the patient education orders section of this document. Patient Education Materials?? The content of this educational material or handout may have been modified, supplemented, or adapted from its original content and format to support your individualized medical care. Prevention Guidelines,??Women Ages 18 to 39 Screening tests and vaccines are an important part of managing your health. Health counseling is essential, too. Below are guidelines for these, for women ages 18 to 39. Talk with your healthcare provider to make sure you???re up-to-date on what you need. Screening Who needs it How often Alcohol misuse All women in this age group At routine exams Blood pressure All women in this age group Every 2 years if your blood pressure is less than 120/80 mm Hg; yearly if your systolic blood pressure is 120 to 139 mm Hg, or your diastolic blood pressure reading is 80 to 89 mm Hg Breast cancer All women in this age group should talk with their healthcare providers about the need for clinicalbreast exams (CBE)1 Clinical breast exam every 3 years1 Cervical cancer Women ages 21 and older Women between ages 21 and 29 should have a Pap test every 3 years; women between ages 30 and 65 areadvised to have a Pap test plus an HPV test every 5 years Chlamydia Sexually active women ages 24 and younger, and women at increased risk for infection Every 3 years if you're at risk or have symptoms Depression All women in this age group At routine exams Diabetes mellitus, type 2 Adults with no symptoms who are overweight or obese and have 1 or more other risk factors for diabetes At least every 3 years Gonorrhea Sexually active women at increased risk for infection At routine exams Hepatitis C Anyone at increased risk At routine exams HIV All women At routine exams Obesity All women in this age group At routine exams Syphilis Women at increased risk for infection ??? talk with your healthcare provider At routine exams Tuberculosis Women at increased risk for infection ??? talk with your healthcare provider Ask your healthcare provider Vision All women in this age group At least 1 complete exam in your 20s, and 2 in your 30s Vaccine2 Who needs it How often Chickenpox (varicella) All women in this age group who have no record of this infection or vaccine 2 doses; the second dose should be given 4 to 8 weeks after the first dose Hepatitis A Women at increased risk for infection ??? talk with your healthcare provider 2 doses given at least 6 months apart Hepatitis B Women at increased risk for infection ??? talk with your healthcare provider 3 doses over 6 months; second dose should be given 1 month after the first dose; the third dose should be given at least 2 months after the second dose and at least 4 months after the first dose Haemophilus influenzae??Type B (HIB) Women at increased risk for infection ??? talk with your healthcare provider 1 to 3 doses Human papillomavirus (HPV) All women in this age group up to age 26 3 doses; the second dose should be given 1 to 2 months after the first dose and the third dose given 6 months after the first dose Influenza (flu) All women in this age group Once a year Measles, mumps, rubella (MMR) All women in this age group who have no record of these infections or vaccines 1 or 2 doses Meningococcal Women at increased risk for infection ??? talk with your healthcare provider 1 or more doses Pneumococcal conjugate vaccine (PCV13)??and pneumococcal polysaccharide??vaccine??(PPSV23) Women at increased risk for infection ??? talk with your healthcare provider PCV13: 1 dose ages 19 to 65 (protects against 13 types of pneumococcal bacteria) PPSV23: 1 to??2 doses through age 64, or 1 dose at 65 or older (protects against 23 types of pneumococcal bacteria) Tetanus/diphtheria/pertussis (Td/Tdap) booster All women in this age group Td every 10 years, or a one-time dose of Tdap instead of a Td booster after age 18, then Td every 10 years Counseling Who needs it How often BRCA gene mutation testing for breast and ovarian cancer susceptibility Women with increased risk for having gene mutation When your risk is known Breast cancer and chemoprevention Women at high risk for breast cancer When your risk is known Diet and exercise Women who are overweight or obese When diagnosed, and then at routine exams Domestic violence Women at the age in which they are able to have children At routine exams Sexually transmitted infection prevention Women who are sexually active At routine exams Skin cancer Prevention of skin cancer in fair-skinned adults through age 24 At routine exams Use of tobacco and the health effects it can cause All women in this age group Every visit 1According to the ACS, women ages 20 to 39 years should have a clinical breast exam (CBE) as part of their routine health exam every 3 years, and breast self- exams are an option for women starting intheir 20s.??However, the ??USPSTF does not recommend CBE. 2Those who are 18 years of age, who are not up-to-date on their childhood immunizations, should receive all appropriate catch-up vaccines recommended by the CDC. ?? 8941-8212 [employer]. [address] [place] [address]. All rights reserved. This information is not intended as a substitute for professional medical care. Always follow your healthcare professional's instructions. Patient Care team information Care Team Personnel Name: Elisa Peterson NP Position: [facility] Associate Professional Member Role: PCP Address: Address: [address] [place] [address] Name: Josette De Anda Position: [facility] RN Member Role: Primary Care Nurse Care Team Related Persons Name: HUBER ORLANDO Address: home [address] [place] [id number] Name: HUBER ORLANDO Address: home [address] [place] [address] Name: HUBER ORLANDO Address: [address] Name: JUAN ORLANDO Address: [address] [address]
--- OUTSIDE RECORDS SUMMARY | 2024-05-22 09:10 | XMS_ITS | Continuity of Care Document ---
Author Organization [facility] Adult Address [address] [place] [address]- Care Team Providers Care Sewing Machine Assembler Name Role Phone Anitha Hyde MD Primary Care Physician ( [phone] [facility] Date(s): 04/09/20 - 04/16/20 [facility] Adult [address] [place] [address] [facility] Encounter Diagnosis Dizziness(Discharge Diagnosis) - 04/09/20 IFG (impaired fasting glucose)(Discharge Diagnosis) - 04/09/20 Anxiety(Discharge Diagnosis) - 04/09/20 Attending Physician: Anitha Hyde MD Allergies, Adverse [...] Comment: [facility] [id number] [phone] 2[facility] 3Admin Note: [...] Date: 03/23/20 Stop Date: 09/19/20 Status: Ordered Nasal [place] Nasal [place], Refills 0, Maintenance, 04/05/20 20:23:00 EDT, Supply Start Date: 04/05/20 Status: Ordered riboflavin 100 mg oral tablet 4 tablet = 400 mg, By Mouth, Daily, # 120 tablet, 5 Refills, Maintenance, 03/23/20 16:44:00 EDT, [facility]t, [id number], 166, cm, 03/23/20 13:04:00 EDT, Height, 60.7, kg, 02/29/20 0:40:00 EDT, Dry Weight Start Date: 03/23/20 Stop Date: 09/19/20 Status: Ordered Problem List Condition Effective Dates [...] Dates Health Status Cl inical Service Informant Dizziness Discharge Diagnosis 04/09/20 IFG (impaired fasting glucose) Discharge Diagnosis 04/09/20 Anxiety Discharge Diagnosis 04/09/20 Vital Signs Most recent to oldest [Reference Range]: 1 Height 165 cm (04/09/20 1:14 PM) Weight 59.6 kg (04/09/20 1:14 PM) Oxygen Saturation [94-100 %] 97 % (04/09/20 1:14 PM) Pulse Rate [55-90 bpm] 85 bpm (04/09/20 1:14 PM) Body Mass Index [18.5-24.99] 21.89 (04/09/20 1:14 PM) Blood Pressure [90-138/55-84 mm Hg] 120/ 70mm Hg (04/09/20 1:14 PM) Mode of Delivery (Oxygen) Room air (04/09/20 1:14 PM) Blood pressure sites Arm, left (04/09/20 1:14 PM) Weight Obtained Via Standing scale (04/09/20 1:14 PM) Social History Social History Type Response Smoking Status Never smoker; Tobacc o user in household: No entered on: 09/26/13 Sex
--- OUTSIDE RECORDS SUMMARY | 2024-05-22 09:10 | XMS_ITS | Continuity of Care Document ---
Author Organization [facility] Address [address] [place] [address]- Care Team Providers Care Nba Player Name Role Phone Nicholas RIG SUPERVISOR, Elisa Reynaga Primary Care Physician Encounter [facility] Date(s): 09/28/21 - 10/28/21 [facility] [address] [place] [address] [place] Allergies, Adverse Reactions, Alerts Substance Reaction [...] (old term) 7 09/07/94 Given 1Result Comment: [facility]: [id number] 2Result Comment: [facility] [id number] [phone] 3[facility] 4Admin Note: [...] 10/07/21 8:52:00 EST, Route to Pharmacy Electronically, [facility]/pharmacy #[id number], Partial fill upon patient request if the prescription is for a schedule II opio... Start Date: 10/07/21 Stop Date: 10/17/21 Status: Ordered lidocaine 5% topical ointment 1 application, Topically, 3 times a day, for 10 days, # 30 Gm, 0 Refills, Acute 11/08/21 2:57:00 EST, 10/29/21 2:57:00 EST, Ointment, [id number], Partial fill upon patient request [...]
--- OUTSIDE RECORDS SUMMARY | 2024-05-22 09:10 | XMS_ITS | Continuity of Care Document ---
Author Organization [facility] Adult Address [address] [place] [address]- Care Team Providers Care Survival Specialist Name Role Phone Mary Ellen SRINIVASAN, Anitha Primary Care Physician Encounter [facility] Date(s): 10/02/19 - 01/10/20 [facility] Adult [address] [place] [address] [facility] Attending Physician: Anitha Hyde MD [...] (old term) 6 09/07/94 Given 1Result Comment: [facility] [id number] [phone] 3Admin Note: [...] 1 Refills, Maintenance, 10/11/19 14:31:00 EST, Tablet, [facility]/pharmacy #[id number], 168, cm, 10/11/19 13:21:00 EST, Height, 64, kg, 09/08/19 14:41:00 ES... Start Date: 10/11/19 Status: Ordered sertraline 25 mg oral tablet 1 tablet = 25 mg, By Mouth, Daily, # 30 tablet, 5 Refills, Maintenance, 11/05/19 14:45:00 EST, Tablet, [facility]/pharmacy #[id number], 168, cm, 10/14/19 13:34:00 EST, [...]
--- OUTSIDE RECORDS SUMMARY | 2024-05-22 09:10 | XMS_ITS | Continuity of Care Document ---
[facility] Address [address] [place] [address]- Care Team Providers Care Carburetor Mechanic Name Role Phone Nicholas NUTTER UP, Elisa M Primary Care Physician Encounter [facility] Date(s): 06/08/20 - 06/08/[address] [address]- [facility] Discharge Disposition: A-D/C Home Attending Physician: Cade Aguillon MD Admitting Physician: Cade Aguillon MD Referring Physician: Not on Staff, Referring [...] 09/07/94 Given 1Result Comment: [facility] [id number] [phone] 2[facility] 3Admin Note: [...] 06/08/20 9:10:00 EDT, Route to Pharmacy Electronically, [facility]/pharmacy #[id number], 168, cm, 06/08/20 7:01:00 [...] oldest [Reference Range]: 1 Height 168 cm (06/08/20 7:01 AM) Weight 58.7 kg (06/08/20 7:01 AM) Oxygen Saturation [94-100 %] 100 % (06/08/20 7:01 AM) Pulse Rate [55-90 bpm] 112 bpm *H* (06/08/20 7:01 AM) Blood Pressure [90-138/55-84 mm Hg] 136/ 100mm Hg (06/08/20 7:01 AM) Respiratory Rate [16-30 br/min] 17 br/mi n (06/08/20 7:01 AM) Temperature [96.8-100.4 DegF] 98 DegF (06/08/20 7:01 AM) Mode of Delivery (Oxygen) Room air (06/08/20 7:01 AM) Blood pressure sites Arm, left (06/08/20 7:01 AM) Temperature Route Oral (06/08/20 7:01 AM) Dry Weight 58.7 kg (06/08/20 7:01 AM) Weight Obtained Via Standing scale (06/08/20 7:01 AM) Dry Weight Obtained Via Standing scale (06/08/20 7:01 AM) Social History Social History Type Response Smoking Status Never smoker; Tobacc o user in household: No entered on: 09/26/13 Sex
--- OUTSIDE RECORDS SUMMARY | 2024-05-22 09:10 | XMS_ITS | Continuity of Care Document ---
Author Organization [facility] Address [address] [place] [address]- Care Team Providers Care Diffusion Furnace Operator Name Role Phone Nicholas CYLINDER MACHINE OPERATOR, Elisa Reynaga Primary Care Physician Encounter [facility] Date(s): 08/11/21 - 08/12/[address] [address]- Encounter Diagnosis Abdominal pain(Final) - 08/12/21 Discharge Disposition: A-D/C Home Attending Physician: Michael [...] Given 1Result Comment: [facility]: [id number] 2Result Comment: [facility] [id number] [phone] 3[facility] 4Admin Note: [...] 08/02/21 7:53:00 EST, Route to Pharmacy Electronically, [facility]/pharmacy #[id number], 167.64, cm, 08/02/21 7:31:00 EST, Height, 63, kg, 06/24/21 0:41:00 EDT, Dry... Start Date: 08/02/21 Stop Date: 01/29/22 Status: Ordered Flonase 50 mcg/inh nasal spray 1 sprays, Nares, Both, 2 times a day, # 16 Gm, 0 Refills, Maintenance, 01/29/21 20:47:00 EDT, [place], [facility]/pharmacy #[id number], Partial fill upon patient request if [...] Refills, Maintenance, 08/12/21 0:53:00 EST, CR Tablet, [facility]/pharmacy #[id number], Partial fill upon patient request if the prescription is for a schedule II opioid drug., 167.64, cm, 08/11/21 20:39:00... Start Date: 08/12/21 Stop Date: 08/26/21 Status: Ordered ondansetron 4 mg oral tablet, disintegrating 1 tablet = 4 mg, By Mouth, Every 8 hours, PRN as needed for nausea/vomiting, # 12 tablet, 0 Refills, Maintenance, 08/12/21 0:54:00 EST, DIS Tablet, [facility]/pharmacy #[id number], Partial fill upon patient request if [...] to oldest [Reference Range]: 1 2 Height 167.64 cm (08/11/21 8:38 PM) Weight 64.3 kg (08/11/21 8:38 PM) Oxygen Saturation [94-100 %] 100 % (08/12/21 1:00 AM) 100 % (08/11/21 8:38 PM) Pulse Rate [55-90 bpm] 88 bpm (08/12/21 1:00 AM) 101 bpm *H* (08/11/21 8:38 PM) Blood Pressure [90-138/55-84 mm Hg] 137/ 89mm Hg (08/12/21 1:00 AM) 148/99mm Hg *H* (08/11/21 8:38 PM) Respiratory Rate [16-30 br/min] 18 br/mi n (08/12/21 1:00 AM) 18 br/min (08/11/21 8:38 PM) Temperature [96.8-100.4 DegF] 98.2 DegF (08/12/21 1:00 AM) 97.8 DegF (08/11/21 8:38 PM) Mode of Delivery (Oxygen) Room air (08/12/21 1:00 AM) Room air (08/11/21 8:38 PM) Blood pressure sites Arm, left (08/12/21 1:00 AM) Arm, left (08/11/21 8:38 PM) Temperature Route Temporal (08/12/21 1:00 AM) Temporal (08/11/21 8:38 PM) Dry Weight 64.3 kg (08/11/21 8:38 PM) Weight Obtained Via Standing scale (08/11/21 8:38 PM) Dry Weight Obtained Via Standing scale (08/11/21 8:38 PM) Social History Social History Type Response Smoking Status Never smoker; Tobacc o user in household: No entered on: 09/26/13 Sex
--- OUTSIDE RECORDS SUMMARY | 2024-05-22 09:10 | XMS_ITS | Continuity of Care Document ---
Author Organization [facility] ter Address [address] [place] [address]- Care Team Providers Care Sales Representative Wire Rope Name Role Phone Nicholas EDGAR, Elisa M Primary Care Physician [place] [facility] [place] Date(s): 01/08/24 - 01/09/[address] [address]- Discharge Disposition: A-D/C Home Attending Physician: Dudley Muñiz MD Admitting Physician: Dudley Muñiz MD Referring Physician: Not on Staff, Referring [...] 93 Recorded 1Result Comment: [facility] [id number] 2Result Comment: [facility]: [id number] 3Result Comment: [facility] [id number] [phone] [facility] 5[facility] Note: 1st dove 11/21/1995 2nd done 05/21/2009 6Admin Note: 1st done 12/13/2006 2nd done 02/14/2007 3rd done 06/19/2007 7Admin Note: 1st done 02/24/1995 2nd done 11/30/1998 8Admin Note: 1st done 1993 2nd done 1993 3rd done 09/07/1994 Medications famotidine 20 mg oral tablet 20 mg, 1, tablet, By Mouth, 2 times a day, PRN, # 30 tablet, Refills 0, Tot. Refills 0, Maintenance, Control of Stomach Acid, 01/09/24 0:16:00 EDT, Route to Pharmacy Electronically, [facility]/pharmacy #[id number], Partial fill upon patient request if the prescrip... Start Date: 01/09/24 Status: Ordered ibuprofen 600 mg oral tablet 600 mg, 1, tablet, By Mouth, Daily, PRN, Take with food. Take sparingly, # 20 tablet, Refills 0, Tot. Refills 0, Acute 02/17/24 8:00:00 EDT, Headache, 12/26/23 16:09:00 EDT, Route to Pharmacy Electronically, [facility]/pharmacy #[id number], Partial fill upon patie... Start Date: 12/26/23 Stop Date: 02/17/24 Status: Ordered loratadine 10 mg oral capsule 1 capsule = 10 mg, By Mouth, Daily, As needed for symptoms of allergic reaction., # 10 capsule, 0 Refills, Maintenance, 12/31/23 1:48:00 EDT, Capsule[id number] Partial fill upon patient request if the prescription is for a schedule II opioi... Start Date: 12/31/23 Status: Ordered omeprazole 20 mg oral enteric coated capsule 1 capsule, By Mouth, 2 times a day, # 180 capsule, 1 Refills, Maintenance, 06/24/23 16:07:00 EDT, [id number], 165.1, cm, 06/12/23 14:42:00 EDT, Height, 64.3, [...] Range]: 1 2 3 Height 168 cm (01/08/24 8:41 PM) 168 cm (01/08/24 8:15 PM) Weight 63.5 kg (01/08/24 8:41 PM) 63.5 kg (01/08/24 8:15 PM) Oxygen Saturation [94-100 %] 99 % (01/09/24 12:50 AM) 100 % (01/08/24 9:42 PM) 100 % (01/08/24 8:41 PM) Pulse Rate [55-90 bpm] 78 bpm (01/09/24 12:50 AM) 82 bpm (01/08/24 9:42 PM) 100 bpm *H* (01/08/24 8:41 PM) Body Mass Index [18.5-24.99 kg/m2] 22.5 kg/m2 (01/08/24 8:15 PM) Blood Pressure [90-138/55-84 mm Hg] 122/82mm Hg (01/09/24 12:50 AM) 126/89mm Hg (01/08/24 9:42 PM) 137/89mm Hg (01/08/24 8:15 PM) Respiratory Rate [16-30 br/min] 16 br/min (01/09/24 12:50 AM) 16 br/min (01/08/24 9:42 PM) 18 br/min (01/08/24 8:41 PM) Temperature [96.8-100.4 DegF] 98.7 DegF (01/08/24 8:15 PM) Mode of Delivery (Oxygen) Room air (01/08/24 9:42 PM) Room air (01/08/24 8:41 PM) Room air (01/08/24 8:15 PM) Blood pressure sites Arm, left (01/08/24 9:42 PM) Arm, left (01/08/24 8:15 PM) Temperature Route Oral (01/08/24 8:15 PM) Dry Weight 63.5 kg (01/08/24 8:41 PM) 63.5 kg (01/08/24 8:15 PM) Weight Obtained Via Standing scale (01/08/24 8:15 PM) Dry Weight Obtained Via Standing scale (01/08/24 8:15 PM) Social History Social History Type Response Smoking Status Never smoker; Tobacc o user in household: No entered on: 09/26/13 Sex EKG study * Event Display: ECG 12-Lead Authored Date: Please click on pdf link to open report * Event Display: ECG 12-Lead Authored Date: Ventricular Rate: 88 BPM Atrial Rate: 88 BPM P-R Interval: 156 ms QRS Duration: 76 ms Q-T Interval: 344 ms QTC Calculation(Bazett): 416 ms P [place]: 68 degrees R [place]: 48 degrees T [place]: 67 degrees Normal sinus rhythm Probably normal ekg When compared with ECG of 30-DEC-2023 22:46, No significant change was found Confirmed by KACI SHABAZZ ([id number]) on 01/09/2024 6:56:34 AM [place]: KACI SHABAZZ Note * Dudley Muñiz MD R: PERFORM, SIGN, VERIFY Event Display: Patient Education Handout Authored Date: [id number] Patient Care team information Care Team Personnel Name: Ulysses Desai MD Position: [facility] SUPERVISOR [employer] BUILD[employer] MD Member Role: Lifetime SUPERVISOR [employer] Physician Address: Address: [address] [place] [address] [address]- Name: Elisa Peterson NP Position: [facility] PCO Associate Professional Member Role: PCP Address: Address: [address] [place] [address]- Name: Josette Bhardwaj MA Position: [facility] RN Member Role: Primary Care Nurse Care Team Related Persons Name: HUBER ORLANDO Address: home [address] [place] [address] Name: JOHANNY HUBER Reynaga Address: home [address] [place] [address] Name: JOHANNY HUBER Reynaga Address: home [address] [place] [address] Name: JUAN ORLANDO Address: home [address]
--- OUTSIDE RECORDS SUMMARY | 2024-05-22 09:10 | XMS_ITS | Continuity of Care Document ---
Author Organization [facility] ter Address [address] [place] [address]- Care Team Providers Care Regional Training Manager Name Role Phone Nicholas GEROPSYCHOLOGIST, Elisa M Primary Care Physician [place] [facility] [place] - 09/09/[address] [address]- Encounter Diagnosis Chest pain(Final) - 09/09/23 Discharge Disposition: A-D/C Home Attending Physician: Ariel Michaud MD Admitting Physician: Ariel Michaud MD Referring Physician: Not on Staff, Referring [...] mRNA BNT-162b2 vac 12/22/20 Recorded tetanus/diphtheria/pertussis, acel(Tdap) 5/11/17 Given tetanus/diphtheria/pertussis, acel(Tdap) 12/06/05 Given Varicella Virus [...] 93 Recorded 1Result Comment: [facility] [id number] 2Result Comment: [facility]: [id number] 3Result Comment: [facility] [id number] [phone] 4[facility] 5Admin Note: [...] mL, 0 Refills, Maintenance, 05/19/23 22:44:00 EDT, [facility]/pharmacy #[id number], Partial fill upon patient request if the [...] 10 Gm, 0 Refills, Maintenance, 07/24/23 15:00:00EST, [place], [id number], Partial fill upon patient request if the prescription is for a schedule II opioid drug., 1 sprays Nares, Both Daily,PRN... Start Date: 07/24/23 Status: Ordered gabapentin 300 mg oral capsule 300 mg, 1, capsule, By Mouth, Daily at bedtime, PRN, # 15 capsule, Refills 0, Tot. Refills 0, Maintenance, [facility], 07/03/23 16:09:00 EDT, Route to Pharmacy Electronically, [facility]/pharmacy #[id number], Partial fill upon patient request if the prescriptio... Start Date: 07/03/23 Stop Date: 07/18/23 Status: Ordered Junel Fe By Mouth, Daily, [...] Refills, Maintenance, 07/07/23 6:25:00 EDT, [id number], 165.1, cm, 07/03/23 15:14:00 EDT, Height, 64.3, kg, 05/19/23 19:22:00 EDT, Dry... Start Date: 07/07/23 Status: Ordered omeprazole 20 mg oral enteric coated capsule 1 capsule, By Mouth, 2 times a day, # 180 capsule, 1 Refills, Maintenance, 06/24/23 16:07:00 EDT, [facility], 165.1, cm, 06/12/23 14:42:00 EDT, Height, 64.3, kg, 05/19/23 19:22:00 EDT, Dry Weight Start Date: 06/24/23 Status: Ordered Xyzal 5 mg oral tablet 1 tablet = 5 mg, By Mouth, Daily in PM, # 30 tablet, 6 Refills, Maintenance, 08/30/23 14:06:00 EST,Tablet, [facility]/pharmacy #[id number], Partial fill upon patient request [...] Exam Date Time Procedure Performing Provider Status 09/09/23 10:00 AM Chest 2 Views Frontal and Lat Fransisco Godinez; Auth (Verified) Notes: (Chest 2 Views Frontal and Lat) Reason For Exam: Shortness of Breath RESULT: Chest 2 Views Frontal and Lat Chest 2 Views Frontal and Lat Hx of Present Illness: Patient reports feeling fatigued, SOB VARGHESE, dizziness since having both covidand strep throat last month. Today heart rate melody to high of 190 bpm. Has chest tightness at this time. Has occasional cough.; Reason: Shortness of Breath; Clinical Question(s): CHF COMPARISON: 08/21/2023. FINDINGS: LINES AND TUBES: None. LUNGS AND PLEURA: Clear lungs. Normal pulmonary vascularity. No pleural effusion. No pneumothorax. HEART, MEDIASTINUM AND ALESSANDRA: Heart is normal in size. Normal mediastinal and hilar contour. BONES AND SOFT TISSUES: No acute abnormality. IMPRESSION: No acute abnormality. WSN: [id number] Ordering Physician: Ariel Michaud Dictated By: Tere Anna MD Dictated Date/Time: 09/09/23 10:03 a Reviewed By: Tere Anna MD Signed By: Tere Anna MD Signed Date/Time: 09/09/23 10:03 am Transcribed By: SAVANNAH Transcribed Date/Time: 09/09/23 10:03 am Vital Signs Most recent to oldest [Reference Range]: 1 2 3 Height 168 cm (09/09/23 12:03 PM) 168 cm (09/08/23 10:39 PM) 168 cm (09/08/23 8:01 PM) Weight 59.5 kg (09/09/23 12:03 PM) 59.5 kg (09/08/23 10:39 PM) 59.5 kg (09/08/23 8:01 PM) Oxygen Saturation [94-100 %] 99 % (09/09/23 12:03 PM) 100 % (09/09/23 8:17 AM) 100 % (09/09/23 5:56 AM) Pulse Rate [55-90 bpm] 84 bpm (09/09/23 12:03 PM) 77 bpm (09/09/23 8:17 AM) 80 bpm (09/09/23 5:56 AM) Body Mass Index [18.5-24.99 kg/m2] 21.08 kg/m2 (09/09/23 12:03 PM) 21.08 kg/m2 (09/08/23 8:01 PM) Blood Pressure [90-138/55-84 mm Hg] 110/76mm Hg (09/09/23 12:03 PM) 121/74mm Hg (09/09/23 8:17 AM) 117/80mm Hg (09/09/23 5:56 AM) Respiratory Rate [16-30 br/min] 16 br/min (09/09/23 12:03 PM) 18 br/min (09/09/23 8:17 AM) 16 br/min (09/08/23 10:39 PM) Temperature [96.8-100.4 DegF] 99.1 DegF (09/09/23 12:03 PM) 98.6 DegF (09/09/23 8:17 AM) 98.6 DegF (09/09/23 5:56 AM) Mode of Delivery (Oxygen) Room air (09/09/23 12:03 PM) Room air (09/09/23 8:17 AM) Room air (09/08/23 10:39 PM) Blood pressure sites Arm, left (09/09/23 12:03 PM) Arm, right (09/09/23 8:17 AM) Arm, left (09/09/23 5:56 AM) Temperature Route Oral (09/09/23 12:03 PM) Oral (09/09/23 8:17 AM) Oral (09/09/23 5:56 AM) Dry Weight 59.5 kg (09/09/23 12:03 PM) 59.5 kg (09/08/23 10:39 PM) 59.5 kg (09/08/23 8:01 PM) Weight Obtained Via Patient/family state d (09/08/23 8:01 PM) Dry Weight Obtained Via Patient/family s tated (09/08/23 8:01 PM) Social History Social History Type Response Smoking Status Never smoker; Tobacc o user in household: No entered on: 09/26/13 Sex EKG study * Event Display: ECG 12-Lead Authored Date: Please click on pdf link to open report * Event Display: ECG 12-Lead Authored Date: Ventricular Rate: 84 BPM Atrial Rate: 84 BPM P-R Interval: 168 ms QRS Duration: 78 ms Q-T Interval: 348 ms QTC Calculation(Bazett): 411 ms P [place]: 64 degrees R [place]: 49 degrees T [place]: 56 degrees Normal sinus rhythm with sinus arrhythmia Normal ECG When compared with ECG of 20-AUG-2023 23:58, No significant change was found Confirmed by KACI SHABAZZ ([id number]) on 09/09/2023 10:22:46 AM [place]: KACI SHABAZZ Note * Magi Cee: PERFORM Event Display: Patient Education Leaflets Authored Date: Uncertain Causes of Chest Pain ?? [id number] Uncertain Causes of Chest Pain Chest pain can happen for a number of reasons. Sometimes the cause can't be determined. If your??condition does not seem serious, and your pain does not appear to be coming from your heart, your healthcare provider may recommend watching it closely. Sometimes the signs of a serious problem take more time to appear. Many problems not related to your heart can cause chest pain. These include: ??? Musculoskeletal. Costochondritis is an inflammation of the tissues around the ribs that can occur from trauma or overuse injuries, or a strain of the muscles of the chest wall. ??? Respiratory. Pneumonia, collapsed lung (pneumothorax), or inflammation of the lining of the chest and lungs (pleurisy). ??? Gastrointestinal. Esophageal reflux, heartburn, ulcers, or gallbladder disease. ??? Anxiety and panic disorders ??? Nerve compression and inflammation ??? Rare problems such as aortic aneurysm or aortic dissection (a swelling of the large artery coming out of the heart or a tear in the wall of the artery), or pulmonary embolism (a blood clot in the lungs). Home care After your visit, follow these recommendations: ??? Rest today and avoid strenuous activity. ??? Take any prescribed medicine as directed. ??? Be aware of any recurrent chest pain and notice any changes ?? Follow-up care Follow up with your healthcare provider if you don't start to feel better within 24 hours, or as advised. ?? Call 911 Call 911 if any of these occur: ??? A change in the type of pain: if it feels different, becomes more severe, lasts longer, or begins to spread into your shoulder, arm, neck, jaw or back ??? Shortness of breath or increased pain with breathing ??? Weakness, dizziness, or fainting ??? Rapid heartbeat ??? Crushing sensation in your chest ??? Coughing up more than a small amount of blood. ?? When to seek medical advice Call your healthcare provider right away if any of the following occur: ??? Cough with dark coloredsputum (phlegm) or small amount of blood ??? Fever of 100.4??F??(38??C) or higher, or as directed by your healthcare provider ??? Swelling, pain or redness in one leg ?? Last Reviewed Date: 2021 ?? [id number] [employer]. All rights reserved. This information is not intended as a substitute for professional medical care. Always follow your healthcare professional's instructions. ?? Patient Care team information Care Team Personnel Name: Ulysses Desai MD Position: [facility] PAINTER SKI EDGE MD Member Role: Lifetime PAINTER SKI EDGE Physician Address: Address: [address] [place] [address] [place] [address]- Name: Elisa Peterson NP Position: [facility] PCO Associate Professional Member Role: PCP Address: Address: [address] [place] [address]- Name: Josette Bhardwaj MA Position: [facility] RN Member Role: Primary Care Nurse Name: Ariel Michaud MD Position: [facility] ED Medicine MD Member Role: Admitting Physician Address: Address: [address] [place] [address]- [place] Name: Magi Cee Position: [facility] Associate Professional Member Role: ED Physician Emery Wheel Molder Address: Address: [address] [place] [address] [place] [address]- Name: Aracelis Kay Position: [facility] ED TA [facility] Member Role: Patient Care Provider Name: Thomas Carrion RN Position: S ED RN W/OE and Tasks Member Role: Patient Care Provider Care Team Related Persons Name: HUBER ORLANDO Address: home [address] [place] [address] Name: JOHANNY HUBER Reynaga Address: home [address] [place] [address] Name: HUBER ORLANDO Address: home [address] [place] [address] Name: JUAN ORLANDO Address: [place] [address]
--- OUTSIDE RECORDS SUMMARY | 2024-05-22 09:10 | XMS_ITS | Continuity of Care Document ---
Author Organization [facility] Address [address] [place] [address]- Care Team Providers Care Taper Machine Name Role Phone Nicholas EDGAR, Elisa Reynaga Primary Care Physician Encounter [facility] Date(s): 10/14/22 - 01/27/[address] [address]- Encounter Diagnosis Cervicalgia(Final) - Discharge Disposition: A-D/C Home Attending Physician: [...] B pediatric vaccine 93 Recorded 1Result Comment: [facility] [id number] 2Result Comment: [facility]: [id number] 3Result Comment: [facility] [id number] [phone] [facility] 5Admin Note: [...] 1 kit, 2 Refills, Maintenance, 01/14/23 13:47:00EDT, [facility]/pharmacy #[id number], Partial fill upon patient request [...] 0 Refills, Maintenance, 12/17/21 15:33:00 EDT, [place], [id number], Partial fill upon [...] 6 Refills, Maintenance, 11/01/22 10:44:00 EST, [place], [id number], Partial fill upon patient request if the prescription is for aschedule II opioid drug., 1 sprays Nares, Both 2 ti... Start Date: 11/01/22 Status: Ordered June Fe .530 By Mouth, Daily, 0 Refills, [...] tablet, 1 Refills, Maintenance, 10/24/22 16:56:00 EST,Tablet, [facility]/pharmacy #[id number], Partial fill upon patient request [...] Personnel Name: Giselle SRINIVASAN, Ulysses Thornton Position: [facility] CARAMEL CANDY MAKER MD Member Role: Lifetime CARAMEL CANDY MAKER Physician Address: Address: [address] [place] [address] [place] [address]- [place] Name: Elisa Peterson NP Position: [facility] PCO Associate Professional Member Role: PCP Address: Address: [address] [place] [address]- [place] Name: Josette De Anda Position: [facility] RN Member Role: Primary Care Nurse Care Team Related Persons Name: HUBER ORLANDO Address: home [address] [facility] [address] [place] [address] Name: HUBER ORLANDO Address: home [address] [place] [address] Name: HUBER ORLANDO Address: home [address] [place] [address] Name: JUAN ORLANDO Address: home [address] [address]
--- OUTSIDE RECORDS SUMMARY | 2024-05-22 09:10 | XMS_ITS | Continuity of Care Document ---
Author Organization [facility] [employer] [facility] Address [address] [place] [address]- Care Team Providers Care Materials Assistant Name Role Phone Nicholas IMAGING SPECIALIST, Elisa Reynaga Primary Care Physician Encounter [facility] Date(s): 09/20/21 - 10/20/21 [facility] [employer] [address] [place] [address]- [place] Allergies, Adverse Reactions, Alerts Substance Reaction [...] (old term) 7 09/07/94 Given 1Result Comment: [facility]: [id number] 2Result Comment: [facility] [id number] [phone] 3[facility] 4Admin Note: [...] 09/30/22 10:00:00 EST, 09/30/21 19:43:00 EST, Tablet, [facility]/pharmacy #[id number], may take 2 tablets twice a day until regularly moving bow... Start Date: 09/30/21 Stop Date: 09/30/22 Status: Ordered famotidine 20 mg oral tablet 20 mg, 1, tablet, By Mouth, 2 times a day, # 20 tablet, Refills 0, Tot. Refills 0, Maintenance, 10/07/21 8:52:00 EST, Route to Pharmacy Electronically, [facility]/pharmacy #[id number], Partial fill upon patient request if the [...] Refills, Maintenance, 10/17/21 15:42:00 EST, [place] Capsule, [facility]/pharmacy #[id number], Partial fill upon patient request if [...]
--- OUTSIDE RECORDS SUMMARY | 2024-05-22 09:10 | XMS_ITS | Continuity of Care Document ---
Author Organization [facility] [employer] [facility] Address [address] [place] [address]- Care Team Providers Care Ice Rink Attendant Name Role Phone Nicholas COLD STRIP FEEDER, Elisa M Primary Care Physician Encounter [facility] Date(s): 10/24/22 - 11/23/22 [facility] [employer] [facility] [address] [place] [address]- [place] Encounter Diagnosis Nonallergic rhinitis(Discharge Diagnosis) - 10/24/22 Allergies, Adverse Reactions, Alerts Substance Reaction Severity [...] B pediatric vaccine 93 Recorded 1Result Comment: [facility] [id number] 2Result Comment: [facility]: [id number] 3Result Comment: [facility] [id number] [phone] 4[facility] 5Admin Note: [...] 6 Refills, Maintenance, 11/01/22 10:44:00 EST, [place], [id number], Partial fill upon patient request [...] capsule, 6 Refills, Maintenance, 11/22/22 14:29:00 EST, [id number], Partial fill upon patient request if the prescription is for a schedule II opioiddrug., 168, cm, 11/22/22 14:02:00 EST, Height, 64,... Start Date: 11/22/22 Stop Date: 06/20/23 Status: Ordered Xyzal 5 mg oral tablet 1 tablet = 5 mg, By Mouth, Daily in PM, # 90 tablet, 1 Refills, Maintenance, 10/24/22 16:56:00 EST,Tablet, [id number], Partial fill upon patient [...] Effective Dates Health Status Clinical Service Informant Nonallergic rhinitis Discharge Diagnosis 10/24/22 Non-Specified Social History Social History Type Response Smoking Status Never smoker; Tobacc o user in household: No entered on: 09/26/13 Sex Patient Care team information Care Team Personnel Name: Elisa Peterson NP Position: [facility] PCO Associate Professional Member Role: PCP Address: Address: [address] [place] [address] Name: Josette De Anda Position: [facility] RN Member Role: Primary Care Nurse Care Team Related Persons Name: HUBER ORLANDO Address: home [address] [place] [address] Name: HUBER ORLANDO Address: home [address] [place] [address] Name: HUBER ORLANDO Address: home [address] [place] [address] Name: JUAN ORLANDO Address: home [address] [address]
--- OUTSIDE RECORDS SUMMARY | 2024-05-22 09:10 | XMS_ITS | Continuity of Care Document ---
Author Organization [facility] Adult Address [address] [place] [address]- Care Team Providers Care Legislative Director Name Role Phone Mary Ellen SRINIVASAN, Anitha Primary Care Physician Encounter [facility] [place] Date(s): 10/02/19 - 10/09/[address] [address]- [facility] Encounter Diagnosis Anxiety(Discharge Diagnosis) - 10/02/19 Sore throat(Discharge Diagnosis) - 10/02/19 Attending Physician: Anitha Hyde MD Allergies, Adverse [...] (old term) 6 09/07/94 Given 1Result Comment: [facility] [id number] [phone] 2[facility] 3Admin Note: [...] Clini khushboo Service Informant Anxiety Discharge Diagnosis 10/02/19 Sore throat Discharge Diagnosis 10/02/19 Vital Signs Most recent to oldest [Reference Range]: 1 Height 168 cm (10/02/19 9:28 AM) Weight 62.5 kg (10/02/19 9:28 AM) Oxygen Saturation [94-100 %] 98 % (10/02/19 9:28 AM) Pulse Rate [55-90 bpm] 75 bpm (10/02/19 9:28 AM) Body Mass Index [18.5-24.99] 22.14 (10/02/19 9:28 AM) Blood Pressure [90-138/55-84 mm Hg] 116/ 78mm Hg (10/02/19 9:28 AM) Temperature [96.8-100.4 DegF] 98.1 DegF (10/02/19 9:28 AM) Mode of Delivery (Oxygen) Room air (10/02/19 9:28 AM) Blood pressure sites Arm, left (10/02/19 9:28 AM) Temperature Route Oral (10/02/19 9:28 AM) Weight Obtained Via Standing scale (10/02/19 9:28 AM) Social History Social History Type Response Smoking Status Never smoker; Tobacc o user in household: No entered on: 09/26/13 Sex
--- OUTSIDE RECORDS SUMMARY | 2024-05-22 09:10 | XMS_ITS | Continuity of Care Document ---
Author Organization [facility] [employer] [facility] Address [address] [place] [address]- Care Team Providers Care Supervising Bailiff Name Role Phone Nicholas ANIMAL CYTOLOGIST, Elisa Reynaga Primary Care Physician Encounter [facility] NBR [id number] Date(s): 01/09/23 - 02/08/23 [facility] [employer] [facility] [address] [place] [address]- [place] Allergies, Adverse Reactions, Alerts Substance Reaction [...] B pediatric vaccine 93 Recorded 1Result Comment: [facility] 00170-418-09 2Result Comment: [facility]: [id number] 3Result Comment: [facility] [id number] [phone] 4[facility] 5Admin Note: [...] 1 kit, 2 Refills, Maintenance, 01/14/23 13:47:00EDT, [facility]/pharmacy #[id number], Partial fill upon patient request [...] 0 Refills, Maintenance, 12/17/21 15:33:00 EDT, Tablet, [facility]/pharmacy #[id number], Partial fill upon patient request [...] 6 Refills, Maintenance, 11/01/22 10:44:00 EST, Nasal [place], [facility]/pharmacy #[id number], Partial fill upon patient request if the prescription is for aschedule II opioid drug., 1 sprays Nares, Both 2 ti... Start Date: 11/01/22 Status: Ordered 1.5/30 By Mouth, Daily, 0 Refills, Maintenance, [...] 10:26:00 EDT, 12/06/22 10:26:00 EDT, DIS Tablet, [facility]/pharmacy #[id number], Partial fill upon patient requ... [...] Refills, Maintenance, 12/06/22 9:51:00 EDT, CR Capsule, [facility]/pharmacy #[id number], Partial fill upon patient request if the prescription is for a schedule II opioid drug., 168, cm, 12/06/22 9:08... Start Date: 12/06/22 Status: Ordered Xyzal 5 mg oral tablet 1 tablet = 5 mg, By Mouth, Daily in PM, # 90 tablet, 1 Refills, Maintenance, 10/24/22 16:56:00 EST,Tablet, [facility]/pharmacy #[id number], Partial fill upon patient request [...] Personnel Name: Giselle SRINIVASAN, Ulysses Thornton Position: [facility] WOOD HEEL FINISHER MD Member Role: Lifetime WOOD HEEL FINISHER Physician Address: Address: [address] [place] [address] [facility] [place] [address] Name: Elisa Peterson NP Position: [facility] PCO Associate Professional Member Role: PCP Address: Address: [address] [place] [id number] Name: Josette De Anda Position: [facility] RN Member Role: Primary Care Nurse Care Team Related Persons Name: JOHANNY HUBER Address: home [address] [place] [address] Name: HUBER ORLANDO Address: home [address] [place] [address] Name: HUBER ORLANDO Address: home [address] [place] [address], [place] [address] Name: JUAN ORLANDO Address: home [address] [address]
--- OUTSIDE RECORDS SUMMARY | 2024-05-22 09:10 | XMS_ITS | Continuity of Care Document ---
Author Organization [facility] [employer] [facility] Address [address] [place] [address]- Care Team Providers Care Family And Consumer Sciences Teacher Name Role Phone Elisa Peterson NP Primary Care Physician Encounter [facility] NBR [id number] Date(s): 08/02/21 - 08/09/21 [facility] [employer] [facility] [address] [place] [address]- [place] Encounter Diagnosis Anxiety with depression(Discharge Diagnosis) - 08/02/21 Chronic neck and back pain(Discharge Diagnosis) - 08/02/21 Annual physical exam(Discharge Diagnosis) - 08/02/21 Attending Physician: Elisa Peterson NP Allergies, Adverse [...] (old term) 7 09/07/94 Given 1Result Comment: [facility]: [id number] 2Result Comment: [facility] [id number] [phone] 3[facility] 4Admin Note: [...] 08/02/21 7:53:00 EST, [id number], 167.64, cm, 08/02/21 7:31:00 EST, Height, 63, kg, 06/24/21 0:41:00 EDT, Dry... Start Date: 08/02/21 Stop Date: 01/29/22 Status: Ordered Flonase 50 mcg/inh nasal spray 1 sprays, Nares, Both, 2 times a day, # 16 Gm, 0 Refills, Maintenance, 01/29/21 20:47:00 EDT, [place], [facility]/pharmacy #[id number], Partial fill upon patient request if the prescription is for a schedule II opioid drug., 1 sprays Nares, Both 2 times a day, 168,... Start Date: 01/29/21 Status: Ordered Lo Loestrin Fe By Mouth, Daily, 0 Refills, Maintenance, 06/23/21 15:48:00 EDT, Partial fill upon patient request if the prescription is for a schedule II opioid drug. Start Date: 06/23/21 Status: Ordered LORazepam 0.5 mg oral tablet [...] Dates Health Status Clinical Service Informant Anxiety with depression Discharge Diagnosis 08/02/21 Chronic neck and back pain Discharge Diagnosis 08/02/21 Annual physical exam Discharge Diagnosis 08/02/21 Vital Signs Most recent to oldest [Reference Range]: 1 Height 167.64 cm (08/02/21 7:31 AM) Weight 63.5 kg (08/02/21 7:31 AM) Oxygen Saturation [94-100 %] 100 % (08/02/21 7:31 AM) Pulse Rate [55-90 bpm] 98 bpm *H* (08/02/21 7:31 AM) Body Mass Index [18.5-24.99] 22.6 (08/02/21 7:31 AM) Blood Pressure [90-138/55-84 mm Hg] 114/ 68mm Hg (08/02/21 7:31 AM) Temperature [96.8-100.4 DegF] 97.8 DegF (08/02/21 7:31 AM) Liters per Minute 0 L/min (08/02/21 7:31 AM) Mode of Delivery (Oxygen) Room air (08/02/21 7:31 AM) Blood pressure sites Arm, left (08/02/21 7:31 AM) Temperature Route Temporal (08/02/21 7:31 AM) Weight Obtained Via Standing scale (08/02/21 7:31 AM) Social History Social History Type Response Smoking Status Never smoker; Tobacc o user in household: No entered on: 09/26/13 Sex
--- OUTSIDE RECORDS SUMMARY | 2024-05-22 09:10 | XMS_ITS | Continuity of Care Document ---
Author Organization [facility] [employer] [facility] Address [address] [place] [address]- Care Team Providers Care Dealer Card Room Name Role Phone Nicholas CASING WRINGER OPERATOR, Elisa M Primary Care Physician Encounter [facility] NBR [id number] Date(s): 03/15/23 [facility] [address] [address]- Attending Physician: Cheng Galdamez MD Allergies, Adverse [...] Comment: [facility] [id number] 2Result Comment: [facility]: [id number] 3Result Comment: [facility] [id number] [phone] 4[facility] 5Admin Note: [...] 1 kit, 2 Refills, Maintenance, 01/14/23 13:47:00EDT, [facility]/pharmacy #[id number], Partial fill upon patient request if the prescription is for a schedule IIopioid drug., 168, cm, 01/12/23 9:03:00 EDT, Height... Start Date: 01/14/23 Status: Ordered Ativan 0.5 mg oral tablet 1 tablet = 0.5 mg, By Mouth, Daily, MassPat checked, # 5 tablet, 0 Refills, Maintenance, 12/17/21 15:33:00 EDT, Tablet, [facility]/pharmacy #[id number], Partial fill upon patient request [...] Gm, 0 Refills, Maintenance, 03/29/23 15:19:00 EDT, [place], [facility]/pharmacy #[id number], Partial fill upon patient request [...] 03/29/23 15:20:00 EDT, Route to [facility]acy [facility]ically, [id number], Partial fill upon patient request [...] tablet, 2 Refills, Maintenance, 04/10/23 10:26:00 EDT, [id number], Partial fill upon patient [...] 10:26:00 EDT, 12/06/22 10:26:00 EDT, DIS Tablet, [facility]/pharmacy #[id number], Partial fill upon patient requ... Start Date: 12/06/22 Stop Date: 12/07/23 Status: Ordered omeprazole 20 mg oral enteric coated capsule 1 capsule, By Mouth, 2 times a day, # 180 capsule, 1 Refills, Maintenance, 11/01/22 10:45:00 EST, [facility]/pharmacy #[id number], 168, cm, 11/01/22 10:19:00 EST, Height, 64, kg, 10/25/22 12:27:00 EST, Dry Weight Start Date: 11/01/22 Stop Date: 04/30/23 Status: Ordered Xyzal 5 mg oral tablet 1 tablet = 5 mg, By Mouth, Daily in PM, # 90 tablet, 1 Refills, Maintenance, 10/24/22 16:56:00 EST,Tablet, [facility]/pharmacy #[id number], Partial fill upon patient request [...] Personnel Name: Giselle SRINIVASAN, Ulysses Thornton Position: [facility] BIOINFORMATICS ASSISTANT MD Member Role: Lifetime BIOINFORMATICS ASSISTANT Physician Address: Address: [address] [place] [address] [place] [address]- [place] Name: Elisa Peterson NP Position: [facility] PCO Associate Professional Member Role: PCP Address: Address: [address] [place] [address]- Name: Josette Bhardwaj [place] Position: [facility] RN Member Role: Primary Care Nurse Care Team Related Persons Name: HUBER ORLANDO Address: home [address] [place] [address] Name: HUBER ORLANDO Address: home [address] [place] [address] Name: HUBER ORLANDO Address: home [address] [place] [address] Name: JUAN ORLANDO Address: home [address]
--- OUTSIDE RECORDS SUMMARY | 2024-05-22 09:10 | XMS_ITS | Continuity of Care Document ---
Author Organization [facility] Address [address] [place] [address]- Care Team Providers Care Sandblaster Stone Name Role Phone Nicholas EXPLOSIVE ORDNANCE DISPOSAL SPECIALIST, Elisa M Primary Care Physician Encounter [facility] Date(s): 10/17/23 - 10/18/[address] [address]- Encounter Diagnosis Abdominal pain(Final) - 10/18/23 Discharge Disposition: A-D/C Home Attending Physician: Kath [...] vaccine 93 Recorded 1Result Comment: [facility] [id number] 2Result Comment: [facility]: [id number] 3Result Comment: [facility] [id number] [phone] 4[facility] 5Admin Note: [...] Refills, Maintenance, 07/03/23 16:09:00 EDT, EC Tablet, [facility]/pharmacy #[id number], Partial fill upon patient request if the prescription is for a schedule II opioid drug., 165.1,... Start Date: 07/03/23 Stop Date: 07/18/23 Status: Ordered fluconazole 150 mg oral tablet See Instructions, 1 tablet By Mouth Once, may repeat every 3 days until symptoms resolve, # 3 tablet, 0 Refills, Soft Stop, 09/20/23 10:02:00 EST, [facility]/pharmacy #[id number], Partial fill upon patient request if the prescription is for a schedule II opioid dr... Start Date: 09/20/23 Status: Ordered fluticasone 27.5 mcg/inh nasal spray 1 sprays, Nares, Both, Daily, PRN Cold Symptoms, # 10 Gm, 0 Refills, Maintenance, 07/24/23 15:00:00EST, [place], [id number], Partial fill upon patient request if the prescription is for a schedule II opioid drug., 1 sprays Nares, Both Daily,PRN... Start Date: 07/24/23 Status: Ordered omeprazole 20 mg oral enteric coated capsule 1 capsule, By Mouth, 2 times a day, # 180 capsule, 1 Refills, Maintenance, 06/24/23 16:07:00 EDT, [facility], 165.1, cm, 06/12/23 14:42:00 EDT, Height, 64.3, [...] Exam Date Time Procedure Performing Provider Status 10/17/23 10:[address] Abd/Pelvis W/ IV Contrast Only Tanya Muir; Auth (Verified) Notes: (CT Abd/Pelvis W/ IV Contrast Only) Reason For Exam: upper abdominal pain;Other: RESULT: CT Abd/Pelvis W/ IV Contrast Only CT Abd/Pelvis W/ IV Contrast Only Hx of Present Illness: Pt seen by PCP and ER has not recieved CT here for CT labs were normal at time of ED eval; Reason: Other:; upper abdominal pain; Clinical Question(s): Diverticulitis; vs larry;Order Comment: Patient unable to tolerate PO contrast. TECHNIQUE: Spiral CT through the abdomen and pelvis with IV contrast formatted in 3 planes. 100 cc of Omnipaque 300 was administered intravenously. This study was performed without oral contrast. Weight-based protocol using automatic tube modulation was used to optimize exposure parameters. CTDIvol Body: 9.05 mGy, DLP Body: 436 mGy*cm. COMPARISON: 05/19/2023 CT abdomen and pelvis. FINDINGS: Elevator Worker View Findings, Lines and Tubes: None. Visualized Chest: Lung bases are clear. No pleural effusion. The heart is normal in size. No pericardial effusion. Diaphragm: Normal. Liver: Normal. Gallbladder: No CT evidence of gallbladder pathology. Bile ducts: No bile duct dilation. Spleen: Normal. Pancreas: Normal. Adrenal glands: Normal. Kidneys and ureters: No hydronephrosis, stones, or suspicious masses. Small hypodensities that are too small to characterize are noted, requiring no dedicated follow up. Bladder: Decompressed. Diffuse bladder wall thickening may be part related to underdistention. Correlate with urinalysis. Reproductive organs: The uterus and adnexa are normal. Stomach, small bowel, and large bowel: The stomach is normal. The small bowel is normal in caliber,with no frontal bowel obstruction. The rectum is normal. The colon contains moderate amount of stool and appears normal. Appendix: Normal. Peritoneum and retroperitoneum: Trace pelvic free fluid, probably physiologic. No omental or mesenteric lesions. Lymph nodes: No enlarged lymph nodes. Blood vessels: Normal. No aneurysm. No evidence of venous thrombosis. Abdominal and pelvic wall: Unremarkable. Bones: No acute abnormality. IMPRESSION: 1. No definite acute findings in the abdomen or pelvis. 2. Bladder wall thickening may be related to underdistention given lack of surrounding inflammatorychanges. Depending on symptoms, correlate with urinalysis. Preliminary findings were reported by virtual radiology. No significant discrepancy. WSN: [id number] Ordering Physician: Thomas Arzola Dictated By: Gerardo Zaidi MD Dictated Date/Time: 10/18/23 8:35 am Reviewed By: Gerardo Zaidi MD Signed By: Gerardo Zaidi MD Signed Date/Time: 10/18/23 8:35 am Transcribed By: SAVANNAH Transcribed Date/Time: 10/18/23 8:30 am Vital Signs Most recent to oldest [Reference Range]: 1 2 3 Height 168 cm (10/17/23 7:54 PM) 168 cm (10/17/23 3:12 PM) Weight 62.8 kg (10/17/23 7:54 PM) 62.8 kg (10/17/23 3:12 PM) Oxygen Saturation [94-100 %] 100 % (10/17/23 11:41 PM) 99 % (10/17/23 3:12 PM) 100 % (10/17/23 3:11 PM) Pulse Rate [55-90 bpm] 58 bpm (10/17/23 11:41 PM) 99 bpm *H* (10/17/23 7:54 PM) 88 bpm (10/17/23 3:12 PM) Blood Pressure [90-138/55-84 mm Hg] 115/75mm Hg (10/17/23 11:41 PM) 136/89mm Hg (10/17/23 7:54 PM) 114/79mm Hg (10/17/23 3:12 PM) Respiratory Rate [16-30 br/min] 16 br/min (10/17/23 11:41 PM) 18 br/min (10/17/23 7:54 PM) 17 br/min (10/17/23 3:12 PM) Temperature [96.8-100.4 DegF] 98 DegF (10/17/23 7:54 PM) 97.9 DegF (10/17/23 3:12 PM) Mode of Delivery (Oxygen) Room air (10/17/23 11:41 PM) Room air (10/17/23 3:12 PM) Blood pressure sites Arm, left (10/17/23 11:41 PM) Arm, left (10/17/23 3:12 PM) Temperature Route Temporal (10/17/23 7:54 PM) Temporal (10/17/23 3:12 PM) Dry Weight 62.8 kg (10/17/23 7:54 PM) 62.8 kg (10/17/23 3:12 PM) Weight Obtained Via Standing scale (10/17/23 3:12 PM) Dry Weight Obtained Via Standing scale (10/17/23 3:12 PM) Social History Social History Type Response Smoking Status Never smoker; Tobacc o user in household: No entered on: 09/26/13 Sex Note * Kath Dumont DO: PERFORM, SIGN, VERIFY Event Display: Patient Education Handout Authored Date: [id number] * Kath Dumont DO: PERFORM Event Display: Patient Education Leaflets Authored Date: [id number] GERD (Adult) ?? [id number] GERD (Adult) The esophagus is a tube [...] back, neck, shoulder, or arm ??? An cwdm-ypi-heblhln trial of medicine doesn't relieve your symptoms [...] symptoms ?? Last Reviewed Date: 2021 ?? [employer]. All rights reserved. This information is not intended as a substitute for professional medical care. Always follow your healthcare professional's instructions. ?? * Kath Dumont DO: PERFORM Event Display: Patient Education Leaflets Authored Date: [id number] Unknown Causes of Abdominal Pain(Adult) ?? [id number] Unknown Causes of Abdominal Pain(Adult) The exact [...] period ?? Last Reviewed Date: 2021 ?? [id number] [employer]. All rights reserved. This information is not intended as a substitute for professional medical care. Always follow your healthcare professional's instructions. ?? Patient Care team information Care Team Personnel Name: Ulysses Desai MD W Position: [facility] SURGERY TEACHER MD Member Role: Lifetime SURGERY TEACHER Physician Address: Address: [address] [place] [address] [place] [address]- Name: Elisa Peterson NP Position: [facility] PCO Associate Professional Member Role: PCP Address: Address: [address] [place] [id number] Name: Josette Bhardwaj [place] Position: [facility] RN Member Role: Primary Care Nurse Care Team Related Persons Name: HUBER ORLANDO Address: home [address] [place] [address] Name: HUBER ORLANDO Address: home [address] [place] [address] Name: HUBER ORLANDO Address: home [address] [place] [address] Name: JUAN ORLANDO Address: home [address]
--- OUTSIDE RECORDS SUMMARY | 2024-05-22 09:10 | XMS_ITS | Continuity of Care Document ---
Author Organization [facility] Address [address] [place] [address]- Care Team Providers Care Mink Farmer Name Role Phone Nicholas AIRCRAFT RIGGING AND CONTROLS MECHANIC, Elisa M Primary Care Physician Encounter [facility] Date(s): 06/15/23 [facility] [address] [address]- [place] Allergies, Adverse Reactions, Alerts Substance Reaction [...] 1Result Comment: [facility] 93633-810-72 2Result Comment: [facility]: 54309-806-18 3Result Comment: [facility] [address]78[address] [phone] 4[facility] 5Admin Note: [...] 0 Refills, Maintenance, 05/19/23 22:44:00 EDT, [facility]/pharmacy #[id number], Partial fill upon patient request if the prescription is for a schedule II opioid drug., 165.1, cm, 05/19/23 1... Start Date: 05/19/23 Stop Date: 06/02/23 Status: Ordered chlorhexidine topical 0.12% liquid 15 mL = 0.018 Gm, By Mouth, 2 times a day, # 480 mL, 0 Refills, Maintenance, 06/29/23 12:46:00 EDT,Liquid, [facility]/pharmacy #[id number], Partial fill [...] Maintenance, 07/03/23 16:09:00 EDT, EC Tablet, [facility]/pharmacy #[id number], Partial [...] 16:09:00 EDT, Route to Pharmacy Electronically, [facility]/pharmacy #[id number], Partial fill [...] tablet, 1 Refills, Maintenance, 07/07/23 6:25:00 EDT, [id number], 165.1, cm, 07/03/23 15:14:00 EDT, Height, 64.3, kg, 05/19/23 19:22:00 EDT, Dry... Start Date: 07/07/23 Status: Ordered omeprazole 20 mg oral enteric coated capsule 1 capsule, By Mouth, 2 times a day, # 180 capsule, 1 Refills, Maintenance, 06/24/23 16:07:00 EDT, [facility], 165.1, cm, 06/12/23 14:42:00 EDT, Height, 64.3, [...] Personnel Name: Giselle SRINIVASAN, Ulysses Thornton Position: [facility] GRANITE POLISHER MD Member Role: Lifetime GRANITE POLISHER Physician Address: Address: [address] [place] [address] [facility] [address]- Name: Elisa Peterson NP Position: [facility] PCO Associate Professional Member Role: PCP Address: Address: [address] [place] [id number] Name: Josette Bhardwaj [place] Position: [facility] RN Member Role: Primary Care Nurse Care Team Related Persons Name: HUBER ORLANDO Address: home [address] [place] [address] Name: HUBER ORLANDO Address: home [address] [place] [address] Name: HUBER ORLANDO Address: home [address] [place] [address] Name: JUAN ORLANDO Address: home [address]
--- OUTSIDE RECORDS SUMMARY | 2024-05-22 09:10 | XMS_ITS | Continuity of Care Document ---
Author Organization [facility] Address [address] [place] [address]- Care Team Providers Care Chiropractor Sole Practitioner Name Role Phone Nicholas SOLAR SALES REPRESENTATIVE AND ASSESSOR, Elisa M Primary Care Physician Encounter [facility] Date(s): 02/23/21 - 03/25/[address] [address]- Attending Physician: Alejandro Lamb Admitting Physician: Alejandro [...] (old term) 6 09/07/94 Given 1Result Comment: [facility] [id number] [phone] 2[facility] 3Admin Note: 1st dove 11/21/1995 2nd done 05/21/2009 4Admin Note: 1st done 12/13/2006 2nd done 02/14/2007 3rd done 06/19/2007 5Admin Note: 1st done 02/24/1995 2nd done 11/30/1998 6Admin Note: 1st done 1993 2nd done 1993 3rd done 09/07/1994 Medications doxycycline hyclate 100 mg oral tablet 1 tablet = 100 mg, By Mouth, 2 times a day, for 10 days, # 20 tablet, 0 Refills, Acute 04/01/21 0:50:00 EDT, 03/22/21 0:50:00 EDT, Tablet, [facility]/pharmacy #[id number], Partial fill upon patient request if theprescription is for a schedule II opioid drug., 168... Start Date: 03/22/21 Stop Date: 04/01/21 Status: Ordered Flonase 50 mcg/inh nasal spray 1 sprays, Nares, Both, 2 times a day, # 16 Gm, 0 Refills, Maintenance, 01/29/21 20:47:00 EDT, [place], [facility]/pharmacy #[id number], Partial fill upon patient request if the prescription is for a schedule II opioid drug., 1 sprays Nares, Both 2 times a day, 168,... Start Date: 01/29/21 Status: Ordered loratadine 10 mg oral capsule 1 capsule = 10 mg, By Mouth, Daily, # 24 capsule, 0 Refills, Maintenance, 01/29/21 20:47:00 EDT, Capsule, [facility]/pharmacy #0969, Partial fill upon patient request if [...]
--- OUTSIDE RECORDS SUMMARY | 2024-05-22 09:10 | XMS_ITS | Continuity of Care Document ---
Author Organization [facility] [employer] [facility] Address [address] [place] [address]- Care Team Providers Care Dark Room Attendant Name Role Phone Nicholas CUTTER PLASTICS ROLLS, Elisa Reynaga Primary Care Physician Encounter [facility] Date(s): 10/02/20 - 11/01/20 [facility] [employer] [facility] [address] [place] [address]- Allergies, Adverse Reactions, Alerts Substance Reaction Severity [...] term) 6 09/07/94 Given 1Result Comment: [facility] [id number] [phone] 2[facility] 3Admin Note: [...]
--- OUTSIDE RECORDS SUMMARY | 2024-05-22 09:10 | XMS_ITS | Continuity of Care Document ---
Author Organization [facility] Address [address] [place] [address]- Care Team Providers Care Scanning Supervisor Name Role Phone Nicholas EDGAR, Elisa Reynaga Primary Care Physician Encounter [facility] Date(s): 11/13/20 - 11/20/20 [facility] [address] [place] [address]- Encounter Diagnosis Sciatica(Discharge Diagnosis) - 11/13/20 Neck pain(Discharge Diagnosis) - 11/13/20 Bilateral shoulder pain(Discharge Diagnosis) - 11/13/20 Attending Physician: Jacki Smith NP Allergies, Adverse Reactions, [...] (old term) 6 09/07/94 Given 1Result Comment: NDC [id number] [facility] 3Admin Note: [...] 0 Refills, Maintenance, 11/13/20 15:14:00 EST, Gel, [facility]/pharmacy #[id number], Partial fill upon patient request if the prescription is for a schedule II opioid drug., 1 application Topi... Start Date: 11/13/20 Status: Ordered ibuprofen 800 mg oral tablet 800 mg, 1, tablet, By Mouth, 3 times a day, for 14 days, # 42 tablet, Refills 0, Tot. Refills 0, Acute 12/02/20 12:50:00 EDT, 11/18/20 12:50:00 EST, Route to Pharmacy Electronically, [facility]/pharmacy #[id number], Partial fill upon patient request [...] Dates Health Status Cl inical Service Informant Sciatica Discharge Diagnosis 11/13/20 Neck pain Discharge Diagnosis 11/13/20 Bilateral shoulder pain Discharge Diagnosis 11/13/20 Vital Signs Most recent to oldest [Reference Range]: 1 Height 168 cm (11/13/20 2:36 PM) Weight 62.2 kg (11/13/20 2:36 PM) Oxygen Saturation [94-100 %] 99 % (11/13/20 2:36 PM) Pulse Rate [55-90 bpm] 80 bpm (11/13/20 2:36 PM) Body Mass Index [18.5-24.99] 22.04 (11/13/20 2:36 PM) Blood Pressure [90-138/55-84 mm Hg] 112/ 68mm Hg (11/13/20 2:36 PM) Respiratory Rate [16-30 br/min] 17 br/mi n (11/13/20 2:36 PM) Temperature [96.8-100.4 DegF] 98.1 DegF (11/13/20 2:36 PM) Liters per Minute 0 L/min (11/13/20 2:36 PM) Mode of Delivery (Oxygen) Room air (11/13/20 2:36 PM) Blood pressure sites Arm, left (11/13/20 2:36 PM) Temperature Route Temporal (11/13/20 2:36 PM) Weight Obtained Via Standing scale (11/13/20 2:36 PM) Social History Social History Type Response Smoking Status Never smoker; Tobacc o user in household: No entered on: 09/26/13 Sex
--- OUTSIDE RECORDS SUMMARY | 2024-05-22 09:10 | XMS_ITS | Continuity of Care Document ---
Author Organization [facility] Address [address] [place] [address]- Care Team Providers Care Nuclear Weapons Custodian Name Role Phone Nicholas TERMINATION CLERK, Elisa M Primary Care Physician [facility] Date(s): 03/27/24 - 04/26/24 [facility] [employer] [facility] [address], [address] [place] [address]- Allergies, Adverse Reactions, Alerts Substance Reaction Severity [...] Recorded 1Result Comment: [facility] [id number] 2Result Comment: [facility]: [id number] 3Result Comment: [facility] [id number] [phone] [facility] 5Admin Note: 1st dove 11/21/1995 2nd [...] Route to Pharmacy Electronically, [facility]/pharmacy #[id number], Partial fill upon patient request if the [...] 6 Refills, Maintenance, 04/24/24 13:02:00 EDT, Gel, [facility]/pharmacy #[id number], Partial fill upon [...] Gm, 0 Refills, Maintenance, 02/21/24 17:46:00 EDT, [place], [facility]/pharmacy #[id number], Partial fill upon [...] 1,200 mL, 0 Refills, Maintenance,03/27/24 0:48:00 EDT, [facility]/pharmacy #[id number], Partial fill upon [...] Gm, 0 Refills, Maintenance, 04/12/24 10:18:00 EDT, [facility]/pharmacy #[id number], Partial fill upon [...] Personnel Name: Giselle SRINIVASAN, Ulysses Thornton Position: [facility] ENTERPRISE RESOURCE ANALYST MD Member Role: [employer] ENTERPRISE RESOURCE ANALYST Physician Address: Address: [address] [place] [address] [facility] [address]- [place] Name: Elisa Peterson NP Position: [facility] PCO Associate Professional Member Role: PCP Address: Address: [address] [place] [address]- [place] Name: Josette Bhardwaj [place] Position: [facility] Office Staff Member Role: Primary Care Nurse Care Team Related Persons Name: HUBER ORLANDO Address: home [address] [place] [address] Name: HUBER ORLANDO Address: home [address] [place] [place] [address] Name: HUBER ORLANDO Address: home [address] [place] [address] Name: JUAN ORLANDO Address: home [address] [address]
--- OUTSIDE RECORDS SUMMARY | 2024-05-22 09:10 | XMS_ITS | Continuity of Care Document ---
[facility] Address [address] [place] [address]- Care Team Providers Care Field Operations Farm Manager Name Role Phone Nicholas PEDIATRIC ASSISTANT, Elisa M Primary Care Physician Encounter [facility] NBR [id number] Date(s): 09/20/23 - 09/27/23 [facility] [employer] Adult [address] [address]- Encounter Diagnosis Heart palpitations(Discharge Diagnosis) - 09/20/23 Fatigue(Discharge Diagnosis) - 09/20/23 Leti vaginitis(Discharge Diagnosis) - 09/20/23 Fibromyalgia(Discharge Diagnosis) - 09/20/23 Sore throat(Discharge Diagnosis) - 09/20/23 Dysfunction of eustachian tube(Discharge Diagnosis) - 09/20/23 Attending Physician: Hope Ahmadi NP Allergies, Adverse Reactions, Alerts Substance Reaction [...] Recorded 1Result Comment: [facility] [id number] 2Result Comment: [facility]: [id number] 3Result Comment: [facility] [phone] 4[facility] 5Admin Note: [...] Refills, Maintenance, 07/03/23 16:09:00 EDT, EC Tablet, [facility]/pharmacy #[id number], Partial fill upon patient request if the [...] 10 Gm, 0 Refills, Maintenance, 07/24/23 15:00:00EST, [id number], Partial fill upon patient request if the prescription is for a schedule II opioid drug., 1 sprays Nares, Both Daily,PRN... Start Date: 07/24/23 Status: Ordered omeprazole 20 mg oral enteric coated capsule 1 capsule, By Mouth, 2 times a day, # 180 capsule, 1 Refills, Maintenance, 06/24/23 16:07:00 EDT, [id number], 165.1, cm, 06/12/23 14:42:00 EDT, Height, 64.3, [...] Effective Dates Health Status Clinical Service Informant Heart palpitations Discharge Diagnosis 09/20/23 Fatigue Discharge Diagnosis 09/20/23 Leti vaginitis Discharge Diagnosis 09/20/23 Fibromyalgia Discharge Diagnosis 09/20/23 Sore throat Discharge Diagnosis 09/20/23 Dysfunction of eustachian tube Discharge Diagnosis 09/20/23 Vital Signs Most recent to oldest [Reference Range]: 1 2 Height 168 cm (09/20/23 10:27 AM) 168 cm (09/20/23 9:21 AM) Weight 63.8 kg (09/20/23 10:27 AM) 63.8 kg (09/20/23 9:21 AM) Oxygen Saturation [94-100 %] 98 % (09/20/23 9:21 AM) Pulse Rate [55-90 bpm] 96 bpm *H* (09/20/23 9:21 AM) Body Mass Index [18.5-24.99 kg/m2] 22.6 kg/m2 (09/20/23 9:21 AM) Blood Pressure [90-138/55-84 mm Hg] 112/ 74mm Hg (09/20/23 9:21 AM) Temperature [96.8-100.4 DegF] 97.4 DegF (09/20/23 9:21 AM) Mode of Delivery (Oxygen) Room air (09/20/23 9:21 AM) Blood pressure sites Arm, right (09/20/23 9:21 AM) Temperature Route Temporal (09/20/23 9:21 AM) Weight Obtained Via Standing scale (09/20/23 9:21 AM) Social History Social History Type Response Smoking Status Never smoker; Tobacc o user in household: No entered on: 09/26/13 Sex Note * Amanda Wong: PERFORM, SIGN, VERIFY Event Display: Patient Education/Instruction Authored Date: [id number] [facility] *BMP Quab Adlt Med Bltn Clinical Summary Name REGULO ORLANDO Age 27 Years 1995 PCP Nicholas PEDIATRIC ASSISTANT, Elisa Reynaga PCP Visit Date 09/20/2023 09:16:00 Additional Instructions: Scheduled Appointments?? Future Appointments ?No Future Appointments Scheduled Follow-Up Instructions ?? Diagnosis Palpitations; Unspecified Eustachian tube disorder, unspecified ear; Other fatigue; Acute candidiasis of vulva and vagina; Fibromyalgia; Acute pharyngitis, unspecified Medications: Please continue your medications until treatment is completed or stopped by your provider. Discuss any questions related to medications with your provider. New Medications [facility]/pharmacy #[id number], [address] [place], [place] [id number], [phone] Fluconazole (fluconazole 150 mg oral tablet) 1 tablet By Mouth Once, may repeat every 3 days until symptoms resolve. Refills: 0. Next Dose: Medications to Continue with No Changes These medications were not printed or sent to your pharmacy Amoxicillin-Clavulanate (amoxicillin-clavulanate 875 mg-125 mg oral tablet) 1 tab(s) Oral every 12 hours for 10 Days. Refills: 0. Next Dose: Diclofenac (diclofenac sodium 75 mg oral delayed release tablet) 1 tab(s) Oral twice a day as needed PAIN for 15 Days. with food. Refills: 0. Next Dose: Fluticasone Nasal (fluticasone [...] orders Vital Signs Height 168 cm Weight 63.8 kg BMI 22.6 kg/m2 Blood Pressure 112 mm Hg/74 mm Hg Temperature 97.4 DegF Pulse Rate 96 bpm Respiratory Rate 02 Sat Mode of Delivery 98 %/Room air You can now view a summary of your hospital visit from the comfort of your home through a free online portal called [employer]. [employer] is a website that allows you to securely view your medical information including discharge summary, medications and follow-up visits. ??You can alsosend a secure electronic message to your doctor???s office to request appointments, renew medications or just ask a question. You can enroll at [email or web address] or register during your next office [...] [facility] provider by calling [facility] Cash Check Card Link at [phone]. [facility], in keeping with [facility] guidance, no longer requires face masks [...] Team Personnel Name: Ulysses Desai MD Position: [facility] INDUSTRIAL SAFETY AND HEALTH TECHNICIAN Member Role: [employer] INDUSTRIAL SAFETY AND HEALTH TECHNICIAN Physician Address: Address: [address] [place] [address] [facility] [address]- [place] Name: Elisa Peterson NP Position: [facility] PCO Associate Professional Member Role: PCP Address: Address: [address] [place] [address]- Name: Josette Bhardwaj [place] Position: [facility] RN Member Role: Primary Care Nurse Care Team Related Persons Name: HUBER ORLANDO Address: home [address] [place] [address] Name: HUBER ORLANDO Address: home [address] [place] [address] Name: HUBER ORLANDO Address: home [address] [place] [address] Name: JUAN ORLANDO Address: [address] [address]
--- OUTSIDE RECORDS SUMMARY | 2024-05-22 09:10 | XMS_ITS | Continuity of Care Document ---
Author Organization [facility] [employer] [facility] Address [address] [place] [address]- Care Team Providers Care Composite Boat Builder Name Role Phone Nicholas LUMBER CARRIER, Elisa M Primary Care Physician Encounter [facility] NBR [id number] Date(s): 01/08/24 - 02/07/24 [facility] [employer] Adult [address] [address]- [place] Allergies, Adverse Reactions, Alerts Substance [...] B pediatric vaccine 93 Recorded 1Result Comment: [facility] [id number] 2Result Comment: [facility]: [id number] 3Result Comment: [facility] [id number] [phone] 4[facility] 5Admin Note: [...] 01/29/24 14:53:00 EDT, Route to Pharmacy Electronically, [facility]/pharmacy #[id number], Partial fill upon patient request if the prescription i... Start Date: 01/29/24 Status: Ordered famotidine 20 mg oral tablet 20 mg, 1, tablet, By Mouth, 2 times a day, PRN, # 30 tablet, Refills 0, Tot. Refills 0, Maintenance, Control of Stomach Acid, 01/09/24 0:16:00 EDT, Route to Pharmacy Electronically, [facility]/pharmacy #[id number], Partial fill upon patient request if the prescrip... Start Date: 01/09/24 Status: Ordered hydrOXYzine hydrochloride 10 mg oral tablet 1 tablet = 10 mg, By Mouth, 3 times a day, PRN for anxiety, # 42 tablet, 0 Refills, Maintenance, 01/16/24 16:47:00 EDT, Tablet, [facility]/pharmacy #[id number], Partial fill upon patient request if the prescription is for a schedule II opioid drug., 168, cm, 01/15... Start Date: 01/16/24 Status: Ordered ibuprofen 600 mg oral tablet 600 mg, 1, tablet, By Mouth, Daily, PRN, Take with food. Take sparingly, # 20 tablet, Refills 0, Tot. Refills 0, Acute 02/17/24 8:00:00 EDT, Headache, 12/26/23 16:09:00 EDT, Route to Pharmacy Electronically, [facility]/pharmacy #[id number], Partial fill upon patie... Start Date: 12/26/23 Stop Date: 02/17/24 Status: Ordered loratadine 10 mg oral capsule 1 capsule = 10 mg, By Mouth, Daily, As needed for symptoms of allergic reaction., # 10 capsule, 0 Refills, Maintenance, 12/31/23 1:48:00 EDT, Capsule, [facility]/pharmacy #[id number], Partial fill upon patient request if the prescription is for a schedule II opioi... Start Date: 12/31/23 Status: Ordered omeprazole 20 mg oral enteric coated capsule 1 capsule, By Mouth, 2 times a day, # 180 capsule, 0 Refills, Maintenance, 01/25/24 10:16:00 EDT[facility], 168, cm, 01/24/24 14:42:00 EDT, Height, 63.5, [...] Team Personnel Name: Ulysses Desai MD Position: [facility] CALL CENTER DISPATCHER MD Member Role: [employer] CALL CENTER DISPATCHER Physician Address: Address: [address] [place] [address] [facility] [address]- Name: Elisa Peterson NP Position: [facility] PCO Associate Professional Member Role: PCP Address: Address: [address] [place] [address] Name: Josette Bhardwaj [place] Position: [facility] Office Staff Member Role: Primary Care Nurse Care Team Related Persons Name: HUBER ORLANDO Address: home [address] [place] [address] Name: HUBER ORLANDO Address: home [address] [place] [address] Name: HUBER ORLANDO Address: home [address] [place] [address] Name: JUAN ORLANDO Address: [address] [address]
--- OUTSIDE RECORDS SUMMARY | 2024-05-22 09:11 | XMS_ITS | Continuity of Care Document ---
Author Organization [facility] Address [address] [place] [address]- Care Team Providers Care Graduate Assistant Name Role Phone Nicholas BIODIESEL PRODUCT MANAGER, Elisa M Primary Care Physician Encounter [facility] Date(s): 06/23/21 - 06/24/[address] [address]- Discharge Disposition: A-D/C Home Attending Physician: Aiyana Evans MD Admitting Physician: Aiyana Evans MD Referring Physician: Not on Staff, Referring [...] (old term) 6 09/07/94 Given 1Result Comment: [facility] [id number] 2[facility] 3Admin Note: [...] Gm, 0 Refills, Maintenance, 01/29/21 20:47:00 EDT, [id number], Partial fill upon patient [...] opioid drug. Start Date: 02/01/21 Status: Ordered methocarbamol 750 mg oral tablet 2 tablet = 1,500 mg, By Mouth, 3 times a day, # 18 tablet, 0 Refills, Maintenance, 06/23/21 16:19:00 EDT, Tablet, [id number], Partial fill upon patient request if the prescription is for a schedule II opioid drug., 168, cm, 06/23/21 15:46:00 E... Start Date: 06/23/21 Status: Ordered Problem List Condition Effective Dates [...] [Reference Range]: 1 2 Height 167.64 cm (06/24/21 12:41 AM) 167.64 cm (06/23/21 7:46 PM) Weight 63 kg (06/24/21 12:41 AM) 63 kg (06/23/21 7:46 PM) Oxygen Saturation [94-100 %] 98 % (06/24/21 12:41 AM) 100 % (06/23/21 7:46 PM) Pulse Rate [55-90 bpm] 72 bpm (06/24/21 12:41 AM) 92 bpm *H* (06/23/21 7:46 PM) Body Mass Index [18.5-24.99] 22.42 (06/24/21 12:41 AM) Blood Pressure [90-138/55-84 mm Hg] 127/ 89mm Hg (06/24/21 12:41 AM) 137/86mm Hg (06/23/21 7:46 PM) Respiratory Rate [16-30 br/min] 16 br/mi n (06/24/21 12:41 AM) 18 br/min (06/23/21 7:46 PM) Temperature [96.8-100.4 DegF] 98.7 DegF (06/23/21 7:46 PM) Mode of Delivery (Oxygen) Room air (06/24/21 12:41 AM) Room air (06/23/21 7:46 PM) Blood pressure sites Arm, left (06/24/21 12:41 AM) Arm, left (06/23/21 7:46 PM) Temperature Route Temporal (06/23/21 7:46 PM) Dry Weight 63 kg (06/24/21 12:41 AM) 63 kg (06/23/21 7:46 PM) Weight Obtained Via Standing scale (06/23/21 7:46 PM) Dry Weight Obtained Via Standing scale (06/23/21 7:46 PM) Social History Social History Type Response Smoking Status Never smoker; Tobacc o user in household: No entered on: 09/26/13 Sex
--- OUTSIDE RECORDS SUMMARY | 2024-05-22 09:11 | XMS_ITS | Continuity of Care Document ---
Author Organization [facility] Address [address] [place] [address]- Care Team Providers Care Overcoil Stepper Name Role Phone Nicholas SENIOR APPLICATIONS ARCHITECT, Elisa M Primary Care Physician Encounter [facility] Date(s): 04/15/24 - 05/15/24 [facility] [address] [place] [address]- Attending Physician: Alejandro Lamb Admitting Physician: AdmtrAlejandro Referring Physician: Admtr, Ar8 [...] B pediatric vaccine 93 Recorded 1Result Comment: [facility] [id number] 2Result Comment: [facility]: [id number] 3Result Comment: [facility] [id number] [phone] 4[facility] 5Admin Note: [...] 14:53:00 EDT, Route to Pharmacy Electronically, [facility]/pharmacy #[id number], Partial fill upon patient request if the prescription i... Start Date: 01/29/24 Status: Ordered clindamycin 1% topical gel 1 application, Topically, Daily at bedtime, apply a thin film apply a thin film to affected area after washing, # 30 Gm, 6 Refills, Maintenance, 04/24/24 13:02:00 EDT, Gel, [facility]/pharmacy #[id number], Partial fill upon patient request if the prescription is... Start Date: 04/24/24 Stop Date: 11/20/24 Status: Ordered cyclobenzaprine 5 mg oral tablet 1 tablet = 5 mg, By Mouth, Daily at bedtime, for 30 days, # 30 tablet, 3 Refills, Acute 09/05/24 15:01:00 EST, 05/08/24 15:01:00 EDT, [facility]/pharmacy #[id number], Partial fill upon patient request if the prescription is for a schedule II opioid drug., 168, cm,... Start Date: 05/08/24 Stop Date: 09/05/24 Status: Ordered Doxycycline Maintenance, 04/23/24 10:48:00 EDT Start Date: 04/23/24 Status: Ordered famotidine 40 mg oral tablet 90 each, 0 Refill(s), TAKE 1 TABLET BY MOUTH EVERY DAY AT NIGHT, 0 Refills, 05/09/24 8:13:00 EDT, Partial fill upon patient request if the prescription is for a schedule II opioid drug. Start Date: 05/09/24 Status: Ordered fluconazole 150 mg oral tablet 2 each, 0 Refill(s), TAKE 1 TABLET (ORAL) 1 TIME PER DAY FOR 1 DAYS THEN CAN REPEAT IN 72 HOURS IF SYMPTOMS PERSIST, 0 Refills, 05/09/24 8:13:00 EDT, Partial fill upon patient request if the prescription is for a schedule II opioid drug. Start Date: 05/09/24 Status: Ordered hydrOXYzine hydrochloride 10 mg oral tablet 1 tablet = 10 mg, By Mouth, 3 times a day, PRN for anxiety, # 42 tablet, 0 Refills, Maintenance, 01/16/24 16:47:00 EDT, Tablet, [facility]/pharmacy #[id number], Partial fill upon patient request if the prescription is for a schedule II opioid drug., 168, cm, 01/15... Start Date: 01/16/24 Status: Ordered Lo Loestrin Fe oral tablet 1 tablet, By Mouth, Daily, # 84 tablet, 4 Refills, Maintenance, 05/09/24 8:32:00 EDT, Tablet, [facility]/pharmacy #[id number], Partial fill upon patient request if the prescription is for a schedule II opioid drug., 1 tablet By Mouth Daily, 168, cm, 05/09/24 8:15:... Start Date: 05/09/24 Status: Ordered Protonix 20 mg oral delayed [...] List Condition Confirmation Course Effective Dates Status H ealth Status Informant Anxiety Confirmed Active Anxiety about health [...] dysfunction Confirmed Active Abnormal TSH Confirmed Active Oral contraceptive use Confirmed Active 1Problem added by Discern Expert 2negative celiac screen in [address] romero 4she does have heavy monthly period Social History Social History Type Response Smoking Status Never smoker; Tobacc o user in household: No entered on: 09/26/13 Sex Patient Care team information Care Team Personnel Name: Ulysses Desai MD Position: [facility] CABLE DRILLER MD Member Role: Lifetime CABLE DRILLER Physician Address: Address: [address] [place] [address] [facility] [place] [address]- Name: Elisa Peterson NP Position: [facility] PCO Associate Professional Member Role: PCP Address: Address: [address] [place] [address]- [place] Name: Josette Bhardwaj [place] Position: [facility] Office Staff Member Role: Primary Care Nurse Care Team Related Persons Name: HUBER ORLANDO Address: home [address] [place] [address] [address] [place] [address] Name: HUBER ORLANDO M Address: home [address] [place] [address] Name: HUBER ORLANDO Address: home [address] [place] [address] Name: JUAN ORLANDO Address: home [address] [address]
--- OUTSIDE RECORDS SUMMARY | 2024-05-22 09:11 | XMS_ITS | Continuity of Care Document ---
Author Organization [facility] Address [address] [place] [address]- Care Team Providers Care Leather Craftsman Name Role Phone Elisa Peterson NP Primary Care Physician Encounter [facility] Date(s): 08/31/20 - 09/07/20 [facility] [address] [address]- Encounter Diagnosis Fibromyalgia(Discharge Diagnosis) - 08/31/20 Anxiety and depression(Discharge Diagnosis) - 08/31/20 Attending Physician: Elisa Peterson NP Allergies, Adverse [...] 1Result Comment: [facility] [id number] [phone] 2[facility] 3Admin Note: [...] Effective Dates Health Status Clinical Service Informant Fibromyalgia Discharge Diagnosis 08/31/20 Anxiety and depression Discharge Diagnosis 08/31/20 Vital Signs Most recent to oldest [Reference Range]: 1 Height 168 cm (08/31/20 8:27 AM) Social History Social History Type Response Smoking Status Never smoker; Tobacc o user in household: No entered on: 09/26/13 Sex
--- OUTSIDE RECORDS SUMMARY | 2024-05-22 09:11 | XMS_ITS | Continuity of Care Document ---
Author Organization [facility] Address [address] [place] [address]- Care Team Providers Care Internal Grinder Tender Name Role Phone Elisa Peterson NP Primary Care Physician Encounter [facility] NBR [id number] Date(s): [facility]16[facility] [address] [address]- [place] Encounter Diagnosis Palpitations(Discharge Diagnosis) - 01/16/24 Dizziness(Discharge Diagnosis) - 01/16/24 Numbness and tingling(Discharge Diagnosis) - 01/16/24 Muscle twitching(Discharge Diagnosis) - 01/16/24 Anxiety(Discharge Diagnosis) - 01/16/24 Subclinical hyperthyroidism(Discharge Diagnosis) - 01/16/24 Excessive sweating(Discharge Diagnosis) - 01/16/24 Attending Physician: Elisa Peterson NP Allergies, Adverse [...] pediatric vaccine 93 Recorded 1Result Comment: [facility] [id number] 2Result Comment: [facility]: [id number] 3Result Comment: [facility] [id number] [facility] Note: [...] 01/09/24 0:16:00 EDT, Route to Pharmacy Electronically, [facility]/pharmacy #[id number], Partial fill upon patient request if the prescrip... Start Date: 01/09/24 Status: Ordered hydrOXYzine hydrochloride 10 mg oral tablet 1 tablet = 10 mg, By Mouth, 3 times a day, PRN for anxiety, # 42 tablet, 0 Refills, Maintenance, 01/16/24 16:47:00 EDT, Tablet, [facility]/pharmacy #[id number], Partial fill upon [...] 12/26/23 16:09:00 EDT, Route to Pharmacy Electronically, [facility]/pharmacy #[id number], Partial fill upon patie... Start Date: 12/26/23 Stop Date: 02/17/24 Status: Ordered loratadine 10 mg oral capsule 1 capsule = 10 mg, By Mouth, Daily, As needed for symptoms of allergic reaction., # 10 capsule, 0 Refills, Maintenance, 12/31/23 1:48:00 EDT, Capsule, [facility]/pharmacy #[id number], Partial fill upon patient request if the prescription is for a schedule II opioi... Start Date: 12/31/23 Status: Ordered omeprazole 20 mg oral enteric coated capsule 1 capsule, By Mouth, 2 times a day, # 180 capsule, 1 Refills, Maintenance, 06/24/23 16:07:00 EDT, [facility] STORE [id number], 165.1, cm, 06/12/23 14:42:00 EDT, Height, 64.3, [...] Status Clinical Service Informant Palpitations Discharge Diagnosis 01/16/24 Dizziness Discharge Diagnosis 01/16/24 Numbness and tingling Discharge Diagnosis 01/16/24 Muscle twitching Discharge Diagnosis 01/16/24 Anxiety Discharge Diagnosis 01/16/24 Subclinical hyperthyroidism Discharge Diagnosis 01/16/24 Excessive sweating Discharge Diagnosis 01/16/24 Vital Signs Most recent to oldest [Reference Range]: 1 Height 168 cm (01/16/24 3:52 PM) Weight 62.1 kg (01/16/24 3:52 PM) Oxygen Saturation [94-100 %] 100 % (01/16/24 3:52 PM) Pulse Rate [55-90 bpm] 99 bpm *H* (01/16/24 3:52 PM) Body Mass Index [18.5-24.99 kg/m2] 22 kg /m2 (01/16/24 3:52 PM) Blood Pressure [90-138/55-84 mm Hg] 112/ 72mm Hg (01/16/24 3:52 PM) Temperature [96.8-100.4 DegF] 98.1 DegF (01/16/24 3:52 PM) Mode of Delivery (Oxygen) Room air (01/16/24 3:52 PM) Blood pressure sites Arm, left (01/16/24 3:52 PM) Temperature Route Temporal (01/16/24 3:52 PM) Weight Obtained Via Standing scale (01/16/24 3:52 PM) Social History Social History Type Response Smoking Status Never smoker; Tobacc o user in household: No entered on: 09/26/13 Sex Note * Mary Naranjo: PERFORM, SIGN, VERIFY Event Display: Patient Education/Instruction Authored Date: [id number] [facility] *BMP Quab Adlt Med Bltn Clinical Summary Name REGULO ORLANDO Age 28 Years 1995 PCP [facility], Elisa Reynaga PCP Visit Date 01/16/2024 15:24:00 Additional Instructions: Scheduled Appointments?? Future Appointments ?*BMP??Quab??Adlt??Med??Bltn ?[address]??[place],??[place],??[address] ?Phone:??--?Fax:??-- ?Appt. Date:??02/27/2024?8:20 AM ?Scheduled Provider:??Nicholas EDGAR , Elisa Reynaga. ?*BMP??Quab??Adlt??Med??Bltn ?[address]??[place],??[place],??[address] ?Phone:??--?Fax:??-- ?Appt. Date:??03/19/2024?8:20 AM ?Scheduled Provider:??Nicholas EDGAR , Elisa Reynaga. ?*[facility] ?[address] ?[place],??[place],??[address] ?Phone:??--?Fax:??-- ?Appt. Date:??04/15/2024?11:00 AM ?Scheduled Provider:??Myke Cordova Follow-Up Instructions ?? 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 Discuss any questions related to medications with your provider. New Medications [facility]/pharmacy #[id number], [address], [place] [id number], [phone] HydrOXYzine (hydrOXYzine hydrochloride 10 mg oral tablet) 1 tab(s) Oral 3 times a day as needed foranxiety. Refills: 0. Next Dose: Medications to Continue with No Changes These medications were not printed or sent to your pharmacy Famotidine (famotidine 20 mg oral tablet) 1 tab(s) Oral twice a day as needed Control of Stomach Acid. Refills: 0. Next Dose: Ibuprofen (ibuprofen 600 mg oral tablet) 1 tab(s) Oral Daily as needed Headache. Take with food. Take sparingly. Refills: 0. Next Dose: levocetirizine (Xyzal 5 mg oral tablet) 1 tab(s) Oral Daily in PM for 30 Days. Refills: 6. Next Dose: Loratadine (loratadine 10 mg oral capsule) 1 capsule Oral Daily. As needed for symptoms of allergicreaction.. Refills: 0. Next Dose: Omeprazole (omeprazole 20 mg oral enteric coated capsule) 1 capsule Oral twice a day. Refills: 1. Next Dose: Allergy Info:?? Reglan Medications Given This Visit Future Orders ?No future orders Future Orders ?No future orders Vital Signs Height 168 cm Weight 62.1 kg BMI 22 kg/m2 Blood Pressure 112 mm Hg/72 mm Hg Temperature 98.1 DegF Pulse Rate 99 bpm Respiratory Rate 02 Sat Mode of Delivery 100 %/Room air You can now view a summary of your hospital visit from the comfort of your home through a free online portal called [employer]. [employer] is a website that allows you to securely view your medical information including discharge summary, medications and follow-up visits. ??You can alsosend a secure electronic message to your doctor???s office to request appointments, renew medications or just ask a question. You can enroll at [email or web address] or register during your next office visit. [...] primary care provider, you may find a [facility] provider by calling [facility] Link at [phone]. [facility], in keeping with [facility] guidance, no longer requires face masks [...] Team Personnel Name: Ulysses Desai MD Position: [facility] CAR SALESPERSON MD Member Role: Lifetime CAR SALESPERSON Physician Address: Address: [address] [place] [address] [facility] [place], [place] [address] Name: Nicholas EDGAR, Elisa Reynaga Position: [facility] PCO Associate Professional Member Role: PCP Address: Address: [address] [place] [id number] Name: Josette Bhardwaj [place] Position: [facility] RN Member Role: Primary Care Nurse Care Team Related Persons Name: HUBER ORLANDO Address: [address] [place] [address] Name: HUBER ORLANDO Address: home [address] [place] [address] Name: HUBER ORLANDO Address: home [address] [place] [address] Name: JUAN ORLANDO Address: home [address] [address]
--- OUTSIDE RECORDS SUMMARY | 2024-05-22 09:11 | XMS_ITS | Continuity of Care Document ---
[facility] Address [address] [place] [address]- Care Team Providers Care Precision Assembly Inspector Name Role Phone Anitha Hyde MD Primary Care Physician Encounter [facility] Date(s): 04/26/20 - 04/26/[address] [address]- [facility] Discharge Disposition: A-D/C Home Attending Physician: Lesly Mccall MD Admitting Physician: Lesly Mccall MD Referring Physician: Not on Staff, Referring [...] term) 6 [birth year]94 Given 1Result Comment: [facility] [id number] 2[facility] 3Admin Note: [...] oldest [Reference Range]: 1 2 3 Height 0 cm (04/26/20 9:40 PM) 0 cm (04/26/20 8:07 PM) 0 cm (04/26/20 6:31 PM) Weight 60 kg (04/26/20 9:40 PM) 60 kg (04/26/20 8:07 PM) 60 kg (04/26/20:31 PM) Oxygen Saturation [94-100 %] 100 % (04/26/20 9:40 PM) 100 % (04/26/20 8:07 PM) 100 % (04/26/20:31 PM) Pulse Rate [55-90 bpm] 79 bpm (04/26/20 9:40 PM) 102 bpm *H* (04/26/20 8:07 PM) 82 bpm (04/26/20 6:31 PM) Blood Pressure [90-138/55-84 mm Hg] 109/75mm Hg (04/26/20 9:40 PM) 128/84mm Hg (04/26/20 6:31 PM) Systolic Blood Pressure [90-138 mm Hg] 133 mm Hg (04/26/20 8:07 PM) Respiratory Rate [16-30 br/min] 16 br/min (04/26/20 9:40 PM) 22 br/min (04/26/20 8:07 PM) 16 br/min (04/26/20 6:31 PM) Temperature [96.8-100.4 DegF] 98.0 DegF (04/26/20 6:31 PM) Mode of Delivery (Oxygen) Room air (04/26/20 9:40 PM) Room air (04/26/20 8:07 PM) Room air (04/26/20 6:31 PM) Blood pressure sites Arm, right (04/26/20 9:40 PM) Arm, right (04/26/20 8:07 PM) Arm, left (04/26/20 6:31 PM) Temperature Route Temporal (04/26/20 6:31 PM) Dry Weight 60 kg (04/26/20 9:40 PM) 60 kg (04/26/20 8:07 PM) 60 kg (04/26/20 6:31 PM) Weight Obtained Via Patient/family state d (04/26/20 6:31 PM) Dry Weight Obtained Via Patient/family s tated (04/26/20 6:31 PM) Social History Social History Type Response Smoking Status Never smoker; Tobacc o user in household: No entered on: 09/26/13 Sex
--- OUTSIDE RECORDS SUMMARY | 2024-05-22 09:11 | XMS_ITS | Continuity of Care Document ---
Author Organization [facility] Address [address] [place] [address]- Care Team Providers Care Vehicle Body Maker Name Role Phone Nicholas BEAD STRINGER, Elisa M Primary Care Physician Encounter [facility] Date(s): 04/20/21 - 05/20/21 [id number] [address] [place] [address] [place] Allergies, Adverse Reactions, Alerts Substance Reaction [...] Given 1Result Comment: [facility] [id number] 3Admin Note: [...] Gm, 0 Refills, Maintenance, 01/29/21 20:47:00 EDT, [id number], Partial fill upon patient request [...]
--- OUTSIDE RECORDS SUMMARY | 2024-05-22 09:11 | XMS_ITS | Continuity of Care Document ---
Author Organization [facility] al Address [address] [place] [address]- Care Team Providers Care Monitor Worker Name Role Phone Nicholas SPLUNK CONSULTANT, Eilsa M Primary Care Physician Encounter [facility] Date(s): 08/20/23 - 08/21/[address] [address]- Discharge Disposition: A-D/C Home Attending Physician: Nathan SRINIVASAN, Aiyana Charles Admitting Physician: Aiyana Evans MD Referring Physician: [...] pediatric vaccine 93 Recorded 1Result Comment: [facility] [place] 2] [id number] 2Result Comment: [facility] [place] 2]: [id number] 3Result Comment: [facility] [place] 2] [id number] [facility]: [...] opioid drug. Start Date: 06/29/23 Status: Ordered benzonatate 100 mg oral capsule 1 capsule = 100 mg, By Mouth, 3 times a day, PRN as needed for cough, Take whole (do not crush, chew, or break open), # 20 capsule, 0 Refills, Acute 08/26/23 0:01:00 EST, 08/21/23 0:39:00 EST, Capsule, [id number], Partial fill upon patient req... Start Date: 08/21/23 Stop Date: 08/26/23 Status: Ordered Carafate 1 gm/10 ml oral suspension 10 mL = 1 Gm, By Mouth, 3 times a day before meals and bedtime, # 560 mL, 0 Refills, Maintenance, 05/19/23 22:44:00 EDT, [facility]/pharmacy #[id number], Partial fill [...] # 1 tablet, 1 Refills, Soft Stop, 08/03/23 15:37:00 EST, Tablet,[facility]/pharmacy #[id number], Partial fill upon patient request if the prescription is for a schedule II opioid drug., 165.1, cm, 07/31/23 15:47:00 EST, Height,... Start Date: 08/03/23 Status: Ordered fluticasone 27.5 mcg/inh nasal spray 1 sprays, Nares, Both, Daily, PRN Cold Symptoms, # 10 Gm, 0 Refills, Maintenance, 07/24/23 15:00:00EST, Noel, [facility]/pharmacy #[id number], Partial fill upon patient request if the prescription is for a schedule II opioid drug., 1 sprays Nares, Both Daily,PRN... Start Date: 07/24/23 Status: Ordered gabapentin 300 mg oral capsule 300 mg, 1, capsule, By Mouth, Daily at bedtime, PRN, # 15 capsule, Refills 0, Tot. Refills 0, Maintenance, [facility], 07/03/23 16:09:00 EDT, Route to Pharmacy Electronically, [facility]/pharmacy #[id number], Partial fill [...] tablet, 1 Refills, Maintenance, 07/07/23 6:25:00 EDT, [id number], 165.1, cm, 07/03/23 15:14:00 EDT, Height, 64.3, kg, 05/19/23 19:22:00 EDT, Dry... Start Date: 07/07/23 Status: Ordered omeprazole 20 mg oral enteric coated capsule 1 capsule, By Mouth, 2 times a day, # 180 capsule, 1 Refills, Maintenance, 06/24/23 16:07:00 EDT, [id number], 165.1, cm, 06/12/23 14:42:00 EDT, Height, 64.3, kg, 05/19/23 19:22:00 EDT, Dry Weight Start Date: 06/24/23 Status: Ordered predniSONE 50 mg oral tablet 1 tablet = 50 mg, By Mouth, Daily, for 4 days, To start the morning of 08/22/23, # 4 tablet, 0 Refills, Acute 08/25/23 0:39:00 EST, 08/21/23 0:39:00 EST, Tablet, [id number], Partial fill upon patient request if the prescription is for a schedul... Start Date: 08/21/23 Stop Date: 08/25/23 Status: Ordered Problem List Condition Confirmation Course [...] Exam Date Time Procedure Performing Provider Status 08/21/23 12:04 AM Chest 2 Views Frontal and Lat GrodziMerry rubio; Auth (Verified) Notes: (Chest 2 Views Frontal and Lat) Reason For Exam: Cough RESULT: Chest 2 Views Frontal and Lat Chest 2 Views Frontal and Lat Hx of Present Illness: Cough, back pain x couple of weeks, chest pain sts dx with covid 11 21, and last monday tested + for strep - sts not feeling better, coughing thick green sputum - sts just not getting better; Reason: Cough; Clinical Question(s): Pneumonia COMPARISON: Multiple prior chest radiographs with the most recent dated 04/06/2023. FINDINGS: LINES AND TUBES: None. LUNGS AND PLEURA: Clear lungs. Normal pulmonary vascularity. No pleural effusion. No pneumothorax. HEART, MEDIASTINUM AND ALESSANDRA: Heart is normal in size. Normal mediastinal and hilar contour. BONES AND SOFT TISSUES: No acute abnormality. IMPRESSION: No acute abnormality. WSN: [id number] Ordering Physician: Aiyana Evans Dictated By: Rj Low MD, V Dictated Date/Time: 08/21/23 8:02 am Reviewed By: Rj Low MD, V Signed By: Rj Low MD, V Signed Date/Time: 08/21/23 8:02 am Transcribed By: SAVANNAH Transcribed Date/Time: 08/21/23 8:01 am Vital Signs Most recent to oldest [Reference Range]: 1 2 Height 168 cm (08/21/23 1:03 AM) 168 cm (08/20/23 11:45 PM) Weight 58.9 kg (08/21/23 1:03 AM) 58.9 kg (08/20/23 11:45 PM) Oxygen Saturation [94-100 %] 100 % (08/20/23 11:45 PM) Pulse Rate [55-90 bpm] 75 bpm (08/20/23 11:45 PM) Blood Pressure [90-138/55-84 mm Hg] 125/ 95mm Hg (08/20/23 11:45 PM) Respiratory Rate [16-30 br/min] 18 br/mi n (08/21/23 1:03 AM) 16 br/min (08/20/23 11:45 PM) Temperature [96.8-100.4 DegF] 97.9 DegF (08/20/23 11:45 PM) Mode of Delivery (Oxygen) Room air (08/20/23 11:45 PM) Temperature Route Temporal (08/20/23 11:45 PM) Dry Weight 58.9 kg (08/21/23 1:03 AM) 58.9 kg (08/20/23 11:45 PM) Weight Obtained Via Standing scale (08/20/23 11:45 PM) Dry Weight Obtained Via Standing scale (08/20/23 11:45 PM) Social History Social History Type Response Smoking Status Never smoker; Tobacc o user in household: No entered on: 09/26/13 Sex Note * Nathan SRINIVASAN, Aiyana Charles: PERFORM Event Display: Patient Education Leaflets Authored Date: [id number] Benzonatate Oral Capsule ?? [id number] Benzonatate Oral Capsule Brands: Tessalon, Tessalon Perles, Zonatuss Uses For cough. ?? Instructions Swallow the medicine without crushing or chewing it. This medicine may be taken with or without food. Store at room temperature away from heat, light, and moisture. Do not keep in the bathroom. Drug interactions can change how medicines work or increase risk for side effects. Tell your healthcare providers about all medicines taken. Include prescription and ftpg-gdv-auhkzfr medicines, vitamins, and herbal medicines. Speak with your doctor or pharmacist before starting or stopping any medicine. ?? Cautions Tell your doctor and pharmacist if you ever had an allergic reaction to a medicine. Do not use the medication any more than instructed. Your ability to stay alert or to react quickly may be impaired by this medicine. Do not drive or operate machinery until you know how this medicine will affect you. If you drink more than a few alcoholic beverages each day, ask your doctor whether you should be onthis medicine. It is unknown if this medicine passes into breast milk. Ask your doctor before . During , this medicine should be used only when clearly needed. Talk to your doctor about the risks and benefits. Do not share this medicine with anyone who has not been prescribed this medicine. ?? Side Effects The following is a list of some common side effects from this medicine. Please speak with your doctor about what you should do if you experience these or other side effects. ??? constipation ??? dizziness ??? headaches ??? nausea A few people may have an allergic reaction to this medicine. Symptoms can include difficulty breathing, skin rash, itching, swelling, or severe dizziness. If you notice any of these symptoms, seek medical help quickly. ?? Extra Please speak with your doctor, nurse, or pharmacist if you have any questions about this medicine. ?? [email or web address]/[email or web address]/fdbpem/6118 IMPORTANT NOTE: This document tells you briefly how to take your medicine, but it does not tell youall there is to know about it. Your doctor or pharmacist may give you other documents about your medicine. Please talk to them if you have any questions. Always follow their advice. There is a more complete description of this medicine available in [employer] [place]. Scan this code on your smartphone or tablet or use the web address below. You can also ask your pharmacist for a printout. If you have any questions, please ask your pharmacist. The display and use of this drug information is subject to Terms of Use. Copyright(c) 2022 [employer]. ?? [employer]. All rights reserved. This information is not intended as a substitute for professional medical care. Always follow your healthcare professional's instructions. ?? * Nathan SRINIVASAN, Aiyana Charles: PERFORM Event Display: Patient Education Leaflets Authored Date: [id number] Prednisone Oral Tablet ?? [id number] Prednisone Oral Tablet Brands: Deltasone Uses This medicine is used for the following purposes: ??? allergic reaction ??? autoimmune disorder ???blood disorder ??? endocrine disorder ??? inflammatory disease ??? immune suppression ??? cancer ??? COVID-19 (coronavirus) ?? Instructions Take the medicine with food. Store at room temperature away from heat, light, and moisture. Do not keep in the bathroom. It is important that you keep taking each dose of this medicine on time even if you are feeling well. If you forget to take a dose on time, take it as soon as you remember. If it is almost time for thenext dose, do not take the missed dose. Return to your normal schedule. Do not take 2 doses at one time. Drug interactions can change how medicines work or increase risk for side effects. Tell your healthcare providers about all medicines taken. Include prescription and fnez-xse-lrcbrhs medicines, vitamins, and herbal medicines. Speak with your doctor or pharmacist before starting or stopping any medicine. Tell your doctor if symptoms do not get better or if they get worse. This medicine may affect your blood sugar levels. If you have diabetes, talk to your doctor before changing the dose of your diabetes medicine. This medicine may affect the strength of your bones. If you have or are at increased risk for osteoporosis (weakening of the bones), your doctor may recommend foods with calcium and vitamin D. Keep all appointments for medical exams and tests while on this medicine. ?? Cautions Tell your doctor and pharmacist if you ever had an allergic reaction to a medicine. This medicine may cause serious bleeding from the stomach or bowels. Stop this medicine and call your doctor immediately if you see any signs of bleeding. Bleeding can cause pain in the stomach, vomiting up liquid that looks like coffee grounds, and red or dark tarry stools. Do not use the medication any more than instructed. Please check with your doctor before drinking alcohol while on this medicine. Avoid smoking while on this medicine. Smoking may increase your risk for stomach bleeding. This medicine may reduce your body's ability to fight infections. Avoid contact with people with colds, flu or other infections. Contact your doctor if you develop fever, cough, sore throat, or chills. Speak with your health care provider before receiving any vaccinations. This medicine passes into breast milk. Ask your doctor before . During , this medicine should be used only when clearly needed. Talk to your doctor about the risks and benefits. Always carry an ID card or wear a medical alert bracelet indicating your medical condition. Do not share this medicine with anyone who has not been prescribed this medicine. ?? Side Effects The following is a list of some common side effects from this medicine. Please speak with your doctor about what you should do if you experience these or other side effects. ??? acne ??? agitated feeling or trouble sleeping ??? decreased appetite ??? high blood sugar ??? high blood pressure ??? nausea and vomiting ??? stomach upset or abdominal pain Call your doctor or get medical help right away if you notice any of these more serious side effects: ??? bleeding or bruising ??? bone pain ??? coughing up blood or vomit that looks like coffee grounds ??? depression or feeling sad ??? swelling of the legs, feet, and hands ??? fever or chills ??? fast or irregular heart beats ??? menstruation changes (missed or fewer periods) ??? mood changes ??? muscle pain or cramps ??? seizures ??? thinning of the skin ??? severe stomach or bowel pain ??? dark, tarry stool ??? unusual or unexplained tiredness or weakness ??? increased urinary frequency ??? blurring or changes of vision ??? sudden or unexplained weight gain ??? slow wound healing A few people may have an allergic reaction to this medicine. Symptoms can include difficulty breathing, skin rash, itching, swelling, or severe dizziness. If you notice any of these symptoms, seek medical help quickly. ?? Extra Please speak with your doctor, nurse, or pharmacist if you have any questions about this medicine. ?? https://[employer]/V2.0/fdbpem/9383 IMPORTANT NOTE: This document tells you briefly how to take your medicine, but it does not tell youall there is to know about it. Your doctor or pharmacist may give you other documents about your medicine. Please talk to them if you have any questions. Always follow their advice. There is a more complete description of this medicine available in [employer] [place]. Scan this code on your smartphone or tablet or use the web address below. You can also ask your pharmacist for a printout. If you have any questions, please ask your pharmacist. The display and use of this drug information is subject to Terms of Use. Copyright(c) 2022 [employer]. ?? [employer]. All rights reserved. This information is not intended as a substitute for professional medical care. Always follow your healthcare professional's instructions. ?? * Nathan SRINIVASAN, Aiyana Charles: PERFORM Event Display: Patient Education Leaflets Authored Date: [id number] Bronchitis, No Antibiotics (Adult) ?? [id number] Bronchitis, No Antibiotics (Adult) Bronchitis is inflammation and swelling of the air passages (bronchial tubes) in your lungs. This is often caused by an infection. Your bronchitis was caused by a virus.??Symptoms include a dry, hacking cough that is worse at night. The cough may bring up yellow-green mucus. You may also feel shortof breath or wheeze. Other symptoms may include tiredness, chest discomfort, fever, and chills. This illness can be spread to other people in the first few days. It is spread through the air by coughing and sneezing. It is also spread by direct contact. This means touching the sick person and then touching your own eyes, nose, or mouth. Bronchitis that is caused by a virus is often not treated with antibiotic medicine. Instead, medicines may be given to help relieve symptoms. Symptoms can last up to 2 weeks. The cough may last much longer. Home care Follow these guidelines when caring for yourself at home: ??? If your symptoms are severe, rest at home for the first 2 to 3 days. When you go back to your daily tasks, don't let yourself get too tired. ??? Do not smoke. Stay away from secondhand smoke. ??? You may use nusm-snr-ybvlhkc medicine to control fever or pain. Or use another pain medicine as prescribed.??If you have chronic liver or kidney disease or have ever had a stomach ulcer or bleeding in your stomach or intestines, talk with your healthcare provider before using these medicines. Also talk to your provider if you are taking medicine to prevent blood clots. Aspirin should never be taken by anyone under age 18 who has a virus or fever. It may cause severe liver or brain damage. ??? Your body needs a lot of fluids now. Drink 6 to 8 glasses of fluids per day. This includes water, soft drinks, sports drinks, juices, tea, or soup. Extra fluids will help loosen mucus in your nose and lungs. ??? Your appetite may be low. A light diet is fine. ??? Oecr-rwk-tabjdrl cough, cold, and sore-throat medicines will not shorten the tez gth of the illness. But they may help to reduce your symptoms. Don't use decongestants if you have high blood pressure. ?? Follow-up care Follow up with your healthcare provider, or as advised. If you had an X-ray or ECG (electrocardiogram), a specialist will review it. You will be told of any results that may affect your care. Ask your healthcare provider about the pneumococcal vaccines and a yearly flu shot. There are 2 kinds of pneumococcal vaccines. You may need both. You???re at higher risk of lung infection if any of these apply to you: ??? You are age 65 or older ??? You have a chronic lung disease ??? You have condition that affects your immune system ??? You smoke ?? When to get medical care Call your healthcare provider right away if you have any of these: ??? Fever of 100.4??F (38??C) orhigher ??? Coughing up more mucus ??? Facial pain or ear pain ??? Mild weakness, drowsiness, headache, or a stiff neck ?? Call 911 Call 911 if any of these occur: ??? Coughing up blood ??? Weakness, drowsiness, headache, or stiff neck that get worse ??? Trouble breathing, wheezing, or pain with breathing ??? Lips or skin looks blue, purple, or ferreira in color ??? Feeling of doom ?? Last Reviewed Date: 2021 ?? 4406-4804 [employer]. All rights reserved. This information is not intended as a substitute for professional medical care. Always follow your healthcare professional's instructions. ?? Patient Care team information Care Team Personnel Name: Ulysses Desai MD Position: [facility] CORE COMPOSER FEEDER MD Member Role: [employer] CORE COMPOSER FEEDER Physician Address: Address: [address] [place] [address] [place] [address]- Name: Elisa Peterson NP Position: [facility] PCO Associate Professional Member Role: PCP Address: Address: [address] [place] [address] [place] [address]- Name: Josette Bhardwaj [place] Position: [facility] RN Member Role: Primary Care Nurse Name: Isaias Grimes RN Position: [facility] ED RN W/OE and Tasks Member Role: Patient Care Provider Name: Scarlett Zepeda Position: [facility] ED OA Member Role: Patient Care Provider Name: Aiyana Evans MD Position: [facility] ED Medicine MD Member Role: ED Attending Physician Address: Address: [address] [place] [address]- Care Team Related Persons Name: JOHANNY HUBER Address: home [address] [place] [address] Name: HUBER ORLANDO Address: home [address] [place] [address] Name: JOHANNY HUBER M Address: home [address] [place] [address] Name: JUAN ORLANDO Address: home [address] [address]
--- OUTSIDE RECORDS SUMMARY | 2024-05-22 09:11 | XMS_ITS | Continuity of Care Document ---
Author Organization [facility] al Address [address] [place] [address]- Care Team Providers Care Vessel Ordinary Seaman Name Role Phone Bony Padilla Primary Care Physician Encounter [facility] Date(s): 05/24/20 - 05/25/[address] [address]- [facility] Discharge Disposition: A-D/C Home Attending Physician: Daljit Childers MD Admitting Physician: Daljit Childers MD Referring Physician: Not on Staff, Referring [...] term) 6 09/07/94 Given 1Result Comment: [facility] [id number] [facility] 3[facility] Note: [...] Exam Date Time Procedure Performing Provider Status 05/24/20 8:13 PM Chest 2 Views Frontal and Lat Perez Desai; Auth (Verified) Notes: (Chest 2 Views Frontal and Lat) Reason For Exam: Shortness of Breath RESULT: Chest 2 Views Frontal and Lat Chest 2 Views Frontal and Lat INDICATION: pt reports midsternal chest pressure tightness, stabbing pain to the lateral chest and neck pain x3 weeks. states pain is worse after eating. increased gas. lorazepam taken at 1700; COMPARISON: Multiple priors, most recent 08/22/2019. FINDINGS: LINES AND TUBES: None. LUNGS AND PLEURA: Clear lungs. Normal pulmonary vascularity. No pleural effusion. No pneumothorax. HEART, MEDIASTINUM AND ALESSANDRA: Heart is normal in size. Normal mediastinal and hilar contour. BONES AND SOFT TISSUES: No acute abnormality. IMPRESSION: No radiographic evidence of acute cardiopulmonary abnormality. I have personally reviewed the images and I agree with this report. WSN: [id number] Ordering Physician: Daljit Childers Dictated By: Ja Hopper MD Dictated Date/Time: 05/24/20 8:37 pm Reviewed By: Isma Candelaria DO Signed By: Isma Candelaria DO Signed Date/Time: 05/24/20 8:42 pm Transcribed By: SAVANNAH Transcribed Date/Time: 05/24/20 8:27 pm Vital Signs Most recent to oldest [Reference Range]: 1 2 Height 168 cm (05/24/20 9:10 PM) 168 cm (05/24/20 5:55 PM) Weight 58.4 kg (05/24/20 9:10 PM) 58.4 kg (05/24/20 5:55 PM) Oxygen Saturation [94-100 %] 100 % (05/24/20 9:10 PM) 100 % (05/24/20 5:55 PM) Pulse Rate [55-90 bpm] 92 bpm *H* (05/24/20 9:10 PM) 99 bpm *H* (05/24/20 5:55 PM) Blood Pressure [90-138/55-84 mm Hg] 117/ 84mm Hg (05/24/20 9:10 PM) 131/95mm Hg (05/24/20 5:55 PM) Respiratory Rate [16-30 br/min] 16 br/mi n (05/24/20 9:10 PM) 18 br/min (05/24/20 5:55 PM) Temperature [96.8-100.4 DegF] 98.6 DegF (05/24/20 5:55 PM) Mode of Delivery (Oxygen) Room air (05/24/20 9:10 PM) Room air (05/24/20 5:55 PM) Blood pressure sites Arm, left (05/24/20 9:10 PM) Arm, left (05/24/20 5:55 PM) Temperature Route Oral (05/24/20 5:55 PM) Dry Weight 58.4 kg (05/24/20 9:10 PM) 58.4 kg (05/24/20 5:55 PM) Social History Social History Type Response Smoking Status Never smoker; Tobacc o user in household: No entered on: 09/26/13 Sex
--- OUTSIDE RECORDS SUMMARY | 2024-05-22 09:11 | XMS_ITS | Continuity of Care Document ---
Author Organization [facility] Address [address] [place] [address]- Care Team Providers Care Stamp Presser Name Role Phone Nicholas NANNY BABYSITTER, Elisa M Primary Care Physician Encounter [facility] Date(s): 05/28/20 - 07/01/20 [facility] [address] [place] [address]- [facility] Attending Physician: Bony Padilla Allergies, Adverse Reactions, [...] (old term) 6 09/07/94 Given 1Result Comment: [facility] [id number] 2[facility] 3Admin Note: [...] 06/08/20 9:10:00 EDT, Route to Pharmacy Electronically, [facility]/pharmacy #[id number], 168, cm, 06/08/20 7:01:00 EDT, [...]
--- OUTSIDE RECORDS SUMMARY | 2024-05-22 09:11 | XMS_ITS | Continuity of Care Document ---
Author Organization [facility] Address [address] [place] [address]- Care Team Providers Care Epic Cadence Specialists Name Role Phone Elisa Peterson NP Primary Care Physician Encounter [facility] NBR [id number] Date(s): 04/17/23 - 04/24/23 [facility] [address] [address]- Encounter Diagnosis Anxiety(Discharge Diagnosis) - 04/17/23 Loose stools(Discharge Diagnosis) - 04/17/23 Localized hives(Discharge Diagnosis) - 04/17/23 History of strep sore throat(Discharge Diagnosis) - 04/17/23 Attending Physician: Elisa Peterson NP Allergies, Adverse Reactions, Alerts Substance Reaction Severity Status Reglan agitation Active Immunizations Given and Recorded Vaccine Date Status Refusal Reason influenza virus vaccine, inactivated 1 08/08/22 Gi pedro pablo influenza virus vaccine, inactivated 2 08/02/21 Gi pedro pablo influenza virus vaccine, inactivated 07/17/20 Give n influenza virus vaccine, inactivated 3 07/22/19 Gi pedro palbo influenza virus vaccine, inactivated 07/13/18 Give n [...] 1Result Comment: [facility] [id number] 2Result Comment: [facility]: [id number] 3Result Comment: [facility] [id number] [phone] 4[facility] 5Admin Note: [...] kit, 2 Refills, Maintenance, 01/14/23 13:47:00EDT, [facility]/pharmacy #[id number], Partial fill upon patient request if the prescription is for a schedule IIopioid drug., 168, cm, 01/12/23 9:03:00 EDT, Height... Start Date: 01/14/23 Status: Ordered Ativan 0.5 mg oral tablet 1 tablet = 0.5 mg, By Mouth, Daily, MassPat checked, # 5 tablet, 0 Refills, Maintenance, 12/17/21 15:33:00 EDT, Tablet, [facility]/pharmacy #[id number], Partial fill upon patient [...] Gm, 0 Refills, Maintenance, 03/29/23 15:19:00 EDT, [place], [facility]/pharmacy #[id number], Partial fill upon patient [...] Status: Ordered loratadine 10 mg oral tablet 1, tablet, By Mouth, Daily, # 30 tablet, Refills 6, Maintenance, 04/21/23 9:11:00 EDT, Route to Pharmacy Electronically, [facility] STORE [id number], 164, cm, 04/17/23 8:31:00 EDT, Height, 65.5, kg, 04/15/23 1:27:00 EDT, Dry Weight Start Date: 04/21/23 Status: Ordered magnesium oxide 400 mg oral tablet 1 tablet = 400 mg, By Mouth, Daily, # 30 tablet, 2 Refills, Acute 04/10/24 10:25:00 EDT, 04/10/23 10:25:00 EDT, [facility]/pharmacy #[id number], Partial fill upon patient [...] Dates Health Status Cl inical Service Informant Anxiety Discharge Diagnosis 04/17/23 Loose stools Discharge Diagnosis 04/17/23 Localized hives Discharge Diagnosis 04/17/23 History of strep sore throat Discharge Diagnosis 04/17/23 Vital Signs Most recent to oldest [Reference Range]: 1 Height 164 cm (04/17/23 8:31 AM) Weight 65.5 kg (04/17/23 8:31 AM) Oxygen Saturation [94-100 %] 98 % (04/17/23 8:31 AM) Pulse Rate [55-90 bpm] 67 bpm (04/17/23 8:31 AM) Body Mass Index [18.5-24.99 kg/m2] 24.35 kg/m2 (04/17/23 8:31 AM) Blood Pressure [90-138/55-84 mm Hg] 110/ 80mm Hg (04/17/23 8:31 AM) Respiratory Rate [16-30 br/min] 15 br/mi n *L* (04/17/23 8:31 AM) Temperature [96.8-100.4 DegF] 98 DegF (04/17/23 8:31 AM) Mode of Delivery (Oxygen) Room air (04/17/23 8:31 AM) Blood pressure sites Arm, left (04/17/23 8:31 AM) Temperature Route Temporal (04/17/23 8:31 AM) Weight Obtained Via Standing scale (04/17/23 8:31 AM) Social History Social History Type Response Smoking Status Never smoker; Tobacc o user in household: No entered on: 09/26/13 Sex Note * Miriam Sapp: PERFORM, SIGN, VERIFY Event Display: Patient Education/Instruction Authored Date: [id number] [facility] *BMP Quab Adlt Med Bltn Clinical Summary Name REGULO ORLANDO Age 27 Years 1995 PCP Nicholas EDGAR, Elisa Reynaga PCP Visit Date 04/17/2023 08:19:00 Additional Instructions: Scheduled Appointments?? Future Appointments ?*[facility] ?[address] ?[place],??[place],??[address] ?Phone:??--?Fax:??-- ?Appt. Date:??06/12/2023?10:30 AM ?Scheduled Provider:??Vandana EDGAR, Jade Reynaga Follow-Up Instructions ?? With: Address: When: Elisa Peterson [address] [place] [address], [address] [place] [id number] [facility] (1) Comments: f/u with me in 6 months for physical. Diagnosis Personal history of other diseases of the respiratory system; Anxiety disorder, unspecified; Urticaria, unspecified; Other fecal abnormalities Medications: Please continue your medications until treatment is completed or stopped by your provider. Discuss any questions related to medications with your provider. Medications to Continue Taking That Have Changed These medications were not printed or sent to your pharmacy - Fluticasone Nasal (Flonase 50 mcg/inh nasal spray) 1 spray(s) Nares, Both twice a day. Refills: 0. Next Dose: Medications to Continue with No Changes These medications were not printed or sent to your pharmacy Diclofenac (diclofenac potassium 50 mg oral tablet) 1 tab(s) Oral 3 times a day as needed for pain. Next Dose: Ethinyl Estradiol / Norethindrone () Oral Daily. Next Dose: fremanezumab (Ajovy Autoinjector 225 mg/1.5 [...] in 24 hours. Refills: 5. Next Dose: No Longer Take the Following Medications Cefpodoxime (cefpodoxime 100 mg oral tablet) 1 tab(s) Oral every 12 hours for 5 Days. Refills: 0. Allergy Info:?? Reglan Medications Given This Visit Future Orders ?No future orders Vital Signs Height 164 cm Weight 65.5 kg BMI 24.35 kg/m2 Blood Pressure 110 mm Hg/80 mm Hg Temperature 98 DegF Pulse Rate 67 bpm Respiratory Rate 15 br/min 02 Sat Mode of Delivery 98 %/Room air You can now view a summary of your hospital visit from the comfort of your home through a free online portal called [employer]. [employer] is a website that allows you to securely view your medical information including discharge summary, medications and follow-up visits. ??You can alsosend a secure electronic message to your doctor???s office to request appointments, renew medications or just ask a question. You can enroll at [email or web address] or register during your next office visit. [...] primary care provider, you may find a [facility] provider by calling [facility] Link at [phone]. For information about the plan of care including goals and instructions for your diagnosis, please see the patient education orders section of this document. Patient Education Materials?? The content of this educational material or handout may have been modified, supplemented, or adapted from its original content and format to support your individualized medical care. Your Body???s Response to Anxiety Normal anxiety [...] make thingsworse in the long run. ?? 8968-7212 [employer]. [address] [place] [address], [place] [address]. All rights reserved. This information is not intended as a substitute for professional medical care. Always follow your healthcare professional's instructions. Understanding Hives (Urticaria) Urticaria (hives) are red, itchy, and swollen areas on the skin. They are most often an allergic reaction from eating a food or taking a medicine. Sometimes the cause may be??unknown. A single hive can vary in size from a half inch to several inches. Hives can appear all over the body. Or they may appear on only one part of the body. Causes of Hives Hives can be caused by food and beverages such as: ??? Nuts ??? Peanuts ??? Eggs ??? Shellfish ??? Milk Hives can also be caused by medicines such as: ??? Antibiotics, especially penicillin and sulfa-based medicines ??? Anticonvulsant or antiseizure medicines ??? Chemotherapy medicines Other causes of hives include: ??? Infection or virus ??? Heat ??? Cold air or cold water ??? Exercise ??? Scratching or rubbing your skin, or wearing tight-fitting clothes that rub your skin ??? Being exposed to sunlight or light from a light bulb, in rare cases In some cases, hives may occur again and again with no specific cause. If you have hives ??? Avoid the food, drink, medicine, or other factor that may be causing the hives. ??? Make a thick paste of baking soda and water. Apply the paste directly to your skin. This can help lessen itching. ??? Talk with your healthcare provider right away if you think a medicine gave you hives. Watch for anaphalaxis If you have hives, watch for symptoms of a severe reaction that affects your entire body. This is called??anaphylaxis.??Symptoms can include swollen areas of the body, wheezing, trouble breathing or swallowing, and a hoarse voice. This reaction may happen right away. Or it may happen in an hour or more. In extreme cases, the airways from mouth to lungs may swell and prevent breathing. This is a medical emergency. Use epinephrine medicine if you have it, and call 911 or go to the emergency room. When to call your healthcare provider Call your healthcare provider if: ??? Your hives feel uncomfortable ??? You have never had hives before When to call 911 Call 911 right away if you have: ??? Swelling in your lips, tongue,??or throat, called angioedema ??? Trouble breathing or swallowing ?? 1607-0063 [employer]. [address] [place] [address]. All rights reserved. This information is not intended as a substitute for professional medical care. Always follow your healthcare professional's instructions. Patient Care team information Care Team Personnel Name: Ulysses Desai MD Position: [facility] TRADE MANAGER MD Member Role: [employer] TRADE MANAGER Physician Address: Address: [address] [place] [address] [place] [address]- Name: Elisa Peterson NP Position: [facility] PCO Associate Professional Member Role: PCP Address: Address: [address] [place] [id number] Name: Josette Bhardwaj [place] Position: [facility] RN Member Role: Primary Care Nurse Care Team Related Persons Name: HUBER ORLANDO Address: home [address] [place] [address] Name: HUBER ORLANDO Address: home [address] Name: HUBER ORLANDO Address: home [address] Name: JUAN ORLANDO Address: home [address]
--- OUTSIDE RECORDS SUMMARY | 2024-05-22 09:11 | XMS_ITS | Continuity of Care Document ---
Author Organization [facility] al Address [address] [place] [address]- Care Team Providers Care Dialysis Clinical Manager Name Role Phone Nicholas SPA EXPERIENCE COORDINATOR, Elisa M Primary Care Physician Encounter [facility] Date(s): 01/29/21 - 01/29/[address] [address]- Discharge Disposition: A-D/C Home Attending Physician: Daljit [...] Given 1Result Comment: [facility] [id number] [phone] 2[facility] 3Admin Note: [...] Gm, 0 Refills, Maintenance, 01/29/21 20:47:00 EDT, [id number], Partial fill upon patient request [...] EDT, [place]... Start Date: 01/29/21 Status: Ordered Problem List Condition Effective Dates [...] Exam Date Time Procedure Performing Provider Status 01/29/21 6:52 PM Chest 2 Views Frontal and Lat Tanya Muir; Auth (Verified) Notes: (Chest 2 Views Frontal and Lat) Reason For Exam: Shortness of Breath, Fever;Other: RESULT: Chest 2 Views Frontal and Lat Chest 2 Views Frontal and Lat CLINICAL INDICATION: Chest pain. COMPARISON: Chest x-ray, 05/24/2020. FINDINGS: The cardiac silhouette is within normal limits. Hilar and mediastinal contours are normal. The lungs are clear. There is no pleural effusion, pneumothorax, or evidence of CHF. No acute osseous abnormality is noted. IMPRESSION: No acute cardiopulmonary process WSN: [id number] Ordering Physician: Daljit Childers Dictated By: Desirae Wellington MD Dictated Date/Time: 01/29/21 6:54 pm Reviewed By: Desirae Wellington MD Signed By: Desirae Wellington MD Signed Date/Time: 01/29/21 6:54 pm Transcribed By: SAVANNAH Transcribed Date/Time: 01/29/21 6:54 pm Vital Signs Most recent to oldest [Reference Range]: 1 2 Height 168 cm (01/29/21 9:27 PM) 168 cm (01/29/21 5:27 PM) Weight 59.4 kg (01/29/21 9:27 PM) 59.4 kg (01/29/21 5:27 PM) Oxygen Saturation [94-100 %] 100 % (01/29/21 9:27 PM) 100 % (01/29/21 8:32 PM) Pulse Rate [55-90 bpm] 89 bpm (01/29/21 9:27 PM) 81 bpm (01/29/21 8:32 PM) Body Mass Index [18.5-24.99] 21.05 (01/29/21 9:27 PM) Blood Pressure [90-138/55-84 mm Hg] 122/ 86mm Hg (01/29/21 9:27 PM) 128/84mm Hg (01/29/21 8:32 PM) Respiratory Rate [16-30 br/min] 16 br/mi n (01/29/21 9:27 PM) 18 br/min (01/29/21 8:32 PM) Temperature [96.8-100.4 DegF] 97.2 DegF (01/29/21 8:32 PM) Mode of Delivery (Oxygen) Room air (01/29/21 9:27 PM) Blood pressure sites Arm, left (01/29/21 9:27 PM) Temperature Route Oral (01/29/21 8:32 PM) Dry Weight 59.4 kg (01/29/21 9:27 PM) 59.4 kg (01/29/21 5:27 PM) Social History Social History Type Response Smoking Status Never smoker; Tobacc o user in household: No entered on: 09/26/13 Sex
--- OUTSIDE RECORDS SUMMARY | 2024-05-22 09:11 | XMS_ITS | Continuity of Care Document ---
Author Organization [facility] Address [address] [place] [address]- Care Team Providers Care Cook Chief Name Role Phone Elisa Peterson NP Primary Care Physician Encounter [facility] NBR [id number] Date(s): 05/23/23 - [facility] [address] [address]- Attending Physician: Elisa Peterson NP Allergies, Adverse [...] [facility] [id number] 2Result Comment: [facility]: [phone] 3Result Comment: [facility] [id number] [phone] 4[facility]: [facility] 5Admin Note: [...] mL, 0 Refills, Maintenance, 05/19/23 22:44:00 EDT, [facility]/pharmacy #[id number], Partial fill upon patient request if the prescription is for a schedule II opioid drug., 165.1, cm, 05/19/23 1... Start Date: 05/19/23 Stop Date: 06/02/23 Status: Ordered Junel Fe By Mouth, Daily, [...] 06/12/23 15:25:00 EDT, Route to Pharmacy Electronically, [facility]/pharmacy #[id number] Tablet, Partial fill upon patient... Start Date: 06/12/23 Stop Date: 07/02/23 Status: Ordered omeprazole 20 mg oral enteric coated capsule 1 capsule, By Mouth, 2 times a day, # 180 capsule, 1 Refills, Maintenance, 06/24/23 16:07:00 EDT[facility], 165.1, cm, 06/12/23 14:42:00 EDT, Height, 64.3, [...] Team Personnel Name: Ulysses Desai MD Position: [facility] COMPUTER RECYCLING WORKER MD Member Role: [employer] COMPUTER RECYCLING WORKER Physician Address: Address: [address] [place] [address] [place] [address]- Name: Elisa Peterson NP Position: [facility] PCO Associate Professional Member Role: PCP Address: Address: [address] [place] [address]- Name: Josette Bhardwaj [place] Position: [facility] RN Member Role: Primary Care Nurse Care Team Related Persons Name: HUBER ORLANDO Address: home [address] [place] [address] Name: HUBER ORLANDO Address: home [address] [place] [address] Name: HUBER ORLANDO Address: home [address] [place] [address] Name: JUAN ORLANDO Address: home [address]
--- OUTSIDE RECORDS SUMMARY | 2024-05-22 09:11 | XMS_ITS | Continuity of Care Document ---
Author [facility] Address [address] [place] [address]- Care Team Providers Care Third Miller Name Role Phone Nicholas METAL LEAF LAYER, Elisa M Primary Care Physician Encounter [facility] Date(s): 01/29/21 - 02/28/21 [facility] [address] [place] [address]- Allergies, Adverse Reactions, Alerts Substance Reaction Severity [...] term) 6 09/07/94 Given 1Result Comment: [facility] [id number] [phone] 2[facility] 3Admin Note: [...] Gm, 0 Refills, Maintenance, 01/29/21 20:47:00 EDT, [id number], Partial fill upon patient request [...]
--- OUTSIDE RECORDS SUMMARY | 2024-05-22 09:11 | XMS_ITS | Continuity of Care Document ---
Author Organization [facility] Address [address] [facility], [address] d Floor, [address] [place] [address]- Care Team Providers Care Deaf Interpreter Name Role Phone Mayr Ellen SRINIVASAN, Anitha Primary Care Physician Encounter [facility] Date(s): 04/27/20 - 05/27/20 [facility] [address], [address], [address] [place] [address]- [facility] Allergies, Adverse Reactions, Alerts Substance [...] 1Result Comment: [facility] [id number] [phone] 2[facility] 3Admin Note: [...]
--- OUTSIDE RECORDS SUMMARY | 2024-05-22 09:11 | XMS_ITS | Continuity of Care Document ---
Author Organization [facility] Adult Address [address] [place] [address]- Care Team Providers Care College Counselor Name Role Phone Mary Ellen SRINIVASAN, Anitha Primary Care Physician En[facility] Date(s): 02/19/20 - 02/26/[address] [address]- [facility] Encounter Diagnosis Acute UTI(Discharge Diagnosis) - 02/19/20 Attending Physician: Anitha Hyde MD Allergies, Adverse [...] 1Result Comment: [facility] [id number] [phone] 2Location [facility]: [facility] 3Admin Note: [...] 1 Refills, Maintenance, 10/11/19 14:31:00 EST, Tablet, [facility]/pharmacy #[id number], 168, cm, 10/11/19 13:21:00 EST, Height, 64, kg, 09/08/19 14:41:00 ES... Start Date: 10/11/19 Status: Ordered Reglan 5 mg oral tablet 1 tablet = 5 mg, By Mouth, 4 times a day, PRN Nausea, for 7 days, # 20 tablet, 0 Refills, Acute 03/02/20 13:56:00 EDT, 02/24/20 13:56:00 EDT, Tablet, [facility]/pharmacy #[id number], 165, cm, 02/24/20 13:29:00 EDT, Height, 60.9, kg, 02/22/20 19:11:00 EDT, Dry Weight Start Date: 02/24/20 Stop Date: 03/02/20 Status: Ordered Taytulla 1 mg-20 mcg oral [...] Dates Health Status Clini khushboo Service Informant Acute UTI Discharge Diagnosis 02/19/20 Vital Signs Most recent to oldest [Reference Range]: 1 Height 168 cm (02/19/20 3:07 PM) Social History Social History Type Response Smoking Status Never smoker; Tobacc o user in household: No entered on: 09/26/13 Sex
--- OUTSIDE RECORDS SUMMARY | 2024-05-22 09:11 | XMS_ITS | Continuity of Care Document ---
Author Organization [facility] al Address [address] [place] [address]- Care Team Providers Care Vp Client Services Name Role Phone Nicholas STRATEGIC SOURCING MANAGER, Elisa M Primary Care Physician Encounter [facility] Date(s): 03/21/21 - 03/22/[address] [address]- Discharge Disposition: A-D/C Home Attending Physician: Oliver uLnd MD Admitting Physician: Oliver Lund MD Referring Physician: Not on Staff, Referring [...] (old term) 6 09/07/94 Given 1Result Comment: [facility] [id number] [phone] 2[facility] 3Admin Note: [...] 04/01/21 0:50:00 EDT, 03/22/21 0:50:00 EDT, [place], [id number], Partial fill upon patient request if theprescription is for a schedule II opioid drug., 168... Start Date: 03/22/21 Stop Date: 04/01/21 Status: Ordered Flonase 50 mcg/inh nasal spray 1 sprays, Nares, Both, 2 times a day, # 16 Gm, 0 Refills, Maintenance, 01/29/21 20:47:00 EDT, [place], [facility]/pharmacy #[id number], [...] [Reference Range]: 1 2 Height 168 cm (03/22/21 12:57 AM) 168 cm (03/21/21 9:54 PM) Weight 63.1 kg (03/22/21 12:57 AM) 63.1 kg (03/21/21 9:54 PM) Oxygen Saturation [94-100 %] 99 % (03/22/21 12:57 AM) 100 % (03/21/21 9:54 PM) Pulse Rate [55-90 bpm] 71 bpm (03/22/21 12:57 AM) 87 bpm (03/21/21 9:54 PM) Body Mass Index [18.5-24.99] 22.36 (03/22/21 12:57 AM) Blood Pressure [90-138/55-84 mm Hg] 112/ 82mm Hg (03/22/21 12:57 AM) 139/92mm Hg *H* (03/21/21 9:54 PM) Respiratory Rate [16-30 br/min] 16 br/mi n (03/22/21 12:57 AM) 16 br/min (03/21/21 9:54 PM) Temperature [96.8-100.4 DegF] 98.1 DegF (03/21/21 9:54 PM) Liters per Minute 0 L/min (03/22/21 12:57 AM) Mode of Delivery (Oxygen) Room air (03/22/21 12:57 AM) Room air (03/21/21 9:54 PM) Blood pressure sites Arm, left (03/22/21 12:57 AM) Arm, left (03/21/21 9:54 PM) Temperature Route Temporal (03/21/21 9:54 PM) Dry Weight 63.1 kg (03/22/21 12:57 AM) 63.1 kg (03/21/21 9:54 PM) Weight Obtained Via Standing scale (03/21/21 9:54 PM) Dry Weight Obtained Via Standing scale (03/21/21 9:54 PM) Social History Social History Type Response Smoking Status Never smoker; Tobacc o user in household: No entered on: 09/26/13 Sex
--- OUTSIDE RECORDS SUMMARY | 2024-05-22 09:11 | XMS_ITS | Continuity of Care Document ---
Author Organization [facility] Address [address] [place] [address]- Care Team Providers Care Cager Operator Name Role Phone Nicholas DIRECTOR OF ACCOUNTING, Elisa M Primary Care Physician Encounter [facility] Date(s): 07/29/20 - 08/28/20 [facility] [address] [place] [address]- Attending Physician: Alejandro Lamb Admitting Physician: Alejandro Lamb Referring Physician: AdmAlejandro cooley Allergies, Adverse Reactions, Alerts Substance Reaction Severity [...] 6 09/07/94 Given 1Result Comment: [facility] [id number] [phone] 2[facility]: [facility] 3Admin Note: [...]
--- OUTSIDE RECORDS SUMMARY | 2024-05-22 09:11 | XMS_ITS | Continuity of Care Document ---
Author Organization [facility] Address [address] [place] [address]- Care Team Providers Care Commercial Decorator Name Role Phone Nicholas CRATE ICER, Elisa M Primary Care Physician Encounter [facility] Date(s): 10/05/22 - 11/04/22 [facility] [address] [place] [address]- [place] Allergies, Adverse Reactions, Alerts Substance Reaction [...] 93 Recorded 1Result Comment: [facility] [id number] 2Result Comment: [facility]: [phone] 3Result Comment: [facility] [id number] [phone] 4[facility] 5Admin Note: [...] 0 Refills, Maintenance, 12/17/21 15:33:00 EDT, [place]t, [facility]/pharmacy #[id number], [...] 6 Refills, Maintenance, 11/01/22 10:44:00 EST, [place], [id number], Partial fill upon patient request if the prescription is for aschedule II opioid drug., 1 sprays Nares, Both 2 ti... Start Date: 11/01/22 Status: Ordered Junel Fe By Mouth, Daily, [...] capsule, 1 Refills, Maintenance, 11/01/22 10:45:00 EST, [facility]/pharmacy #[id number], 168, cm, 11/01/22 10:19:00 EST, Height, 64, kg, 10/25/22 12:27:00 EST, Dry Weight Start Date: 11/01/22 Stop Date: 04/30/23 Status: Ordered Xyzal 5 mg oral tablet 1 tablet = 5 mg, By Mouth, Daily in PM, # 90 tablet, 1 Refills, Maintenance, 10/24/22 16:56:00 EST,Tablet, [facility]/pharmacy #[id number], Partial fill [...] Team Personnel Name: Elisa Peterson NP Position: [facility] PCO Associate Professional Member Role: PCP Address: Address: [address] [place] [address] Name: Josette De Anda Position: [facility] RN Member Role: Primary Care Nurse Care Team Related Persons Name: HUBER ORLANDO Address: home [address] [place] [address] Name: HUBER ORLANDO Address: home [address] [place] [address] Name: HUBER ORLANDO Address: home [address] [place] [address] Name: JUAN ORLANDO Address: [place] [address]
--- OUTSIDE RECORDS SUMMARY | 2024-05-22 09:11 | XMS_ITS | Continuity of Care Document ---
Author Organization [facility] Address [address] [place] [address]- Care Team Providers Care Hosiery Operator Name Role Phone Nicholas THERAPY TEACHER, lEisa M Primary Care Physician Encounter [facility] NBR [id number] Date(s): 04/12/23 - 04/19/23 [facility] [address] [address]- Encounter Diagnosis Strep pharyngitis(Discharge Diagnosis) - 04/12/23 GERD (gastroesophageal reflux disease)(Discharge Diagnosis) - 04/12/23 Attending Physician: Keron Jones MD Allergies, Adverse [...] Vaccine 5 05/21/09 Given Varicella Virus Vaccine 3/5/96 Recorded Meningococcal Polysaccharide Vaccine 12/14/07 Give n [...] 93 Recorded 1Result Comment: [facility] 58443-257-87 2Result Comment: [facility]: [id number] 3Result Comment: [facility] [id number] [facility]: [...] 2 Refills, Maintenance, 01/14/23 13:47:00EDT, [facility]/pharmacy #[id number], Partial fill upon patient request if the prescription is for a schedule IIopioid drug., 168, cm, 01/12/23 9:03:00 EDT, Height... Start Date: 01/14/23 Status: Ordered Ativan 0.5 mg oral tablet 1 tablet = 0.5 mg, By Mouth, Daily, MassPat checked, # 5 tablet, 0 Refills, Maintenance, 12/17/21 15:33:00 EDT, Tablet, [facility]/pharmacy #[id number], Partial fill upon patient [...] Gm, 0 Refills, Maintenance, 03/29/23 15:19:00 EDT, [place], [facility]/pharmacy #[id number], Partial fill upon patient [...] 03/29/23 15:20:00 EDT, Route to Pharmacy Electronically, [facility]/pharmacy #[id number], Partial fill upon patient request if the prescription is for a schedule II opioid drug... Start Date: 03/29/23 Status: Ordered magnesium oxide 400 mg oral tablet 1 tablet = 400 mg, By Mouth, Daily, # 30 tablet, 2 Refills, Acute 04/10/24 10:25:00 EDT, 04/10/23 10:25:00 EDT, [facility]/pharmacy #[id number], Partial fill upon patient [...] Effective Dates Health Status Clinical Service Informant Strep pharyngitis Discharge Diagnosis 04/12/23 GERD (gastroesophageal reflux disease) Discharge Diagnosis 04/12/23 Vital Signs Most recent to oldest [Reference Range]: 1 Height 126.8 cm (04/12/23 9:35 AM) Weight 65.4 kg (04/12/23 9:35 AM) Oxygen Saturation [94-100 %] 98 % (04/12/23 9:35 AM) Pulse Rate [55-90 bpm] 66 bpm (04/12/23 9:35 AM) Body Mass Index [18.5-24.99 kg/m2] 40.68 kg/m2 *>HHI* (04/12/23 9:35 AM) Blood Pressure [90-138/55-84 mm Hg] 112/ 68mm Hg (04/12/23 9:35 AM) Respiratory Rate [16-30 br/min] 16 br/mi n (04/12/23 9:35 AM) Temperature [96.8-100.4 DegF] 98.7 DegF (04/12/23 9:35 AM) Mode of Delivery (Oxygen) Room air (04/12/23 9:35 AM) Blood pressure sites Arm, left (04/12/23 9:35 AM) Temperature Route Temporal (04/12/23 9:35 AM) Weight Obtained Via Standing scale (04/12/23 9:35 AM) Social History Social History Type Response Smoking Status Never smoker; Tobacc o user in household: No entered on: 09/26/13 Sex Note * Kiana Bernabe: PERFORM, SIGN, VERIFY Event Display: Patient Education/Instruction Authored Date: [id number] [facility] *BMP Quab Adlt Med Bltn Clinical Summary Name REGULO ORLANDO Age 27 Years 1995 PCP Nicholas THERAPY TEACHER, Elisa Reynaga PCP Visit Date 04/12/2023 09:27:00 Additional Instructions: Scheduled Appointments?? Future Appointments ?*BMP??Quab??Adlt??Med??Bltn ?[address]??[place],??[place],??[address] ?Phone:??--?Fax:??-- ?Appt. Date:??04/17/2023?8:20 AM ?Scheduled Provider:??Nicholas EDGAR , Elisa Reynaga. ?*[facility] ?[address] ?[place],??[place],??[address] ?Phone:??--?Fax:??-- ?Appt. Date:??06/12/2023?10:30 AM ?Scheduled Provider:??Vandana EDGAR, Jade Reynaga Follow-Up Instructions ?? Diagnosis Medications: Please continue your medications until treatment is completed or stopped by your provider. Discuss any questions related to medications with your provider. New Medications [facility]/pharmacy #[id number], [address] [place], [place] [id number], [phone] Cefpodoxime (cefpodoxime 100 mg oral tablet) 1 tab(s) Oral every 12 hours for 5 Days. Refills: 0. Next Dose: Medications to Continue [...] orders Vital Signs Height 126.8 cm Weight 65.4 kg BMI 40.68 kg/m2 Blood Pressure 112 mm Hg/68 mm Hg Temperature 98.7 DegF Pulse Rate 66 bpm Respiratory Rate 16 br/min 02 Sat Mode of Delivery 98 %/Room air You can now view a summary of your hospital visit from the comfort of your home through a free online portal called Ku. Ku is a website that allows you to securely view your medical information including discharge summary, medications and follow-up visits. ??You can alsosend a secure electronic message to your doctor???s office to request appointments, renew medications or just ask a question. You can enroll at [email or web address] or register during your next [...] care provider, you may find a [facility] provider by calling [facility] at [phone]. For information about the plan of care [...] Personnel Name: Giselle SRINIVASAN, Ulysses Thornton Position: [facility] AUTOMOTIVE PARTS ADVISOR MD Member Role: [employer] AUTOMOTIVE PARTS ADVISOR Physician Address: Address: [address] [place] [address] [facility] [address] Name: Elisa Peterson NP Position: [facility] PCO Associate Professional Member Role: PCP Address: Address: [address] [place] [id number] Name: Josette Bhardwaj [place] Position: [facility] RN Member Role: Primary Care Nurse Care Team Related Persons Name: JOHANNY HUBER Address: home [address] [place] [id number] Name: HUBER ORLANDO Ronnell Address: home [address] [place] [address] Name: HUBER ORLANDO Address: home [address] [place] [address] Name: JUAN ORLANDO Address: home [address]
--- OUTSIDE RECORDS SUMMARY | 2024-05-22 09:11 | XMS_ITS | Continuity of Care Document ---
Author Organization [facility] Address [address] [place] [address]- Care Team Providers Care Extrusion Engineer Name Role Phone Nicholas SUPERINTENDENT, Elisa M Primary Care Physician Encounter [facility] NBR [id number] Date(s): 09/21/23 - 10/21/23 [facility] [address] [address]- [place] Allergies, Adverse Reactions, Alerts Substance Reaction [...] Recorded 1Result Comment: [facility] [id number] 2Result Comment: [facility]: [id number] 3Result Comment: [facility] [phone] 4[facility] 5Admin Note: [...] 0 Refills, Soft Stop, 09/20/23 10:02:00 EST, [facility]/pharmacy #[id number], Partial fill upon patient request if the prescription is for a schedule II opioid drYumiko. Start Date: 09/20/23 Status: Ordered fluticasone 27.5 mcg/inh nasal spray 1 sprays, Nares, Both, Daily, PRN Cold Symptoms, # 10 Gm, 0 Refills, Maintenance, 07/24/23 15:00:00EST, [place], [facility]/pharmacy #[id number], Partial fill upon patient request if the prescription is for a schedule II opioid drug., 1 sprays Nares, Both Daily,PRN... Start Date: 07/24/23 Status: Ordered omeprazole 20 mg oral enteric coated capsule 1 capsule, By Mouth, 2 times a day, # 180 capsule, 1 Refills, Maintenance, 06/24/23 16:07:00 EDT, [facility] STORE [id number], 165.1, cm, 06/12/23 14:42:00 EDT, Height, 64.3, kg, 05/19/23 19:22:00 EDT, Dry Weight Start Date: 06/24/23 Status: Ordered Xyzal 5 mg oral tablet 1 tablet = 5 mg, By Mouth, Daily in PM, # 30 tablet, 6 Refills, Maintenance, 08/30/23 14:06:00 EST,Tablet, [facility]/pharmacy #[id number], Partial fill [...] Personnel Name: Giselle SRINIVASAN, Ulysses Thornton Position: [facility] AIRCRAFT CYLINDER MECHANIC MD Member Role: [employer] AIRCRAFT CYLINDER MECHANIC Physician Address: Address: [address] [place] [address] [place] [address]- Name: Elisa Peterson NP Position: [facility] PCO Associate Professional Member Role: PCP Address: Address: [address] [place] [id number]- Name: Josette Bhardwaj [place] Position: [facility] RN Member Role: Primary Care Nurse Care Team Related Persons Name: HUBER ORLANDO Address: home [address] [place] [id number] Name: JOHANNY HUBER M Address: home [address] [place] [id number] Name: JOHANNY HUBER Ronnell Address: home [address] [place] [id number] Name: JUAN ORLANDO Address: home [address] [address]
--- OUTSIDE RECORDS SUMMARY | 2024-05-22 09:11 | XMS_ITS | Continuity of Care Document ---
Author Organization [facility] Address [address] [place] [id number]- Care Team Providers Care Enterostomal Therapy Nurse Name Role Phone Nicholas EDGAR, Elisa Reynaga Primary Care Physician Encounter [facility] Date(s): 05/21/24 - 05/21/[address] [address]- Discharge Disposition: A-D/C Home Attending Physician: Enrico [...] Recorded tetanus/diphtheria/pertussis, acel(Tdap) 01/26/17 Given tetanus/diphtheria/pertussis, acel(Tdap) 3/21/06 Given Varicella Virus Vaccine 5 05/21/09 Given [...] Recorded 1Result Comment: [facility] [id number] 2Result Comment: [facility]: [id number] 3Result Comment: [facility] [id number] 4Location History: [facility] 5Admin Note: 1st dove 11/21/1995 2nd done [...] 01/29/24 14:53:00 EDT, Route to Pharmacy Electronically, [facility]/pharmacy #[id number], Partial fill upon patient request if the prescription i... Start Date: 01/29/24 Status: Ordered clindamycin 1% topical gel 1 application, Topically, Daily at bedtime, apply a thin film apply a thin film to affected area after washing, # 30 Gm, 6 Refills, Maintenance, 04/24/24 13:02:00 EDT, Gel, [facility]/pharmacy #[id number], Partial fill upon patient request if the prescription is... Start Date: 04/24/24 Stop Date: 11/20/24 Status: Ordered famotidine 40 mg oral tablet [...] 4 Refills, Maintenance, 05/09/24 8:32:00 EDT, Tablet, [facility]pharm[facility] #[id number], Partial fill upon patient request if the prescription is for a schedule II opioid drug., 1 tablet By Mouth Daily, 168, cm, 05/09/24 8:15:... Start Date: 05/09/24 Status: Ordered methocarbamol 500 mg oral tablet 1 tablet = 500 mg, By Mouth, 4 times a day, for 7 days, # 28 tablet, 0 Refills, Acute 05/24/24 15:05:00 EDT, 05/17/24 15:05:00 EDT, Tablet, [id number], Partial fill upon patient request if the prescription is for a schedule II opioid drug., 16... Start Date: 05/17/24 Stop Date: 05/24/24 Status: Ordered omeprazole 20 mg oral delayed release tablet 1 tablet = 20 mg, By Mouth, 2 times a day, # 30 tablet, 0 Refills, Maintenance, 05/21/24 8:50:00 EDT, [facility] Tablet, Partial fill upon patient request if the prescription is for a schedule II opioid drug. Start Date: 05/21/24 Status: Ordered predniSONE 50 mg oral tablet 1 tablet = 50 mg, By Mouth, Daily, for 7 days, # 7 tablet, 0 Refills, Acute 05/28/24 13:19:00 EDT, 05/21/24 13:19:00 EDT, Tablet, [id number], Partial fill upon patient request if the prescription is for a schedule II opioid drug., 168, cm, .. Start Date: 05/21/24 Stop Date: 05/28/24 Status: Ordered Voltaren Arthritis Pain 1% topical [...] [Reference Range]: 1 2 Height 168 cm (05/21/24 12:22 PM) 168 cm (05/21/24 10:41 AM) Weight 59.7 kg (05/21/24 10:41 AM) Oxygen Saturation [94-100 %] 100 % (05/21/24 12:22 PM) 100 % (05/21/24 10:41 AM) Pulse Rate [55-90 bpm] 65 bpm (05/21/24 12:22 PM) 67 bpm (05/21/24 10:41 AM) Blood Pressure [90-138/55-84 mm Hg] 119/ 80mm Hg (05/21/24 12:22 PM) 118/85mm Hg (05/21/24 10:41 AM) Respiratory Rate [16-30 br/min] 18 br/mi n (05/21/24 10:41 AM) Temperature [96.8-100.4 DegF] 97.8 DegF (05/21/24 10:41 AM) Mode of Delivery (Oxygen) Room air (05/21/24 12:22 PM) Room air (05/21/24 10:41 AM) Blood pressure sites Arm, left (05/21/24 12:22 PM) Temperature Route Temporal (05/21/24 10:41 AM) Dry Weight 59.7 kg (05/21/24 10:41 AM) Social History Social History Type Response Smoking Status Never smoker; Tobacc o user in household: No entered on: 09/26/13 Sex Note * Saji Colindres: PERFORM Event Display: Patient Education Leaflets Authored Date: [id number] Constipation (Adult) ?? [id number] Constipation (Adult) Constipation means that you have bowel movements that are less frequent than usual. Stools often become very hard and difficult to pass. Constipation is very common. At some point in life, it affects almost everyone. Since everyone's bowel habits are different, what is constipation to one person may not be to another. Your healthcare provider may do tests to diagnose constipation. It depends on what??they??find when evaluating you. Symptoms of constipation include: ??? Abdominal pain ??? Bloating ??? Vomiting ??? Painful bowel movements ??? Itching, swelling, bleeding, or pain around the anus Causes Constipation can have many causes. These include: ??? Diet low in fiber ??? Too much dairy ??? Not drinking enough liquids ??? Lack of exercise or physical activity (especially true for older adults)??? Changes in lifestyle or daily routine, including , aging, work, and travel ??? Frequent use or misuse of laxatives ??? Ignoring the urge to have a bowel movement or delaying it until later ??? Medicines, such as certain prescription pain medicines, iron supplements, antacids, certain antidepressants, and calcium supplements ??? Diseases like irritable bowel syndrome, bowel obstructions, stroke, diabetes, thyroid disease, Parkinson disease, hemorrhoids, and colon cancer ?? Complications Possible complications of constipation can include: ??? Hemorrhoids ??? Rectal bleeding from hemorrhoids or anal fissures??(skin tears) ??? Hernias ??? Chronic constipation ??? Fecal impaction, a severe form of constipation in which a large amount of hard stool is in your rectum that you can't pass??? Bowel obstruction or perforation ?? Home care All treatment should be done after talking with your healthcare provider. This is especially true if you have another medical problem, are taking prescription medicines, or are an older adult. Treatment most often involves lifestyle changes. You may also need medicines. Your healthcare provider will tell you which will work best for you. Follow the advice below to help avoid this problem in the future. ?? Lifestyle changes These lifestyle changes can help prevent constipation: ??? Diet. Eat a high- fiber diet, with fresh fruit and vegetables, and reduce dairy intake, meats, and processed foods ??? Fluids. It's importantto get enough fluids each day. Drink plenty of water when you eat more fiber. If you are on diet that limits the amount of fluid you can have, talk about this with your healthcare provider. ??? Regular exercise. Check with your healthcare provider first. ?? Medicines Take any medicines as directed. Some laxatives are safe to use only every now and then. Others can be taken on a regular basis. While laxatives don't cause bowel dependence, they are treating the symptoms. So your constipation may return if you don't make other changes. Talk with your healthcare provider or pharmacist if you have questions. Prescription pain medicines can cause constipation. If you are taking this kind of medicine, ask your healthcare provider if you should also take a stool softener. Medicines you may take to treat constipation include: ??? Fiber supplements ??? Stool softeners ???Laxatives ??? Enemas ??? Rectal suppositories ?? Follow-up care Follow up with your healthcare provider if symptoms don't get better in the next few days. You may need to have more tests or see a specialist. ?? Call 911 Call 911 if any of these occur: ??? Trouble breathing ??? Stiff, rigid abdomen that is severely painful to touch ??? Large amount of blood in the stool ??? Confusion ??? Fainting or loss of consciousness ??? Rapid heart rate ??? Chest pain ?? When to seek medical advice Call your healthcare provider right away if any of these occur: ??? Fever of 100.4??F (38??C) or higher, or as directed by your healthcare provider ??? Failure to resume normal bowel movements ??? Pain in your abdomen or back gets worse ??? Nausea or vomiting ??? Swelling in your abdomen ??? Small amount of blood in the stool ??? Black, tarry stool ??? Involuntary weight loss ??? Weakness ?? Last Reviewed Date: 2021 ?? [employer] All rights reserved. This information is not intended as a substitute for professional medical care. Always follow your healthcare professional's instructions. ?? * Saji Colindres: PERFORM Event Display: Patient Education Leaflets Authored Date: [id number] Myalgias ?? [id number] Myalgias Myalgias are another word for??muscle aches and soreness.??This is a symptom, not a disease.??Myalgias can have many causes.??A cold, the flu,??fever, or any infection can cause them.??They may happen after heavy exercise or injury, such as an accident or fall.??Some medicines such as statins, someantidepressants, and cancer treatments can cause myalgias.??They can also be a symptom of long-term(chronic) health problems such as cancer, lupus,??chronic fatigue, rheumatoid arthritis, or hypothyroidism. With these illnesses, other serious symptoms often occur with muscle pain and soreness. Myalgias most often go away on their own. If they don't go away, or they come back or are severe, you may need tests to help find the cause. Home care ??? Rest until you feel better. ??? Follow instructions that you were given for how to care for yourself. This may depend on the cause of your myalgias. ??? If myalgia is thought to be caused by a medicine, talk with the healthcare provider who prescribed the medicine about what to do. ??? To control pain, take prescription or dtkp-hzq-yceyelk medicines as directed. Unless told not to,??you can try acetaminophen or ibuprofen. ?? Follow-up care Follow up with your healthcare provider or as advised. If your symptoms don't go away in a few daysor if they come back, follow up with your provider for an exam and testing. ?? When to get medical advice Call your healthcare provider right away if you have any of these: ??? Fever of??100.4??F (38??C)??or higher, or as advised by your provider ??? Pain that gets worse, or pain that goes away and comesback ??? New joint pain ??? New rash ??? Severe headache, neck pain, drowsiness, or confusion ?? Last Reviewed Date: 2022 ?? [id number] [employer] All rights reserved. This information is not intended as a substitute for professional medical care. Always follow your healthcare professional's instructions. ?? * Saji Colindres: PERFORM Event Display: Patient Education Leaflets Authored Date: [id number] General Neck and Back Pain ?? [id number] General Neck and Back Pain Both neck and back pain are usually caused by injury to the muscles or ligaments of the spine. Sometimes the disks that separate each bone of the spine may cause pain by pressing on a nearby nerve. Back and neck pain may appear after a sudden twisting or bending force (such as in a car accident), or sometimes after a simple awkward movement. In either case, muscle spasm is often present and adds to the pain. Acute neck and back pain usually gets better in 1 to 2 weeks. Pain related to disk disease, arthritis in the spinal joints, or narrowing of the spinal canal (spinal stenosis) can become chronic and last for months or years. Back and neck pain are common problems. Most people feel better in 1 or 2 weeks, and most of the rest in 1 to 2 months. Most people can stay active. People have and??describe pain differently. ??? Pain can be sharp, stabbing, shooting, aching, cramping, or burning. ??? Movement, standing, bending, lifting, sitting, or walking may worsen the pain. ??? Pain can be limited to 1 spot or area, or it can be more generalized. ??? Pain can spread upward, downward, to the front, or go down your arms or legs. ??? Muscle spasm may occur. Most of the time, mechanical problems with the muscles or spine cause the pain. It's usually causedby an injury, whether known or not, to the muscles or ligaments. Pain without an injury is not common. But it can sometimes be caused by a health problem such as kidney stones or an infection. Pain is usually related to physical activity such as sports, exercise, work, or normal activity. Sometimesit can occur without an identifiable cause. This can happen simply by stretching or moving wrong, without noting pain at the time. Other causes include: ??? Overexertion, lifting, pushing, pulling incorrectly or too aggressively. ??? Sudden twisting, bending or stretching from an accident (car or fall), or accidental movement. ??? Poor posture ??? Poor conditioning, lack of regular exercise ??? Spinal disc disease or arthritis ??? Stress ??? , or illness like appendicitis, bladder or kidney infection, pelvic infections ??Home care ??? For??neck pain:??Use a comfortable pillow that supports the head and keeps the spine in a neutral position. The position of the head should not be tilted forward or backward. ??? Whenin bed, try to find a comfortable position. A firm mattress is best. Try lying flat on your back with pillows under your knees. You can also try lying on your side with your knees bent up toward yourchest and a pillow between your knees. ??? At first, don't try to stretch out the sore spots. If there's a strain, it's not like the good soreness you get after exercising without an injury. In this case, stretching may make it worse. ??? Don't sit for long periods, as in??long car rides or??other travel. This puts more stress on the low back than standing or walking. ??? During the first 24 to 72 hours after an injury, apply an ice pack to the painful area for 20 minutes and then remove it for20 minutes over a period of 60 to 90 minutes or several times a day.? You can alternate ice and heat therapies. Talk with your healthcare provider about the best treatment for your back or neck pain. As a safety measure, don't use a heating pad at bedtime. Sleeping with a heating pad can lead to skin guerrero or tissue damage. ??? Therapeutic massage can help relax the back and neck muscles without stretching them. ??? Be aware of safe lifting methods. Don't lift anything over 15 pounds untilall the pain is gone. ?? Medicines Talk to your healthcare provider before using medicine, especially if you have other health problems or are taking other medicines. ??? You may use ybiy-yek-nouwzab medicine to control pain, unless another pain medicine was prescribed. Talk with your provider first if you have chronic conditions like diabetes, liver or kidney disease, stomach ulcers, gastrointestinal bleeding, or are taking bloodthinner medicines. ??? Be careful if you're given pain medicines, narcotics, or medicine for musclespasm. They can cause drowsiness. It can affect your coordination, reflexes, and judgment. Don't drive or operate heavy machinery. ?? Follow-up care Follow up with your healthcare provider as advised. You may need physical therapy or more tests. If X-rays were taken, you'll be told of any new findings that may affect your care. ?? Call 911 Call 911 if any of these occur: ??? Trouble breathing ??? Confusion ??? Very drowsy or trouble waking up ??? Fainting or loss of consciousness ??? Very fast or very slow heart rate ??? Loss of bowel or bladder control ?? When to get medical advice Call your healthcare provider right away if any of these occur: ??? Pain gets worse or spreads intoyour arms or legs ??? Weakness, numbness, or pain in 1 or both arms or legs ??? You have changes inbowel or bladder function ??? Numbness in the groin area ??? Trouble walking ??? Fever of 100.4??F (38??C) or higher, or as advised by your provider ?? Last Reviewed Date: 2022 ?? [id number] [employer] All rights reserved. This information is not intended as a substitute for professional medical care. Always follow your healthcare professional's instructions. ?? Patient Care team information Care Team Personnel Name: Ulysses Desai MD Position: [facility] [employer] MD Member Role: [employer] Physician Address: Address: [address] [place] [address] [place] [address]- [place] Name: Elisa Peterson NP Position: [facility] [employer] Associate Professional Member Role: PCP Address: Address: [address] [place] [id number]- Name: Josette Bhardwaj [place] Position: [facility] Office Staff Member Role: Primary Care Nurse Care Team Related Persons Name: JOHANNY HUBER Address: home [address] [place] [id number] Name: JOHANNY HUBER M Address: home [address] [place] [address] Name: HUBER ORLANDO Address: home [address] [place] [address] Name: JUAN ORLANDO Address: home [address] [address]
--- OUTSIDE RECORDS SUMMARY | 2024-05-22 09:11 | XMS_ITS | Continuity of Care Document ---
Author Organization [facility] Address [address] [place] [address]- Care Team Providers Care School Janitor Name Role Phone Nicholas STREET SWEEPER OPERATOR, Elisa M Primary Care Physician Encounter [facility] Date(s): 12/30/23 - 12/31/[address] [address]- Discharge Disposition: A-D/C Home Attending Physician: Aiyana [...] pediatric vaccine 93 Recorded 1Result Comment: [facility] 17437-815-97 2Result Comment: [facility]: [id number] 3Result Comment: [facility] [id number] [facility] 5Admin Note: 1st dove 11/21/1995 2nd done 05/21/2009 6Admin Note: 1st done 12/13/2006 2nd done 02/14/2007 3rd done 06/19/2007 7Admin Note: 1st done 02/24/1995 2nd done 11/30/1998 8Admin Note: 1st done 1993 2nd done 1993 3rd done 09/07/1994 Medications cyclobenzaprine 5 mg oral tablet See Instructions, PRN Pain , Severe, Take 1 to 2 tablets by mouth up to every 8 hours as needed forpain. Do not drive, operate machinery, or drink alcohol while on this medication., # 15 tablet, 0 Refills, Acute 01/03/24 12:39:00 EDT, 12/29/23 12:38... Start Date: 12/29/23 Stop Date: 01/03/24 Status: Ordered ibuprofen 600 mg oral tablet 600 mg, 1, tablet, By Mouth, Daily, PRN, Take with food. Take sparingly, # 20 tablet, Refills 0, Tot. Refills 0, Acute 02/17/24 8:00:00 EDT, Headache, 12/26/23 16:09:00 EDT, Route to Pharmacy Electronically, [facility]/pharmacy #[id number], Partial fill upon patie... Start Date: [...] Refills, Maintenance, 06/24/23 16:07:00 EDT, [id number], 165.1, cm, 06/12/23 14:42:00 EDT, Height, 64.3, kg, 05/19/23 19:22:00 EDT, Dry Weight Start Date: 06/24/23 Status: Ordered predniSONE 50 mg oral tablet 1 tablet = 50 mg, By Mouth, Daily, for 4 days, To start the morning of 01/01/24, # 4 tablet, 0 Refills, Acute 01/04/24 1:48:00 EDT, 12/31/23 1:48:00 EDT, [id number], Partial fill upon patient request if the prescription is for a schedul... Start Date: 12/31/23 Stop Date: 01/04/24 Status: Ordered Xyzal 5 mg oral tablet [...] [Reference Range]: 1 2 Height 168 cm (12/31/23 1:52 AM) 168 cm (12/30/23 10:34 PM) Weight 63.7 kg (12/31/23 1:52 AM) 63.7 kg (12/30/23 10:34 PM) Oxygen Saturation [94-100 %] 98 % (12/31/23 1:52 AM) 100 % (12/30/23 10:34 PM) Pulse Rate [55-90 bpm] 65 bpm (12/31/23 1:52 AM) 77 bpm (12/30/23 10:34 PM) Body Mass Index [18.5-24.99 kg/m2] 22.57 kg/m2 (12/31/23 1:52 AM) Blood Pressure [90-138/55-84 mm Hg] 115/ 85mm Hg (12/31/23 1:52 AM) 136/96mm Hg (12/30/23 10:34 PM) Respiratory Rate [16-30 br/min] 14 br/mi n *L* (12/31/23 1:52 AM) 16 br/min (12/30/23 10:34 PM) Temperature [96.8-100.4 DegF] 98.2 DegF (12/30/23 10:34 PM) Mode of Delivery (Oxygen) Room air (12/31/23 1:52 AM) Room air (12/30/23 10:34 PM) Blood pressure sites Arm, left (12/31/23 1:52 AM) Arm, left (12/30/23 10:34 PM) Temperature Route Oral (12/30/23 10:34 PM) Dry Weight 63.7 kg (12/31/23 1:52 AM) 63.7 kg (12/30/23 10:34 PM) Weight Obtained Via Standing scale (12/30/23 10:34 PM) Dry Weight Obtained Via Standing scale (12/30/23 10:34 PM) Social History Social History Type Response Smoking Status Never smoker; Tobacc o user in household: No entered on: 09/26/13 Sex Note * Nathan SRINIVASAN, Aiyana Charles: PERFORM Event Display: Patient Education Leaflets Authored Date: [id number] Prednisone Oral Tablet ?? [id number] Prednisone Oral Tablet Brands: Deltasone Uses This [...] about all medicines taken. Include prescription and pyfz-mer-lsqzypj medicines, vitamins, and herbal medicines. Speak with [...] to a medicine. This medicine may cause bleeding from the stomach or bowels. Stop this medicine and call your doctor right away if you have pain in the stomach, red or dark tarry stools, or vomit that looks like coffee grounds. Do not use the medication any more [...] have any questions about this medicine. ?? [email or web address].[email or web address]/fdbpem/9383 IMPORTANT NOTE: This document tells you briefly how to take your medicine, but it does not tell youall there is to know about it. Your doctor or pharmacist may give you other documents about your medicine. Please talk to them if you have any questions. Always follow their advice. There is a more complete description of this medicine available in Italian. Scan this code on your smartphone or tablet or use the web address below. You can also ask your pharmacist for a printout. If you have any questions, please ask your pharmacist. The display and use of this drug information is subject to Terms of Use. Copyright(c) 2022 [employer]. ?? [employer]. All rights reserved. This information is not intended as a substitute for professional medical care. Always follow your healthcare professional's instructions. ?? * Nathan SRINIVASAN, Aiyana Charles: PERFORM Event Display: Patient Education Leaflets Authored Date: [id number] Reaction to Medicine (Other Type) ?? [id number] Reaction to Medicine (Other Type) You are having a reaction to a medicine you have taken.??This may not be the same as an allergic reaction. It's an unwanted side effect of a medicine.??This can cause many symptoms, such as: ??? Dizziness or headache ??? Rash ??? Flushing or a hot feeling ??? Nausea, vomiting, or stomach pain ??? Diarrhea or constipation ??? Trouble breathing ??? High or low blood pressure ??? Dark urineor blood in urine A reaction can be an upset stomach from something such as aspirin or ibuprofen. It can also be feeling faint after taking a blood pressure medicine, feeling anxious, and many other things. Symptoms can range from very mild to very severe. In most cases, the reaction goes away in 1 to 12 hours. But it will likely happen again if you takethis same medicine. Your healthcare provider will advise you if you need to??change how much, when,or how often you take this medicine.??They may also advise you to stop using this medicine. Or yourprovider may have you switch to another one.?? Home care ??? Another medicine may be advised??to reduce your symptoms. You'll take it until the medicine???s effect wears off. Follow your healthcare provider???s advice. ??? When the medicine???s effect has worn off, there should be no more problems if you don't take the same medicine again.? Ask your provider if you should also stay away from similar medicines. Write down the information so you will remember it. ??? Be sure the medicine reaction is put into your health record. ?? Follow-up care Follow up with your healthcare provider, or as advised if your symptoms are not better in 24 hours. ?? When to get medical advice Call your healthcare provider right away if any of these occur: ??? New symptoms??that worry you ??? Your current symptoms get worse,??including rash or facial swelling ??? Symptoms are not eased by the treatment advised ??? Fever of 100.4??F??(38??C) or higher, or as advised by your provider ??? Chills ?? Call 911 Call 911 if any of these occur: ??? Trouble breathing or swallowing, or wheezing ??? Hoarse voice or trouble speaking ??? Confusion ??? Extreme drowsiness??or trouble waking up ??? Fainting or loss of consciousness ??? Fast or slow heart rate ??? Very low or very high blood pressure ??? Vomiting blood, or large amounts of blood in stool ??? Seizure ?? Last Reviewed Date: 2022 ?? 1405-5373 The [employer]. All rights reserved. This information is not intended as a substitute for professional medical care. Always follow your healthcare professional's instructions. ?? Patient Care team information Care Team Personnel Name: Ulysses Desai MD W Position: [facility] INDEPENDENT DISTRIBUTOR MD Member Role: Lifetime INDEPENDENT DISTRIBUTOR Physician Address: Address: [address] [place] [address] [facility] [place] [address]- Name: Elisa Peterson NP Position: [facility] PCO Associate Professional Member Role: PCP Address: Address: [address] [place] [address]- Name: Josette Bhardwaj [place] Position: [facility] RN Member Role: Primary Care Nurse Care Team Related Persons Name: JOHANNYHUBER Address: home [address] [place] [address] Name: JOHANNY HUBER M Address: home [facility] Name: JOHANNY HUBER Ronnell Address: home [facility] Name: JUAN ORLANDO Address: home [address]
--- OUTSIDE RECORDS SUMMARY | 2024-05-22 09:11 | XMS_ITS | Continuity of Care Document ---
Author Organization [facility] Address [address] [facility], [address] d Floor, [address] [place] [address]- Care Team Providers Care Trade Union Official Name Role Phone Mary Ellen SRINIVASAN, Anitha Primary Care Physician Encounter [facility] Date(s): 11/06/19 - 11/13/19 [facility] [address], [address] Floor, [address] [place] [address]- [facility] Attending Physician: Jacki Tucker MD Allergies, Adverse [...] Comment: [facility] [id number] [phone] 2[facility] 3Admin Note: [...] 1 Refills, Maintenance, 10/11/19 14:31:00 EST, Tablet, [facility]/pharmacy #[id number], 168, cm, 10/11/19 13:21:00 EST, Height, 64, kg, 09/08/19 14:41:00 ES... Start Date: 10/11/19 Status: Ordered sertraline 25 mg oral tablet 1 tablet = 25 mg, By Mouth, Daily, # 30 tablet, 5 Refills, Maintenance, 11/05/19 14:45:00 EST, Tablet, [facility]/pharmacy #[id number], 168, cm, 10/14/19 13:34:00 EST, Height, [...]
--- OUTSIDE RECORDS SUMMARY | 2024-05-22 09:11 | XMS_ITS | Continuity of Care Document ---
Author Organization [facility] Address [address] [place] [address]- Care Team Providers Care Drive In Teller Name Role Phone Nicholas GLAZE MIXER, Elisa M Primary Care Physician Encounter [facility] [id number] Date(s): 12/14/23 - 01/13/24 [facility] [facility] [address] [address]- [place] Allergies, Adverse Reactions, Alerts Substance Reaction [...] B pediatric vaccine 93 Recorded 1Result Comment: [facility] [id number] 2Result Comment: [facility]: [id number] 3Result Comment: [facility] [id number] [phone] 4[facility] 5Admin Note: [...] 0:16:00 EDT, Route to Pharmacy Electronically, [facility]/pharmacy #[id number], Partial fill upon patient request if the prescrip... Start Date: 01/09/24 Status: Ordered ibuprofen 600 mg oral tablet 600 mg, 1, tablet, By Mouth, Daily, PRN, Take with food. Take sparingly, # 20 tablet, Refills 0, Tot. Refills 0, Acute 02/17/24 8:00:00 EDT, Headache, 12/26/23 16:09:00 EDT, Route to Pharmacy Electronically, [facility]/pharmacy #[id number], Partial fill upon patie... Start Date: [...] Refills, Maintenance, 06/24/23 16:07:00 EDT, [facility], 165.1, cm, 06/12/23 14:42:00 EDT, Height, 64.3, [...] Personnel Name: Ulysses Desai MD W Position: [facility] WATERPROOFER HELPER MD Member Role: Lifetime WATERPROOFER HELPER Physician Address: Address: [address] [place] [address] [place] [address]- Name: Elisa Peterson NP Position: [facility] PCO Associate Professional Member Role: PCP Address: Address: [address] [place] [address]- Name: Josette Bhardwaj [place] Position: [facility] RN Member Role: Primary Care Nurse Care Team Related Persons Name: HUBER ORLANDO Address: home [address] [place] [address] Name: HUBER ORLANDO Address: home [address] [place] [address] Name: HUBER ORLANDO Address: home [address] [place] [address] Name: JUAN ORLANDO Address: [place] [address]
--- OUTSIDE RECORDS SUMMARY | 2024-05-22 09:11 | XMS_ITS | Continuity of Care Document ---
Author Organization [facility] [employer] [facility] Address [address] [place] [address]- Care Team Providers Care Four Slide Operator Name Role Phone Elisa Peterson NP Primary Care Physician Encounter [facility] Date(s): 02/01/21 - 02/08/21 [facility] [employer] [facility] [address] [place] [address]- Encounter Diagnosis Sinusitis(Discharge Diagnosis) - 02/01/21 Headache(Discharge Diagnosis) - 02/01/21 Neck pain(Discharge Diagnosis) - 02/01/21 Anxiety(Discharge Diagnosis) - 02/01/21 Attending Physician: Elisa Peterson NP Allergies, Adverse [...] Given 1Result Comment: [facility] [id number] 2[facility] 3Admin Note: [...] Gm, 0 Refills, Maintenance, 01/29/21 20:47:00 EDT, [place], [facility]/pharmacy #[id number], Partial fill upon patient request if the prescription is for a schedule II opioid drug., 1 sprays Nares, Both 2 times a day, 168,... Start Date: 01/29/21 Status: Ordered loratadine 10 mg oral capsule 1 capsule = 10 mg, By Mouth, Daily, # 24 capsule, 0 Refills, Maintenance, 01/29/21 20:47:00 EDT, Capsule, [facility]/pharmacy #[id number], Partial [...] Dates Health Status Clini khushboo Service Informant Sinusitis Discharge Diagnosis 02/01/21 Headache Discharge Diagnosis 02/01/21 Neck pain Discharge Diagnosis 02/01/21 Anxiety Discharge Diagnosis 02/01/21 Vital Signs Most recent to oldest [Reference Range]: 1 Height 168 cm (02/01/21 7:09 AM) Weight 60.5 kg (02/01/21 7:09 AM) Oxygen Saturation [94-100 %] 98 % (02/01/21 7:09 AM) Pulse Rate [55-90 bpm] 80 bpm (02/01/21 7:09 AM) Body Mass Index [18.5-24.99] 21.44 (02/01/21 7:09 AM) Blood Pressure [90-138/55-84 mm Hg] 104/ 64mm Hg (02/01/21 7:09 AM) Respiratory Rate [16-30 br/min] 16 br/mi n (02/01/21 7:09 AM) Temperature [96.8-100.4 DegF] 98.0 DegF (02/01/21 7:09 AM) Mode of Delivery (Oxygen) Room air (02/01/21 7:09 AM) Blood pressure sites Arm, left (02/01/21 7:09 AM) Temperature Route Temporal (02/01/21 7:09 AM) Weight Obtained Via Standing scale (02/01/21 7:09 AM) Social History Social History Type Response Smoking Status Never smoker; Tobacc o user in household: No entered on: 09/26/13 Sex
--- OUTSIDE RECORDS SUMMARY | 2024-05-22 09:11 | XMS_ITS | Continuity of Care Document ---
Author Organization [facility] Address [address] [place] [address]- Care Team Providers Care Post Doctoral Fellow Name Role Phone Mary Ellen SRINIVASAN, Anitha Primary Care Physician ( [phone] Encounter [facility] Date(s): 10/14/19 - 10/24/19 [facility] [address] [place] [address]- [facility] Attending Physician: AdmAlejandro cooley Admitting Physician: AdmtrAlejandro [...] 09/07/94 Given 1Result Comment: [facility] [id number] 2[facility] 3Admin Note: 1st dove 11/21/1995 2nd done 05/21/2009 4Admin Note: 1st done 12/13/2006 2nd done 02/14/2007 3rd done 06/19/2007 5Admin Note: 1st done 02/24/1995 2nd done 11/30/1998 6Admin Note: 1st done 1993 2nd done 1993 3rd done 09/07/1994 Medications LORazepam 0.5 mg oral tablet 1 tablet = 0.5 mg, By Mouth, 2 times a day, PRN as needed for anxiety, # 10 tablet, 0 Refills, Acute 11/07/19 14:03:00 EST, 10/14/19 14:03:00 EST, Tablet, [facility]/pharmacy #[id number], 168, cm, 10/14/19 13:34:00 EST, Height, 64, kg, 09/08/19 14:41:00 EST, Dry W... Start Date: 10/14/19 Stop Date: 11/07/19 Status: Ordered naratriptan 2.5 mg oral tablet 1 tablet = 2.5 mg, By Mouth, Daily, PRN for migraine headache, may repeat dose once in 4 hours, # 9tablet, 1 Refills, Maintenance, 10/11/19 14:31:00 EST, Tablet, [facility]/pharmacy #[id number], 168, cm, 10/11/19 13:21:00 EST, Height, 64, kg, 09/08/19 14:41:00 ES... Start Date: 10/11/19 Status: Ordered sertraline 25 mg oral tablet 1 tablet = 25 mg, By Mouth, Daily, # 30 tablet, 1 Refills, Maintenance, 10/14/19 14:02:00 EST, Tablet, [facility]/pharmacy #[id number], 168, cm, 10/14/19 13:34:00 EST, Height, 64, kg, 09/08/19 14:41:00 EST, Dry Weight Start Date: 10/14/19 Stop Date: 12/13/19 Status: Ordered Taytulla 1 mg-20 mcg oral [...]
--- OUTSIDE RECORDS SUMMARY | 2024-05-22 09:11 | XMS_ITS | Continuity of Care Document ---
Author Organization [facility] Address [address] [place] [address]- Care Team Providers Care Starch Crab Name Role Phone Mary Ellen SRINIVASAN, Anitha Primary Care Physician Encounter [facility] Date(s): 04/05/20 - 04/05/[address] [address]- [facility] Discharge Disposition: A-D/C Home Attending Physician: Jesse Magallanes MD Admitting Physician: Jesse Magallanes MD Referring Physician: Not on Staff, [...] term) 6 09/07/94 Given 1Result Comment: [facility] [id number] 2[facility] 3Admin Note: 1st dove 11/21/1995 2nd done 05/21/2009 4Admin Note: 1st done 12/13/2006 2nd done 02/14/2007 3rd done 06/19/2007 5Admin Note: 1st done 02/24/1995 2nd done 11/30/1998 6Admin Note: 1st done 1993 2nd done 1993 3rd done 09/07/1994 Medications hydrOXYzine hydrochloride 50 mg oral tablet 1 tablet = 50 mg, By Mouth, 4 times a day, PRN for anxiety, # 15 tablet, 0 Refills, Acute 04/13/20 22:14:00 EDT, 04/05/20 22:14:00 EDT, [id number], 165, cm, 04/05/20 21:57:00 EDT, Height, 60.45, kg, 04/05/20 20:20:00 EDT, Dry Weight Start Date: 04/05/20 Stop Date: 04/13/20 Status: Ordered Lo Loestrin Fe By Mouth, [...] 03/23/20 Stop Date: 09/19/20 Status: Ordered Nasal Luning Nasal Luning, Refills 0, Maintenance, 04/05/20 20:23:00 EDT, Supply [...] Range]: 1 2 3 Height 165 cm (04/05/20 10:39 PM) 165 cm (04/05/20 9:57 PM) 165 cm (04/05/20 8:20 PM) Weight 60.45 kg (04/05/20 10:39 PM) 60.45 kg (04/05/20 8:20 PM) 60.45 kg (04/05/20 8:09 PM) Oxygen Saturation [94-100 %] 100 % (04/05/20 10:39 PM) 99 % (04/05/20 9:30 PM) 100 % (04/05/20 8:09 PM) Pulse Rate [55-90 bpm] 83 bpm (04/05/20 10:39 PM) 85 bpm (04/05/20 9:30 PM) 87 bpm (04/05/20 8:09 PM) Body Mass Index [18.5-24.99] 22.2 (04/05/20 10:39 PM) 22.2 (04/05/20 8:09 PM) Blood Pressure [90-138/55-84 mm Hg] 124/89mm Hg (04/05/20 10:39 PM) 120/80mm Hg (04/05/20 9:30 PM) 138/95mm Hg (04/05/20 8:09 PM) Respiratory Rate [16-30 br/min] 17 br/min (04/05/20 10:39 PM) 17 br/min (04/05/20 9:30 PM) 18 br/min (04/05/20 8:09 PM) Temperature [96.8-100.4 DegF] 98.3 DegF (04/05/20 8:09 PM) Mode of Delivery (Oxygen) Room air (04/05/20 10:39 PM) Room air (04/05/20 9:30 PM) Room air (04/05/20 8:09 PM) Blood pressure sites Arm, left (04/05/20 10:39 PM) Arm, left (04/05/20 9:30 PM) Arm, left (04/05/20 8:09 PM) Temperature Route Oral (04/05/20 8:09 PM) Dry Weight 60.45 kg (04/05/20 10:39 PM) 60.45 kg (04/05/20 8:20 PM) Social History Social History Type Response Smoking Status Never smoker; Tobacc o user in household: No entered on: 09/26/13 Sex
--- OUTSIDE RECORDS SUMMARY | 2024-05-22 09:11 | XMS_ITS | Continuity of Care Document ---
Author Organization [facility] [employer] [facility] Address [address] [place] [address]- Care Team Providers Care Pumper Head Name Role Phone Nicholas CALENDERER, Elisa M Primary Care Physician Encounter [facility] Date(s): 03/08/21 - 04/07/21 [facility] [address] [place] [address]- Allergies, Adverse Reactions, Alerts Substance Reaction Severity [...] Comment: [facility] [id number] 2[facility] 3Admin Note: [...] Gm, 0 Refills, Maintenance, 01/29/21 20:47:00 EDT, [id number], Partial fill upon patient [...]
--- OUTSIDE RECORDS SUMMARY | 2024-05-22 09:11 | XMS_ITS | Continuity of Care Document ---
Author Organization [facility] Address [address] [place] [address]- Care Team Providers Care Pile Driving Technician Name Role Phone Mary Ellen SRINIVASAN, Anitha Primary Care Physician Encounter [facility] Date(s): 11/29/19 - 12/09/[address] [address]- [facility] Attending Physician: Alejandro Lamb Admitting Physician: AdmtrAlejandro [...] 1Result Comment: [facility] [id number] 319 01 2[facility] 3Admin Note: [...] 1 Refills, Maintenance, 10/11/19 14:31:00 EST, Tablet, [facility]/pharmacy #[id number], 168, cm, 10/11/19 13:21:00 EST, Height, 64, kg, 09/08/19 14:41:00 ES... Start Date: 10/11/19 Status: Ordered sertraline 25 mg oral tablet 1 tablet = 25 mg, By Mouth, Daily, # 30 tablet, 5 Refills, Maintenance, 11/05/19 14:45:00 EST, Tablet, [facility]/pharmacy #[id number], 168, cm, 10/14/19 13:34:00 EST, [...]
--- OUTSIDE RECORDS SUMMARY | 2024-05-22 09:12 | XMS_ITS | Continuity of Care Document ---
Author Organization [facility] Address [address] [place] [address]- Care Team Providers Care Automobile Rental Clerk Name Role Phone Nicholas TELEPHONE BETTING CLERK, Elisa M Primary Care Physician [facility] [id number] Date(s): 11/08/22 - 03/08/23 [facility] [address] [address]- Attending Physician: Keron Jones MD Allergies, Adverse [...] B pediatric vaccine 93 Recorded 1Result Comment: [facility] [id number] 2Result Comment: [facility]: [id number] 3Result Comment: [facility] [id number] 4[facility] 5Admin Note: [...] 1 kit, 2 Refills, Maintenance, 01/14/23 13:47:00EDT, [facility]/pharmacy #[id number], Partial fill upon patient request if [...] 0 Refills, Maintenance, 12/17/21 15:33:00 EDT, Tablet, [facility]/pharmacy #[id number], Partial fill upon patient request if [...] 6 Refills, Maintenance, 11/01/22 10:44:00 EST, Nasal [place], [facility]/pharmacy #[id number], Partial fill upon patient request if [...] 10:26:00 EDT, 12/06/22 10:26:00 EDT, DIS Tablet, [facility]/pharmacy #[id number], Partial fill upon patient requ... Start [...] Refills, Maintenance, 12/06/22 9:51:00 EDT, CR Capsule, [facility]/pharmacy #[id number], Partial fill upon patient request if the prescription is for a schedule II opioid drug., 168, cm, 12/06/22 9:08... Start Date: 12/06/22 Status: Ordered Xyzal 5 mg oral tablet 1 tablet = 5 mg, By Mouth, Daily in PM, # 90 tablet, 1 Refills, Maintenance, 10/24/22 16:56:00 EST,Tablet, [facility]/pharmacy #[id number], Partial fill upon patient request if [...] Personnel Name: Giselle SRINIVASAN, Ulysses Thornton Position: [facility] INSTRUMENT TECHNICIAN MD Member Role: Lifetime INSTRUMENT TECHNICIAN Physician Address: Address: [address] [place] [address] [facility] [place], [place] [address] Name: Elisa Peterson NP Position: [facility] PCO Associate Professional Member Role: PCP Address: Address: [address] [place] [address]- Name: Josette Bhardwaj [place] Position: [facility] RN Member Role: Primary Care Nurse Care Team Related Persons Name: HUBER ORLANDO Address: home [address] [place] [address] Name: HUBER ORLANDO Address: home [address] [place] [address] Name: HUBER ORLANDO Address: home [address] [place] [address] [place] [id number] Name: JOHANNY JUAN Address: home [address] [address]
--- OUTSIDE RECORDS SUMMARY | 2024-05-22 09:12 | XMS_ITS | Continuity of Care Document ---
Author Organization [facility] Address [address] [place] [address]- Care Team Providers Care Associate Technician Name Role Phone Nicholas CUSHION STUFFER, Elisa Reynaga Primary Care Physician Encounter [facility] NBR [id number] Date(s): 04/06/23 - 05/06/23 [facility] [address] [place] [address]- [place] Allergies, Adverse Reactions, Alerts Substance Reaction [...] 1Result Comment: [facility] [id number] 2Result Comment: [facility]: [id number] 3Result Comment: [facility] [id number] [phone] [facility] 5Admin Note: 1st dove 11/21/1995 2nd done 05/21/2009 6Admin Note: 1st done 12/13/2006 2nd done 02/14/2007 3rd done 06/19/2007 7Admin Note: 1st done 02/24/1995 2nd done 11/30/1998 8Admin Note: 1st done 1993 2nd done 1993 3rd done 09/07/1994 Medications Ajovy Autoinjector 225 mg/1.5 mL subcutaneous solution = 225 mg, Subcutaneous Injection, Every 28 days, # 1 kit, 5 Refills, Maintenance, 05/03/23 23:10:00EDT, [facility]/pharmacy #[id number], Partial fill upon patient request if the prescription is for a schedule IIopioid drug., 164, cm, 04/17/23 8:31:00 EDT, Height... Start Date: 05/03/23 Status: Ordered Ativan 0.5 mg oral tablet 1 tablet = 0.5 mg, By Mouth, Daily, MassPat checked, # 5 tablet, 0 Refills, Maintenance, 12/17/21 15:33:00 EDT, Tablet, [facility]/pharmacy #[id number], Partial fill upon patient [...] Gm, 0 Refills, Maintenance, 03/29/23 15:19:00 EDT, [place], [facility]/pharmacy #[id number], Partial fill upon patient [...] 04/21/23 9:11:00 EDT, Route to Pharmacy Electronically, [id number], 164, cm, 04/17/23 8:31:00 EDT, Height, 65.5, kg, 04/15/23 1:27:00 EDT, Dry Weight Start Date: 04/21/23 Status: Ordered magnesium oxide 400 mg oral tablet 1 tablet = 400 mg, By Mouth, Daily, # 30 tablet, 2 Refills, Acute 04/10/24 10:25:00 EDT, 04/10/23 10:25:00 EDT, [facility]/pharmacy #[id number], Partial fill upon patient [...] 10:26:00 EDT, 12/06/22 10:26:00 EDT, DIS Tablet, [facility]/pharmacy #[id number], Partial fill upon patient requ... Start Date: 12/06/22 Stop Date: 12/07/23 Status: Ordered omeprazole 20 mg oral enteric coated capsule 1 capsule, By Mouth, 2 times a day, # 180 capsule, 1 Refills, Maintenance, 11/01/22 10:45:00 EST, [facility]/pharmacy #[id number], 168, cm, 11/01/22 10:19:00 EST, Height, 64, kg, 10/25/22 12:27:00 EST, Dry Weight Start Date: 11/01/22 Stop Date: 04/30/23 Status: Ordered Xyzal 5 mg oral tablet 1 tablet = 5 mg, By Mouth, Daily in PM, # 90 tablet, 1 Refills, Maintenance, 10/24/22 16:56:00 EST,Tablet, [facility]/pharmacy #[id number], Partial fill upon [...] Personnel Name: Giselle SRINIVASAN, Ulysses W Position: [facility] RETAIL OFFICE ASSOCIATE MD Member Role: Lifetime RETAIL OFFICE ASSOCIATE Physician Address: Address: [address] [place] [address] [facility] [place] [address]- [place] Name: Elisa Peterson NP Position: [facility] PCO Associate Professional Member Role: PCP Address: Address: [address] [place] [address]- [place] Name: Josette Bhardwja [place] Position: [facility] RN Member Role: Primary Care Nurse Care Team Related Persons Name: HUBER ORLANDO Address: [address] [place] [address] Name: HUBER ORLANDO Address: home [address] [place] [address] Name: HUBER ORLANDO Address: home [address] [place] [address] Name: JUAN ORLANDO Address: home [address]
--- OUTSIDE RECORDS SUMMARY | 2024-05-22 09:12 | XMS_ITS | Continuity of Care Document ---
Author Organization [facility] al Address [address] [place] [address]- Care Team Providers Care Underwear Welter Name Role Phone Nicholas PROGRAMMER ANALYST, Elisa M Primary Care Physician Encounter [facility] Date(s): 02/28/22 - 02/28/[address] [address]- Discharge Disposition: A-D/C Home Attending Physician: Enrico [...] (old term) 7 09/07/94 Given 1Result Comment: [facility]: [id number] 2Result Comment: [facility] [id number] [phone] 3[facility] 4Admin Note: [...] 0 Refills, Maintenance, 12/17/21 15:33:00 EDT, Tablet, [facility]/pharmacy #[id number], Partial fill upon patient request if the prescription is for a schedule II opioid drug., robin Holbrook, 11/25/21 10:4... Start Date: 12/17/21 Status: Ordered docusate-senna 50 mg-187 mg oral tablet See Instructions, may take 2 tablets twice a day until regularly moving bowels, then prn, # 60 tablet, 0 Refills, Acute 09/30/22 10:00:00 EST, 09/30/21 19:43:00 EST, Tablet, [facility]/pharmacy #[id number], may take 2 tablets twice a day until regularly moving bow... Start Date: 09/30/21 Stop Date: 09/30/22 Status: Ordered Misc Rx bcp pill, By Mouth, Daily, Refills 0, Maintenance, 08/11/21 20:44:00 EST, Supply Start Date: 08/11/21 Status: Ordered omeprazole 20 mg oral enteric coated capsule 1 capsule = 20 mg, By Mouth, Daily, # 30 capsule, 1 Refills, Maintenance, 02/16/22 11:32:00 EDT, ECCapsule, [facility]/pharmacy #[id number], Partial fill upon patient request if the prescription is for a schedule II opioid drug., robin Holbrook, 02/16/22 11:10:00 EDT, H... Start Date: 02/16/22 Stop Date: 04/17/22 Status: Ordered Problem List Condition Effective Dates Status Health Status Inform ant Anxiety(Confirmed) Active Back pain(Confirmed) Active Chronic back pain(Confirmed) Active Diarrhea(Confirmed) Active Fibromyalgia(Confirmed) 1 12/29/17 Active IBS - Irritable bowel syndrome(Confirmed) 2 Active Anemia, iron deficiency(Confirmed) 3 Active Migraine(Confirmed) 2005 Active Ovarian cyst(Confirmed) Active 1negative celiac screen in [address] romero 3she does have heavy monthly period Vital Signs Most recent to oldest [Reference Range]: 1 2 Height 167 cm (02/28/22 7:44 PM) 167 cm (02/28/22 4:14 PM) Weight 62 kg (02/28/22 7:44 PM) 62 kg (02/28/22 4:14 PM) Oxygen Saturation [94-100 %] 100 % (02/28/22 7:44 PM) 98 % (02/28/22 4:14 PM) Pulse Rate [55-90 bpm] 77 bpm (02/28/22 7:44 PM) Body Mass Index [18.5-24.99] 22.23 (02/28/22 7:44 PM) Blood Pressure [90-138/55-84 mm Hg] 126/ 68mm Hg (02/28/22 7:44 PM) 131/82mm Hg (02/28/22 4:14 PM) Respiratory Rate [16-30 br/min] 16 br/mi n (02/28/22 7:44 PM) 20 br/min (02/28/22 4:14 PM) Temperature [96.8-100.4 DegF] 98.4 DegF (02/28/22 7:44 PM) 99 DegF (02/28/22 4:14 PM) Mode of Delivery (Oxygen) Room air (02/28/22 7:44 PM) Room air (02/28/22 4:14 PM) Blood pressure sites Arm, left (02/28/22 7:44 PM) Arm, right (02/28/22 4:14 PM) Temperature Route Oral (02/28/22 7:44 PM) Oral (02/28/22 4:14 PM) Dry Weight 62 kg (02/28/22 7:44 PM) 62 kg (02/28/22 4:14 PM) Weight Obtained Via Standing scale (02/28/22 4:14 PM) Social History Social History Type Response Smoking Status Never smoker; Tobacc o user in household: No entered on: 09/26/13 Sex
--- OUTSIDE RECORDS SUMMARY | 2024-05-22 09:12 | XMS_ITS | Continuity of Care Document ---
Author Organization [facility] Address [address] [place] [address]- Care Team Providers Care Bridges And Buildings Supervisor Name Role Phone Elisa Peterson NP Primary Care Physician [id number] Date(s[facility] 09/15/23 - 10/19/[facility] [address] [place] [address]- Attending Physician: Elisa Peterson NP Allergies, Adverse [...] Comment: [facility] [id number] 2Result Comment: [facility]: [id number] 3Result Comment: [facility] [id number] [phone] 4[facility] 5Admin Note: [...] Refills, Maintenance, 07/03/23 16:09:00 EDT, EC Tablet, [facility]/pharmacy #[id number], Partial fill upon patient request if the prescription is for a schedule II opioid drug., 165.1,... Start Date: 07/03/23 Stop Date: 07/18/23 Status: Ordered fluconazole 150 mg oral tablet See Instructions, 1 tablet By Mouth Once, may repeat every 3 days until symptoms resolve, # 3 tablet, 0 Refills, Soft Stop, 09/20/23 10:02:00 EST, [facility]/pharmacy #[id number], Partial fill upon patient request if the prescription is for a schedule II opioid dr... Start Date: 09/20/23 Status: Ordered fluticasone 27.5 mcg/inh nasal spray 1 sprays, Nares, Both, Daily, PRN Cold Symptoms, # 10 Gm, 0 Refills, Maintenance, 07/24/23 15:00:00EST, [place], [id number], Partial fill upon patient request if the prescription is for a schedule II opioid drug., 1 sprays Nares, Both Daily,PRN... Start Date: 07/24/23 Status: Ordered omeprazole 20 mg oral enteric coated capsule 1 capsule, By Mouth, 2 times a day, # 180 capsule, 1 Refills, Maintenance, 06/24/23 16:07:00 EDT, [facility], 165.1, cm, 06/12/23 14:42:00 EDT, Height, 64.3, kg, 05/19/23 19:22:00 EDT, Dry Weight Start Date: 06/24/23 Status: Ordered Xyzal 5 mg oral tablet 1 tablet = 5 mg, By Mouth, Daily in PM, # 30 tablet, 6 Refills, Maintenance, 08/30/23 14:06:00 EST,Tablet, [facility]/pharmacy #[id number], Partial fill upon patient request [...] Personnel Name: Ulysses Desai MD W Position: [facility] COTA MD Member Role: Lifetime COTA Physician Address: Address: [address] [place] [address] [place] [address]- Name: Elisa Peterson NP Position: [facility] PCO Associate Professional Member Role: PCP Address: Address: [address] [place] [address]- Name: Josette Bhardwaj [place] Position: [facility] RN Member Role: Primary Care Nurse Care Team Related Persons Name: HUBER ORLANDO Address: home [address] [place] [address] Name: HUBER ORLANDO Address: home [address] [place] [address] Name: HUEBR ORLANDO Address: home [address] [place] [address] Name: JUAN ORLANDO Address: home [address] [address]
--- OUTSIDE RECORDS SUMMARY | 2024-05-22 09:12 | XMS_ITS | Continuity of Care Document ---
Author Organization [facility] Address [address] [place] [address]- Care Team Providers Care Bareback Rider Name Role Phone Nicholas VICTIM WITNESS ADMINISTRATOR, Elisa Reynaga Primary Care Physician Encounter [facility] ACC NBR [id number] Date(s): 01/25/23 - 02/24/23 [facility] [address] [place] [address]- [place] Allergies, Adverse Reactions, Alerts Substance Reaction [...] Comment: [facility] [id number] 2Result Comment: [facility]: [id number] 3Result Comment: [facility] [id number] [phone] 4[facility] 5Admin Note: [...] 1 kit, 2 Refills, Maintenance, 01/14/23 13:47:00EDT, [facility]/pharmacy #[id number], Partial fill upon patient [...] 6 Refills, Maintenance, 11/01/22 10:44:00 EST, Nasal [place], [facility]/pharmacy #[id number], Partial fill upon patient [...] Refills, Maintenance, 12/06/22 9:51:00 EDT, CR Capsule, [facility]/pharmacy #[id number], Partial fill upon patient [...] Personnel Name: Giselle SRINIVASAN, Ulysses Thornton Position: [facility] LOCATION AND MEASUREMENT TECHNICIAN MD Member Role: Lifetime LOCATION AND MEASUREMENT TECHNICIAN Physician Address: Address: [address] [place] [address] [facility] [place] [address] Name: Elisa Peterson NP Position: [facility] PCO Associate Professional Member Role: PCP Address: Address: [address] [place] [address]- Name: Josette Bhardwaj [place] Position: [facility] RN Member Role: Primary Care Nurse Care Team Related Persons Name: HUBER ORLANDO Address: home [address] [place] [address] Name: HUBER ORLANDO Address: home [address] [place] [address] Name: HUBER ORLANDO Address: home [address] [place] [address], [place] [address] Name: JUAN ORLANDO Address: home [address] [address]
--- OUTSIDE RECORDS SUMMARY | 2024-05-22 09:12 | XMS_ITS | Continuity of Care Document ---
Author Organization [facility] Address [address] [place] [address]- Care Team Providers Care Stockbroking Dealer Name Role Phone Nicholas FLIGHT STEWARD, Elisa M Primary Care Physician Encounter [facility] Date(s): 09/29/21 - 10/29/21 [email or web address] [address] [place] [address]- [place] Allergies, Adverse Reactions, Alerts Substance Reaction [...] (old term) 7 09/07/94 Given 1Result Comment: [facility]: [id number] 2Result Comment: [facility] [id number] [phone] 3[facility] 4Admin Note: [...] 10/07/21 8:52:00 EST, Route to Pharmacy Electronically, [facility]/pharmacy #[id number], Partial fill upon patient request if the prescription is for a schedule II opio... Start Date: 10/07/21 Stop Date: 10/17/21 Status: Ordered lidocaine 5% topical ointment 1 application, Topically, 3 times a day, for 10 days, # 30 Gm, 0 Refills, Acute 11/08/21 2:57:00 EST, 10/29/21 2:57:00 EST, Ointment, [facility]/pharmacy #[id number], Partial fill upon patient request if [...]
--- OUTSIDE RECORDS SUMMARY | 2024-05-22 09:12 | XMS_ITS | Continuity of Care Document ---
Author Organization [facility] Address [address] [place] [address]- Care Team Providers Care Cash Analyst Name Role Phone Nicholas OVERSEER KOSHER KITCHEN, Elisa M Primary Care Physician Encounter [facility] Date(s): 10/25/22 - 10/25/[address] [address]- Discharge Disposition: A-D/C Home Attending Physician: Tony [...] (old term) 8 09/07/94 Given 1Result Comment: [facility] 32609-908-14 2Result Comment: [facility]: [id number] 3Result Comment: [facility] [id number] [phone] 4[facility] 5Admin Note: [...] 0 Refills, Maintenance, 12/17/21 15:33:00 EDT, Tablet, [facility]/pharmacy #[id number], Partial fill upon patient request if the prescription is for a schedule II opioid drug., 168, cm, 11/25/21 10:4... Start Date: 12/17/21 Status: Ordered cyclobenzaprine 10 mg oral tablet 10 mg, 1, tablet, By Mouth, 3 times a day, PRN, # 42 tablet, Refills 0, Tot. Refills 0, Acute 11/07/22 11:44:00 EST, Spasm for spasm, 10/07/22 11:41:00 EST, Route to Pharmacy Electronically, [facility]/pharmacy #0955, Partial fill upon patient request if t... Start Date: 10/07/22 Stop Date: 11/07/22 Status: Ordered Diflucan 150 mg oral tablet 1 tablet = 150 mg, By Mouth, Once, PRN vaginal yeast infection, May repeat dose in 48-72 hours if needed., # 2 tablet, 0 Refills, Soft Stop, 08/31/22 16:10:00 EST, [facility]/pharmacy #[id number], Partial fill upon patient request if the prescription is for a sche... Start Date: 08/31/22 Status: Ordered Flonase 50 mcg/inh nasal spray 1 sprays = 50 mcg, Nares, Both, 2 times a day, # 9.9 mL, 6 Refills, Maintenance, 08/08/22 14:03:00 EST, Nasal [place], [facility]/pharmacy #[id number], Partial fill upon patient request if the prescription is for aschedule II opioid drug., 1 sprays Nares, Both 2 ti... Start Date: 08/08/22 Status: Ordered By Mouth, Daily, 0 Refills, Maintenance, 08/08/22 13:49:00 EST, Partial fill upon patient request if the prescription is for a schedule II opioid drug. Start Date: 08/08/22 Status: Ordered lidocaine 5% topical film 1 patch, Topically, Daily, PRN Pain , Mild, remove after 12 hours, # 13 each, 0 Refills, Acute 11/07/22 11:44:00 EST, 10/07/22 11:41:00 EST, [place], [facility]/pharmacy #[id number], Partial fill upon patient request if the prescription is for a schedule II opioid dr... Start Date: 10/07/22 Stop Date: 11/07/22 Status: Ordered Misc Rx bcp pill, By Mouth, Daily, Refills 0, Maintenance, 08/11/21 20:44:00 EST, Supply Start Date: 08/11/21 Status: Ordered omeprazole 20 mg oral enteric coated capsule 1 capsule, By Mouth, Daily, # 90 capsule, 1 Refills, Maintenance, 08/08/22 14:10:00 EST, [facility]/pharmacy #[id number], 167, cm, 08/08/22 13:45:00 EST, Height, 62, kg, 02/28/22 19:44:00 EDT, Dry Weight Start Date: 08/08/22 Status: Ordered Pepcid 20 mg oral tablet 1 tablet = 20 mg, By Mouth, 2 times a day, # 14 tablet, 0 Refills, Maintenance, 09/04/22 13:30:00 EST, Tablet, [facility]/pharmacy #[id number], Partial fill upon patient request if the prescription is for a schedule II opioid drug., 167, cm, 09/04/22 12:59:00 EST,... Start Date: 09/04/22 Stop Date: 09/11/22 Status: Ordered Xyzal 5 mg oral tablet 1 tablet = 5 mg, By Mouth, Daily in PM, # 90 tablet, 1 Refills, Maintenance, 10/24/22 16:56:00 EST,Tablet, [facility]/pharmacy #[id number], Partial fill upon patient request [...] cyst Confirmed Active 1negative celiac screen in [address] romero 3she does have heavy monthly period Results Radiology Reports * Exam Date Time Procedure Performing Provider Status 10/25/22 12:56 PM Chest 2 Views Frontal and Lat Libby Bruce (Verified) Notes: (Chest 2 Views Frontal and Lat) Reason For Exam: Chest Pain;Other: RESULT: Chest 2 Views Frontal and Lat Chest 2 Views Frontal and Lat Hx of Present Illness: chest pressure, sore throat, palpatations; Reason: Other:; Chest Pain; Clinical Question(s): Other: COMPARISON: Multiple prior examinations the most recent dated 10/29/2021. FINDINGS: LINES AND TUBES: None. LUNGS AND PLEURA: Clear lungs. Normal pulmonary vascularity. No pleural effusion. No pneumothorax. HEART, MEDIASTINUM AND ALESSANDRA: Heart is normal in size. Normal mediastinal and hilar contour. BONES AND SOFT TISSUES: No acute abnormality. IMPRESSION: No acute abnormality. WSN: [id number] Ordering Physician: Ousmane Guzman Dictated By: Rj Low MD, V Dictated Date/Time: 10/25/22 1:00 pm Reviewed By: Rj Low MD, V Signed By: Rj Low MD, V Signed Date/Time: 10/25/22 1:00 pm Transcribed By: SAVANNAH Transcribed Date/Time: 10/25/22 1:00 pm Vital Signs Most recent to oldest [Reference Range]: 1 2 3 Height 168 cm (10/25/22 12:25 PM) Weight 64 kg (10/25/22 12:25 PM) Oxygen Saturation [94-100 %] 100 % (10/25/22 4:24 PM) 100 % (10/25/22 12:25 PM) 100 % (10/25/22 12:22 PM) Pulse Rate [55-90 bpm] 82 bpm (10/25/22 4:24 PM) 87 bpm (10/25/22 12:25 PM) 110 bpm *H* (10/25/22 12:22 PM) Blood Pressure [90-138/55-84 mm Hg] 123/81mm Hg (10/25/22 4:24 PM) Respiratory Rate [16-30 br/min] 18 br/min (10/25/22 4:24 PM) 20 br/min (10/25/22 12:25 PM) 20 br/min (10/25/22 12:22 PM) Temperature [96.8-100.4 DegF] 98.6 DegF (10/25/22 12:25 PM) Mode of Delivery (Oxygen) Room air (10/25/22 4:24 PM) Room air (10/25/22 12:25 PM) Room air (10/25/22 12:22 PM) Temperature Route Temporal (10/25/22 12:25 PM) Dry Weight 64 kg (10/25/22 12:25 PM) Weight Obtained Via Standing scale (10/25/22 12:25 PM) Social History Social History Type Response Smoking Status Never smoker; Tobacc o user in household: No entered on: 09/26/13 Sex Note * Tony Wade MD: PERFORM, SIGN, VERIFY Event Display: Patient Education Handout Authored Date: [id number] * Tony Wade MD: PERFORM Event Display: Patient Education Leaflets Authored Date: [id number] Paresthesia ?? [id number] Paresthesia Paresthesia is a burning or prickling feeling that's sometimes felt in the hands, arms, legs or feet. It can also occur in other parts of the body. It can also feel like tingling or numbness, skin crawling, or itching. The feeling is not comfortable, but it's not painful. (The pins and needles feeling that happens when a foot or hand falls asleep is a temporary paresthesia.) Paresthesias that last or come and go may be caused by medical issues that need to be treated. These include stroke, a bulging disk pressing on a nerve, a trapped nerve, vitamin deficiencies, uncontrolled diabetes, alcohol abuse, or even certain medicines. Tests are often done. These tests may include blood tests, X-ray, CT scan, nerve conduction studies(NCS), or a muscle test (electromyography). Depending on the cause, treatment may include physical therapy. Home care ??? Tell your healthcare provider about all medicines you take. This includes prescription and iycg-gtm-rniwags medicines, vitamins, and herbs. Ask if any of the medicines may be causing your problems. Don't make any changes to prescription medicines without talking to your healthcare provider first. ??? You may be prescribed medicines to help relieve the tingling feeling or for pain. Take all medicines as directed. ??? A numb hand or foot may be more prone to injury. To help protect it: o Always use oven mitts. o Test water with an unaffected hand or foot. o Use caution when trimming nails. File sharp areas. o Wear shoes that fit well to avoid pressure points, blisters, and ulcers. o Inspect your hands and feet carefully (including the soles of your feet and between your toes) daily. If you see red areas, sores, or other problems, tell your healthcare provider. ?? Follow-up care Follow up with your healthcare provider, or as advised. You may need more testing or evaluation. ?? When to get medical advice Call your healthcare provider right away if any of these occur: ??? Numbness or weakness of the face, one arm, or one leg ??? Slurred speech, confusion, trouble speaking, walking, or seeing ??? Severe headache, fainting spell, dizziness, or seizure ??? Chest, arm, neck, or upper back pain ??? Loss of bladder or bowel control ??? Open wound with redness, swelling, or pus ?? Last Reviewed Date: 2021 ?? Scaled Inference. All rights reserved. This information is not intended as a substitute for professional medical care. Always follow your healthcare professional's instructions. ?? * [facility] , CIS S: TRANSCRIBE Rj Low MD, V: VERIFY Event Display: Result: Authored Date: [id number] Chest 2 Views Frontal and Lat Hx of Present Illness: chest pressure, sore throat, palpatations; Reason: Other:; Chest Pain; Clinical Question(s): Other: COMPARISON: Multiple prior examinations the most recent dated 10/29/2021. FINDINGS: LINES AND TUBES: None. LUNGS AND PLEURA: Clear lungs. Normal pulmonary vascularity. No pleural effusion. No pneumothorax. HEART, MEDIASTINUM AND ALESSANDRA: Heart is normal in size. Normal mediastinal and hilar contour. BONES AND SOFT TISSUES: No acute abnormality. IMPRESSION: No acute abnormality. WSN: [id number] Ordering Physician: Ousmane Guzman Dictated By: Rj Low MD, V Dictated Date/Time: 10/25/22 1:00 pm Reviewed By: Rj Low MD, V Signed By: Rj Low MD, V Signed Date/Time: 10/25/22 1:00 pm Transcribed By: SAVANNAH Transcribed Date/Time: 10/25/22 1:00 pm Patient Care team information Care Team Personnel Name: Nicholas EDGAR, Elisa M Position: [facility] PCO Associate Professional Member Role: PCP Address: Address: [address] [place] [address]- Name: Josette De Anda Position: [facility] RN Member Role: Primary Care Nurse Name: Rosario Louie RN Position: [facility] ED RN W/OE and Tasks Member Role: Patient Care Provider Name: Grace Godoy Position: [facility] ED TA [facility] Member Role: Cable Tv Installer Name: Tony Wade MD Position: [facility] Medicine MD Member Role: Admitting Physician Address: Address: [address] [place] [address]- Care Team Related Persons Name: JOHANNY HUBER Address: home [address] [place] [address] Name: JOHANNY, HUBER M Address: home [address] [place] [address] Name: HUBER ORLANDO Address: home [address] [place] [address] Name: JUAN ORLANDO Address: [place] [address]
--- OUTSIDE RECORDS SUMMARY | 2024-05-22 09:12 | XMS_ITS | Continuity of Care Document ---
Author Organization [facility] Address [address] [place] [address]- Care Team Providers Care Calibration Technician Name Role Phone Elisa Peterson NP Primary Care Physician Encounter [facility] ACCT R [id number] Date(s): 02/14/24 - 02/21/24 [facility] [address] [place] [address]- Attending Physician: Raymundo Leon MD Referring Physician: Elisa Peterson NP Allergies, [...] pediatric vaccine 93 Recorded 1Result Comment: [facility] [id number] 2Result Comment: [facility]: [id number] 3Result Comment: [facility] [id number] [facility] 5Admin Note: [...] 01/29/24 14:53:00 EDT, Route to Pharmacy Electronically, [facility]/pharmacy #[id number], Partial fill upon patient request if the prescription i... Start Date: 01/29/24 Status: Ordered famotidine 20 mg oral tablet 20 mg, 1, tablet, By Mouth, 2 times a day, PRN, # 30 tablet, Refills 0, Tot. Refills 0, Maintenance, Control of Stomach Acid, 01/09/24 0:16:00 EDT, Route to Pharmacy Electronically, [facility]/pharmacy #[id number], Partial fill upon patient request if the prescrip... Start Date: 01/09/24 Status: Ordered fluticasone 50 mcg/inh nasal spray 1 sprays = 50 mcg, Nares, Both, 2 times a day, # 16 Gm, 0 Refills, Maintenance, 02/21/24 17:46:00 EDT, [place], [facility]/pharmacy #[id number], Partial fill upon patient [...] 0 Refills, Maintenance, 12/31/23 1:48:00 EDT, [place]aps[place], [facility]/pharmacy #[id number], Partial fill upon patient request if the prescription is for a schedule II opioi... Start Date: 12/31/23 Status: Ordered loratadine 10 mg oral tablet 10 mg, 1, tablet, By Mouth, Daily, # 30 tablet, Refills 0, Tot. Refills 0, Maintenance, 02/21/24 17:46:00 EDT, Route to Pharmacy Electronically, [facility]/pharmacy #[id number], Partial fill upon patient request if the prescription is for a schedule II opioid drug... Start Date: 02/21/24 Status: Ordered omeprazole 20 mg oral enteric coated capsule 1 capsule, By Mouth, 2 times a day, # 180 capsule, 0 Refills, Maintenance, 01/25/24 10:16:00 EDT, [id number], 168, cm, 01/24/24 14:42:00 EDT, Height, 63.5, [...] oldest [Reference Range]: 1 Height 165 cm (02/14/24 3:33 PM) Weight 62 kg (02/14/24 3:33 PM) Oxygen Saturation [94-100 %] 99 % (02/14/24 3:33 PM) Pulse Rate [55-90 bpm] 74 bpm (02/14/24 3:33 PM) Body Mass Index [18.5-24.99 kg/m2] 22.77 kg/m2 (02/14/24 3:33 PM) Mode of Delivery (Oxygen) Room air (02/14/24 3:33 PM) Dry Weight 62 kg (02/14/24 3:33 PM) Weight Obtained Via Standing scale (02/14/24 3:33 PM) Dry Weight Obtained Via Standing scale (02/14/24 3:33 PM) Social History Social History Type Response Smoking Status Never smoker; Tobacc o user in household: No entered on: 09/26/13 Sex Patient Care team information Care Team Personnel Name: Ulysses Desai MD W Position: [facility] DISTRICT SALES REPRESENTATIVE MD Member Role: [employer] DISTRICT SALES REPRESENTATIVE Physician Address: Address: [address] [place] [address] [place] [address]- Name: Elisa Peterson NP Position: [facility] PCO Associate Professional Member Role: PCP Address: Address: [address] [place] [address]- Name: Josette Bhardwaj MA Position: [facility] Office Staff Member Role: Primary Care Nurse Care Team Related Persons Name: HUBER ORLANDO Address: home [address] [place], [place] [address] Name: HUBER ORLANDO Address: home [address] [place], [place] [address] Name: HUBER ORLANDO Address: home [address] [place], [place] [address] Name: JOHANNY JUAN Address: [place] [address]
--- OUTSIDE RECORDS SUMMARY | 2024-05-22 09:12 | XMS_ITS | Continuity of Care Document ---
Author Organization [facility] Address [address] [place] [address]- Care Team Providers Care Drink Box Mechanic Name Role Phone Mary Ellen SRINIVASAN, Anitha Primary Care Physician ( [phone] Encounter [facility] Date(s): 02/28/20 - 02/29/[address] [address]- [facility] Discharge Disposition: A-D/C Home Attending Physician: Lesly [...] Comment: [facility] [id number] [phone] 2[facility] 3Admin Note: 1st dove 11/21/1995 2nd done 05/21/2009 4Admin Note: 1st done 12/13/2006 2nd done 02/14/2007 3rd done 06/19/2007 5Admin Note: 1st done 02/24/1995 2nd done 11/30/1998 6Admin Note: 1st done 1993 2nd done 1993 3rd done 09/07/1994 Medications ciprofloxacin 500 mg oral tablet 1 tablet = 500 mg, By Mouth, Every 12 hours, for 7 days, # 14 tablet, 0 Refills, Acute 03/07/20 0:25:00 EDT, 02/29/20 0:25:00 EDT, Tablet, [facility]/pharmacy #[id number], 166, cm, 02/28/20 22:00:00 EDT, Height, 60.7, kg, 02/28/20 22:00:00 EDT, Dry Weight Start Date: 02/29/20 Stop Date: 03/07/20 Status: Ordered Flagyl 500 mg oral tablet 1 tablet = 500 mg, By Mouth, 3 times a day, for 7 days, # 21 tablet, 0 Refills, Acute 03/07/20 0:25:00 EDT, 02/29/20 0:25:00 EDT, Tablet, [facility]/pharmacy #[id number], 166, cm, 02/28/20 22:00:00 EDT, Height, 60.7, kg, 02/28/20 22:00:00 EDT, Dry Weight Start Date: 02/29/20 Stop Date: 03/07/20 Status: Ordered ibuprofen 600 mg oral tablet 600 mg, 1, tablet, By Mouth, Every 8 hours, PRN, # 21 tablet, Refills 0, Tot. Refills 0, Maintenance, as needed for pain, 02/29/20 0:26:00 EDT, Route to Pharmacy Electronically, [facility]/pharmacy #[id number], 166, cm, 02/28/20 22:00:00 EDT, Height, 60.7, kg, /... Start Date: 02/29/20 Stop Date: 03/03/20 Status: Ordered Taytulla 1 mg-20 mcg oral [...] oldest [Reference Range]: 1 2 3 Height 166 cm (02/29/20 12:40 AM) 166 cm (02/28/20 10:00 PM) Weight 60.7 kg (02/29/20 12:40 AM) 60.7 kg (02/28/20 10:00 PM) Oxygen Saturation [94-100 %] 97 % (02/29/20 12:40 AM) 100 % (02/28/20 10:00 PM) Pulse Rate [55-90 bpm] 80 bpm (02/29/20 12:40 AM) 87 bpm (02/28/20 10:00 PM) Body Mass Index [18.5-24.99] 22.03 (02/29/20 12:40 AM) Blood Pressure [90-138/55-84 mm Hg] 148/91mm Hg *H* (02/29/20 12:40 AM) 146/84mm Hg *H* (02/28/20 10:00 PM) Respiratory Rate [16-30 br/min] 18 br/min (02/29/20 12:40 AM) 16 br/min (02/28/20 11:31 PM) 18 br/min (02/28/20 10:00 PM) Temperature [96.8-100.4 DegF] 97.7 DegF (02/28/20 10:00 PM) Mode of Delivery (Oxygen) Room air (02/29/20 12:40 AM) Room air (02/28/20 10:00 PM) Blood pressure sites Arm, left (02/29/20 12:40 AM) Arm, left (02/28/20 10:00 PM) Temperature Route Temporal (02/28/20 10:00 PM) Dry Weight 60.7 kg (02/29/20 12:40 AM) 60.7 kg (02/28/20 10:00 PM) Weight Obtained Via Standing scale (02/28/20 10:00 PM) Dry Weight Obtained Via Standing scale (02/28/20 10:00 PM) Social History Social History Type Response Smoking Status Never smoker; Tobacc o user in household: No entered on: 09/26/13 Sex
--- OUTSIDE RECORDS SUMMARY | 2024-05-22 09:12 | XMS_ITS | Continuity of Care Document ---
Author Organization [facility] Address [address] [facility], [address] Floor, [address] [place] [address]- Care Team Providers Care Chute Worker Name Role Phone Mary Ellen SRINIVASAN, Anitha Primary Care Physician Encounter [facility] Date(s): 11/06/19 - 11/16/19 [facility] [address] [facility], [address]rd Floor, [address] [place] [address]- [facility] Attending Physician: AdmAlejandro cooley Admitting Physician: AdmtrAlejandro Referring Physician: Admtr Ar8 Allergies, Adverse Reactions, Alerts Substance Reaction [...] (old term) 6 09/07/94 Given 1Result Comment: [facility] [id number] [phone] [id number] 2[facility] 3Admin Note: [...] 1 Refills, Maintenance, 10/11/19 14:31:00 EST, [id number], 168, cm, 10/11/19 13:21:00 EST, Height, 64, kg, 09/08/19 14:41:00 ES... Start Date: 10/11/19 Status: Ordered sertraline 25 mg oral tablet 1 tablet = 25 mg, By Mouth, Daily, # 30 tablet, 5 Refills, Maintenance, 11/05/19 14:45:00 EST, Tablet, [facility]/pharmacy #[id number], 168, cm, 10/14/19 13:34:00 EST, Height, [...]
--- OUTSIDE RECORDS SUMMARY | 2024-05-22 09:12 | XMS_ITS | Continuity of Care Document ---
Author Organization [facility] Address [address] [place] [id number]- Care Team Providers Care Bond Runner Name Role Phone Mary Ellen SRINIVASAN, Anitha Primary Care Physician Encounter [facility] Date(s): 10/14/19 - 10/21/[address] [address]- [facility] Encounter Diagnosis Depression, major, recurrent, moderate(Discharge Diagnosis) - 10/14/19 Attending Physician: Anitha Hyde MD Allergies, Adverse [...] (old term) 6 09/07/94 Given 1Result Comment: [facility] [phone] 2[facility] 3Admin Note: [...] 11/07/19 14:03:00 EST, 10/14/19 14:03:00 EST, Tablet, [facility]/pharmacy #[id number], 168, cm, 10/14/19 13:34:00 EST, Height, 64, kg, 09/08/19 14:41:00 EST, Dry W... Start Date: 10/14/19 Stop Date: 11/07/19 Status: Ordered naratriptan 2.5 mg oral tablet 1 tablet = 2.5 mg, By Mouth, Daily, PRN for migraine headache, may repeat dose once in 4 hours, # 9tablet, 1 Refills, Maintenance, 10/11/19 14:31:00 EST, Tablet, [facility]/pharmacy #[id number], 168, cm, 10/11/19 13:21:00 EST, Height, 64, kg, 09/08/19 14:41:00 ES... Start Date: 10/11/19 Status: Ordered sertraline 25 mg oral tablet 1 tablet = 25 mg, By Mouth, Daily, # 30 tablet, 1 Refills, Maintenance, 10/14/19 14:02:00 EST, Tablet, [facility]/pharmacy #[id number], 168, cm, 10/14/19 13:34:00 [...] Dates Health Status Cl inical Service Informant Depression, major, recurrent, moderate Discharge Diagnosis 10/14/19 Vital Signs Most recent to oldest [Reference Range]: 1 Height 168 cm (10/14/19 1:34 PM) Weight 62.8 kg (10/14/19 1:34 PM) Body Mass Index [18.5-24.99] 22.25 (10/14/19 1:34 PM) Blood Pressure [90-138/55-84 mm Hg] 128/ 86mm Hg (10/14/19 1:34 PM) Temperature [96.8-100.4 DegF] 98.7 DegF (10/14/19 1:34 PM) Blood pressure sites Arm, left (10/14/19 1:34 PM) Temperature Route Oral (10/14/19 1:34 PM) Social History Social History Type Response Smoking Status Never smoker; Tobacc o user in household: No entered on: 09/26/13 Sex
--- OUTSIDE RECORDS SUMMARY | 2024-05-22 09:12 | XMS_ITS | Continuity of Care Document ---
Author Organization [facility] Address [address] [place] [address]- Care Team Providers Care Rehabilitation Counsellor Name Role Phone Not on Staff, PCP Primary Care Physician Unavail able Encounter [facility] NBR [id number] Date(s): 03/15/23 - 04/14/23 [facility] [address] [place] [address]- [place] Allergies, Adverse Reactions, Alerts Substance Reaction [...] B pediatric vaccine 93 Recorded 1Result Comment: [facility] 39370-102-79 2Result Comment: [facility]: [id number] 3Result Comment: [facility] [id number] [phone] 4[facility] 5Admin Note: [...] 04/17/23 9:55:00 EDT, 04/12/23 9:55:00 EDT, Tablet, [facility]/pharmacy #[id number], [...] Gm, 0 Refills, Maintenance, 03/29/23 15:19:00 EDT, [place], [facility]/pharmacy #[id number], Partial fill upon patient request if the prescription is for a schedule II opioid drug., 1 sprays Nares, Both 2 times a day, 126.8... Start Date: 03/29/23 Status: Ordered Flonase 50 mcg/inh nasal spray 1 sprays = 50 mcg, Nares, Both, 2 times a day, # 9.9 mL, 6 Refills, Maintenance, 11/01/22 10:44:00 EST, Nasal [place], [facility]/pharmacy #[id number], Partial fill upon patient request if the prescription is for aschedule II opioid drug., 1 sprays Nares, Both 2 ti... Start Date: 11/01/22 Status: Ordered .5 By Mouth, Daily, 0 Refills, Maintenance, 08/08/22 13:49:00 EST, Partial fill upon patient request if the prescription is for a schedule II opioid drug. Start Date: 08/08/22 Status: Ordered loratadine 10 mg oral tablet 10 mg, 1, tablet, By Mouth, Daily, # 30 tablet, Refills 0, Tot. Refills 0, Maintenance, 03/29/23 15:20:00 EDT, Route to Pharmacy Electronically, [facility]/pharmacy #[id number], Partial fill [...] Team Personnel Name: Ulysses Desai MD Position: [facility] APPLICATION SECURITY DEVELOPER MD Member Role: [employer] APPLICATION SECURITY DEVELOPER Physician Address: Address: [address] [place] [address] Name: Josette Bhardwaj [place] Position: [facility] RN Member Role: Primary Care Nurse Name: Not on Staff, PCP Position: [facility] Physician (General Medicine) Member Role: PCP Care Team Related Persons Name: HUBER ORLANDO Address: home [address] [place] [address] Name: JOHANNY HUBER M Address: home [address] [place] [address] Name: JOHANNY HUBER M Address: home [address] [place] [address] Name: JUAN ORLANDO Address: home [address]
--- OUTSIDE RECORDS SUMMARY | 2024-05-22 09:12 | XMS_ITS | Continuity of Care Document ---
Author Organization [facility] Address [address] [place] [address]- Care Team Providers Care Business Performance Analyst Name Role Phone Nicholas EDGAR, Elisa Reynaga Primary Care Physician Encounter [facility] NBR [id number] Date(s): 12/21/22 - 05/13/[address] [address]- Encounter Diagnosis Procedure and treatment not carried out for other reasons(Final) - Discharge Disposition: A-D/C Home Attending Physician: Jacki Puentes NP Admitting Physician: Provost EDGAR, Jacki Avendano Referring Physician: Jacki Puentes NP Allergies, Adverse Reactions, Alerts Substance Reaction [...] Recorded 1Result Comment: [facility] [id number] 2Result Comment: [facility]: [id number] 3Result Comment: [facility] [id number] [phone] 4[facility] 5Admin Note: [...] 1 kit, 5 Refills, Maintenance, 05/03/23 23:10:00EDT, [facility]/pharmacy #[id number], Partial fill upon patient request if the prescription is for a schedule IIopioid drug., 164, cm, 04/17/23 8:31:00 EDT, Height... Start Date: 05/03/23 Status: Ordered Ativan 0.5 mg oral tablet 1 tablet = 0.5 mg, By Mouth, Daily, MassPat checked, # 5 tablet, 0 Refills, Maintenance, 12/17/21 15:33:00 EDT, Tablet, [facility]/pharmacy #[id number], Partial fill upon patient request [...] Gm, 0 Refills, Maintenance, 03/29/23 15:19:00 EDT, [place], [facility]/pharmacy #[id number], Partial fill upon patient request [...] 04/21/23 9:11:00 EDT, Route to Pharmacy Electronically, [id number], 164, cm, 04/17/23 8:31:00 EDT, Height, 65.5, kg, 04/15/23 1:27:00 EDT, Dry Weight Start Date: 04/21/23 Status: Ordered magnesium oxide 400 mg oral tablet 1 tablet = 400 mg, By Mouth, Daily, # 30 tablet, 2 Refills, Acute 04/10/24 10:25:00 EDT, 04/10/23 10:25:00 EDT, [facility]/pharmacy #[id number], Partial fill upon patient request [...] Team Personnel Name: Ulysses Desai MD Position: [facility] RECEIVER MD Member Role: [employer] RECEIVER Physician Address: Address: [address] [place] [address] [facility] [place], [place] [address] Name: Elisa Peterson NP Position: [facility] PCO Associate Professional Member Role: PCP Address: Address: [address] [place] [address] Name: Josette Bhardwaj MA Position: [facility] RN Member Role: Primary Care Nurse Care Team Related Persons Name: HUBER ORLANDO Address: home [address] [place] [address] Name: HUBER ORLANDO Address: home [address] [place] [address] Name: HUBER ORLANDO Address: home [address] [place] [address] Name: JUAN ORLANDO Address: home [address] [address]
--- OUTSIDE RECORDS SUMMARY | 2024-05-22 09:12 | XMS_ITS | Continuity of Care Document ---
Author Organization [facility] Address [address] [place] [address]- Care Team Providers Care Head Animal Keeper Name Role Phone Elisa Peterson NP Primary Care Physician Encounter [facility] Date(s): 02/14/24 - 02/21/24 [facility] [address] [place] [address]- Encounter Diagnosis Lower abdominal pain(Discharge Diagnosis) - 02/14/24 Attending Physician: Dionne Recinos MD Referring Physician: Elisa Peterson NP Allergies, [...] 1Result Comment: [facility] [phone] 2Result Comment: [facility]: [phone] 3Result Comment: [facility] [phone] [facility] 5[facility] Note: [...] 01/29/24 14:53:00 EDT, [facility] to Pharmacy Electronically, [facility]/pharmacy #[id number], Partial fill upon patient request if the prescrip... Start Date: 01/09/24 Status: Ordered fluticasone 50 mcg/inh nasal spray 1 sprays = 50 mcg, Nares, Both, 2 times a day, # 16 Gm, 0 Refills, Maintenance, 02/21/24 17:46:00 EDT, [place], [facility]/pharmacy #[id number], Partial fill [...] 02/21/24 17:46:00 EDT, Route to Pharmacy Electronically, [facility]/pharmacy #[id number], Partial fill upon patient request if the prescription is for a schedule II opioid drug... Start Date: 02/21/24 Status: Ordered omeprazole 20 mg oral enteric coated capsule 1 capsule, By Mouth, 2 times a day, # 180 capsule, 0 Refills, Maintenance, 01/25/24 10:16:00 EDT, [id number], 168, cm, 01/24/24 14:42:00 EDT, Height, 63.5, [...] Dates Health Status Cl inical Service Informant Lower abdominal pain Discharge Diagnosis 02/14/24 Vital Signs Most recent to oldest [Reference Range]: 1 Height 165 cm (02/14/24 5:10 PM) Oxygen Saturation [94-100 %] 100 % (02/14/24 5:10 PM) Pulse Rate [55-90 bpm] 80 bpm (02/14/24 5:10 PM) Blood Pressure [90-138/55-84 mm Hg] 124/ 86mm Hg (02/14/24 5:10 PM) Respiratory Rate [16-30 br/min] 16 br/mi n (02/14/24 5:10 PM) Temperature [96.8-100.4 DegF] 98.1 DegF (02/14/24 5:10 PM) Mode of Delivery (Oxygen) Room air (02/14/24 5:10 PM) Blood pressure sites Arm, left (02/14/24 5:10 PM) Temperature Route Temporal (02/14/24 5:10 PM) Social History Social History Type Response Smoking Status Never smoker; Tobacc o user in household: No entered on: 09/26/13 Sex Note * Juana Lepe: PERFORM Event Display: Patient Education/Instruction Authored Date: [id number] Ambulatory Adult Visit Summary [facility] [address] [address] Name: REGULO ORLANDO : 1995?? Visit: 02/14/2024 16:44?? Ambulatory Visit Instructions ?? Your Care Team Primary Care Provider Elisa Peterson NP? This Visit Provider [facility] [place] Your Diagnosis STD exposure Lower abdominal pain Vitals Signs Temperature: 98.1 DegF Height: 165 cm Pulse Rate: 80 bpm ?? Respiratory Rate: 16 br/min ?? Systolic Blood Pressure: 124 mm Hg ?? Diastolic Blood Pressure:??86 mm Hg??High ?? Oxygen Saturation: 100 % ?? What to do next Scheduled Follow-Up Appointments Monday 3:00 PM EDT ?? With: Silvestre SRINIVASAN, Arelis Tomas Where: [facility] [address] [facility] [address] [place] [address]- Status: Pending Monday 8:20 AM EDT ?? With: Elisa Peterson NP Where: [facility] [address] [place] [address]- Status: Pending Monday 8:20 AM EDT ?? With: Elisa Peterson NP Where: [facility] [address] [place] [address]- Status: Pending Monday 11:30 AM EDT ?? With: Jade Ross NP Where: [facility] [address] [facility] 3rd Floor, [address] [place] [address]- Status: Pending Monday 11:00 AM EDT ?? With: Myke Cordova Where: [facility] [address] [facility] [address] [address]- Status: Pending Future Orders TSH - Routine, Once, 02/14/24 15:58:00 EDT, Future Order, [facility], Blood?? Free T4 - Routine, Once, 02/14/24 15:58:00 EDT, Future Order, [facility], Blood?? T3 Total - Routine, Once, 02/14/24 15:58:00 EDT, Future Order, [facility], Blood?? Thyroid Stimulating Immunoglobulin - Routine, Once, 02/14/24 15:58:00 EDT, Future Order, [facility], Blood?? Thyroid Antimicrosomal Ab (TPO Thyroperoxidase Antibodies) - Routine, Once, 02/14/24 15:58:00 EDT, Future Order, [facility], Blood?? Thyrotropin Receptor Ab - Routine, Once, 02/14/24 15:58:00 EDT, Future Order, [facility], Blood?? Chlamydia/Neisseria RNA, TMA, Ur/TP/Swab - Routine, Vagina, [...] What How Much When Why Instructions New Cephalexin (cephalexin monohydrate 500 mg oral capsule) 1 capsule Oral Twice a day Lower abdominal pain Duration: 5 Days Pickup at [facility]/pharmacy #[id number] Unchanged Acetaminophen (acetaminophen 325 mg oral tablet) 2 tab(s) Oral Every 6 hours as needed for Pain , Moderate Neck pain Unchanged Famotidine (famotidine 20 mg oral tablet) [...] capsule) 1 capsule Oral Twice a day Pharmacy Information [facility]/pharmacy #[id number]: [address] [place], [place] [id number] [phone] Test Performed Below is a partial list of the tests performed during your Visit. You may have had other tests and procedures not included in this list. Please discuss all test results with your provider. Chlamydia/Neisseria RNA, TMA, Ur/TP/Swab?-- Results Pending -- Vaginosis Vaginitis Panel (BV, CV/TV)?-- Results Pending -- You will be contacted within 72 hours with your results. Lab Test Results Point of Care Results POC Urinalysis [facility]/CLIA: [facility] ([place])/[id number] (02/14/24) Urine test: Negative (Normal) (02/14/24) Medications and Immunizations Administered Medications Given During Visit No medications given during this visit.?? Allergies (NKA means No Known Allergies) Reglan??(agitation) Education Materials Below is the list of Educational Leaflet Providered with your Visit summary. [employer] Ign[employer] Patient Education - Urinary Tract Infections in Women?? [employer] Patient Education - Testing for Suspected STI (Chlamydia and Gonorrhea)?? Common Emergency Awareness Tips IS IT A [...] are strongly encouraged to quit. Please call [employer] at [phone] or [phone] ([phone]) or log in to [email or web address] for referrals to smoking cessation programs. ?? The National Suicide Prevention Hotline is available 10/04 if you or someone you know needs to find a reason to keep living. By calling 7-817-801-[employer] (7322) you'll be connected to a skilled, trained counselor at a crisis center in your area. [facility] [employer] Portal You can view and manage your care through the patient portal or by using a health care anne of your choosing. [employer] is a website that allows you to securely view your medical information including your hospital discharge summary, office visit summaries, medications and follow-up visits. You can also request appointments, renew medications, and request access to your medical information using a health care anne of your choosing, or just ask a question. You can enroll at [email or web address] or register during your next office visit. [facility], in keeping with [facility] guidance, no longer requires face masks [...] primary care provider, you may find a [facility] [employer] provider by calling [employer] at [phone]. * Dionne Recinos MD: PERFORM Event Display: Patient Education Leaflets Authored Date: [id number] Urinary Tract Infections in Women ?? [id number] Urinary Tract Infections in Women Urinary tract infections (UTIs) are most often caused by bacteria. These bacteria enter the urinarytract. The bacteria may come from inside the body. Or they may travel from the skin outside the rectum or vagina into the urethra. Female anatomy makes it easy for bacteria from the bowel to enter a woman???s urinary tract. This is the most common source of UTI. This means women develop UTIs more often than men. Pain in or around the urinary tract is a common UTI symptom. Most UTIs are treated with antibiotics. These kill the bacteria. The length of time you need to take them depends on the type of infection. It may be as short as 3 days. If you have repeated UTIs, you may need a low-dose antibiotic for several months. Take antibiotics exactly as directed. Don???t stop taking them until all of the medicine is gone. If you stop taking the antibiotic too soon, the infection may not go away. You may also develop a resistance to the antibiotic. This can make it muchharder to treat in the future. Gender words are used here to talk about anatomy and health risk. Please use this information in a way that works best for you and your provider as you talk about your care. Home care The lifestyle changes below will help get rid of your UTI. They may also help prevent future UTIs: ??? Drink plenty of fluids. This includes water, juice, or other caffeine-free drinks. Fluids help flush bacteria out of your body. ??? Empty your bladder. Always empty your bladder when you feel the urge to pee. And always pee before going to sleep. Urine that stays in your bladder can lead to infection. Try to pee before and after sex as well. ??? Practice good personal hygiene. Wipe yourself from front to back after using the toilet. This helps keep bacteria from getting into the urethra. ???Use condoms during sex. These help prevent UTIs caused by sexually transmitted bacteria. Also don'tuse spermicides during sex. These can increase the risk for UTIs. Choose other forms of control instead. For women who tend to get UTIs after sex, a low dose of a preventive antibiotic may be used. Be sure to discuss this choice with your healthcare provider. ??? Try holistic supplements, such as cranberry tablets and D-mannose. These may help prevent UTIs. ??? Try topical vaginal estrogen.You can use this to help prevent UTIs if you have gone through menopause. ?? Follow-up care Follow up with your healthcare provider as directed. They may test to make sure the infection has cleared. If needed, more treatment may be started. ?? When to get medical advice Call your healthcare provider right away if any of the following occur: ??? Frequent urination ??? Pain or burning when passing urine ??? Fever of 100.4??F (38??C) or higher, or as directed by your healthcare provider ??? Urine looks dark, cloudy, or reddish in color. This may mean that blood is inthe urine. ??? Urine smells bad ??? Feeling pain even when not urinating ??? Tiredness ??? Pain in the belly (abdomen) area below the bellybutton, or in the back or side, below the ribs ??? Nausea orvomiting ??? Have a strong urge to urinate, but only a small amount of urine is passed ??? Uncomfortable pressure above the pubic bone ??? Feeling confused or very tired (in older adults) ?? Last Reviewed Date: 2022 ?? 5399-4213 The [employer]. All rights reserved. This information is not intended as a substitute for professional medical care. Always follow your healthcare professional's instructions. ?? * Dionne Recinos MD: PERFORM Event Display: Patient Education Leaflets Authored Date: [id number] Testing for Suspected STI (Chlamydia and Gonorrhea) ?? [id number] Testing for Suspected STI (Chlamydia and Gonorrhea) Your symptoms suggest that you may have a??sexually transmitted infection (STI). The most common bacteria that cause STIs are chlamydia and gonorrhea. Both are highly contagious. They are passed by sexual contact with an infected partner. If you might be , let your provider know. Providing this information will allow you to get the correct exam, testing, and treatment. Treating STIs as soon as possible will make health problems for your baby less likely. STI symptoms start 1 to 3 weeks after exposure. There is often a discharge from the penis or vaginaand a burning feeling when peeing. There could be pain, discharge, or bleeding from the rectum or throat pain. Many women with one of these infections will have only mild symptoms or no symptoms at all early in the disease. Many men will also have the infection but no symptoms. Tests have been done to show if you have an infection with chlamydia or gonorrhea. These tests may include a urine sample or a swab test of your vagina, cervix, urethra, rectum, or mouth and throat. Infections can be treated and cured with antibiotic medicine. Gender words are used here to talk about anatomy and health risk. Please use this information in a way that works best for you and your provider as you talk about your care. ?? Home care Don't have??sex until you know that your test result is negative. Call for the results of your tests. If the test is positive, contact your healthcare provider, local clinic, or local public health department to be treated, or return to our facility. ??? You will be prescribed antibiotic medicine. Be sure to take all of the antibiotic as prescribeduntil it's gone or you are told to stop. Keep taking it even if you feel better. ??? Both you and your sex partner or partners need to be treated, even if the partner has no symptoms. ??? Don't have sex until both you and your partner or partners have finished all antibiotic medicine and you are told that you are no longer contagious. ??? Get tested for HIV frequently, and whenever a new STI is found. Ask your healthcare provider how to prevent picking up HIV, including treatments such as pre-exposure prophylaxis (PrEP) and post-exposure prophylaxis (PEP). Learn about safe sex practices and use these in the future. The safest sex is with a partner who has tested negative for STIs and only has sex with you. Condoms can help prevent the spread of gonorrhea and chlamydia, but are not a guarantee. ?? Follow-up care Follow up with your healthcare provider, or as advised. Call as directed for the results of your test. This is??to be sure the infection has cleared. Follow up with your provider or the public healthdepartment for complete STI screening, including HIV testing, and to consider ways to prevent HIV. For more information about STIs, call the??CDC information line at??139.426.4373. Or go to the CDC we bsite at https://www.cdc.gov/std/ . ?? When to get medical advice Call your healthcare provider if any of these occur: ??? Fever??of 100.4??F (38.0??C) or higher, oras directed ??? New pain in your lower belly (abdomen) or back, or pain that gets worse ??? Unexpected vaginal bleeding ??? Weakness, dizziness, or fainting ??? Repeated vomiting ??? Inability to peebecause of pain ??? Rash or joint pain ??? Painful open sores on the penis, or in or around the outer vagina or rectum ??? Enlarged painful lumps (lymph nodes) in the groin ??? Testicle pain or scrotal swelling in men ??? New symptoms, or symptoms that get worse ?? Last Reviewed Date: 2021 ?? [id number] [employer]. All rights reserved. This information is not intended as a substitute for professional medical care. Always follow your healthcare professional's instructions. ?? Patient Care team information Care Team Personnel Name: Ulysses Desai MD W Position: [facility] SERVICE DIRECTOR MD Member Role: [employer] SERVICE DIRECTOR Physician Address: Address: [address] [place] [address] [facility] [address]- Name: Elisa Peterson NP Position: [facility] PCO Associate Professional Member Role: PCP Address: Address: [address] [place] [address] Name: Josette Bhardwaj [place] Position: [facility] Office Staff Member Role: Primary Care Nurse Care Team Related Persons Name: JOHANNY HUBER Address: home [address] [place] [address] Name: JOHANNY HUBER Ronnell Address: home [address] [place] [address] Name: JOHANNY HUBER Reynaga Address: home [address] [place] [address] Name: JUAN ORLANDO Address: home [address]
--- OUTSIDE RECORDS SUMMARY | 2024-05-22 09:12 | XMS_ITS | Continuity of Care Document ---
Author Organization [facility] Address [address] [place] [address]- Care Team Providers Care Transportation Coordinator Name Role Phone Elisa Peterson NP Primary Care Physician Encounter [facility] NBR [id number] Date(s): 04/04/22 - 04/11/22 [facility] [address] [address]- [place] Encounter Diagnosis Pharyngitis(Discharge Diagnosis) - 04/04/22 Viral illness(Discharge Diagnosis) - 04/06/22 History of abdominal pain(Discharge Diagnosis) - 04/06/22 Attending Physician: Elisa Peterson NP Allergies, Adverse [...] (old term) 7 09[birth year] Given 1Result Comment: [facility]: [id number] 2Result Comment: [facility] [id number] [phone] 3[facility] 4Admin Note: [...] 0 Refills, Maintenance, 12/17/21 15:33:00 EDT, Tablet, [facility]/pharmacy #[id number], Partial fill upon patient request if the prescription is for a schedule II opioid drug., 168, cm, 11/25/21 10:4... Start Date: 12/17/21 Status: Ordered docusate-senna 50 mg-187 mg oral tablet See Instructions, may take 2 tablets twice a day until regularly moving bowels, then prn, # 60 tablet, 0 Refills, Acute 09/30/22 10:00:00 EST, 09/30/21 19:43:00 EST, Tablet, [facility]/pharmacy #[id number], may take 2 tablets twice a day until regularly moving bow... Start Date: 09/30/21 Stop Date: 09/30/22 Status: Ordered Misc Rx bcp pill, By Mouth, Daily, Refills 0, Maintenance, 08/11/21 20:44:00 EST, Supply Start Date: 08/11/21 Status: Ordered omeprazole 20 mg oral enteric coated capsule 1 capsule, By Mouth, Daily, # 30 capsule, 2 Refills, Maintenance, 03/15/22 9:38:00 EDT, [facility]/pharmacy #[id number], 167, cm, 02/28/22 19:44:00 EDT, Height, [...] Effective Dates Health Status Clinical Service Informant Pharyngitis Discharge Diagnosis 04/04/22 Viral illness Discharge Diagnosis 04/06/22 History of abdominal pain Discharge Diagnosis 04/06/22 Vital Signs Most recent to oldest [Reference Range]: 1 Height 167 cm (04/04/22 2:49 PM) Weight 60.0 kg (04/04/22 2:49 PM) Oxygen Saturation [94-100 %] 96 % (04/04/22 2:49 PM) Pulse Rate [55-90 bpm] 80 bpm (04/04/22 2:49 PM) Body Mass Index [18.5-24.99] 21.51 (04/04/22 2:49 PM) Blood Pressure [90-138/55-84 mm Hg] 115/ 78mm Hg (04/04/22 2:49 PM) Temperature [96.8-100.4 DegF] 98.9 DegF (04/04/22 2:49 PM) Mode of Delivery (Oxygen) Room air (04/04/22 2:49 PM) Blood pressure sites Arm, left (04/04/22 2:49 PM) Temperature Route Temporal (04/04/22 2:49 PM) Weight Obtained Via Standing scale (04/04/22 2:49 PM) Social History Social History Type Response Smoking Status Never smoker; Tobacc o user in household: No entered on: 09/26/13 Sex
--- OUTSIDE RECORDS SUMMARY | 2024-05-22 09:12 | XMS_ITS | Continuity of Care Document ---
Author Organization [facility] Address [address] [place] [address]- Care Team Providers Care Traffic Signal Repairer Name Role Phone Nicholas LACEMAKER, Elisa Reynaga Primary Care Physician Encounter [facility] Date(s): 10/09/20 - 11/08/20 [facility] [address] [place] [address]- Allergies, Adverse Reactions, Alerts Substance Reaction Severity [...] (old term) 6 [birth year]07[birth year]94 Given 1Result Comment: [facility] [id number] [facility] 3Admin Note: [...]
--- OUTSIDE RECORDS SUMMARY | 2024-05-22 09:12 | XMS_ITS | Continuity of Care Document ---
Author Organization [facility] Address [address] [place] [address]- Care Team Providers Care Emergency Services Professional Name Role Phone Nicholas RECREATION THERAPIST, Elisa M Primary Care Physician Encounter [facility] NBR [id number] Date(s): 01/25/24 - 02/24/24 [facility] [address] [place] [address]- [place] Allergies, Adverse Reactions, Alerts Substance Reaction [...] B pediatric vaccine 93 Recorded 1Result Comment: [facility] [phone] 2Result Comment: [facility]: [id number] 3Result Comment: [facility] [id number] [phone] 4Location History: [facility] 5Admin Note: 1st dove 11/21/1995 2nd done [...] Gm, 0 Refills, Maintenance, 02/21/24 17:46:00 EDT, [place], [facility]/pharmacy #[id number], Partial fill [...] 02/21/24 17:46:00 EDT, Route to Pharmacy Electronically, [facility]/pharmacy #[id number], Partial fill upon patient request if the prescription is for a schedule II opioid drug... Start Date: 02/21/24 Status: Ordered omeprazole 20 mg oral enteric coated capsule 1 capsule, By Mouth, 2 times a day, # 180 capsule, 0 Refills, Maintenance, 01/25/24 10:16:00 EDT, [facility] STORE [id number], 168, cm, 01/24/24 14:42:00 EDT, Height, 63.5, [...] Team Personnel Name: Ulysses Desai MD Position: [facility] MILLER ROD MILL MD Member Role: [employer] MILLER ROD MILL Physician Address: Address: [address] [place] [address] [place] [address]- Name: Nicholas RECREATION THERAPIST, Elisa Reynaga Position: [facility] PCO Associate Professional Member Role: PCP Address: Address: [address] [place] [address]- Name: Josette Bhardwaj [place] Position: [facility] Staff Member Role: Primary Care Nurse Care Team Related Persons Name: HUBER ORLANDO Address: home [address] [place] [address] Name: JOHANNY HUBER Reynaga Address: home [address] [place] [address] Name: JOHANNY HUBER M Address: home [address] [place] [address] Name: JUAN ORLANDO Address: home [address]
--- OUTSIDE RECORDS SUMMARY | 2024-05-22 09:12 | XMS_ITS | Continuity of Care Document ---
Author Organization [facility] Address [address] [facility], [address], [address] [place] [address]- Care Team Providers Care Senior Tax Manager Name Role Phone Anitha Hyde MD Primary Care Physician [place] [facility] Date[place]s): 04/28/20 - 05/28/20 [facility] [address], [address], [address] [place] [address]- [facility] Allergies, Adverse Reactions, Alerts Substance Reaction [...] Comment: [facility] [id number] [phone] 2[facility] 3Admin Note: [...]
--- OUTSIDE RECORDS SUMMARY | 2024-05-22 09:12 | XMS_ITS | Continuity of Care Document ---
Author Organization [facility] Address [address] [place] [address]- Care Team Providers Care Staff Writer Name Role Phone Nicholas EDGAR, Elisa Reynaga Primary Care Physician Encounter [facility] NBR [id number] Date(s): 08/30/23 - 09/06/23 [facility] [address] [place] [address]- [place] Encounter Diagnosis GERD (gastroesophageal reflux disease)(Discharge Diagnosis) - 08/30/23 Cough, persistent(Discharge Diagnosis) - 08/30/23 Vaginitis(Discharge Diagnosis) - 08/30/23 Attending Physician: Elisa Peterson NP Allergies, Adverse [...] Recorded 1Result Comment: [facility] [phone] 2Result Comment: [facility]: [phone] 3Result Comment: [facility] [id number] [phone] [facility] 5[facility] Note: [...] mL, 0 Refills, Maintenance, 05/19/23 22:44:00 EDT, [facility]/pharmacy #[id number], Partial fill upon patient request if the [...] 10 Gm, 0 Refills, Maintenance, 07/24/23 15:00:00EST, [place], [id number], Partial fill upon patient request if the prescription is for a schedule II opioid drug., 1 sprays Nares, Both Daily,PRN... Start Date: 07/24/23 Status: Ordered gabapentin 300 mg oral capsule 300 mg, 1, capsule, By Mouth, Daily at bedtime, PRN, # 15 capsule, Refills 0, Tot. Refills 0, Maintenance, [facility], 07/03/23 16:09:00 EDT, Route to Pharmacy Electronically, [facility]/pharmacy #[id number], Partial fill [...] 09/07/23 15:43:00 EST, 08/31/23 15:43:00 EST, [id number] Partial fill upo... Start Date: 08/31/23 Stop Date: 09/07/23 Status: Ordered mirtazapine 7.5 mg oral tablet See Instructions, TAKE 1 TABLET BY MOUTH DAILY FOR 1 WEEK AND THEN INCREASE TO 2 TABLETS DAILY, # 180 tablet, 1 Refills, Maintenance, 07/07/23 6:25:00 EDT, [facility] STORE [id number], 165.1, cm, 07/03/23 15:14:00 EDT, Height, 64.3, kg, 05/19/23 19:22:00 EDT, Dry... Start Date: 07/07/23 Status: Ordered omeprazole 20 mg oral enteric coated capsule 1 capsule, By Mouth, 2 times a day, # 180 capsule, 1 Refills, Maintenance, 06/24/23 16:07:00 EDT, [facility], 165.1, cm, 06/12/23 14:42:00 EDT, Height, 64.3, [...] Effective Dates Health Status Clinical Service Informant GERD (gastroesophageal reflux disease) Discharge Diagnosis 08/30/23 Cough, persistent Discharge Diagnosis 08/30/23 Vaginitis Discharge Diagnosis 08/30/23 Vital Signs Most recent to oldest [Reference Range]: 1 Height 168 cm (08/30/23 1:48 PM) Weight 61.1 kg (08/30/23 1:48 PM) Oxygen Saturation [94-100 %] 100 % (08/30/23 1:48 PM) Pulse Rate [55-90 bpm] 68 bpm (08/30/23 1:48 PM) Body Mass Index [18.5-24.99 kg/m2] 21.65 kg/m2 (08/30/23 1:48 PM) Blood Pressure [90-138/55-84 mm Hg] 120/ 70mm Hg (08/30/23 1:48 PM) Respiratory Rate [16-30 br/min] 15 br/mi n *L* (08/30/23 1:48 PM) Temperature [96.8-100.4 DegF] 97.5 DegF (08/30/23 1:48 PM) Mode of Delivery (Oxygen) Room air (08/30/23 1:48 PM) Blood pressure sites Arm, left (08/30/23 1:48 PM) Temperature Route Temporal (08/30/23 1:48 PM) Weight Obtained Via Standing scale (08/30/23 1:48 PM) Social History Social History Type Response Smoking Status Never smoker; Tobacc o user in household: No entered on: 09/26/13 Sex Note * Judith , Amanda: PERFORM, SIGN, VERIFY Event Display: Patient Education/Instruction Authored Date: [id number] [facility] *BMP [facility] Ad[facility] Med Bltn Clinical Summary Name REGULO ORLANDO Age 27 Years 1995 PCP Nicholas EDGAR, Elisa Reynaga PCP Visit Date 08/30/2023 13:44:00 Additional Instructions: Scheduled Appointments?? Future Appointments ?No Future Appointments Scheduled Follow-Up Instructions ?? Diagnosis Medications: Please continue your medications until treatment is completed or stopped by your provider. Discuss any questions related to medications with your provider. New Medications [id number], [address] [place], [place] [id number], [phone] levocetirizine (Xyzal 5 mg oral tablet) 1 tab(s) Oral Daily in PM for 30 Days. Refills: 6. Next Dose: Medications to Continue with No Changes These medications were not printed or sent to your pharmacy Cefuroxime (cefuroxime 500 mg oral tablet) 1 tab(s) Oral twice a day for 7 Days. Next Dose: Chlorhexidine Topical (chlorhexidine topical 0.12% liquid) 15 Milliliter Oral twice a day. Refills:0. Next Dose: Diclofenac (diclofenac sodium 75 mg oral delayed release tablet) 1 tab(s) Oral twice a day as needed PAIN for 15 Days. with food. Refills: 0. Next Dose: Ethinyl Estradiol / Norethindrone () Oral Daily. Next Dose: Fluticasone Nasal (fluticasone 27.5 mcg/inh nasal spray) 1 spray(s) Nares, Both Daily as needed Cold Symptoms. Refills: 0. Next Dose: fremanezumab (Ajovy 225 mg/1.5 mL subcutaneous solution) 225 Milligram Subcutaneous Infusion Every 28 days. Next Dose: Gabapentin (gabapentin 300 mg oral capsule) 1 capsule Oral Daily at Bedtime as needed SCIATICA PAINfor 15 Days. Refills: 0. Next Dose: Mirtazapine (mirtazapine 7.5 mg oral tablet) TAKE 1 TABLET BY MOUTH DAILY FOR 1 WEEK AND THEN INCREASE TO 2 TABLETS DAILY. Refills: 1. Next Dose: Omeprazole (omeprazole 20 mg oral enteric coated capsule) 1 capsule Oral twice a day. Refills: 1. Next Dose: Sucralfate (Carafate 1 gm/10 ml oral suspension) 10 Milliliter Oral 3 times a day before meals and bedtime for 14 Days. Refills: 0. Next Dose: Allergy Info:?? Reglan Medications Given This Visit Future Orders ?Vaginosis Vaginitis Panel (BV, CV/TV)? Order Date:08/30/23?- Complete on or after?08/30/23 Vital Signs Height 168 cm Weight 61.1 kg BMI 21.65 kg/m2 Blood Pressure 120 mm Hg/70 mm Hg Temperature 97.5 DegF Pulse Rate 68 bpm Respiratory Rate 15 br/min 02 Sat Mode of Delivery 100 %/Room air You can now view a summary of your hospital visit from the comfort of your home through a free online portal called [employer]. [employer] is a website that allows you to securely view your medical information including discharge summary, medications and follow-up visits. ??You can alsosend a secure electronic message to your doctor???s office to request appointments, renew medications or just ask a question. You can enroll at [email or web address] or register during your next office [...] primary care provider, you may find a [facility] provider by calling [facility] [employer] Link at [phone]. [facility], in keeping with [facility] guidance, no longer requires face masks [...] Name: Ulysses Desai MD Position: [facility] MULE DEVELOPER MD Member Role: [employer] MULE DEVELOPER Physician Address: Address: [address] [place] [address] [place] [address]- [place] Name: Elisa Peterson NP Position: [facility] PCO Associate Professional Member Role: PCP Address: Address: [address] [place] [address] [place] [address]- Name: Josette Bhardwaj [place] Position: [facility] RN Member Role: Primary Care Nurse Care Team Related Persons Name: HUBER ORLANDO Address: home [address] [place] [address] Name: HUBER ORLANDO Address: home [address] [place] [address] Name: JOHANNYHUBER Address: home [address] [place] [address] Name: JUAN ORLANDO Address: home [address] [address]
--- OUTSIDE RECORDS SUMMARY | 2024-05-22 09:12 | XMS_ITS | Continuity of Care Document ---
Author Organization [facility] Address [address] [place] [address]- Care Team Providers Care Helpdesk Technician Name Role Phone Nicholas ADJUNCT PROFESSOR OF ENGLISH, Elisa Reynaga Primary Care Physician Encounter [facility] Date(s): 05/09/24 - 05/16/24 [facility] [address] [place] [address]- Attending Physician: Camille Smith NP Allergies, Adverse Reactions, Alerts Substance [...] 93 Recorded 1Result Comment: [facility] [id number] 2Result Comment: [facility]: [phone] 3Result Comment: [facility] [id number] [phone] 4[facility] 5Admin Note: [...] 14:53:00 EDT, Route to Pharmacy Electronically, [facility]/pharmacy #[id number], Partial fill upon patient request if the prescription i... Start Date: 01/29/24 Status: Ordered clindamycin 1% topical gel 1 application, Topically, Daily at bedtime, apply a thin film apply a thin film to affected area after washing, # 30 Gm, 6 Refills, Maintenance, 04/24/24 13:02:00 EDT, Gel, [facility]/pharmacy #[id number], Partial fill upon patient [...] Refills, Maintenance, 01/16/24 16:47:00 EDT, Tablet, [facility]/pharmacy #[id number], Partial fill upon patient [...] oldest [Reference Range]: 1 Height 168 cm (05/09/24 8:15 AM) Weight 69.9 kg (05/09/24 8:15 AM) Body Mass Index [18.5-24.99 kg/m2] 24.77 kg/m2 (05/09/24 8:15 AM) Blood Pressure [90-138/55-84 mm Hg] 110/ 70mm Hg (05/09/24 8:15 AM) Blood pressure sites Arm, right (05/09/24 8:15 AM) Weight Obtained Via Standing scale (05/09/24 8:15 AM) Social History Social History Type Response Smoking Status Never smoker; Tobacc o user in household: No entered on: 09/26/13 Sex Note * Bogdan Chao: PERFORM Event Display: Patient Education/Instruction Authored Date: [id number] Ambulatory Adult Visit Summary [facility] [address] [place] [address] Name: REGULO ORLANDO : 1995?? Visit: 05/09/2024 08:02?? Ambulatory Visit Instructions ?? Your Care Team Primary Care Provider Elias Peterson NP? This Visit Provider Luis EDGAR, Camille Dukes Your Diagnosis Well woman exam with routine gynecological exam Oral contraceptive use Vitals Signs Systolic Blood Pressure: 110 mm Hg Height: 168 cm Diastolic Blood Pressure: 70 mm Hg Weight: 69.9 kg ?? Body Mass Index: 24.77 kg/m2 ?? Body surface area: 1.81 What to do next Scheduled Follow-Up Appointments Monday 10:00 AM EDT ?? With: Yasmany [facility] Where: [facility] Status: Pending Monday 10:40 AM EDT ?? With: Elisa Peterson NP Where: [address] [address]- Status: Pending Monday 1:00 PM EDT ?? With: Stella Frank MD Where: [facility] [address] [place] [address]- Status: Pending Monday 8:30 AM EDT ?? With: Jade Ross NP Where: [facility] [address] [place] [address]- Status: Pending Monday 10:00 AM EDT ?? With: Jade Ross NP Where: [facility] [address] [place] [address]- Status: Pending Monday 9:30 AM EST ?? With: Mauricio Chester MD Where: [facility] Status: Pending Monday 8:45 AM EST ?? With: Raymundo Leon MD Where: [facility] [address] [place] [address]- Status: Pending Follow-Up Appointments Follow Up with??[facility] When:??In 1 year [facility]: [facility] [place] [address]- [phone] Future Orders Vaginosis Vaginitis Panel (BV, CV/TV) - Routine, Vaginal Swab, Once, 02/14/24 17:46:00 EDT, Order for Today, [facility], Swab?? C. difficile Rapid Toxin Assay - Routine, Once, 05/03/24 15:13:00 EDT, [facility], Stool?? Pap Test w/HPV rfx GT - Routine, Once, Collected, 05/09/24 8:53:00 EDT, [facility], Cervical?? Medications The list below reflects the information in our records and provided by you today along with any changes made during this visit. Please continue your medications until treatment is completed or stopped by your provider. If this is different from the information you have or there are other questions,please contact the prescribing provider. What How Much When Why Instructions New Ethinyl Estradiol / Norethindrone (Lo Loestrin Fe oral tablet) 1 tab(s) Oral Daily Refills: 4 Pickup at [facility]/pharmacy #[id number] Changed Famotidine (famotidine 40 mg oral tablet) 90 each, 0 Refill(s), TAKE 1 TABLET BY MOUTH EVERY DAY AT NIGHT ?? Unchanged Acetaminophen (acetaminophen 325 mg oral tablet) 2 tab(s) Oral Every 6 hours as needed for Pain , Moderate Neck pain Unchanged Clindamycin Topical (clindamycin 1% topical gel) 1 anne Topically Daily at Bedtime Duration: 30 Days apply a thin film apply a thin film to affected area after washing ?? Unchanged Cyclobenzaprine (cyclobenzaprine 5 mg oral tablet) 1 tab(s) Oral Daily at Bedtime Duration: 30 Days Unchanged Diclofenac Topical (Voltaren Arthritis Pain 1% topical gel) 2 gram Topically 4 times a day as needed for Pain , Moderate Neck pain without injury not to exceed 8 grams/ day/ single joint of upper extremities ?? Unchanged Doxycycline Unchanged Fluconazole (fluconazole 150 mg oral tablet) 2 each, 0 Refill(s), TAKE 1 TABLET (ORAL) 1 TIME PER DAY FOR 1 DAYS THEN CAN REPEAT IN 72 HOURS IF SYMPTOMS PERSIST ?? Unchanged HydrOXYzine (hydrOXYzine hydrochloride 10 mg oral tablet) 1 tab(s) Oral 3 times a day as needed for for anxiety Unchanged Pantoprazole (Protonix 20 mg oral delayed release tablet) 1 tab(s) Oral Daily Pharmacy Information [facility]/pharmacy #[id number]: [address] [place] [id number] [phone] ?? What How Much When Comments Stop Taking Benzoyl Peroxide Topical (benzoyl peroxide 10% topical cream) 1 anne Topically Daily Duration: 30 Days keep away from eyes and mucous membranes clean affected area before application ?? Stop Taking Fluticasone Nasal (fluticasone 50 mcg/ inh nasal spray) 1 spray(s) Nares, Both Twice a day Test Performed Below is a partial list of the tests performed during your Visit. You may have had other tests and procedures not included in this list. Please discuss all test results with your provider. Pap Test w/HPV rfx GT?-- Results Pending -- Medications and Immunizations Administered Medications Given During [...] are strongly encouraged to quit. Please call [facility] at [phone] or [phone] Software ([phone]) or log in to [email or web address] for referrals to smoking cessation programs. ?? The National Suicide Prevention Hotline is available 10/04 if you or someone you know needs to find a reason to keep living. By calling 8-682-109-BookBag (7503) you'll be connected to a skilled, trained counselor at a crisis center in your area. [facility] Portal You can view and manage your care through the patient portal or by using a health care anne of your choosing. [employer] is a website that allows you to securely view your medical information including your hospital discharge summary, office visit summaries, medications and follow-up visits. You can also request appointments, renew medications, and request access to your medical information using a health care anne of your choosing, or just ask a question. You can enroll at [email or web address] or register during your next office visit. [facility], in keeping with [facility] guidance, no longer requires face masks for [...] primary care provider, you may find a [facility] provider by calling [facility] at [phone]. Patient Care team information Care Team Personnel Name: Ulysses Desai MD Position: [facility] FLASK CARRIER MD Member Role: Lifetime FLASK CARRIER Physician Address: Address: [address] [place] [address] [place] [address]- [place] Name: Elisa Peterson NP Position: [facility] PCO Associate Professional Member Role: PCP Address: Address: [address] [place] [address]- Name: Josette Bhardwaj [place] Position: [facility] Office Staff Member Role: Primary Care Nurse Care Team Related Persons Name: HUBER ORLANDO Address: [address] [place] [address] Name: HUBER ORLANDO Address: home [address] [place] [address] Name: HUBER ORLANDO Address: home [address] [place] [address] Name: JUAN ORLANDO Address: [address] [address]
--- OUTSIDE RECORDS SUMMARY | 2024-05-22 09:12 | XMS_ITS | Continuity of Care Document ---
Author Organization [facility] Address [address] [place] [address]- Care Team Providers Care Whale Trainer Name Role Phone Elisa Peterson NP Primary Care Physician Encounter [facility] [id number] Date(s): 06/12/23 - 06/19/23 [facility] [address] [place] [address]- [place] Encounter Diagnosis Chronic diarrhea(Discharge Diagnosis) - 06/12/23 Attending Physician: Cheng Galdamez MD Referring Physician: Elisa Peterson NP Allergies, [...] B pediatric vaccine 93 Recorded 1Result Comment: [facility] [id number] 2Result Comment: [facility]: [id number] 3Result Comment: [facility] [phone] 4[facility] 5Admin Note: [...] mL, 0 Refills, Maintenance, 05/19/23 22:44:00 EDT, [facility]/pharmacy #[id number], Partial fill upon patient request if the prescription is for a schedule II opioid drug., 165.1, cm, 05/19/23 1... Start Date: 05/19/23 Stop Date: 06/02/23 Status: Ordered Junel Fe .02/14 By Mouth, Daily, 0 Refills, Maintenance, 08/08/22 [...] 06/12/23 15:25:00 EDT, Route to Pharmacy Electronically, [facility]/pharmacy #[id number] Tablet, Partial fill upon patient... Start Date: 06/12/23 Stop Date: 07/02/23 Status: Ordered omeprazole 20 mg oral enteric coated capsule 1 capsule, By Mouth, 2 times a day, # 180 capsule, 1 Refills, Maintenance, 11/01/22 10:45:00 EST, [facility]/pharmacy #[id number], 168, cm, 11/01/22 10:19:00 EST, Height, [...] Dates Health Status Cl inical Service Informant Chronic diarrhea Discharge Diagnosis 06/12/23 Vital Signs Most recent to oldest [Reference Range]: 1 Height 165.10 cm (06/12/23 2:42 PM) Oxygen Saturation [94-100 %] 99 % (06/12/23 2:42 PM) Pulse Rate [55-90 bpm] 106 bpm *H* (06/12/23 2:42 PM) Blood Pressure [90-138/55-84 mm Hg] 122/ 78mm Hg (06/12/23 2:42 PM) Respiratory Rate [16-30 br/min] 18 br/mi n (06/12/23 2:42 PM) Social History Social History Type Response Smoking Status Never smoker; Tobacc o user in household: No entered on: 09/26/13 Sex Note * Kiana Bernabe: PERFORM, SIGN, VERIFY Event Display: Patient Education/Instruction Authored Date: [id number] [facility] *BMP Quab Adlt Med Bltn Clinical Summary Name REGULO ORLANDO Age 27 Years 1995 PCP Elisa Peterson NP [facility]CP [facility] [id number] Visit Date 06/12/2023 14:40:00 Additional Instructions: Scheduled Appointments?? Future Appointments ?*BMP??Quab??Adlt??Med??Bltn ?[address],??[place],??[address] ?Phone:??--?Fax:??-- ?Appt. Date:??06/29/2023?12:40 PM ?Scheduled Provider:??Cheng Galdamez MD ?*BMP??Quab??[facility]lt??Med??Bltn ?[address],??[place],??[address] ?Phone:??--?Fax:??-- ?Appt. Date:??08/09/2023?1:00 PM ?Scheduled Provider:??Elisa Peterson NP. Follow-Up Instructions ?? Diagnosis Noninfective gastroenteritis and colitis, unspecified Medications: Please continue your medications until treatment is completed or stopped by your provider. Discuss any questions related to medications with your provider. New Medications [facility]/pharmacy #[id number], [address] [place], [place] [id number], [phone] Atropine / Diphenoxylate (Lomotil 0.025 mg-2.5 mg oral tablet) 1 tab(s) Oral 4 times a day as needed for loose stool for 10 Days. Refills: 1. Next Dose: Medications to Continue with No Changes These medications were not printed or sent to your pharmacy Ethinyl Estradiol / Norethindrone () Oral Daily. Next Dose: Omeprazole (omeprazole 20 mg oral enteric coated capsule) 1 capsule Oral twice a day for 90 Days. Refills: 1. Next Dose: Sucralfate (Carafate 1 gm/10 ml oral suspension) 10 Milliliter Oral 3 times a day before meals and bedtime for 14 Days. Refills: 0. Next Dose: Allergy Info:?? Reglan Medications Given This Visit Future Orders ?No future orders Vital Signs Height 165.10 cm Weight BMI Blood Pressure 122 mm Hg/78 mm Hg Temperature Pulse Rate 106 bpm Respiratory Rate 18 br/min 02 Sat Mode of Delivery 99 %/ You can now view a summary of your hospital visit from the comfort of your home through a free online portal called [employer]. [employer] is a website that allows you to securely view your medical information including discharge summary, medications and follow-up visits. ??You can alsosend a secure electronic message to your doctor???s office to request appointments, renew medications or just ask a question. You can enroll at [email or web address] or register during your next office visit. [...] [facility] provider by calling [facility] Link at [phone]. [facility], in keeping with [facility] guidance, no longer requires face masks for [...] Team Personnel Name: Ulysses Desai MD Position: [facility] CHANGE NUMBER OPERATOR MD Member Role: [employer]etime CHANGE NUMBER OPERATOR Physician Address: Address: [address] [place] [address] [facility] [place], [place] [facility] Name: Elisa Peterson NP Position: [facility] PCO Associate Professional Member Role: PCP Address: Address: [address] [place] [address] [facility] Name: Josette Bhardwaj [place] Position: [facility] RN Member Role: Primary Care Nurse Care Team Related Persons Name: HUBER ORLANDO Address: home [address] [place] [address] Name: HUBER ORLANDO Address: home [address] [place] [address] Name: HUBER ORLANDO Address: home [address] [place] [address] Name: JUAN ORLANDO Address: home [address]
--- OUTSIDE RECORDS SUMMARY | 2024-05-22 09:12 | XMS_ITS | Continuity of Care Document ---
Author Organization [facility] Address [address] [place] [address]- Care Team Providers Care Water Filtration Technician Name Role Phone Mary Ellen SRINIVASAN, Anitha Primary Care Physician ( [phone] Encounter [facility] Date(s): 03/03/20 - 03/10/20 [facility] [address] [place] [address]- [facility] Encounter Diagnosis Colitis(Discharge Diagnosis) - 03/03/20 Attending Physician: Anitha Hyde MD Allergies, Adverse [...] 6 09/07/94 Given 1Result Comment: [facility] [id number] [phone] 2[facility] 3Admin Note: 1st dove 11/21/1995 2nd done 05/21/2009 4Admin Note: 1st done 12/13/2006 2nd done 02/14/2007 3rd done 06/19/2007 5Admin Note: 1st done 02/24/1995 2nd done 11/30/1998 6Admin Note: 1st done 1993 2nd done 1993 3rd done 09/07/1994 Medications ibuprofen 600 mg oral tablet 600 mg, 1, tablet, By Mouth, Every 8 hours, PRN, # 21 tablet, Refills 0, Tot. Refills 0, Maintenance, as needed for pain, 02/29/20 0:26:00 EDT, Route to Pharmacy Electronically, [facility]/pharmacy #[id number], 166, cm, 02/28/20 22:00:00 EDT, Height, 60.7, kg, ... Start Date: 02/29/20 Stop Date: 03/03/20 Status: [...] Dates Health Status Clini khushboo Service Informant Colitis Discharge Diagnosis 03/03/20 Vital Signs Most recent to oldest [Reference Range]: 1 Height 166 cm (03/03/20 10:29 AM) Social History Social History Type Response Smoking Status Never smoker; Tobacc o user in household: No entered on: 09/26/13 Sex
--- OUTSIDE RECORDS SUMMARY | 2024-05-22 09:12 | XMS_ITS | Continuity of Care Document ---
Author Organization [facility] Address [address] [place] [address]- Care Team Providers Care Supervisor Whipped Topping Name Role Phone Nicholas UI DEVELOPER WITH ANGULAR JS, Elisa M Primary Care Physician [id number] 10/18/23 - 11/17/23 [facility] [address] [place] [address]- [place] Allergies, Adverse Reactions, Alerts Substance Reaction [...] Comment: [facility] [place] 2] 39712-015-73 2Result Comment: [facility] [place]NOTE 2]: 32858-533-89 3Result Comment: [facility] [place]NOTE 2] [address] [phone] 4[facility] 5Admin Note: 1st dove 11/21/1995 2nd done 05/21/2009 6Admin Note: 1st done 12/13/2006 2nd done 02/14/2007 3rd done 06/19/2007 7Admin Note: 1st done 02/24/1995 2nd done 11/30/1998 8Admin Note: 1st done 1993 2nd done 1993 3rd done 09/07/1994 Medications omeprazole 20 mg oral enteric coated capsule 1 capsule, By Mouth, 2 times a day, # 180 capsule, 1 Refills, Maintenance, 06/24/23 16:07:00 EDT, [facility] [id number], 165.1, cm, 06/12/23 14:42:00 EDT, Height, 64.3, kg, 05/19/23 19:22:00 EDT, Dry Weight Start Date: 06/24/23 Status: Ordered Xyzal 5 mg oral tablet 1 tablet = 5 mg, By Mouth, Daily in PM, # 30 tablet, 6 Refills, Maintenance, 08/30/23 14:06:00 EST,Tablet, [facility]/pharmacy #[id number], Partial fill upon patient [...] Personnel Name: Giselle SRINIVASAN, Ulysses Thornton Position: [facility] FRONT CLERK MD Member Role: Lifetime FRONT CLERK Physician Address: Address: [address] [place] [address] [place] [address]- Name: Elisa Peterson NP Position: [facility] PCO Associate Professional Member Role: PCP Address: Address: [address] [place] [address]- Name: Josette Bhardwaj [place] Position: [facility] RN Member Role: Primary Care Nurse Care Team Related Persons Name: HUBER ORLANDO Address: home [address] [place] [address] Name: HUBER ORLANDO Address: home [address] [place] [address] Name: HUBER ORLANDO Address: home [address] [place] [address] Name: JUAN ORLANDO Address: home [address]
--- OUTSIDE RECORDS SUMMARY | 2024-05-22 09:12 | XMS_ITS | Continuity of Care Document ---
Author Organization [facility] Address [address] [place] [address]- Care Team Providers Care Digital Commentator Name Role Phone Nicholas DEICER INSPECTOR ELECTRIC, Elisa M Primary Care Physician Encounter [facility] [id number] Date(s): 10/25/22 - 11/24/22 [facility] [address] [place] [address]- [place] Allergies, Adverse Reactions, Alerts Substance Reaction [...] vaccine 93 Recorded 1Result Comment: [facility] [place] 77950-414-14 2Result Comment: [facility] [place]: [id number] 3Result Comment: [facility] [place] [address] [phone] 4[facility] 5Admin Note: [...] Maintenance, 12/17/21 15:33:00 EDT, Tablet, [facility]/pharmacy #[id number], Partial fill upon patient request [...] 6 Refills, Maintenance, 11/01/22 10:44:00 EST, [place], [facility]/pharmacy #[id number], Partial fill upon patient request [...] team information Care Team Personnel Name: Nicholas DEGAR, Elisa Reynaga Position: [facility] PCO Associate Professional Member Role: PCP Address: Address: [address] [place] [address] Name: Josette De Anda Position: [facility] RN Member Role: Primary Care Nurse Care Team Related Persons Name: HUBER ORLANDO Address: home [address] [place] [address] Name: HUBER ORLANDO Address: home [address] [place], [place] [id number] Name: HUBER ORLANDO Address: home [address] [place], [place] [id number] Name: JUAN ORLANDO Address: [place] [address]
--- OUTSIDE RECORDS SUMMARY | 2024-05-22 09:12 | XMS_ITS | Continuity of Care Document ---
Author Organization [facility] [place] Address [address] [place] [address]- Care Team Providers Care Personal Injury Litigation Paralegal Name Role Phone Nicholas SETUP TECHNICIAN, Elisa M Primary Care Physician Encounter [facility] Date(s): 07/04/20 - 11/01/20 [facility] [place] [address] [place] [address]- Attending Physician: Victor Manuel Sarmiento MD Allergies, Adverse Reactions, Alerts Substance Reaction [...] Comment: [facility] [id number] [phone] [id number] 2[facility] 3Admin Note: [...]
--- OUTSIDE RECORDS SUMMARY | 2024-05-22 09:12 | XMS_ITS | Continuity of Care Document ---
Author Organization [facility] Address [address] [place] [address]- Care Team Providers Care Welt Edge Rounder Name Role Phone Mary Ellen SRINIVASAN, [facility] Primary Care Physician Encounter [facility] Date(s): 10/08/19 - 10/15/[address] [address]- [facility] Attending Physician: Ulysses Desai MD Allergies, Adverse Reactions, Alerts Substance Reaction [...] (old term) 6 09/07/94 Given 1Result Comment: [facility] [id number] 319 [id number] 2Location History: [facility] 3Admin Note: [...] 11/07/19 14:03:00 EST, 10/14/19 14:03:00 EST, Tablet, [facility]/pharmacy #[id number], 168, cm, 10/14/19 13:34:00 EST, Height, 64, kg, 09/08/19 14:41:00 EST, Dry W... Start Date: 10/14/19 Stop Date: 11/07/19 Status: Ordered naratriptan 2.5 mg oral tablet 1 tablet = 2.5 mg, By Mouth, Daily, PRN for migraine headache, may repeat dose once in 4 hours, # 9tablet, 1 Refills, Maintenance, 10/11/19 14:31:00 EST, Tablet, [facility]/pharmacy #[id number], 168, cm, 10/11/19 13:21:00 EST, Height, 64, kg, 09/08/19 14:41:00 ES... Start Date: 10/11/19 Status: Ordered sertraline 25 mg oral tablet 1 tablet = 25 mg, By Mouth, Daily, # 30 tablet, 1 Refills, Maintenance, 10/14/19 14:02:00 EST, Tablet, [facility]/pharmacy #[id number], 168, cm, 10/14/19 [...]
--- OUTSIDE RECORDS SUMMARY | 2024-05-22 09:13 | XMS_ITS | Continuity of Care Document ---
Author Organization [facility] Address [address] [facility], [address] Floor, [address] [place] [address]- Care Team Providers Care Manager Wholesale Name Role Phone Nicholas SLUDGE FILTRATION ATTENDANT, Elisa Reynaga Primary Care Physician Encounter [facility] Date(s): 05/23/23 - 06/22/23 [facility] [address] [facility], 3rd Floor, [address] [place] [address]- Allergies, Adverse Reactions, Alerts Substance Reaction Severity [...] pediatric vaccine 93 Recorded 1Result Comment: [facility] 47991-841-45 2Result Comment: [facility]: 58120-068-07 3Result Comment: [facility] [id number] [phone] 4[facility] History: [facility] 5Admin Note: [...] mL, 0 Refills, Maintenance, 05/19/23 22:44:00 EDT, [facility]/pharmacy #[id number], Partial fill upon patient request [...] 06/12/23 15:25:00 EDT, Route to Pharmacy Electronically, [facility]/pharmacy #[id number] Tablet, Partial fill upon patient... Start Date: 06/12/23 Stop Date: 07/02/23 Status: Ordered omeprazole 20 mg oral enteric coated capsule 1 capsule, By Mouth, 2 times a day, # 180 capsule, 1 Refills, Maintenance, 11/01/22 10:45:00 EST, [facility]/pharmacy #[id number], 168, cm, 11/01/22 10:19:00 EST, [...] Team Personnel Name: Ulysses Desai MD Position: [facility] PIPE SMOKING MACHINE OFFBEARER MD Member Role: Lifetime PIPE SMOKING MACHINE OFFBEARER Physician Address: Address: [address] [place] [address] [place] [address]- Name: Elisa Peterson NP Position: [facility] PCO Associate Professional Member Role: PCP Address: Address: [address] [place] [address]- Name: Josette Bhardwaj [place] Position: [facility] RN Member Role: Primary Care Nurse Care Team Related Persons Name: JOHANNY HUBER Address: home [address] [place] [address] Name: HUBER ORLANDO Address: home [address] [place] [address] Name: JOHANNY HUBER M Address: home [address] [place] [address] Name: JUAN ORLANDO Address: home [address]
--- OUTSIDE RECORDS SUMMARY | 2024-05-22 09:13 | XMS_ITS | Continuity of Care Document ---
Author Organization [facility] Address [address] [place] [address]- Care Team Providers Care Manager Of Product Name Role Phone Anitha Hyde MD Primary Care Physician Encounter [facility] Date(s): 05/01/20 - 05/08/20 [facility] [address] [place] [address] Encounter Diagnosis Migraine(Discharge Diagnosis) - 05/01/20 Anxiety(Discharge Diagnosis) - 05/01/20 GERD (gastroesophageal reflux disease)(Discharge Diagnosis) - 05/01/20 Attending Physician: Anitha Hyde MD Allergies, Adverse [...] term) 6 09/07/94 Given 1Result Comment: [facility] [id number] 2Location History: [facility] 3Admin Note: [...] 05/01/20 11:14:00 EDT, Route to Pharmacy Electronically, [facility]/pharmacy #[id number], 167.64, cm, 04/25/20 0:39:00 EDT, Height, [...] Dates Health Status Cl inical Service Informant Migraine Discharge Diagnosis 05/01/20 Anxiety Discharge Diagnosis 05/01/20 GERD (gastroesophagea l reflux disease) Discharge Diagnosis 05/01/20 Vital Signs Most recent to oldest [Reference Range]: 1 Height 0 cm (05/01/20 10:08 AM) Social History Social History Type Response Smoking Status Never smoker; Tobacc o user in household: No entered on: 09/26/13 Sex
--- OUTSIDE RECORDS SUMMARY | 2024-05-22 09:13 | XMS_ITS | Continuity of Care Document ---
Author Organization [facility] Address [address] [facility], [address] Floor, [address] [place] [address]- Care Team Providers Care Yarn Twister Name Role Phone Nicholas EDGAR, Elisa M Primary Care Physician [place] [facility] Date(s): 05/03/23 - 06/02/23 [facility] [address] [facility], 3rd Floor, [address] [place] [address]- Allergies, Adverse Reactions, Alerts Substance Reaction Severity [...] Recorded 1Result Comment: [facility] [phone] 2Result Comment: [facility]: 61808-439-27 3Result Comment: [facility] 20042 [phone] 4Location History: [facility] 5Admin Note: [...] Refills, Maintenance, 05/19/23 22:44:00 EDT, [facility]/pharmacy #[id number], Partial fill upon patient request if [...] Maintenance, 11/01/22 10:45:00 EST, [facility]/pharmacy #[id number], 168, cm, 11/01/22 10:19:00 EST, Height, [...] Personnel Name: Giselle SRINIVASAN, Ulysses Thornton Position: [facility] HEALTH FACILITIES SURVEYOR MD Member Role: Lifetime HEALTH FACILITIES SURVEYOR Physician Address: Address: [address] [place] [address] [facility] [address] Name: Elisa Peterson NP Position: [facility] PCO Associate Professional Member Role: PCP Address: Address: [address] [place] [address] Name: Josette Bhardwaj [place] Position: [facility] RN Member Role: Primary Care Nurse Care Team Related Persons Name: HUBER ORLANDO Address: home [address] [place] [address] Name: HUBER ORLANDO Address: home [address] [place] [address] Name: HUBER ORLANDO Address: home [address] [place] [address] Name: JUAN ORLANDO Address: home [address]
--- OUTSIDE RECORDS SUMMARY | 2024-05-22 09:13 | XMS_ITS | Continuity of Care Document ---
Author Organization [facility] Address [address] [place], [place] [id number]- Care Team Providers Care Sifting Operator Name Role Phone Nicholas VAMP SEAMER, Elisa Reynaga Primary Care Physician [place] [facility] Date(s): 04/15/24 - 04/22/24 [facility] [address] [place] [address]- [place] Encounter Diagnosis GERD (gastroesophageal reflux disease)(Discharge Diagnosis) - 04/15/24 Epigastric pain(Discharge Diagnosis) - 04/15/24 Dysphagia(Discharge Diagnosis) - 04/15/24 IBS - Irritable bowel syndrome(Discharge Diagnosis) - 04/15/24 Long COVID(Discharge Diagnosis) - 04/15/24 Attending Physician: Harley López MD Referring Physician: Jase Lee NP Allergies, Adverse Reactions, [...] B pediatric vaccine 93 Recorded 1Result Comment: [facility] 74811-698-96 2Result Comment: [facility]: 99346-249-47 3Result Comment: [facility] 81403 [phone] 4Location History: [facility] 5Admin Note: [...] 01/29/24 14:53:00 EDT, Route to Pharmacy Electronically, [facility]/pharmacy #[id number], Partial fill upon patient request if the prescription i... Start Date: 01/29/24 Status: Ordered benzoyl peroxide-clindamycin 5%-1% topical gel 1 application, Topically, 2 times a day, # 50 Gm, 3 Refills, Maintenance, 03/29/24 11:48:00 EDT, Gel, [facility]/pharmacy #[id number], Partial fill upon [...] Refills, Soft Stop, 03/27/24 13:14:00 EDT, Tablet, [facility]/pharmacy #[id number], Partial fill upon patient requestif the prescription is for a schedule II opioid alyssa... Start Date: 03/27/24 Status: Ordered famotidine 20 mg oral tablet 20 mg, 1, tablet, By Mouth, 2 times a day, PRN, # 30 tablet, Refills 0, Tot. Refills 0, Maintenance, Control of Stomach Acid, 01/09/24 0:16:00 EDT, Route to Pharmacy Electronically, [facility]/pharmacy #[id number], Partial fill upon patient request if the prescrip... Start Date: 01/09/24 Status: Ordered fluticasone 50 mcg/inh nasal spray 1 sprays = 50 mcg, Nares, Both, 2 times a day, # 16 Gm, 0 Refills, Maintenance, 02/21/24 17:46:00 EDT, [place], [facility]/pharmacy #[id number], Partial fill upon patient request if the prescription is for a schedule II opioid drug., 1 sprays Nares, Both 2 times a d... Start Date: 02/21/24 Status: Ordered hydrOXYzine hydrochloride 10 mg oral tablet 1 tablet = 10 mg, By Mouth, 3 times a day, PRN for anxiety, # 42 tablet, 0 Refills, Maintenance, 01/16/24 16:47:00 EDT, Tablet, [facility]/pharmacy #[id number], Partial fill upon patient request if the prescription is for a schedule II opioid drug., 168, cm, 01/15... Start Date: 01/16/24 Status: Ordered hyoscyamine 0.125 mg oral tablet 0.125 mg, 1, tablet, By Mouth, 4 times a day, PRN, # 40 tablet, Refills 0, Tot. Refills 0, Maintenance, for spasm, 03/27/24 0:47:00 EDT, Route to Pharmacy Electronically, [facility]/pharmacy #[id number], Partial fill upon patient request if the prescription is for... Start Date: 03/27/24 Status: Ordered omeprazole 20 mg oral enteric coated capsule 1 capsule, By Mouth, 2 times a day, # 180 capsule, 0 Refills, Maintenance, 01/25/24 10:16:00 EDT, [facility] [id number], 168, cm, 01/24/24 14:42:00 EDT, Height, 63.5, kg, 01/08/24 20:41:00 EDT, Dry Weight Start Date: 01/25/24 Status: Ordered Protonix 20 mg oral delayed [...] iron deficiency 4 Confirmed Active Migraine Confirmed 2006 Active Ovarian cyst Confirmed Active Dyspareunia in [...] Informant GERD (gastroesophageal reflux disease) Discharge Diagnosis 04/15/24 Epigastric pain Discharge Diagnosis 04/15/24 Dysphagia Discharge Diagnosis 04/15/24 IBS - Irritable bowel syndrome Discharge Diagnosis 04/15/24 Long COVID Discharge Diagnosis 04/15/24 Vital Signs Most recent to oldest [Reference Range]: 1 Height 168 cm (04/15/24 11:16 AM) Weight 60.5 kg (04/15/24 11:16 AM) Pulse Rate [55-90 bpm] 113 bpm *H* (04/15/24 11:16 AM) Body Mass Index [18.5-24.99 kg/m2] 21.44 kg/m2 (04/15/24 11:16 AM) Blood Pressure [90-138/55-84 mm Hg] 102/ 66mm Hg (04/15/24 11:16 AM) Blood pressure sites Arm, right (04/15/24 11:16 AM) Weight Obtained Via Bed scale (04/15/24 11:16 AM) Social History Social History Type Response Smoking Status Never smoker; Tobacc o user in household: No entered on: 09/26/13 Sex Note * Ami Marino: PERFORM Event Display: Patient Education/Instruction Authored Date: [id number] Ambulatory Adult Visit Summary [facility] [address] [place] [address] Name: REGULO ORLANDO : 1995?? Visit: 04/15/2024 11:01?? Ambulatory Visit Instructions ?? Your Care Team Primary Care Provider Nicholas EDGAR, Elisa Reynaga? This Visit Provider Claudio DOBBINS, Myke Tu Your Diagnosis GERD (gastroesophageal reflux disease) Epigastric pain Dysphagia IBS - Irritable bowel syndrome Vitals Signs Pulse Rate:??113 bpm??High Height: 168 cm Systolic Blood Pressure: 102 mm Hg Weight: 60.5 kg Diastolic Blood Pressure: 66 mm Hg Body Mass Index: 21.44 kg/m2 ?? Body surface area: 1.68 What to do next Scheduled Follow-Up Appointments Monday 3:15 PM EDT ?? With: Enedina Cuenca MD Where: [address] [address]- Status: Pending Monday 1:00 PM EDT ?? With: Elisa Peterson NP Where: [address] [address]- Status: Pending Monday 8:30 AM EDT ?? With: Jade Ross NP Where: [facility] [address], [address] [place] [address]- Status: Pending Future Orders Vaginosis Vaginitis Panel [...] What How Much When Why Instructions New Pantoprazole (Protonix 20 mg oral delayed release tablet) 1 tab(s) Oral Daily Refills: 11 Pickup at [facility]/pharmacy #[id number] Unchanged Acetaminophen (acetaminophen 325 mg oral tablet) 2 tab(s) Oral Every 6 hours as needed for Pain , Moderate Neck pain Unchanged Benzoyl Peroxide-Clindamycin Topical (benzoyl peroxide-clindamycin 5%- 1% topical gel) 1 anne Topically Twice a day Duration: 30 Days Unchanged Cyclobenzaprine (cyclobenzaprine 5 mg oral tablet) 1 tab(s) Oral 3 times a day Duration: 7 Days Unchanged Diclofenac Topical (Voltaren Arthritis Pain 1% topical gel) 2 gram Topically 4 times a day as needed for Pain , Moderate Neck pain without injury not to exceed 8 grams/ day/ single joint of upper extremities ?? Unchanged Famotidine (famotidine 20 mg oral tablet) [...] day as needed for for spasm Unchanged Lidocaine Topical (lidocaine 5% topical cream) 1 anne Topically 3 times a day Duration: 5 Days Unchanged Omeprazole (omeprazole 20 mg oral enteric coated capsule) 1 capsule Oral Twice a day Unchanged Sucralfate (sucralfate 1 gm/ 10 ml oral suspension) 10 Milliliter Oral 3 times a day before meals and bedtime Pharmacy Information [facility]/pharmacy #[id number]: [address] [place], [place] [id number] [phone] Medications and Immunizations Administered Medications Given During [...] are strongly encouraged to quit. Please call [employer] at [phone] or 1-470-968-2Checkout (4987) or log in to [email or web address] for referrals to smoking cessation programs. ?? The National Suicide Prevention Hotline is available 10/04 if you or someone you know needs to find a reason to keep living. By calling 8-227-972-Kiind.me (0135) you'll be connected to a skilled, trained counselor at a crisis center in your area. [facility] [employer] Portal You can view and manage your care through the patient portal or by using a health care anne of your choosing. [employer] is a website that allows you to securely view your medical information including your hospital discharge summary, office visit summaries, medications and follow-up visits. You can also request appointments, renew medications, and request access to your medical information using a health care anne of your choosing, or just ask a question. You can enroll at [email or web address] or register during your next office visit. [facility], in keeping with [facility] guidance, no longer requires face masks [...] primary care provider, you may find a [facility] [employer] provider by calling [employer] at [phone]. Patient Care team information Care Team Personnel Name: Ulysses Desai MD Position: [facility] DIABETOLOGIST MD Member Role: Lifetime DIABETOLOGIST Physician Address: Address: [address] [place] [address] [place] [address] [place] Name: Nicholas EDGAR, Elisa Reynaga Position: [facility] PCO Associate Professional Member Role: PCP Address: Address: [address] [place] [address]- Name: Josette Bhardwaj [place] Position: [facility] Staff Member Role: Primary Care Nurse Care Team Related Persons Name: HUBER ORLANDO Address: home [address] [place] [address] Name: JOHANNY HUBER M Address: home [address] [place] [address] Name: HUBER ORLANDO Address: home [address] [place] [address] Name: JUAN ORLANDO Address: home [address] [address]
--- OUTSIDE RECORDS SUMMARY | 2024-05-22 09:13 | XMS_ITS | Continuity of Care Document ---
Author Organization [facility] [employer] Adult [facility] Address [address] [place] [address]- Care Team Providers Care Plant And Machinery Valuer Name Role Phone Nicholas SUBJECT SCIENTIFIC RESEARCH, Elisa Reynaga Primary Care Physician Encounter [facility] NBR [id number] Date(s): 10/07/22 - 10/14/22 [facility] Adult [facility] [address] [place] [address]- [place] Encounter Diagnosis Streptococcal pharyngitis(Discharge Diagnosis) - 10/07/22 Sciatica(Discharge Diagnosis) - 10/07/22 Screening for STDs (sexually transmitted diseases)(Discharge Diagnosis) - 10/07/22 Neck pain(Discharge Diagnosis) - 10/13/22 Attending Physician: Jacki Smith NP Allergies, Adverse [...] (old term) 8 09/07/94 Given 1Result Comment: [facility] [id number] 2Result Comment: [facility]: [id number] 3Result Comment: [facility] [id number] [phone] [facility] 5Admin Note: [...] 0 Refills, Maintenance, 12/17/21 15:33:00 EDT, Tablet, [facility]/pharmacy #[id number], Partial fill upon patient request if the prescription is for a schedule II opioid drug., 168, cm, 11/25/21 10:4... Start Date: 12/17/21 Status: Ordered clarithromycin 500 mg oral tablet 1 tablet = 500 mg, By Mouth, Every 12 hours, for 10 days, # 20 tablet, 0 Refills, Acute 10/17/22 11:38:00 EST, 10/07/22 11:38:00 EST, Tablet, [facility]/pharmacy #[id number], Partial fill upon patient request if the prescription is for a schedule II opioid drug.,... Start Date: 10/07/22 Stop Date: 10/17/22 Status: Ordered cyclobenzaprine 10 mg oral tablet 10 mg, 1, tablet, By Mouth, 3 times a day, PRN, # 42 tablet, Refills 0, Tot. Refills 0, Acute 11/07/22 11:44:00 EST, Spasm for spasm, 10/07/22 11:41:00 EST, [id number] Partial fill upon patient request if t... Start Date: 10/07/22 Stop Date: 11/07/22 Status: Ordered diclofenac potassium 50 mg oral tablet 1 tablet = 50 mg, By Mouth, 3 times a day, PRN for pain, for 14 days, # 42 tablet, 0 Refills, Acute10/21/22 11:41:00 EST, 10/07/22 11:41:00 EST, Tablet, [facility]/pharmacy #[id number], Partial fill upon patientrequest if the prescription is for a schedule II op... Start Date: 10/07/22 Stop Date: 10/21/22 Status: Ordered Diflucan 150 mg oral tablet 1 tablet = 150 mg, By Mouth, Once, PRN vaginal yeast infection, May repeat dose in 48-72 hours if needed., # 2 tablet, 0 Refills, Soft Stop, 08/31/22 16:10:00 EST, [facility]/pharmacy #[id number], Partial fill upon patient request if the prescription is for a sche... Start Date: 08/31/22 Status: Ordered Flonase 50 mcg/inh nasal spray 1 sprays = 50 mcg, Nares, Both, 2 times a day, # 9.9 mL, 6 Refills, Maintenance, 08/08/22 14:03:00 EST, Nasal [place], [facility]/pharmacy #[id number], Partial fill upon patient request if [...] 11/07/22 11:44:00 EST, 10/07/22 11:41:00 EST, Film, [id number], Partial fill upon patient request if the prescription is for a schedule II opioid . Start Date: 10/07/22 Stop Date: 11/07/22 Status: [...] 0 Refills, Maintenance, 09/04/22 13:30:00 EST, Tablet, [id number], Partial fill upon patient request if the prescription is for a schedule II opioid drug., 167, cm, 09/04/22 12:59:00 EST,... Start Date: 09/04/22 Stop Date: 09/11/22 Status: Ordered Problem List Condition Confirmation Course [...] Effective Dates Health Status Clinical Service Informant Streptococcal pharyngitis Discharge Diagnosis 10/07/22 Sciatica Discharge Diagnosis 10/07/22 Screening for STDs (sexually transmitted diseases) Discharge Diagnosis 10/07/22 Neck pain Discharge Diagnosis 10/13/22 Vital Signs Most recent to oldest [Reference Range]: 1 Height 167 cm (10/07/22 11:12 AM) Weight 66.5 kg (10/07/22 11:12 AM) Oxygen Saturation [94-100 %] 98 % (10/07/22 11:12 AM) Pulse Rate [55-90 bpm] 89 bpm (10/07/22 11:12 AM) Body Mass Index [18.5-24.99 kg/m2] 23.84 kg/m2 (10/07/22 11:12 AM) Blood Pressure [90-138/55-84 mm Hg] 102/ 64mm Hg (10/07/22 11:12 AM) Temperature [96.8-100.4 DegF] 97.6 DegF (10/07/22 11:12 AM) Mode of Delivery (Oxygen) Room air (10/07/22 11:12 AM) Blood pressure sites Arm, left (10/07/22 11:12 AM) Temperature Route Temporal (10/07/22 11:12 AM) Weight Obtained Via Standing scale (10/07/22 11:12 AM) Social History Social History Type Response Smoking Status Never smoker; Tobacc o user in household: No entered on: 09/26/13 Sex Note * Magui Solo [place]: PERFORM, SIGN, VERIFY Event Display: Patient Education/Instruction Authored Date: [id number] [facility] *BMP Quab Adlt Med Bltn Clinical Summary Name REGULO ORLANDO Age 26 Years 1995 PCP Nicholas EDGAR, Elisa Reynaga PCP Visit Date 10/07/2022 11:02:00 Additional Instructions: Scheduled Appointments?? Future Appointments ?No Future Appointments Scheduled Follow-Up Instructions ?? Diagnosis Encounter for screening for infections with a predominantly sexual mode of transmission; Sciatica, unspecified side; Streptococcal pharyngitis Medications: Please continue your medications until treatment is completed or stopped by your provider. Discuss any questions related to medications with your provider. New Medications [facility]/pharmacy #[id number], [address], [place] [id number], [phone] Clarithromycin (clarithromycin 500 mg oral tablet) 1 tab(s) Oral every 12 hours for 10 Days. Refills: 0. Next Dose: Cyclobenzaprine (cyclobenzaprine 10 mg oral tablet) 1 tab(s) Oral 3 times a day as needed Spasm for spasm. Refills: 0. Next Dose: Diclofenac (diclofenac potassium 50 mg oral tablet) 1 tab(s) Oral 3 times a day as needed for pain for 14 Days. Refills: 0. Next Dose: Lidocaine Topical (lidocaine 5% topical film) 1 patch(es) Topically Daily as needed Pain , Mild. remove after 12 hours. Refills: 0. Next Dose: Medications to Continue with No Changes These medications were not printed or sent to your pharmacy Ethinyl Estradiol / Norethindrone () Oral Daily. Next Dose: Famotidine (Pepcid 20 mg oral tablet) 1 tab(s) Oral twice a day for 7 Days. Refills: 0. Next Dose: Fluconazole (Diflucan 150 mg oral tablet) 1 tab(s) Oral once as needed vaginal yeast infection. Mayrepeat dose in 48-72 hours if needed.. Refills: 0. Next Dose: Fluticasone Nasal (Flonase 50 mcg/inh nasal spray) 1 spray(s) Nares, Both twice a day. Refills: 6. Next Dose: Lorazepam (Ativan 0.5 mg oral tablet) 1 tab(s) Oral Daily. MassPat checked. Refills: 0. Next Dose: Miscellaneous Rx (Misc Rx) bcp pill Oral Daily. Next Dose: Omeprazole (omeprazole 20 mg oral enteric coated capsule) 1 capsule Oral Daily. Refills: 1. Next Dose: Allergy Info:?? Reglan Medications Given This Visit Future Orders ?HIV Ab-Ag 4th Generation? Order Date:10/07/22?- Complete on or after?10/07/22 Vital Signs Height 167 cm Weight 66.5 kg BMI 23.84 kg/m2 Blood Pressure 102 mm Hg/64 mm Hg Temperature 97.6 DegF Pulse Rate 89 bpm Respiratory Rate 02 Sat Mode of Delivery 98 %/Room air You can now view a summary of your hospital visit from the comfort of your home through a free online portal called [employer]. [employer] is a website that allows you to securely view your medical information including discharge summary, medications and follow-up visits. ??You can alsosend a secure electronic message to your doctor???s office to request appointments, renew medications or just ask a question. You can enroll at [email or web address] or register during your next office [...] primary care provider, you may find a [facility] provider by calling [facility] Link at [phone]. For information about the plan of care [...] Personnel Name: Nicholas EDGAR, Elisa Reynaga Position: [facility] PCO Associate Professional Member Role: PCP Address: Address: [address] [place] [address] Name: Josette De Anda Position: [facility] RN Member Role: Primary Care Nurse Care Team Related Persons Name: JOHANNY HUBER Address: home [address] [place] [address] Name: JOHANNY HUBER Ronnell Address: home [address] [place] [address] Name: HUBER ORLANDO Address: [place] [address] Name: JUAN ORLANDO Address: [place] [address]
--- OUTSIDE RECORDS SUMMARY | 2024-05-22 09:13 | XMS_ITS | Continuity of Care Document ---
Author Organization [facility] Address [address] [place] [address]- Care Team Providers Care Hand Driller Name Role Phone Elisa Peterson NP Primary Care Physician Encounter [facility] Date(s): 01/10/24 - [facility]18[facility] [address] [address]- Attending Physician: Keron Jones MD Referring Physician: [...] Comment: [facility]NOTE 2] [id number] 2Result Comment: [facility]NOTE 2]: [id number] 3Result Comment: [facility]NOTE 2] [id number] [phone] 4Location History: [facility] 5Admin Note: 1st dove 11/21/1995 2nd [...] 14:53:00 EDT, Route to Pharmacy Electronically, [facility]/pharmacy #[id number], Partial fill upon patient request if the prescription i... Start Date: 01/29/24 Status: Ordered benzoyl peroxide-clindamycin 5%-1% topical gel 1 application, Topically, 2 times a day, # 50 Gm, 3 Refills, Maintenance, 03/29/24 11:48:00 EDT, Gel, [facility]/pharmacy #[id number], Partial fill upon patient request if the prescription is for a schedule II opioid drug., 1 application Topically 2 times a day,x3... Start Date: 03/29/24 Stop Date: 07/27/24 Status: Ordered cyclobenzaprine 5 mg oral tablet 1 tablet = 5 mg, By Mouth, 3 times a day, for 7 days, # 21 tablet, 0 Refills, Acute 04/22/24 7:22:00 EDT, 04/15/24 7:22:00 EDT, Tablet, [facility]/pharmacy #[id number], Partial fill upon patient request if the prescription is for a schedule II opioid drug., 168, c... Start Date: 04/15/24 Stop Date: 04/22/24 Status: Ordered Diflucan 150 mg oral tablet 1 tablet = 150 mg, By Mouth, Once, Repeat dose if symptoms persist after 48 hrs, # 2 tablet, 0 Refills, Soft Stop, 03/27/24 13:14:00 EDT, Tablet, [facility]/pharmacy #[id number], Partial fill upon patient requestif the prescription is for a schedule II opioid alyssa... Start Date: 03/27/24 Status: Ordered famotidine 20 mg oral tablet 20 mg, 1, tablet, By Mouth, 2 times a day, PRN, # 30 tablet, Refills 0, Tot. Refills 0, Maintenance, Control of Stomach Acid, 01/09/24 0:16:00 EDT, Route to Pharmacy Electronically, [facility]/pharmacy #[id number], Partial fill upon patient request if the prescrip... Start Date: 01/09/24 Status: Ordered fluticasone 50 mcg/inh nasal spray 1 sprays = 50 mcg, Nares, Both, 2 times a day, # 16 Gm, 0 Refills, Maintenance, 02/21/24 17:46:00 EDT, [place], [facility]/pharmacy #[id number], Partial [...] 0 Refills, Maintenance, 01/16/24 16:47:00 EDT, Tablet, [facility]/pharmacy #[id number], Partial fill upon patient request if the prescription is for a schedule II opioid drug., 168, cm, 01/15... Start Date: 01/16/24 Status: Ordered hyoscyamine 0.125 mg oral tablet 0.125 mg, 1, tablet, By Mouth, 4 times a day, PRN, # 40 tablet, Refills 0, Tot. Refills 0, Maintenance, for spasm, 03/27/24 0:47:00 EDT, Route to Pharmacy Electronically, [facility]/pharmacy #[id number], Partial fill upon patient request if the prescription is for... Start Date: 03/27/24 Status: Ordered lidocaine 5% topical cream 1 application, Topically, 3 times a day, for 5 days, # 30 Gm, 0 Refills, Acute 04/20/24 7:22:00 EDT, 04/15/24 7:22:00 EDT, Cream, [facility]/pharmacy #[id number], Partial fill upon patient request if the prescription is for a schedule II opioid drug., 1 applicatio... Start Date: 04/15/24 Stop Date: 04/20/24 Status: Ordered omeprazole 20 mg oral enteric coated capsule 1 capsule, By Mouth, 2 times a day, # 180 capsule, 0 Refills, Maintenance, 01/25/24 10:16:00 EDT, [id number], 168, cm, 01/24/24 14:42:00 EDT, Height, 63.5, [...] 1,200 mL, 0 Refills, Maintenance,03/27/24 0:48:00 EDT, [facility]/pharmacy #[id number], Partial fill upon patient request if the prescription is for a schedule II opioid drug., 168, cm, 03/26/24 22... Start Date: 03/27/24 Status: Ordered Voltaren Arthritis Pain 1% topical gel = 2 Gm, Topically, 4 times a day, PRN Pain , Moderate, not to exceed 8 grams/day/single joint of upper extremities, # 100 Gm, 0 Refills, Maintenance, 04/12/24 10:18:00 EDT, [id number], Partial fill upon patient request if the [...] Personnel Name: Giselle SRINIVASAN, Ulysses W Position: [facility] GALLEY WORKER MD Member Role: Lifetime GALLEY WORKER Physician Address: Address: [address] [place] [address] [place] [address]- Name: Elisa Peterson NP Position: [facility] PCO Associate Professional Member Role: PCP Address: Address: [address] [place] [address]- Name: Josette Bhardwaj [place] Position: [facility] Office Staff Member Role: Primary Care Nurse Care Team Related Persons Name: JOHANNYHUBER Address: home [address] [place] [address] Name: HUBER ORLANDO Address: home [facility] Name: JOHANNY HUBER Ronnell Address: home [address] Name: JUAN ORLANDO Address: home [address]
--- OUTSIDE RECORDS SUMMARY | 2024-05-22 09:13 | XMS_ITS | Continuity of Care Document ---
Author Organization [facility] Address [address] [place] [address]- Care Team Providers Care Printing Press Operator Name Role Phone Nicholas TELEPHONE ANSWERING SERVICE OPERATOR, Elisa M Primary Care Physician Encounter [facility] Date(s): 06/23/21 - 07/23/21 [facility] [address] [place] [address]- Attending Physician: Alejandro Lamb Admitting Physician: Alejandro [...] term) 6 09/07/94 Given 1Result Comment: [facility] [id number] [phone] [id number] 2[facility] 3Admin Note: [...] Gm, 0 Refills, Maintenance, 01/29/21 20:47:00 EDT, [place], [facility]/pharmacy #[id number], Partial fill upon patient request [...] 0 Refills, Maintenance, 06/23/21 16:19:00 EDT, Tablet, [facility]/pharmacy #[id number], Partial fill upon patient request [...]
--- OUTSIDE RECORDS SUMMARY | 2024-05-22 09:13 | XMS_ITS | Continuity of Care Document ---
Author Organization [facility] Address [address] [place] [address]- Care Team Providers Care Automotive Internet Sales Manager Name Role Phone Mary Ellen SRINIVASAN, Anitha Primary Care Physician ( [phone] Encounter [facility] Date(s): 02/24/20 - 03/02/[address] [address]- [facility] Encounter Diagnosis Viral gastroenteritis(Discharge Diagnosis) - 02/24/20 Anxiety(Discharge Diagnosis) - 02/24/20 IBS - Irritable bowel syndrome(Discharge Diagnosis) - 02/24/20 Attending Physician: Anitha Hyde MD Allergies, Adverse [...] Given 1Result Comment: [facility] [id number] [phone] 2[facility] 3Admin Note: [...] 03/07/20 0:25:00 EDT, 02/29/20 0:25:00 EDT, Tablet, [facility]/pharmacy #[id number], 166, cm, 02/28/20 22:00:00 EDT, Height, 60.7, kg, 02/28/20 22:00:00 EDT, Dry Weight Start Date: 02/29/20 Stop Date: 03/07/20 Status: Ordered Flagyl 500 mg oral tablet 1 tablet = 500 mg, By Mouth, 3 times a day, for 7 days, # 21 tablet, 0 Refills, Acute 03/07/20 0:25:00 EDT, 02/29/20 0:25:00 EDT, Tablet, [facility]/pharmacy #[id number], 166, cm, 02/28/20 22:00:00 EDT, Height, 60.7, kg, 02/28/20 22:00:00 EDT, Dry Weight Start Date: 02/29/20 Stop Date: 03/07/20 Status: Ordered ibuprofen 600 mg oral tablet 600 mg, 1, tablet, By Mouth, Every 8 hours, PRN, # 21 tablet, Refills 0, Tot. Refills 0, Maintenance, as needed for pain, 02/29/20 0:26:00 EDT, Route to Pharmacy Electronically, [facility]/pharmacy #[id number], 166, cm, 02/28/20 22:00:00 EDT, Height, 60.7, kg, 06/... Start Date: 02/29/20 Stop Date: 03/03/20 Status: [...] Effective Dates Health Status Clinical Service Informant Viral gastroenteritis Discharge Diagnosis 02/24/20 Anxiety Discharge Diagnosis 02/24/20 IBS - Irritable bowel syndrome Discharge Diagnosis 02/24/20 Vital Signs Most recent to oldest [Reference Range]: 1 Height 165 cm (02/24/20 1:29 PM) Social History Social History Type Response Smoking Status Never smoker; Tobacc o user in household: No entered on: 09/26/13 Sex
--- OUTSIDE RECORDS SUMMARY | 2024-05-22 09:13 | XMS_ITS | Continuity of Care Document ---
Author Organization [facility] Address [address] [place] [address]- Care Team Providers Care Acreage Reporter Name Role Phone Nicholas EDGAR, Elisa Reynaga Primary Care Physician Encounter [facility] Date(s): 04/14/24 - 04/15/[address] [address]- Discharge Disposition: A-D/C Home Attending Physician: Michael [...] Recorded 1Result Comment: [facility] [id number] 2Result Comment: [facility]: [id number] 3Result Comment: [facility] [id number] [phone] [facility] 5Admin Note: [...] 01/29/24 14:53:00 EDT, Route to Pharmacy Electronically, [facility]/pharmacy #[id number], Partial fill upon patient request if the prescription i... Start Date: 01/29/24 Status: Ordered benzoyl peroxide-clindamycin 5%-1% topical gel 1 application, Topically, 2 times a day, # 50 Gm, 3 Refills, Maintenance, 03/29/24 11:48:00 EDT, Gel, [facility]/pharmacy #[id number], Partial fill upon patient request if the prescription is for a schedule II opioid drug., 1 application Topically 2 times a day,x3... Start Date: 03/29/24 Stop Date: 07/27/24 Status: Ordered cyclobenzaprine 10 mg oral tablet 10 mg, Tablet, By Mouth, Once, STAT, 04/15/24 6:12:00 EDT, Stop date 04/15/24 6:12:00 EDT Start Date: 04/15/24 Stop Date: 04/15/24 Status: Completed cyclobenzaprine 5 mg oral tablet 1 tablet = 5 mg, By Mouth, 3 times a day, for 7 days, # 21 tablet, 0 Refills, Acute 04/22/24 7:22:00 EDT, 04/15/24 7:22:00 EDT, Tablet, [id number], Partial fill upon patient request if the prescription is for a schedule II opioid drug., 168, c... Start Date: 04/15/24 Stop Date: 04/22/24 Status: Ordered Diflucan 150 mg oral tablet 1 tablet = 150 mg, By Mouth, Once, Repeat dose if symptoms persist after 48 hrs, # 2 tablet, 0 Refills, Soft Stop, 03/27/24 13:14:00 EDT, Tablet, [id number], Partial fill upon patient requestif the prescription is for a schedule II opioid alyssa... Start Date: 03/27/24 Status: Ordered famotidine 20 mg oral tablet 20 mg, 1, tablet, By Mouth, 2 times a day, PRN, # 30 tablet, Refills 0, Tot. Refills 0, Maintenance, Control of Stomach Acid, 01/09/24 0:16:00 EDT, Route to Pharm[facility] Electronically, [id number], Partial fill upon patient request if the prescrip... Start Date: 01/09/24 Status: Ordered fluticasone 50 mcg/inh nasal spray 1 sprays = 50 mcg, Nares, Both, 2 times a day, # 16 Gm, 0 Refills, Maintenance, 02/21/24 17:46:00 EDT, [place], [id number], Partial fill upon patient request if the prescription is for a schedule II opioid drug., 1 sprays Nares, Both 2 times a d... Start Date: 02/21/24 Status: Ordered hydrOXYzine hydrochloride 10 mg oral tablet 1 tablet = 10 mg, By Mouth, 3 times a day, PRN for anxiety, # 42 tablet, 0 Refills, Maintenance, 01/16/24 16:47:00 EDT, Tablet, [facility]/pharmacy #[id number], Partial fill upon patient request if the prescription is for a schedule II opioid drug., 168, cm, 01/15... Start Date: 01/16/24 Status: Ordered hyoscyamine 0.125 mg oral tablet 0.125 mg, 1, tablet, By Mouth, 4 times a day, PRN, # 40 tablet, Refills 0, Tot. Refills 0, Maintenance, for spasm, 03/27/24 0:47:00 EDT, Route to Pharmacy Electronically, [facility]/pharmacy #[id number], Partial fill upon patient request if the prescription is for... Start Date: 03/27/24 Status: Ordered lidocaine 5% topical cream 1 application, Topically, 3 times a day, for 5 days, # 30 Gm, 0 Refills, Acute 04/20/24 7:22:00 EDT, 04/15/24 7:22:00 EDT, Cream, [facility]/pharmacy #[id number], Partial fill upon patient request if the prescription is for a schedule II opioid drug., 1 applicatio... Start Date: 04/15/24 Stop Date: 04/20/24 Status: Ordered omeprazole 20 mg oral enteric coated capsule 1 capsule, By Mouth, 2 times a day, # 180 capsule, 0 Refills, Maintenance, 01/25/24 10:16:00 EDT, [id number], 168, cm, 01/24/24 14:42:00 EDT, Height, 63.5, [...] 1,200 mL, 0 Refills, Maintenance,03/27/24 0:48:00 EDT, [facility]/pharmacy #[id number], Partial fill upon patient request if the prescription is for a schedule II opioid drug., 168, cm, 03/26/24 22... Start Date: 03/27/24 Status: Ordered Voltaren Arthritis Pain 1% topical gel = 2 Gm, Topically, 4 times a day, PRN Pain , Moderate, not to exceed 8 grams/day/single joint of upper extremities, # 100 Gm, 0 Refills, Maintenance, 04/12/24 10:18:00 EDT, [facility]/pharmacy #[id number], Partial fill upon patient request if [...] Range]: 1 2 3 Height 168 cm (04/15/24 7:38 AM) 168 cm (04/15/24 1:24 AM) 168 cm (04/14/24 10:18 PM) Weight 60.6 kg (04/15/24 7:38 AM) 60.6 kg (04/15/24 1:24 AM) 60.6 kg (04/14/24 10:18 PM) Oxygen Saturation [94-100 %] 100 % (04/15/24 7:38 AM) 100 % (04/15/24 1:24 AM) 100 % (04/14/24 10:18 PM) Pulse Rate [55-90 bpm] 75 bpm (04/15/24 7:38 AM) 68 bpm (04/15/24 1:24 AM) 75 bpm (04/14/24 10:18 PM) Body Mass Index [18.5-24.99 kg/m2] 21.47 kg/m2 (04/15/24 7:38 AM) 21.47 kg/m2 (04/15/24 1:24 AM) Blood Pressure [90-138/55-84 mm Hg] 117/92mm Hg (04/15/24 7:38 AM) 138/101mm Hg (04/15/24 1:24 AM) 133/92mm Hg (04/14/24 10:18 PM) Respiratory Rate [16-30 br/min] 16 br/min (04/15/24 7:38 AM) 16 br/min (04/15/24 6:30 AM) 16 br/min (04/15/24 1:24 AM) Temperature [96.8-100.4 DegF] 98.6 DegF (04/14/24 10:18 PM) Mode of Delivery (Oxygen) Room air (04/15/24 7:38 AM) Room air (04/15/24 1:24 AM) Room air (04/14/24 10:18 PM) Blood pressure sites Arm, left (04/15/24 1:24 AM) Arm, left (04/14/24 10:18 PM) Temperature Route Temporal (04/14/24 10:18 PM) Dry Weight 60.6 kg (04/15/24 7:38 AM) 60.6 kg (04/15/24 1:24 AM) 60.6 kg (04/14/24 10:18 PM) Social History Social History Type Response Smoking Status Never smoker; Tobacc o user in household: No entered on: 09/26/13 Sex Patient Care team information Care Team Personnel Name: Ulysses Desai MD Position: [facility] DERMATOLOGIST MD Member Role: Lifetime DERMATOLOGIST Physician Address: Address: [address] [place] [address] [place] [address]- [place] Name: Elisa Peterson NP Position: [facility] PCO Associate Professional Member Role: PCP Address: Address: [address] [place] [address]- [place] Name: Josette Bhardwaj [place] Position: [facility] Office Staff Member Role: Primary Care Nurse Care Team Related Persons Name: HUBER ORLANDO Address: home [address] [place] [address] Name: HUBER ORLANDO Address: home [address] [place] [address] Name: HUBER ORLANDO Address: home [address] [place] [address] Name: JUAN ORLANDO Address: [address] [address]
--- OUTSIDE RECORDS SUMMARY | 2024-05-22 09:13 | XMS_ITS | Continuity of Care Document ---
Author Organization [facility] Address [address] [place] [address]- Care Team Providers Care Automobile Or Truck Rental Dispatcher Name Role Phone Elisa Peterson NP Primary Care Physician Encounter [facility] Date(s): 10/07/21 - [facility] [address] [place] [address]- Attending Physician: Melvin Kate Referring Physician: Eilsa Peterson NP Allergies, Adverse Reactions, Alerts Substance [...] Given 1Result Comment: [facility]: [phone] 2Result Comment: [facility] [id number] [phone] 3[facility] 4Admin Note: [...] 09/30/22 10:00:00 EST, 09/30/21 19:43:00 EST, Tablet, [facility]/pharmacy #[id number], may take 2 tablets twice a day until regularly moving bow... Start Date: 09/30/21 Stop Date: 09/30/22 Status: Ordered famotidine 20 mg oral tablet 20 mg, 1, tablet, By Mouth, 2 times a day, # 20 tablet, Refills 0, Tot. Refills 0, Maintenance, 10/07/21 8:52:00 EST, Route to Pharmacy Electronically, [facility]/pharmacy #[id number], Partial fill upon patient request if the prescription is for a schedule II opio... Start Date: 10/07/21 Stop Date: 10/17/21 Status: Ordered Misc Rx bcp pill, By Mouth, Daily, Refills 0, Maintenance, 08/11/21 20:44:00 EST, Supply Start Date: 08/11/21 Status: Ordered Problem List Condition Effective Dates [...]
--- OUTSIDE RECORDS SUMMARY | 2024-05-22 09:13 | XMS_ITS | Continuity of Care Document ---
Author Organization [facility] Address Unknown Care Team Providers Care Parts Representative Name Role Phone Nicholas EDGAR, Elisa Reynaga Primary Care Physician Encounter [facility] Date(s): 05/25/21 - 06/24/21 [facility] Attending Physician: Alejandro Lamb Admitting Physician: Alejandro [...] Given 1Result Comment: [facility] [id number] [phone] 2[facility] 3Admin Note: [...] Gm, 0 Refills, Maintenance, 01/29/21 20:47:00 EDT, [id number], Partial fill upon patient request [...]
--- OUTSIDE RECORDS SUMMARY | 2024-05-22 09:13 | XMS_ITS | Continuity of Care Document ---
Author Organization [facility] Address [address] [place] [address]- Care Team Providers Care Production Associate Name Role Phone Nicholas BUILDING MAINTENANCE ENGINEER, Elsia M Primary Care Physician Encounter [facility] NBR [id number] Date(s): 10/30/23 - 11/29/[address] [address]- Attending Physician: Alejandro Lamb Admitting Physician: Alejandro [...] B pediatric vaccine 93 Recorded 1Result Comment: [facility] [id number] 2Result Comment: [facility]: [id number] 3Result Comment: [facility] [id number] [phone] 4[facility] 5Admin Note: [...] capsule, 1 Refills, Maintenance, 06/24/23 16:07:00 EDT, [facility] STORE 15064, 165.1, cm, 06/12/23 14:42:00 EDT, Height, 64.3, kg, 05/19/23 19:22:00 EDT, Dry Weight Start Date: 06/24/23 Status: Ordered Xyzal 5 mg oral tablet 1 tablet = 5 mg, By Mouth, Daily in PM, # 30 tablet, 6 Refills, Maintenance, 08/30/23 14:06:00 EST,Tablet, [facility]/pharmacy #[id number], Partial fill upon patient request if the [...] Team Personnel Name: Ulysses Desai MD Position: [facility] TURN DOWN MAN MD Member Role: Lifetime TURN DOWN MAN Physician Address: Address: [address] [place] [address] [facility] [address]- Name: Elisa Peterson NP Position: [facility] PCO Associate Professional Member Role: PCP Address: Address: [address] [place] [address]UST Name: Josette Bhardwaj [place] Position: [facility] RN Member Role: Primary Care Nurse Care Team Related Persons Name: HUBER ORLANDO Address: home [address] [place] [address] Name: HUBER ORLANDO Address: home [address] [place] [address] Name: HUBER ORLANDO Address: home [address] [place] [address] Name: JUAN ORLANDO Address: home [address]
--- OUTSIDE RECORDS SUMMARY | 2024-05-22 09:13 | XMS_ITS | Continuity of Care Document ---
Author Organization [facility] Address [address] [facility], [address] Floor, [address] [place] [address]- Care Team Providers Care Digital Forensic Examiner Name Role Phone Mary Ellen SRINIVASAN, [facility] Primary Care Physician Encounter [facility] Date(s): 04/17/20 - 05/17/20 [facility] [address], [address], [address] [place] [address]- [facility] Allergies, Adverse Reactions, Alerts Substance Reaction Severity [...] (old term) 6 09/07/94 Given 1Result Comment: [facility] [id number] [phone] 2Location [facility] 3Admin Note: [...] 05/01/20 11:14:00 EDT, Route to Pharmacy Electronically, [facility]/pharmacy #[id number], 167.64, cm, 04/25/20 0:39:00 EDT, Height, [...]
--- OUTSIDE RECORDS SUMMARY | 2024-05-22 09:13 | XMS_ITS | Continuity of Care Document ---
Author Organization [facility] Address [address] [place] [address]- Care Team Providers Care City Planning Aide Name Role Phone Nicholas EDGAR, Elisa Reynaga Primary Care Physician Encounter [facility] NBR [id number] Date(s): 06/02/23 - [facility]09[facility] [address] [address]- Attending Physician: Elsie Morris NP Allergies, Adverse Reactions, Alerts Substance Reaction [...] B pediatric vaccine 93 Recorded 1Result Comment: [facility] [id number] 2Result Comment: [facility]: [phone] 3Result Comment: [facility] [id number] [phone] 4[facility] 5Admin Note: [...] mL, 0 Refills, Maintenance, 05/19/23 22:44:00 EDT, [facility]/pharmacy #[id number], Partial fill upon patient request [...] capsule, 1 Refills, Maintenance, 11/01/22 10:45:00 EST, [facility]/pharmacy #[id number], 168, cm, 11/01/22 10:19:00 EST, [...] oldest [Reference Range]: 1 Height 165.10 cm (06/02/23 11:08 AM) Weight 62.6 kg (06/02/23 11:08 AM) Oxygen Saturation [94-100 %] 98 % (06/02/23 11:08 AM) Pulse Rate [55-90 bpm] 84 bpm (06/02/23 11:08 AM) Body Mass Index [18.5-24.99 kg/m2] 22.97 kg/m2 (06/02/23 11:08 AM) Blood Pressure [90-138/55-84 mm Hg] 130/ 80mm Hg (06/02/23 11:08 AM) Respiratory Rate [16-30 br/min] 15 br/mi n *L* (06/02/23 11:08 AM) Mode of Delivery (Oxygen) Room air (06/02/23 11:08 AM) Blood pressure sites Arm, left (06/02/23 11:08 AM) Temperature Route Temporal (06/02/23 11:08 AM) Weight Obtained Via Standing scale (06/02/23 11:08 AM) Social History Social History Type Response Smoking Status Never smoker; Tobacc o user in household: No entered on: 09/26/13 Sex Note * Kiana Bernabe: SIGN, VERIFY, PERFORM Event Display: Patient Education/Instruction Authored Date: [id number] [facility] *BMP Quab Adlt Med Bltn Clinical Summary Name REGULO ORLANDO Age 27 Years 1995 PCP Nicholas COUNTRY MANAGER, Elisa Reynaga PCP Visit Date 06/02/2023 10:59:00 Additional Instructions: Scheduled Appointments?? Future Appointments ?*[facility] ?[address] ?[place],??[place],??[address] ?Phone:??--?Fax:??-- ?Appt. Date:??06/12/2023?10:30 AM ?Scheduled Provider:??Vandana EDGAR, Jade Reynaga ?*BMP??Quab??Adlt??Med??Bltn ?[address],??[place],??[address] ?Phone:??--?Fax:??-- ?Appt. Date:??08/09/2023?1:00 PM ?Scheduled Provider:??Nicholas EDGAR , Elisa Reynaga. Follow-Up Instructions ?? Diagnosis Medications: Please continue [...] orders Vital Signs Height 165.10 cm Weight 62.6 kg BMI 22.97 kg/m2 Blood Pressure 130 mm Hg/80 mm Hg Temperature Pulse Rate 84 bpm Respiratory Rate 15 br/min 02 Sat Mode of Delivery 98 %/Room air You can now view a summary of your hospital visit from the comfort of your home through a free online portal called [employer]. [employer] is a website that allows you to securely view your medical information including discharge summary, medications and follow-up visits. ??You can alsosend a secure electronic message to your doctor???s office to request appointments, renew medications or just ask a question. You can enroll at [email or web address] or register during your next [...] a [facility] provider by calling [facility] [employer] Link at [phone]. [facility], in keeping with [facility] guidance, no longer requires face masks [...] Ulysses Desai MD Position: [facility] CROCHET BEADER MD Member Role: Lifetime CROCHET BEADER Physician Address: Address: [address] [place], [place] [address] [place], [place] [address] Name: Elisa Peterson NP Position: [facility] PCO Associate Professional Member Role: PCP Address: Address: [address] [place] [id number] Name: Josette Bhardwaj [place] Position: [facility] RN Member Role: Primary Care Nurse Care Team Related Persons Name: HUBER ORLANDO Address: home [address] [place] [address] Name: HUBER ORLANDO Address: home [address] [place] [address] Name: HUBER ORLANDO Address: [address] Name: JUAN ORLANDO Address: home [address]
--- OUTSIDE RECORDS SUMMARY | 2024-05-22 09:13 | XMS_ITS | Continuity of Care Document ---
Author Organization [facility] Address [address] [place] [address]- Care Team Providers Care Transitions Manager Rn Name Role Phone Nicholas PIN GAME MACHINE INSPECTOR, Elisa M Primary Care Physician Encounter [facility] Date(s): 04/17/24 - 05/17/24 [facility] Adult Medicine [address] [place] [address]- Allergies, Adverse Reactions, Alerts Substance Reaction Severity [...] pediatric vaccine 93 Recorded 1Result Comment: [facility] [id number] 2Result Comment: [facility]: [phone] 3Result Comment: [facility] [id number] [phone] 4[facility] 5Admin Note: [...] 01/29/24 14:53:00 EDT, Route to Pharmacy Electronically, [facility]/pharmacy #[id number], Partial fill upon patient request if the prescription i... Start Date: 01/29/24 Status: Ordered clindamycin 1% topical gel 1 application, Topically, Daily at bedtime, apply a thin film apply a thin film to affected area after washing, # 30 Gm, 6 Refills, Maintenance, 04/24/24 13:02:00 EDT, Gel, [facility]/pharmacy #[id number], Partial fill upon patient [...] for a schedule II opioid drug., 168, robin,... Start Date: 05/08/24 Stop Date: 09/05/24 Status: [...] is for a schedule II opioid drug., 168robin, 01/15... Start Date: 01/16/24 Status: Ordered Lo Loestrin Fe oral tablet 1 tablet, By Mouth, Daily, # 84 tablet, 4 Refills, Maintenance, 05/09/24 8:32:00 EDT, [facility], [id number], Partial fill upon patient request if the prescription is for a schedule II opioid drug., 1 tablet By Mouth Daily, 168robin, 05/09/24 8:15:... Start Date: 05/09/24 Status: Ordered [...] Date: 05/17/24 Stop Date: 05/24/24 Status: Ordered Protonix 20 mg oral delayed [...] Gm, 0 Refills, Maintenance, 04/12/24 10:18:00 EDT, [facility]/pharmacy #[id number], Partial fill upon patient [...] Team Personnel Name: Ulysses Desai MD Position: [facility] TEST ENGINEER MD Member Role: Lifetime TEST ENGINEER Physician Address: Address: [address] [place] [address] [facility] [address] Name: Nicholas EDGAR, Elisa Reynaga Position: [facility] PCO Associate Professional Member Role: PCP Address: Address: [address] [place] [address]- Name: Josette Bhardwaj [place] Position: [facility] Office Staff Member Role: Primary Care Nurse Care Team Related Persons Name: JOHANNYHUBER Spears Address: home [address] [place] [address] Name: HUBER ORLANDO Address: home [address] [place] [address] Name: HUBER ORLANDO Address: home [address] [place] [address] Name: JUAN ORLANDO Address: home [address] [address]
--- OUTSIDE RECORDS SUMMARY | 2024-05-22 09:13 | XMS_ITS | Continuity of Care Document ---
Author Organization [facility] Address [address] [place] [address]- Care Team Providers Care Camp Dining Room Attendant Name Role Phone Nicholas HRIS MANAGER, Elisa M Primary Care Physician Encounter [facility] NBR [id number] Date(s): 12/26/23 - 01/02/24 [facility] [address] [place] [address]- [place] Encounter Diagnosis Left eye pain(Discharge Diagnosis) - 12/26/23 Tension headache(Discharge Diagnosis) - 12/26/23 Anxiety(Discharge Diagnosis) - 12/26/23 Attending Physician: Galdino EDGAR, Hope Massey Allergies, Adverse Reactions, Alerts Substance Reaction Severity [...] 1Result Comment: [facility] [phone] 2Result Comment: [facility]: [phone] 3Result Comment: [facility] [id number] [phone] 4[facility] 5Admin Note: [...] EDT, Route to Pharmacy Electronically, [facility]/pharmacy #[id number], Partial fill upon patie... Start Date: 12/26/23 Stop Date: 02/17/24 Status: Ordered loratadine 10 mg oral capsule 1 capsule = 10 mg, By Mouth, Daily, As needed for symptoms of allergic reaction., # 10 capsule, 0 Refills, Maintenance, 12/31/23 1:48:00 EDT, Capsule, [facility]/pharmacy #[id number], Partial fill upon patient request if the prescription is for a schedule II opioi... Start Date: 12/31/23 Status: Ordered omeprazole 20 mg oral enteric coated capsule 1 capsule, By Mouth, 2 times a day, # 180 capsule, 1 Refills, Maintenance, 06/24/23 16:07:00 EDT, [facility] STORE 16289, 165.1, cm, 06/12/23 14:42:00 EDT, Height, 64.3, kg, 05/19/23 19:22:00 EDT, Dry Weight Start Date: 06/24/23 Status: Ordered predniSONE 50 mg oral tablet 1 tablet = 50 mg, By Mouth, Daily, for 4 days, To start the morning of 01/01/24, # 4 tablet, 0 Refills, Acute 01/04/24 1:48:00 EDT, 12/31/23 1:48:00 EDT, Tablet, [facility]/pharmacy #[id number], Partial fill upon patient [...] Dates Health Status Cl inical Service Informant Left eye pain Discharge Diagnosis 12/26/23 Tension headache Discharge Diagnosis 12/26/23 Anxiety Discharge Diagnosis 12/26/23 Vital Signs Most recent to oldest [Reference Range]: 1 Height 168 cm (12/26/23 10:38 AM) Weight 64.0 kg (12/26/23 10:38 AM) Oxygen Saturation [94-100 %] 96 % (12/26/23 10:38 AM) Pulse Rate [55-90 bpm] 100 bpm *H* (12/26/23 10:38 AM) Body Mass Index [18.5-24.99 kg/m2] 22.68 kg/m2 (12/26/23 10:38 AM) Blood Pressure [90-138/55-84 mm Hg] 112/ 90mm Hg (12/26/23 10:38 AM) Temperature [96.8-100.4 DegF] 97.7 DegF (12/26/23 10:38 AM) Mode of Delivery (Oxygen) Room air (12/26/23 10:38 AM) Blood pressure sites Arm, right (12/26/23 10:38 AM) Temperature Route Temporal (12/26/23 10:38 AM) Weight Obtained Via Standing scale (12/26/23 10:38 AM) Social History Social History Type Response Smoking Status Never smoker; Tobacc o user in household: No entered on: 09/26/13 Sex Note * Sandra Naranjo MA: PERFORM, SIGN, VERIFY Event Display: Patient Education/Instruction Authored Date: [id number] [facility] *BMP Quab Adlt Med Bltn Clinical Summary Name REGULO ORLANDO Age 28 Years 1995 PCP Nicholas HRIS MANAGER, Elisa Reynaga PCP Visit Date 12/26/2023 10:30:00 Additional Instructions: Scheduled Appointments?? Future Appointments ?*BMP??Quab??Adlt??Med??Bltn ?[address]??[place],??[place],??[address] ?Phone:??--?Fax:??-- ?Appt. Date:??01/16/2024?3:40 PM ?Scheduled Provider:??Elisa Peterson NP. ?*BMP??Quab??Adlt??Med??Bltn ?[address]??[place],??[place],??[address] ?Phone:??--?Fax:??-- ?Appt. Date:??02/27/2024?8:20 AM ?Scheduled Provider:??Elisa Peterson NP. Follow-Up Instructions ?? Diagnosis Ocular pain, left eye; Tension-type headache, unspecified, not intractable; Anxiety disorder, unspecified Medications: Please continue your medications until treatment is completed or stopped by your provider. Discuss any questions related to medications with your provider. Medications to Continue with No Changes These medications were not printed or sent to your pharmacy levocetirizine (Xyzal 5 mg oral tablet) 1 tab(s) Oral Daily in PM for 30 Days. Refills: 6. Next Dose: Omeprazole (omeprazole 20 mg oral enteric coated capsule) 1 capsule Oral twice a day. Refills: 1. Next Dose: Allergy Info:?? Reglan Medications Given This Visit Future Orders ?No future orders Future Orders ?No future orders Vital Signs Height 168 cm Weight 64.0 kg BMI 22.68 kg/m2 Blood Pressure 112 mm Hg/90 mm Hg Temperature 97.7 DegF Pulse Rate 100 bpm Respiratory Rate 02 Sat Mode of Delivery 96 %/Room air You can now view a summary of your hospital visit from the comfort of your home through a free online portal called [employer]. [employer] is a website that allows you to securely view your medical information including discharge summary, medications and follow-up visits. ??You can alsosend a secure electronic message to your doctor???s office to request appointments, renew medications or just ask a question. You can enroll at [email or web address] or register during your next office visit. [...] care provider, you may find a [facility] provider by calling [facility] [employer] Link at [phone]. [facility], in keeping with [facility] guidance, no longer requires face masks [...] Ulysses Thornton Position: [facility] SOCIAL ORGANIZATION PROFESSOR MD Member Role: Lifetime SOCIAL ORGANIZATION PROFESSOR Physician Address: Address: [address] [place], [place] [address] [place], [place] [address] Name: Nicholas EDGAR, Elisa Reynaga Position: [facility] PCO Associate Professional Member Role: PCP Address: Address: [address] [place] [address] Name: Josette Bhardwaj [place] Position: [facility] RN Member Role: Primary Care Nurse Care Team Related Persons Name: JOHANNY HUBER Address: home [address] [place] [address] Name: HUBER ORLANDO Address: home [address] [place] [address] Name: HUBER ORLANDO Address: home [address] [place] [address] Name: JUAN ORLANDO Address: home [address] [address]
--- OUTSIDE RECORDS SUMMARY | 2024-05-22 09:13 | XMS_ITS | Continuity of Care Document ---
Author Organization [facility] Address [address] [place] [address]- Care Team Providers Care Occupational Psychologist Name Role Phone Nicholas TERMINAL MAKEUP OPERATOR, Elisa M Primary Care Physician Encounter [facility] NBR [id number] Date(s): 02/14/24 - 03/15/24 [facility] [employer] Adult [facility] [address] [place] [address] [place] Allergies, Adverse Reactions, Alerts Substance Reaction [...] Comment: [facility] [phone] 2Result Comment: [facility]: [phone] 3Result Comment: [facility] [id number] [phone] 4[facility] 5Admin Note: [...] 14:53:00 EDT, Route to Pharmacy Electronically, [facility]/pharmacy #[id number], Partial fill upon patient request if the prescription i... Start Date: 01/29/24 Status: Ordered famotidine 20 mg oral tablet 20 mg, 1, tablet, By Mouth, 2 times a day, PRN, # 30 tablet, Refills 0, Tot. Refills 0, Maintenance, Control of Stomach Acid, 01/09/24 0:16:00 EDT, Route to Pharmacy Electronically, [facility]/pharmacy #[id number], Partial fill upon patient request if the prescrip... Start Date: 01/09/24 Status: Ordered fluticasone 50 mcg/inh nasal spray 1 sprays = 50 mcg, Nares, Both, 2 times a day, # 16 Gm, 0 Refills, Maintenance, 02/21/24 17:46:00 EDT, [place], [facility]/pharmacy #[id number], Partial fill upon patient request [...] Refills, Maintenance, 12/31/23 1:48:00 EDT, Capsule, [facility]/pharmacy #[id number], Partial fill upon patient request if the prescription is for a schedule II opioi... Start Date: 12/31/23 Status: Ordered loratadine 10 mg oral tablet 10 mg, 1, tablet, By Mouth, Daily, # 30 tablet, Refills 0, Tot. Refills 0, Maintenance, 02/21/24 17:46:00 EDT, Route to Pharmacy Electronically, [facility]/pharmacy #[id number], Partial fill upon patient request if the prescription is for a schedule II opioid drug... Start Date: 02/21/24 Status: Ordered omeprazole 20 mg oral enteric coated capsule 1 capsule, By Mouth, 2 times a day, # 180 capsule, 0 Refills, Maintenance, 01/25/24 10:16:00 EDT, [facility] STORE [id number], 168, cm, 01/24/24 14:42:00 EDT, Height, 63.5, [...] Team Personnel Name: Ulysses Desai MD Position: [facility] PLYWOOD AND VENEER REPAIRER MD Member Role: Lifetime [employer] REPAIRER Physician Address: Address: [address] [place] [address] [facility] [place], [place] [address] Name: Elisa Peterson NP Position: [facility] PCO Associate Professional Member Role: PCP Address: Address: [address] [place] [address]- Name: Josette Bhardwaj [place] Position: [facility] Office Staff Member Role: Primary Care Nurse Care Team Related Persons Name: JOHANNY HUBER Address: home [address] [place] [address] Name: HUBER ORLANDO Address: home [address] [place] [address] Name: HUBER ORLANDO Address: home [address] [place] [address] Name: JUAN ORLANDO Address: home [address]
--- OUTSIDE RECORDS SUMMARY | 2024-05-22 09:13 | XMS_ITS | Continuity of Care Document ---
Author Organization [facility] Address [address] [place] [address]- Care Team Providers Care Sock Folder Name Role Phone Anitha Hyde MD Primary Care Physician Encounter [facility] Date(s): 04/21/20 - 05/21/20 [facility] Adult [address] [place] [address]- [facility] Allergies, Adverse Reactions, Alerts Substance Reaction [...] (old term) 6 [birth year]07/94 Given 1Result Comment: [facility] [id number] [phone] 2[facility] 3Admin Note: [...] 05/01/20 11:14:00 EDT, Route to Pharmacy Electronically, [facility]/pharmacy #[id number], 167.64, cm, 04/25/20 0:39:00 EDT, Height, [...]
--- OUTSIDE RECORDS SUMMARY | 2024-05-22 09:13 | XMS_ITS | Continuity of Care Document ---
Author Organization [facility] [employer] [facility] [facility] Address [address] [place] [address]- Care Team Providers Care Format Proofreader Name Role Phone Nicholas MUSIC THERAPIST [employer], Elisa M Primary Care Physician Encounter [facility] Date(s): 09/23/21 - 10/23/21 [facility] [employer] Adult Medicine [address] [place] [address]- [place] Allergies, Adverse Reactions, Alerts Substance Reaction [...] (old term) 7 09/07/94 Given 1Result Comment: [facility]: [id number] 2Result Comment: [facility] [id number] [phone] 3[facility] 4Admin Note: [...] 10:00:00 EST, 09/30/21 19:43:00 EST, Tablet, [facility]/pharmacy #[id number], may take 2 tablets twice a day until regularly moving bow... Start Date: 09/30/21 Stop Date: 09/30/22 Status: Ordered famotidine 20 mg oral tablet 20 mg, 1, tablet, By Mouth, 2 times a day, # 20 tablet, Refills 0, Tot. Refills 0, Maintenance, 10/07/21 8:52:00 EST, Route to Pharmacy Electronically, [facility]/pharmacy #[id number], Partial fill upon patient request if [...] Maintenance, 10/17/21 15:42:00 EST, EC Capsule, [facility]/pharmacy #[id number], Partial fill upon patient request if [...]
--- OUTSIDE RECORDS SUMMARY | 2024-05-22 09:13 | XMS_ITS | Continuity of Care Document ---
Author Organization [facility] Address [address] [place] [address]- Care Team Providers Care Distillery Manager Name Role Phone Mary Ellen SRINIVASAN, Anitha Primary Care Physician Encounter [facility] Date(s): 03/31/20 - 03/31/[address] [address]- [facility] Discharge Disposition: A-D/C Home Attending Physician: Victor Manuel Sarmiento MD Admitting Physician: Victor Manuel Sarmiento MD Referring Physician: Victor Manuel Sarmiento MD Allergies, Adverse [...] (old term) 6 09/07/94 Given 1Result Comment: [facility] [id number] [phone] 2[facility] 3Admin Note: [...] Procedure Date Related Diagnosis Body Site Status Colonoscopy 03/31/20 Completed Vital Signs Most recent to oldest [Reference Range]: 1 2 3 Height 168 cm (03/31/20 10:55 AM) Oxygen Saturation [94-100 %] 100 % (03/31/20 11:50 AM) 99 % (03/31/20 11:45 AM) 100 % (03/31/20 11:42 AM) Pulse Rate [55-90 bpm] 95 bpm *H* (03/31/20 10:55 AM) Blood Pressure [90-138/55-84 mm Hg] 111/69mm Hg (03/31/20 11:50 AM) 95/53mm Hg (03/31/20 11:45 AM) 99/53mm Hg (03/31/20 11:42 AM) Respiratory Rate [16-30 br/min] 15 br/min *L* (03/31/20 11:50 AM) 18 br/min (03/31/20 11:45 AM) 20 br/min (03/31/20 11:42 AM) Temperature [96.8-100.4 DegF] 97.3 DegF (03/31/20 10:55 AM) Mode of Delivery (Oxygen) Room air (03/31/20 11:50 AM) Room air (03/31/20 11:45 AM) Room air (03/31/20 11:42 AM) Blood pressure sites Arm, right (03/31/20 10:55 AM) Temperature Route Temporal (03/31/20 10:55 AM) Dry Weight 61 kg (03/31/20 10:55 AM) Social History Social History Type Response Smoking Status Never smoker; Tobacc o user in household: No entered on: 09/26/13 Sex
--- OUTSIDE RECORDS SUMMARY | 2024-05-22 09:13 | XMS_ITS | Continuity of Care Document ---
Author Organization [facility] Address [address] [place] [address]- Care Team Providers Care Press Operator Heavy Duty Name Role Phone Nicholas SPECIAL WARFARE OPERATOR, Elisa M Primary Care Physician Encounter [facility] Date(s): 02/14/24 - 03/15/24 [facility] [address] [place], [place] [address] Attending Physician: Alejadnro Lamb Admitting Physician: Alejandro Lamb Referring Physician: [...] B pediatric vaccine 93 Recorded 1Result Comment: [facility] 30459-606-94 2Result Comment: [facility]: [id number] 3Result Comment: [facility] [id number] [phone] 4Location History: [facility] 5Admin Note: 1st dove 11/21/1995 2nd [...] Route to Pharmacy Electronically, [facility]/pharmacy #[id number], Partial fill upon patient request if the prescription i... Start Date: 01/29/24 Status: Ordered famotidine 20 mg oral tablet 20 mg, 1, tablet, By Mouth, 2 times a day, PRN, # 30 tablet, Refills 0, Tot. Refills 0, Maintenance, Control of Stomach Acid, 01/09/24 0:16:00 EDT, Route to Pharmacy Electronically, [facility]/pharmacy #[id number], Partial fill upon patient request if the prescrip... Start Date: 01/09/24 Status: Ordered fluticasone 50 mcg/inh nasal spray 1 sprays = 50 mcg, Nares, Both, 2 times a day, # 16 Gm, 0 Refills, Maintenance, 02/21/24 17:46:00 EDT, [place], [facility]/pharmacy #[id number], Partial fill [...] Maintenance, 01/16/24 16:47:00 EDT, Tablet, [facility]/pharmacy #[id number], Partial fill upon patient request if the prescription is for a schedule II opioid drug., 168, cm, 01/15... Start Date: 01/16/24 Status: Ordered loratadine 10 mg oral capsule 1 capsule = 10 mg, By Mouth, Daily, As needed for symptoms of allergic reaction., # 10 capsule, 0 Refills, Maintenance, 12/31/23 1:48:00 EDT, Capsule, [facility]/pharmacy #[id number], Partial fill upon patient request if the prescription is for a schedule II opioi... Start Date: 12/31/23 Status: Ordered loratadine 10 mg oral tablet 10 mg, 1, tablet, By Mouth, Daily, # 30 tablet, Refills 0, Tot. Refills 0, Maintenance, 02/21/24 17:46:00 EDT, Route to Pharmacy Electronically, [facility]/pharmacy #[id number], Partial fill upon patient request if the prescription is for a schedule II opioid drug... Start Date: 02/21/24 Status: Ordered omeprazole 20 mg oral enteric coated capsule 1 capsule, By Mouth, 2 times a day, # 180 capsule, 0 Refills, Maintenance, 01/25/24 10:16:00 EDT, [facility] STORE [id number], 168, cm, 01/24/24 14:42:00 EDT, Height, 63.5, [...] Personnel Name: Giselle SRINIVASAN, Ulysses W Position: [facility] ADMINISTRATION INTERNSHIP MD Member Role: [employer] ADMINISTRATION INTERNSHIP Physician Address: Address: [address] [place] [address] [place] [address]- Name: Nicholas EDGAR, Elisa Reynaga Position: [facility] PCO Associate Professional Member Role: PCP Address: Address: [address] [place] [address]- Name: Josette Bhardwaj [place] Position: [facility] Office Staff Member Role: Primary Care Nurse Care Team Related Persons Name: HUBER ORLANDO Address: home [address] [place] [address] Name: HUBER ORLANDO Ronnell Address: home [address] [place] [address] Name: HUBER ORLANDO Address: home [address] [place] [address] Name: JUAN ORLANDO Address: home [address]
--- OUTSIDE RECORDS SUMMARY | 2024-05-22 09:13 | XMS_ITS | Continuity of Care Document ---
Author Organization [facility] [employer] [facility] [place] [facility] Address [address] [place] [address]- Care Team Providers Care Manager Intensive Care Name Role Phone Elisa Peterson NP Primary Care Physician Encounter [facility] Date(s): 05/01/24 - 05/08/24 [facility] [employer] Adult [facility] [address] [place] [address]- Encounter Diagnosis Annual physical exam(Discharge Diagnosis) - 05/01/24 GERD (gastroesophageal reflux disease)(Discharge Diagnosis) - 05/01/24 Fibromyalgia(Discharge Diagnosis) - 05/01/24 Anxiety(Discharge Diagnosis) - 05/01/24 Attending Physician: Elisa Peterson NP Allergies, Adverse [...] Recorded 1Result Comment: [facility] [id number] 2Result Comment: [facility]: [id number] 3Result Comment: [facility] [id number] 4[facility] 5Admin Note: [...] 14:53:00 EDT, Route to Pharmacy Electronically, [facility]/pharmacy #[id number], Partial fill upon patient request if the [...] Refills, Maintenance, 04/24/24 13:02:00 EDT, Gel, [facility]/pharmacy #[id number], Partial fill upon patient request if the prescription is... Start Date: 04/24/24 Stop Date: 11/20/24 Status: Ordered cyclobenzaprine 5 mg oral tablet 1 tablet = 5 mg, By Mouth, Daily at bedtime, for 30 days, # 30 tablet, 3 Refills, Acute 09/05/24 15:01:00 EST, 05/08/24 15:01:00 EDT, [facility]/pharmacy #[id number], Partial fill upon patient request if [...] 0:16:00 EDT, Route to Pharmacy Electronically, [facility]/pharmacy #[id number], Partial fill upon patient request if the prescrip... Start Date: 01/09/24 Status: Ordered fluticasone 50 mcg/inh nasal spray 1 sprays = 50 mcg, Nares, Both, 2 times a day, # 16 Gm, 0 Refills, Maintenance, 02/21/24 17:46:00 EDT, [place], [facility]/pharmacy #[id number], Partial fill upon patient request if [...] Service Informant Annual physical exam Discharge Diagnosis 05/01/24 GERD (gastroesophageal reflux disease) Discharge Diagnosis 05/01/24 Fibromyalgia Discharge Diagnosis 05/01/24 Anxiety Discharge Diagnosis 05/01/24 Vital Signs Most recent to oldest [Reference Range]: 1 Height 168 cm (05/01/24 7:07 AM) Oxygen Saturation [94-100 %] 99 % (05/01/24 7:07 AM) Pulse Rate [55-90 bpm] 87 bpm (05/01/24 7:07 AM) Blood Pressure [90-138/55-84 mm Hg] 130/ 80mm Hg (05/01/24 7:07 AM) Respiratory Rate [16-30 br/min] 15 br/mi n *L* (05/01/24 7:07 AM) Mode of Delivery (Oxygen) Room air (05/01/24 7:07 AM) Blood pressure sites Arm, right (05/01/24 7:07 AM) Weight Obtained Via Standing scale (05/01/24 7:07 AM) Dry Weight Obtained Via Standing scale (05/01/24 7:07 AM) Social History Social History Type Response Smoking Status Never smoker; Tobacc o user in household: No entered on: 09/26/13 Sex Note * Kiana Bernabe: PERFORM Event Display: Patient Education/Instruction Authored Date: [id number] Amb[facility] [address] [address] Name: REGULO ORLANDO : 1995?? Visit: 05/01/2024 07:06?? Ambulatory Visit Instructions ?? Your Care Team Primary Care Provider Elisa Peterson NP? This Visit Provider Elisa Peterson NP. Your Diagnosis Annual physical exam GERD (gastroesophageal reflux disease) Fibromyalgia Vitals Signs Pulse Rate: 87 bpm Height: 168 cm Respiratory Rate:??15 br/min??Low ?? Systolic Blood Pressure: 130 mm Hg ?? Diastolic Blood Pressure: 80 mm Hg ?? Oxygen Saturation: 99 % ?? What to do next Scheduled Follow-Up Appointments Monday 2:30 PM EDT ?? With: Sherly Barrett Where: [facility] [address] [place] [address]- Status: Pending Monday 2:30 PM EDT ?? With: Jade Ross NP Where: [facility] [address] [facility] 3rd Floor, [address] [place] [address]- Status: Pending 2023 8:00 AM EDT ?? With: Luis EDGAR, Camille Dukes Where: [facility] [address] [facility] [address] [place] [address]- Status: Pending Monday 10:40 AM EDT ?? With: Elisa Peterson NP Where: [facility] [address] [place] [address]- Status: Pending Monday 8:30 AM EDT ?? With: Jade Ross NP Where: [facility] [address] [facility] 3rd Floor, [address] [place] [address]- Status: Pending Monday 8:45 AM EST ?? With: Raymundo Leon MD Where: [facility] [address] [place] [address]- Status: Pending Future Orders Vaginosis Vaginitis Panel [...] Pain , Moderate Neck pain Unchanged Benzoyl Peroxide Topical (benzoyl peroxide 10% topical cream) 1 anne Topically Daily Duration: 30 Days keep away from eyes and mucous membranes clean affected area before application ?? Unchanged Clindamycin Topical (clindamycin 1% topical gel) 1 anne Topically Daily at Bedtime Duration: 30 Days apply a thin film apply a thin film to affected area after washing ?? Unchanged Diclofenac Topical (Voltaren Arthritis Pain 1% [...] delayed release tablet) 1 tab(s) Oral Daily Medications and Immunizations Administered Medications Given During [...] are strongly encouraged to quit. Please call [employer] Link at [phone] or 3-456-518InfluAds ([phone]) or log in to [email or web address] for referrals to smoking cessation programs. ?? The National Suicide Prevention Hotline is available 10/04 if you or someone you know needs to find a reason to keep living. By calling 7-646-613-SpaBooker (0401) you'll be connected to a skilled, trained counselor at a crisis center in your area. [facility] Legal Shine Portal You can view and manage your care through the patient portal or by using a health care anne of your choosing. [email or web address] is a website that allows you to securely view your medical information including your hospital discharge summary, office visit summaries, medications and follow-up visits. You can also request appointments, renew medications, and request access to your medical information using a health care anne of your choosing, or just ask a question. You can enroll at [email or web address] or register during your next office visit. [facility], in keeping with [facility] guidance, no longer requires face masks [...] primary care provider, you may find a [facility] provider by calling [facility] Link at [phone]. Patient Care team information Care Team Personnel Name: Ulysses Desai MD Position: [facility] SHIP'S CAPTAIN MD Member Role: [employer] SHIP'S CAPTAIN Physician Address: Address: [address] [place] [address] [place] [address]- Name: Elisa Peterson NP Position: [facility] PCO Associate Professional Member Role: PCP Address: Address: [address] [place] [address] - [place] Name: Josette Bhardwaj [place] Position: [facility] Office Staff Member Role: Primary Care Nurse Care Team Related Persons Name: HUBER ORLANDO Address: home [address] [place] [address] Name: HUBER ORLANDO Address: home [address] [place] [address] Name: HUBER ORLANDO Address: home [address] [place] [address] [place] [address] Name: JUAN ORLANDO Address: home [address] [address]
--- OUTSIDE RECORDS SUMMARY | 2024-05-22 09:13 | XMS_ITS | Continuity of Care Document ---
Author Organization [facility] Address [address] [place] [address]- Care Team Providers Care Client Experience Administrator Name Role Phone Anitha Hyde MD Primary Care Physician ( [phone] Encounter [facility] Date(s): 08/30/19 - 09/09/19 [facility] [address] [place] [address]- [facility] Attending Physician: Alejandro Lamb Admitting Physician: [...] Given 1Result Comment: [facility] [id number] [phone] 2[facility] 3Admin Note: 1st dove 11/21/1995 2nd done 05/21/2009 4Admin Note: 1st done 12/13/2006 2nd done 02/14/2007 3rd done 06/19/2007 5Admin Note: 1st done 02/24/1995 2nd done 11/30/1998 6Admin Note: 1st done 1993 2nd done 1993 3rd done 09/07/1994 Medications Lo Loestrin Fe oral tablet 1 tablet, By Mouth, Daily, # 84 tablet, 0 Refills, Maintenance, 07/30/19 15:41:05 EST, Tablet Start Date: 07/30/19 Status: Ordered nortriptyline 10 mg oral capsule 10 mg, 1, capsule, By Mouth, Daily at bedtime, # 30 capsule, Refills 0, Tot. Refills 0, Maintenance, 09/04/19 13:19:00 EST, Route to Pharmacy Electronically, [facility]/pharmacy #[id number], 168, cm, 08/30/19 9:34:00 EST, Height, 62.4, kg, 08/22/19 16:54:00 EST, D... Start Date: 09/04/19 Status: Ordered Problem List Condition Effective Dates [...]
--- OUTSIDE RECORDS SUMMARY | 2024-05-22 09:13 | XMS_ITS | Continuity of Care Document ---
Author Organization [facility] Address [address] [facility], 3r d Floor, [address] [place] [address]- Care Team Providers Care Applications Sales Representative Name Role Phone Nicholas FREIGHT FORWARDER, Elisa M Primary Care Physician Encounter [facility] Date(s): 06/12/23 - 07/12/23 [facility] [address] [facility], 3rd Floor, [address] [place] [id number] Attending Physician: Alejandro Lamb Admitting Physician: Alejandro [...] vaccine 93 Recorded 1Result Comment: [facility] [id number] 2Result Comment: [facility]: [id number] 3Result Comment: [facility] [id number] [phone] 4[facility] 5Admin Note: [...] mL, 0 Refills, Maintenance, 05/19/23 22:44:00 EDT, [facility]/pharmacy #[id number], Partial fill upon patient request if the prescription is for a schedule II opioid drug., 165.1, cm, 05/19/23 1... Start Date: 05/19/23 Stop Date: 06/02/23 Status: Ordered chlorhexidine topical 0.12% liquid 15 mL = 0.018 Gm, By Mouth, 2 times a day, # 480 mL, 0 Refills, Maintenance, 06/29/23 12:46:00 EDT,Liquid, [facility]/pharmacy #[id number], Partial fill upon [...] Refills, Maintenance, 07/03/23 16:09:00 EDT, EC Tablet, [facility]/pharmacy #[id number], Partial fill upon patient request if the prescription is for a schedule II opioid drug., 165.1,... Start Date: 07/03/23 Stop Date: 07/18/23 Status: Ordered gabapentin 300 mg oral capsule 300 mg, 1, capsule, By Mouth, Daily at bedtime, PRN, # 15 capsule, Refills 0, Tot. Refills 0, Maintenance, [facility], 07/03/23 16:09:00 EDT, [facility] to Pharmacy Electronically, [facility] [...] Refills, Maintenance, 07/07/23 6:25:00 EDT, [id number], 165.1, cm, 07/03/23 15:14:00 EDT, Height, 64.3, kg, 05/19/23 19:22:00 EDT, Dry... Start Date: 07/07/23 Status: Ordered omeprazole 20 mg oral enteric coated capsule 1 capsule, By Mouth, 2 times a day, # 180 capsule, 1 Refills, Maintenance, 06/24/23 16:07:00 EDT, [facility], 165.1, cm, 06/12/23 14:42:00 EDT, Height, 64.3, [...] Name: Giselle SRINIVASAN, Ulysses Thornton Position: [facility] PROCUREMENT OFFICER MD Member Role: [employer] PROCUREMENT OFFICER Physician Address: Address: [address] [place] [place] [address] [facility] [place], [place] [address] Name: Elisa Peterson NP Position: [facility] PCO Associate Professional Member Role: PCP Address: Address: [address] [place] [address]- Name: Josette Bhardwaj [place] Position: [facility] RN Member Role: Primary Care Nurse Care Team Related Persons Name: JOHANNY HUBER Address: home [address] [place] [address] Name: JOHANNY HUBER M Address: [address] [place] [address] Name: HUBER ORLANDO Address: home [address] [place] [address] Name: JUAN ORLANDO Address: home [address]
--- OUTSIDE RECORDS SUMMARY | 2024-05-22 09:13 | XMS_ITS | Continuity of Care Document ---
Author Organization [facility] [employer] [facility] [place] [facility] Address [address] [place] [address]- Care Team Providers Care Dosier Operator Name Role Phone Nicholas MRI MANAGER, Elisa M Primary Care Physician Encounter [facility] Date(s): 02/07/22 - 03/09/22 [facility] [employer] Adult Medicine [address] [place] [address]- [place] Allergies, Adverse Reactions, Alerts Substance Reaction [...] term) 7 09/07/94 Given 1Result Comment: [facility]: [id number] 2Result Comment: [facility] [id number] [phone] 3[facility] 4Admin Note: [...] EST, Tablet, [facility]/pharmacy #0932, may take 2 tablets twice a day [...] EDT, ECCapsule, [facility]/pharmacy #0978, Partial fill upon patient request if the prescription is for a schedule II opioid drug., 168, cm, 02/16/22 11:10:00 EDT, H... Start Date: 02/16/22 [...]
--- OUTSIDE RECORDS SUMMARY | 2024-05-22 09:13 | XMS_ITS | Continuity of Care Document ---
Author Organization [facility] Primary [facility] Address [address] [place] [address]- Care Team Providers Care Pass Worker Name Role Phone Nicholas RECYCLING MANAGER, Elisa M Primary Care Physician Encounter [facility] Date(s): 08/21/23 - 09/20/23 [facility] [place] [address] [place] [address]- Allergies, Adverse Reactions, Alerts Substance Reaction Severity [...] B pediatric vaccine 93 Recorded 1Result Comment: [facility] [id number] 2Result Comment: [facility]: [id number] 3Result Comment: [facility] [id number] [phone] 4[facility] 5Admin Note: 1st dove 11/21/1995 2nd done 05/21/2009 6Admin Note: 1st done 12/13/2006 2nd done 02/14/2007 3rd done 06/19/2007 7Admin Note: 1st done 02/24/1995 2nd done 11/30/1998 8Admin Note: 1st done 1993 2nd done 1993 3rd done 09/07/1994 Medications amoxicillin-clavulanate 875 mg-125 mg oral tablet 1 tablet, By Mouth, Every 12 hours, for 10 days, # 20 tablet, 0 Refills, Acute 09/22/23 18:47:00 EST, 09/12/23 18:47:00 EST, Tablet, [facility]/pharmacy #[id number], Partial fill upon patient request if the prescription is for a schedule II opioid drug., 168, cm,... Start Date: 09/12/23 Stop Date: 09/22/23 Status: Ordered diclofenac sodium 75 mg oral delayed release tablet 1 tablet = 75 mg, By Mouth, 2 times a day, PRN PAIN, with food, # 30 tablet, 0 Refills, Maintenance, 07/03/23 16:09:00 EDT, EC Tablet, [facility]/pharmacy #[id number], Partial [...] prescription is for a schedule II opioid drImelda Start Date: 09/20/23 Status: Ordered fluticasone 27.5 mcg/inh nasal spray 1 sprays, Nares, Both, Daily, PRN Cold Symptoms, # 10 Gm, 0 Refills, Maintenance, 07/24/23 15:00:00EST, [facility], [facility], Partial fill upon patient request if the prescription is for a schedule II opioid drug., 1 sprays Nares, Both Daily,PRN... Start Date: 07/24/23 Status: Ordered omeprazole 20 mg oral enteric coated capsule 1 capsule, By Mouth, 2 times a day, # 180 capsule, 1 Refills, Maintenance, 06/24/23 16:07:00 EDT, [facility], 165.1, cm, 06/12/23 14:42:00 EDT, Height, 64.3, [...] Ulysses Desai MD Position: [facility] MILL LABORER MD Member Role: Lifetime MILL LABORER Physician Address: Address: [address] [place] [address] [place] [address]- [place] Name: Elisa Peterson NP Position: [facility] PCO Associate Professional Member Role: PCP Address: Address: [address] [place] [address]- Name: Josette Bhardwaj [place] Position: [facility] RN Member Role: Primary Care Nurse Care Team Related Persons Name: HUBER ORLANDO Address: home [address] [place] [address] Name: HUBER ORLANDO Address: home [address] [place] [address] Name: HUBER ORLANDO Address: home [address] [place] [address] Name: JUAN ORLANDO Address: home [address] [address]
--- OUTSIDE RECORDS SUMMARY | 2024-05-22 09:13 | XMS_ITS | Continuity of Care Document ---
Author Organization [facility] Address [address] [place] [address]- Care Team Providers Care Battery Builder Name Role Phone Nicholas MATERIAL DISPOSITION INSPECTOR, Elisa M Primary Care Physician Encounter [facility] Date(s): 05/23/23 - 06/22/23 [facility] [employer] [facility] [address] [place] [address]- [place] Allergies, Adverse Reactions, Alerts Substance Reaction [...] vaccine 93 Recorded 1Result Comment: [facility] [id number] 2Result Comment: [facility]: [id number] 3Result Comment: [facility] [id number] [phone] 4[facility] 5Admin Note: [...] Refills, Maintenance, 05/19/23 22:44:00 EDT, [facility]/pharmacy #[id number], Partial fill upon patient request if [...] EDT, Route to Pharmacy Electronically, [facility]/pharmacy #[id number] Tablet, Partial fill upon patient... Start Date: [...] Personnel Name: Giselle SRINIVASAN, Ulysses W Position: [facility] INJECTION MOLDING MACHINE SETTER MD Member Role: Lifetime INJECTION MOLDING MACHINE SETTER Physician Address: Address: [address] [place] [address] [place] [address]- Name: Elisa Peterson NP Position: [facility] PCO Associate Professional Member Role: PCP Address: Address: [address] [place] [address] Name: Josette Bhardwaj [place] Position: [facility] RN Member Role: Primary Care Nurse Care Team Related Persons Name: JOHANNYHUBER Address: home [address] [place] [address] Name: JOHANNY HUBER Reynaga Address: home [address] [place] [address] Name: JOHANNY HUBER Reynaga Address: home [address] [place] [address] Name: JOHANNY JUAN Address: home [address]
--- OUTSIDE RECORDS SUMMARY | 2024-05-22 09:14 | XMS_ITS | Continuity of Care Document ---
Author Organization [facility] [employer] [facility] Address [address] [place] [address]- Care Team Providers Care Environmental Emergencies Planner Name Role Phone Elisa Peterson NP Primary Care Physician Encounter [facility] Date(s): 10/20/20 - 10/27/20 [facility] [employer] [facility] [address] [place] [address]- Encounter Diagnosis Anxiety(Discharge Diagnosis) - 10/20/20 Migraine(Discharge Diagnosis) - 10/20/20 Constipation(Discharge Diagnosis) - 10/20/20 Anemia, iron deficiency(Discharge Diagnosis) - 10/20/20 Attending Physician: Elisa Peterson NP Allergies, Adverse [...] term) 6 09/07/94 Given 1Result Comment: [facility] [id number] [phone] 2Location [facility]: [facility] 3Admin Note: [...] Dates Health Status Clinical Service Informant Anxiety Discharge Diagnosis 10/20/20 Migraine Discharge Diagnosis 10/20/20 Constipation Discharge Diagnosis 10/20/20 Anemia, iron deficiency Discharge Diagnosis 10/20/20 Vital Signs Most recent to oldest [Reference Range]: 1 Height 168 cm (10/20/20 9:28 AM) Social History Social History Type Response Smoking Status Never smoker; Tobacc o user in household: No entered on: 09/26/13 Sex
--- OUTSIDE RECORDS SUMMARY | 2024-05-22 09:14 | XMS_ITS | Continuity of Care Document ---
Author Organization [facility] Address [address] [place] [address]- Care Team Providers Care Communications Assistant Name Role Phone Nicholas GROUP INSURANCE SPECIALIST, Elisa M Primary Care Physician Encounter [facility] Date(s): 06/06/23 - [facility] [address] [address] [place] Allergies, Adverse Reactions, Alerts Substance Reaction [...] vaccine 93 Recorded 1Result Comment: [facility] [id number] 2Result Comment: [facility]: [id number] 3Result Comment: [facility] [id number] [phone] 4[facility]: [facility] 5Admin Note: [...] mL, 0 Refills, Maintenance, 05/19/23 22:44:00 EDT, [facility]/pharmacy #[id number], Partial fill upon patient request if the prescription is for a schedule II opioid drug., 165.1, cm, 05/19/23 1... Start Date: 05/19/23 Stop Date: 06/02/23 Status: Ordered chlorhexidine topical 0.12% liquid 15 mL = 0.018 Gm, By Mouth, 2 times a day, # 480 mL, 0 Refills, Maintenance, 06/29/23 12:46:00 EDT,Liquid, [facility]/pharmacy #[id number], Partial fill upon [...] 07/03/23 16:09:00 EDT, [facility] Pharmacy Electronically, [facility] [...] Refills, Maintenance, 06/24/23 16:07:00 [id number], 165.1, cm, 06/12/23 14:42:00 EDT, Height, 64.3, [...] Team Personnel Name: Ulysses Desai MD Position: [facility] WELFARE AIDE MD Member Role: Lifetime WELFARE AIDE Physician Address: Address: [address] [place] [address] [facility] [address]- Name: Elisa Peterson NP Position: [facility] PCO Associate Professional Member Role: PCP Address: Address: [address] [place] [address]- Name: Josette Bhardwaj [place] Position: [facility] RN Member Role: Primary Care Nurse Care Team Related Persons Name: HUBER ORLANDO Address: home [address] [place] [address] Name: HUBER ORLANDO Address: home [address] [place] [address] Name: HUBER ORLANDO Address: home [address] [place] [address] Name: JUAN ORLANDO Address: home [address] [address]
--- OUTSIDE RECORDS SUMMARY | 2024-05-22 09:14 | XMS_ITS | Continuity of Care Document ---
Author Organization [facility] Adult Address [address] [place] [address]- Care Team Providers Care Chapter Relations Administrator Name Role Phone Anitha Hyde MD Primary Care Physician Encounter [facility] Date(s): 01/24/20 - 01/31/20 [facility] Adult [address] [place] [address]- [facility] Encounter Diagnosis Anxiety(Discharge Diagnosis) - 01/24/20 Attending Physician: Anitha Hyde MD Allergies, Adverse [...] Given 1Result Comment: [facility] [id number] [phone] 2[facility] 3Admin Note: [...] 1 Refills, Maintenance, 10/11/19 14:31:00 EST, Tablet, [facility]/pharmacy #[id number], 168, cm, 10/11/19 13:21:00 EST, Height, 64, kg, 09/08/19 14:41:00 ES... Start Date: 10/11/19 Status: Ordered sertraline 25 mg oral tablet 1 tablet = 25 mg, By Mouth, Daily, # 30 tablet, 5 Refills, Maintenance, 11/05/19 14:45:00 EST, Tablet, [facility]/pharmacy #[id number], 168, cm, 10/14/19 13:34:00 EST, Height, [...] Clini khushboo Service Informant Anxiety Discharge Diagnosis 01/24/20 Social History Social History Type Response Smoking Status Never smoker; Tobacc o user in household: No entered on: 09/26/13 Sex
--- OUTSIDE RECORDS SUMMARY | 2024-05-22 09:14 | XMS_ITS | Continuity of Care Document ---
Author Organization [facility] Address [address] [facility], [address] Floor, [address] [place] [address]- Care Team Providers Care Mix House Operator Name Role Phone Nicholas EDGAR, Elisa M Primary Care Physician Encounter [facility] Date(s): 03/29/23 - 04/28/23 [facility] [address] [facility], 3rd Floor, [address] [place] [address] Allergies, Adverse Reactions, Alerts Substance Reaction Severity [...] B pediatric vaccine 93 Recorded 1Result Comment: [facility] [id number] 2Result Comment: [facility]: [id number] 3Result Comment: [facility] [id number] [phone] 4[facility] 5Admin Note: [...] 1 kit, 2 Refills, Maintenance, 01/14/23 13:47:00EDT, [facility]/pharmacy #[id number], Partial fill upon patient request if the prescription is for a schedule IIopioid drug., 168, cm, 01/12/23 9:03:00 EDT, Height... Start Date: 01/14/23 Status: Ordered Ativan 0.5 mg oral tablet 1 tablet = 0.5 mg, By Mouth, Daily, MassPat checked, # 5 tablet, 0 Refills, Maintenance, 12/17/21 15:33:00 EDT, Tablet, [facility]/pharmacy #[id number], Partial fill upon patient [...] Gm, 0 Refills, Maintenance, 03/29/23 15:19:00 EDT, [place], [facility]/pharmacy #[id number], Partial fill upon patient [...] 04/21/23 9:11:00 EDT, Route to Pharmacy Electronically, [facility] 85586, 164, cm, 04/17/23 8:31:00 EDT, Height, 65.5, kg, 04/15/23 1:27:00 EDT, Dry Weight Start Date: 04/21/23 Status: Ordered magnesium oxide 400 mg oral tablet 1 tablet = 400 mg, By Mouth, Daily, # 30 tablet, 2 Refills, Acute 04/10/24 10:25:00 EDT, 04/10/23 10:25:00 EDT, [facility]/pharmacy #[id number], Partial fill upon patient [...] tablet, 2 Refills, Maintenance, 04/10/23 10:26:00 EDT, [facility]/pharmacy #[id number], Partial fill upon patient [...] Team Personnel Name: Ulysses Desai MD Position: [facility] TAPE FASTENER MACHINE OPERATOR MD Member Role: Lifetime TAPE FASTENER MACHINE OPERATOR Physician Address: Address: [address] [place] [address] [place] [address]- Name: lEisa Peterson NP Position: [facility] PCO Associate Professional Member Role: PCP Address: Address: [address] [place] [address]- Name: Josette Bhardwaj [place] Position: [facility] RN Member Role: Primary Care Nurse Care Team Related Persons Name: JOHANNY HUBER Address: home [address] [place] [address] Name: HUBER ORLANDO Address: home [address] [place] [address] Name: HUBER ORLANDO Address: home [address] [place] [address] Name: JUAN ORLANDO Address: home [address] [address]
--- OUTSIDE RECORDS SUMMARY | 2024-05-22 09:14 | XMS_ITS | Continuity of Care Document ---
Author Organization [facility] Address [address] [place] [address]- Care Team Providers Care Director Of Campus Recreation Name Role Phone Nicholas MACHINE QUILT STUFFER, Elisa M Primary Care Physician Encounter [facility] Date(s): 09/30/21 - 09/30/[address] [address]- Encounter Diagnosis 2019 novel coronavirus disease (COVID-19)(Final) - 09/30/21 Abdominal pain, acute, right lower quadrant(Final) - 09/30/21 Chronic generalized abdominal pain(Final) - 09/30/21 IBS (irritable bowel syndrome)(Final) - 09/30/21 Chronic idiopathic constipation(Final) - 09/30/21 Discharge Disposition: A-D/C Home Attending Physician: Cade [...] (old term) 7 09/07/94 Given 1Result Comment: [facility]: [id number] 2Result Comment: [facility] [id number] [phone] 3[facility] 4Admin Note: [...] Date: 09/30/21 Stop Date: 09/30/22 Status: Ordered [facility] bcp pill, By Mouth, Daily, Refills [...] 3she does have heavy monthly period Results Orders for Microbiology Reports Name Date Urine Culture (URINE CULTURE) 09/30/21 Microbiology Reports TEST:Urine Culture STATUS:Unauthenticated BODY SITE: SOURCE:URINE COLLECTED DATE/TIME:09/30/21 4:46 PM Urine Culture SPECIMEN DESCRIPTION : URINE SPECIAL REQUESTS : NONE Reflexed from [id number] REPORT STATUS : PRELIMINARY REPORT Radiology Reports * Exam Date Time Procedure Performing Provider Status 09/30/21 7:22 PM Abdomen AP Chantel Bowens; Auth (V erified) Notes: (Abdomen AP) Reason For Exam: generalized pain, belching, flatus;Pain RESULT: XR Abdomen AP XR Abdomen AP 1 view INDICATION/CLINICAL QUESTION: Hx of Present Illness: LLQ pain radiating to left flank since monday, + covid , denies dysuria, states [facility]; Reason: Pain; generalized pain, belching, flatus; Clinical Question(s): Constipation COMPARISON: None FINDINGS: Supine AP view. Normal bowel gas pattern. No evidence of obstruction. No evidence of pneumoperitoneum. No organomegaly, masses or calcifications. No acute bone findings. IMPRESSION: Mild constipation. WSN: [id number] Ordering Physician: Amelia Zelaya Dictated By: Braxton Wright MD Dictated Date/Time: 09/30/21 7:24 pm Reviewed By: Braxton Wright MD Signed By: Braxton Wright MD Signed Date/Time: 09/30/21 7:24 pm Transcribed By: SAVANNAH Transcribed Date/Time: 09/30/21 7:23 pm Vital Signs Most recent to oldest [Reference Range]: 1 2 Height 169 cm (09/30/21 4:42 PM) Weight 70 kg (09/30/21 4:42 PM) Oxygen Saturation [94-100 %] 100 % (09/30/21 7:00 PM) 100 % (09/30/21 4:42 PM) Pulse Rate [55-90 bpm] 83 bpm (09/30/21 7:00 PM) 81 bpm (09/30/21 4:42 PM) Blood Pressure [90-138/55-84 mm Hg] 114/ 76mm Hg (09/30/21 7:00 PM) 120/84mm Hg (09/30/21 4:42 PM) Respiratory Rate [16-30 br/min] 18 br/mi n (09/30/21 7:00 PM) 18 br/min (09/30/21 4:42 PM) Temperature [96.8-100.4 DegF] 98.3 DegF (09/30/21 7:00 PM) 98.1 DegF (09/30/21 4:42 PM) Mode of Delivery (Oxygen) Room air (09/30/21 7:00 PM) Room air (09/30/21 4:42 PM) Blood pressure sites Arm, left (09/30/21 7:00 PM) Temperature Route Oral (09/30/21 7:00 PM) Oral (09/30/21 4:42 PM) Dry Weight 70 kg (09/30/21 4:42 PM) Social History Social History Type Response Smoking Status Never smoker; Tobacc o user in household: No entered on: 09/26/13 Sex
--- OUTSIDE RECORDS SUMMARY | 2024-05-22 09:14 | XMS_ITS | Continuity of Care Document ---
Author Organization [facility] Address [address] [place] [address]- Care Team Providers Care Principal Web Developer Name Role Phone Nicholas EDGAR, Elisa Reynaga Primary Care Physician Encounter [facility] Date(s): 07/24/23 - 07/31/23 [facility] [address] [place] [address]- [place] Encounter Diagnosis Acute sinus infection(Discharge Diagnosis) - 07/24/23 Attending Physician: Daphne Garcia NP Referring Physician: Nicholas EDGAR, Elisa Reynaga Allergies, Adverse Reactions, Alerts Substance Reaction Severity [...] 1Result Comment: [facility] [id number] 2Result Comment: [facility]: [id number] 3Result Comment: [facility] [id number] [phone] 4[facility] 5Admin Note: [...] 08/03/23 14:59:00 EST, 07/24/23 14:59:00 EST, Tablet, [facility]/pharmacy #[id number], Partial fill upon patient request if the prescription is for a schedule II opioid drug., 165.1, cm... Start Date: 07/24/23 Stop Date: 08/03/23 Status: Ordered Carafate 1 gm/10 ml oral suspension 10 mL = 1 Gm, By Mouth, 3 times a day before meals and bedtime, # 560 mL, 0 Refills, Maintenance, 05/19/23 22:44:00 EDT, [facility]/pharmacy #[id number], Partial fill upon patient [...] 10 Gm, 0 Refills, Maintenance, 07/24/23 15:00:00EST, [id number] Partial fill upon patient request if the prescription is for a schedule II opioid drug., 1 sprays Nares, Both Daily,PRN... Start Date: 07/24/23 Status: Ordered gabapentin 300 mg oral capsule 300 mg, 1, capsule, By Mouth, Daily at bedtime, PRN, # 15 capsule, Refills 0, Tot. Refills 0, Maintenance, [facility], 07/03/23 16:09:00 EDT, Route to Pharmacy Electronically, [facility]/pharmacy #[id number], Partial fill upon patient [...] Refills, Maintenance, 07/07/23 6:25:00 EDT, [facility], 165.1, cm, 07/03/23 15:14:00 EDT, Height, 64.3, kg, 05/19/23 19:22:00 EDT, Dry... Start Date: 07/07/23 Status: Ordered omeprazole 20 mg oral enteric coated capsule 1 capsule, By Mouth, 2 times a day, # 180 capsule, 1 Refills, Maintenance, 06/24/23 16:07:00 EDT, [facility], 165.1, cm, 06/12/23 14:42:00 EDT, Height, 64.3, [...] Dates Health Status Cl inical Service Informant Acute sinus infection Discharge Diagnosis 07/24/23 Vital Signs Most recent to oldest [Reference Range]: 1 Height 165.10 cm (07/24/23 2:45 PM) Weight 65.4 kg (07/24/23 2:45 PM) Oxygen Saturation [94-100 %] 99 % (07/24/23 2:45 PM) Pulse Rate [55-90 bpm] 90 bpm (07/24/23 2:45 PM) Body Mass Index [18.5-24.99 kg/m2] 23.99 kg/m2 (07/24/23 2:45 PM) Blood Pressure [90-138/55-84 mm Hg] 116/ 78mm Hg (07/24/23 2:45 PM) Temperature [96.8-100.4 DegF] 97.7 DegF (07/24/23 2:45 PM) Mode of Delivery (Oxygen) Room air (07/24/23 2:45 PM) Blood pressure sites Arm, right (07/24/23 2:45 PM) Temperature Route Temporal (07/24/23 2:45 PM) Weight Obtained Via Standing scale (07/24/23 2:45 PM) Social History Social History Type Response Smoking Status Never smoker; Tobacc o user in household: No entered on: 09/26/13 Sex Note * Kiana Bernabe: PERFORM, SIGN, VERIFY Event Display: Patient Education/Instruction Authored Date: [id number] [facility] *BMP [facility] Med Bltn Clinical Summary Name REGULO ORLANDO Age 27 Years 1995 PCP Elisa Peterson NP PCP Visit Date 07/24/2023 14:42:00 Additional Instructions: Scheduled Appointments?? Future Appointments ?*BMP??Quab??Adlt??Med??Bltn ?[address],??[place],??[address] ?Phone:??--?Fax:??-- ?Appt. Date:??08/09/2023?1:00 PM ?Scheduled Provider:??Elisa Peterson NP. Follow-Up Instructions ?? Diagnosis Acute sinusitis, unspecified Medications: Please continue your medications until treatment is completed or stopped by your provider. Discuss any questions related to medications with your provider. New Medications [facility]/pharmacy #[id number], [address] [place], [place] [id number], [phone] Amoxicillin-Clavulanate (Augmentin 875 mg-125 mg oral tablet) 1 tab(s) Oral every 12 hours for 10 Days. Refills: 0. Next Dose: Fluticasone Nasal (fluticasone 27.5 mcg/inh nasal spray) 1 spray(s) Nares, Both Daily as needed Cold Symptoms. Refills: 0. Next Dose: Medications to Continue with No Changes These medications were not printed or sent to your pharmacy Amoxicillin (amoxicillin 500 mg oral tablet) TAKE 1 TABLET BY MOUTH EVERY 6 HOURS UNTIL FINISHED. Next Dose: Chlorhexidine Topical (chlorhexidine topical 0.12% [...] orders Vital Signs Height 165.10 cm Weight 65.4 kg BMI 23.99 kg/m2 Blood Pressure 116 mm Hg/78 mm Hg Temperature 97.7 DegF Pulse Rate 90 bpm Respiratory Rate 02 Sat Mode of Delivery 99 %/Room air You can now view a summary of your hospital visit from the comfort of your home through a free online portal called [employer]. [employer] is a website that allows you to securely view your medical information including discharge summary, medications and follow-up visits. ??You can alsosend a secure electronic message to your doctor???s office to request appointments, renew medications or just ask a question. You can enroll at [email or web address] or register during your next office [...] primary care provider, you may find a [facility] provider by calling [facility] at [phone]. [facility], in keeping with [facility] guidance, no longer requires face masks for [...] format to support your individualized medical care. Acute Sinusitis Acute sinusitis is inflammation (irritation and swelling) of the sinuses. It is usually from a bacterial infection that follows an upper respiratory viral infection. Your doctor can help you find relief. Read on to learn more. What is acute sinusitis? Sinuses are air-filled spaces in the skull behind the face. They are kept moist and clean by a lining of mucosa. Things such as pollen, smoke, and chemical fumes can irritate the mucosa. It can then become inflamed (swell up). As a response to irritation, the mucosa makes more mucus and other fluids. Tiny hairlike cilia cover the mucosa. Cilia help transport mucus toward the opening of the sinus.Too much mucus may cause the cilia to stop working. This blocks the sinus opening. A buildup of fluid in the sinuses then leads to symptoms such as pain and pressure. It can also encourage growth of bacteria in the sinuses. Common symptoms of acute sinusitis You may have: ??? Facial soreness??pain ??? Headache ??? Fever ??? Postnasal drip (drainage in the back of the throat) ??? Congestion ??? Drainage that is thick and colored, instead of clear ??? Cough Diagnosis of acute sinusitis The doctor will ask about your symptoms and medical history.??He or she will examine your ear, nose, and throat. X-rays are usually not needed. If your sinusitis recurs, you may have a culture to check for bacteria or imaging tests. An evaluation will be done. A culture (sample of mucus) is sometimes taken to check for bacteria. If you have multiple bouts of sinusitis, imaging (X-rays or CAT scans) may be done to check for an anatomic cause of the infection. Treatment of acute sinusitis Treatment is designed to unblock the sinus opening and help the cilia work again. Antihistamine anddecongestant medications may be prescribed. These can reduce inflammation and decrease fluid production. If a bacterial infection is present, it is??treated with antibiotic medication for 10 to 14 days. This medication should be taken until it is gone, even if you feel better. ?? [id number] [employer]. [address] [place] [address]. All rights reserved. This information is not intended as a substitute for professional medical care. Always follow your healthcare professional's instructions. Patient Care team information Care Team Personnel Name: Ulysses Desai MD W Position: [facility] COP EXAMINER MD Member Role: Lifetime COP EXAMINER Physician Address: Address: [address] [place] [address] [place] [address]- Name: Elisa Peterson NP Position: [facility] PCO Associate Professional Member Role: PCP Address: Address: [address] [place] [address] Name: Josette Bhardwaj [place] Position: [facility] RN Member Role: Primary Care Nurse Care Team Related Persons Name: HUBER ORLANDO Address: home [address] [place] [address] Name: HUBER ORLANDO Ronnell Address: home [address] [place] [address] Name: HUBER ORLANDO Address: home [address] [place] [address] Name: JUAN ORLANDO Address: home [address]
--- OUTSIDE RECORDS SUMMARY | 2024-05-22 09:14 | XMS_ITS | Continuity of Care Document ---
Author Organization [facility] Address [address] [place] [address]- Care Team Providers Care Hand Trucker Name Role Phone Elisa Peterson NP Primary Care Physician Encounter [facility] [id number] Date(s): 05/04/21 - 05/11/21 [facility] [address] [place] [address]- [place] Encounter Diagnosis Chronic neck and back pain(Discharge Diagnosis) - 05/04/21 Anxiety(Discharge Diagnosis) - 05/04/21 Attending Physician: Elisa Petesron NP Allergies, Adverse Reactions, Alerts Substance Reaction [...] 6 09/07/94 Given 1Result Comment: [facility] [id number] [phone] 2[facility] 3Admin Note: [...] Gm, 0 Refills, Maintenance, 01/29/21 20:47:00 EDT, [id number], Partial fill upon patient request [...] Health Status Cl inical Service Informant Chronic neck and back pain Discharge Diagnosis 05/04/21 Anxiety Discharge Diagnosis 05/04/21 Vital Signs Most recent to oldest [Reference Range]: 1 Height 168 cm (05/04/21 7:07 AM) Weight 62 kg (05/04/21 7:07 AM) Oxygen Saturation [94-100 %] 99 % (05/04/21 7:07 AM) Pulse Rate [55-90 bpm] 80 bpm (05/04/21 7:07 AM) Body Mass Index [18.5-24.99] 21.97 (05/04/21 7:07 AM) Blood Pressure [90-138/55-84 mm Hg] 124/ 68mm Hg (05/04/21 7:07 AM) Respiratory Rate [16-30 br/min] 16 br/mi n (05/04/21 7:07 AM) Temperature [96.8-100.4 DegF] 98.0 DegF (05/04/21 7:07 AM) Mode of Delivery (Oxygen) Room air (05/04/21 7:07 AM) Blood pressure sites Arm, left (05/04/21 7:07 AM) Temperature Route Temporal (05/04/21 7:07 AM) Weight Obtained Via Standing scale (05/04/21 7:07 AM) Social History Social History Type Response Smoking Status Never smoker; Tobacc o user in household: No entered on: 09/26/13 Sex
--- OUTSIDE RECORDS SUMMARY | 2024-05-22 09:14 | XMS_ITS | Continuity of Care Document ---
Author Organization [facility] Address [address] [place] [address]- Care Team Providers Care Hotel Baggage Handler Name Role Phone Nicholas PANEL MACHINE OPERATOR, Elisa Reynaga Primary Care Physician Encounter [facility] NBR [id number] Date(s): 02/06/23 [facility] [address] [address]- Attending Physician: Alejandro Lamb Admitting Physician: AdmAlejandro cooley Referring Physician: Admtr, Alejandro Allergies, Adverse Reactions, Alerts Substance Reaction Severity [...] B pediatric vaccine 93 Recorded 1Result Comment: [facility] 87604-658-17 2Result Comment: [facility]: 75124-069-95 3Result Comment: [facility] [id number] [facility]: [...] 6 Refills, Maintenance, 11/01/22 10:44:00 EST, Nasal [place], [facility]/pharmacy #[id number], Partial fill [...] in household: No entered on: 09/26/13 Sex Laboratory * Event Display: Laboratory Result Scanned Authored Date: * Event Display: CHAIN DYER Pap Test, Non- Authored Date: * Event Display: CHAIN DYER Pap Test, Non- Authored Date: * Event Display: Laboratory Result Scanned Authored Date: Radiology * Event Display: Ultrasound Pelvis, Non- Authored Date: * Event Display: Ultrasound Pelvis, Non- Authored Date: Patient Care team information Care Team Personnel Name: Ulysses Desai MD Position: [facility] SUGAR CHIPPER MACHINE OPERATOR MD Member Role: Lifetime SUGAR CHIPPER MACHINE OPERATOR Physician Address: Address: [address] [place] [address] [facility] [place] [address]- Name: Nicholas PANEL MACHINE OPERATOR, Elisa Reynaga Position: [facility] PCO Associate Professional Member Role: PCP Address: Address: [address] [place] [address]- Name: Josette Bhardwaj [place] Position: [facility] RN Member Role: Primary Care Nurse Care Team Related Persons Name: HUBER ORLANDO Address: home [address] [place] [address] Name: HUBER ORLANDO Address: home [address] [place] [address] Name: HUBER ORLANDO Address: home [address] [place] [address] Name: JUAN ORLANDO Address: home [address]
--- OUTSIDE RECORDS SUMMARY | 2024-05-22 09:14 | XMS_ITS | Continuity of Care Document ---
Author Organization [facility] Address [address] [place] [address]- Care Team Providers Care Electrical Prospecting Supervisor Name Role Phone Elisa Peterson NP Primary Care Physician Encounter [facility] Date(s): 08/02/21 - 10/08/21 [facility] [address] [place] [address]- Attending Physician: Elisa Peterson NP Allergies, Adverse [...] 09/07/94 Given 1Result Comment: [facility]: [id number] 2Result Comment: [facility] [id number] 3[facility] 4[facility] Note: [...] 09/30/22 10:00:00 EST, 09/30/21 19:43:00 EST, Tablet, [facility]/pharmacy #[id number], may take 2 tablets twice a day until regularly moving bow... Start Date: 09/30/21 Stop Date: 09/30/22 Status: Ordered famotidine 20 mg oral tablet 20 mg, 1, tablet, By Mouth, 2 times a day, # 20 tablet, Refills 0, Tot. Refills 0, Maintenance, 10/07/21 8:52:00 EST, Route to Pharmacy Electronically, [facility]/pharmacy #[id number], Partial fill upon patient request if the prescription is for a schedule II opio... Start Date: 10/07/21 Stop Date: 10/17/21 Status: Ordered Misc Rx bcp pill, By Mouth, Daily, Refills 0, Maintenance, 08/11/21 20:44:00 EST, Supply Start Date: 08/11/21 Status: Ordered ondansetron 4 mg oral tablet, disintegrating 1 tablet = 4 mg, By Mouth, Every 8 hours, PRN Nausea & Vomiting, # 10 tablet, 0 Refills, Acute 10/14/21 8:53:00 EST, 10/07/21 8:53:00 EST, Tablet, [facility]/pharmacy #[id number], Partial fill upon patient request if the prescription is for a schedule II opioid dr.Mal. Start Date: 10/07/21 Stop Date: 10/14/21 Status: Ordered Problem List Condition Effective Dates [...]
--- OUTSIDE RECORDS SUMMARY | 2024-05-22 09:14 | XMS_ITS | Continuity of Care Document ---
Author Organization [facility] Address [address] [place] [address]- Care Team Providers Care Supervisor Rod Placing Name Role Phone Nicholas MORTGAGE ACCOUNTING CLERK, Elisa M Primary Care Physician Encounter [facility] Date(s): 01/07/23 - 01/07/[address] [address]- Discharge Disposition: A-D/C Home Attending Physician: Daljit [...] pediatric vaccine 93 Recorded 1Result Comment: [facility] [id number] 2Result Comment: [facility]: [id number] 3Result Comment: [facility] [id number] 4[facility] 5[facility] Note: [...] Refills, Maintenance, 12/17/21 15:33:00 EDT, Tablet, [facility]/pharmacy #[id number], Partial fill upon patient request if [...] 6 Refills, Maintenance, 11/01/22 10:44:00 EST, Nasal [place], [facility]/pharmacy #[id number], Partial fill upon [...] 1 Refills, Maintenance, 10/24/22 16:56:00 EST,Tablet, [id number], Partial fill upon patient request if the [...] Range]: 1 2 3 Height 168 cm (01/07/23 11:20 PM) 168 cm (01/07/23 8:39 PM) 168 cm (01/07/23 6:29 PM) Weight 66.1 kg (01/07/23 11:20 PM) 66.1 kg (01/07/23 8:39 PM) 66.1 kg (01/07/23 6:29 PM) Oxygen Saturation [94-100 %] 100 % (01/07/23 11:20 PM) 100 % (01/07/23 8:39 PM) 98 % (01/07/23 6:29 PM) Pulse Rate [55-90 bpm] 76 bpm (01/07/23 11:20 PM) 85 bpm (01/07/23 8:39 PM) 84 bpm (01/07/23 6:29 PM) Body Mass Index [18.5-24.99 kg/m2] 23.42 kg/m2 (01/07/23 11:20 PM) 23.42 kg/m2 (01/07/23 8:39 PM) 23.42 kg/m2 (01/07/23 6:29 PM) Blood Pressure [90-138/55-84 mm Hg] 124/72mm Hg (01/07/23 11:20 PM) 131/92mm Hg (01/07/23 8:39 PM) 124/86mm Hg (01/07/23 6:29 PM) Respiratory Rate [16-30 br/min] 16 br/min (01/07/23 11:20 PM) 16 br/min (01/07/23 8:39 PM) 18 br/min (01/07/23 6:29 PM) Temperature [96.8-100.4 DegF] 98.5 DegF (01/07/23 11:20 PM) 97.9 DegF (01/07/23 8:39 PM) 98 DegF (01/07/23 4:55 PM) Mode of Delivery (Oxygen) Room air (01/07/23 11:20 PM) Room air (01/07/23 8:39 PM) Room air (01/07/23 4:55 PM) Blood pressure sites Arm, right (01/07/23 11:20 PM) Arm, left (01/07/23 8:39 PM) Arm, left (01/07/23 4:55 PM) Temperature Route Oral (01/07/23 11:20 PM) Temporal (01/07/23 8:39 PM) Temporal (01/07/23 4:55 PM) Dry Weight 66.1 kg (01/07/23 11:20 PM) 66.1 kg (01/07/23 8:39 PM) 66.1 kg (01/07/23 6:29 PM) Social History Social History Type Response Smoking Status Never smoker; Tobacc o user in household: No entered on: 09/26/13 Sex Note * Liseth SRINIVASAN, Daljit Medrano: PERFORM Event Display: Patient Education Leaflets Authored Date: [id number] Pelvic Pain, Uncertain Cause ?? [id number] Pelvic Pain, Uncertain Cause Pelvic pain is pain felt in the lowest part of the belly (abdomen) and between the hipbones. The pain may occur suddenly and recently (acute). Or the pain may last for 6 months or longer (chronic). There are many possible causes of pelvic pain. The pain may be from a problem in the female reproductive system. Or it may be from a problem in the digestive, urinary, or musculoskeletal systems. Based on your visit today, the exact cause of your pelvic pain is not certain. Your condition doesn't seem to be serious at this time. But it is important for you to keep watching for any new symptoms or worsening of your condition. General care Your healthcare provider may advise a number of ways to help manage your pain. These can include the following: ??? Take gnuq-hgo-ewbtgih pain medicine. Stronger pain medicine may also be prescribed,if needed. ??? Apply heat to the pelvic area. Use a heating pad or a hot pack. Taking a hot bath may also help. ??? Get plenty of rest. ??? Make certain lifestyle changes. These can include practicing good posture and getting regular exercise. Studies have shown that these changes help reduce pelvic pain in some people. ??? See a physical therapist or pain specialist. These healthcare providers can discuss other ways to manage pain with you. ??? Use acupressure or acupuncture. ?? Follow-up care Follow up with your healthcare provider, or as advised.? When to get medical advice Call your healthcare provider right away if any of the following occur: ??? Fever of 100.4??F (38??C) or higher, or as directed by your healthcare provider ??? Pain gets worse or you have sudden, severe pain or new pain ??? Nausea, vomiting, sweating, or restlessness ??? Dizziness or fainting ??? Abnormal vaginal discharge ??? Abnormal vaginal bleeding (especially bleeding after menopause) ?? Last Reviewed Date: 2022 ?? [id number] [employer]. All rights reserved. This information is not intended as a substitute for professional medical care. Always follow your healthcare professional's instructions. ?? * Liseth SRINIVASAN, Daljit Medrano: PERFORM Event Display: Patient Education Leaflets Authored Date: [id number] Unknown Causes of Abdominal Pain (Adult) ?? [id number] Unknown Causes of Abdominal Pain (Adult) The exact cause of your belly (abdominal) [...] period ?? Last Reviewed Date: 2021 ?? [id number] [employer]. All rights reserved. This information is not intended as a substitute for professional medical care. Always follow your healthcare professional's instructions. ?? Patient Care team information Care Team Personnel Name: Elisa Peterson NP Position: [facility] PCO Associate Professional Member Role: PCP Address: Address: [address] [place] [address]- Name: Josette De Anda Position: [facility] RN Member Role: Primary Care Nurse Name: Solo Jean Baptiste Position: [facility] ED TA [facility] Member Role: Patient Care Provider Name: Daljit Childers MD Position: [facility] ED Medicine MD Member Role: Admitting Physician Address: Address: [address] [place] [address] [place] [address]- Name: Lazaro ROGERS, Marielena Position: S ED RN W/OE and Tasks Member Role: Patient Care Provider Care Team Related Persons Name: JOHANNYHUBER Spears Address: home [address] [place] [address] Name: JOHANNY HUBER Reynaga Address: [address] [place] [address] Name: HUBER ORLANDO Address: home [address] [place] [address] Name: JUAN ORLANDO Address: [place] [address]
--- OUTSIDE RECORDS SUMMARY | 2024-05-22 09:14 | XMS_ITS | Continuity of Care Document ---
Author Organization [facility] [employer] [facility] [place] [facility] Address [address] [place] [address]- Care Team Providers Care Wrapper Stemmer Hand Name Role Phone Elisa Peterson NP Primary Care Physician Encounter [facility] NBR [id number] Date(s): 11/01/22 - 11/08/22 [facility] [employer] [facility] [place] [address] [place] [address]- [place] Encounter Diagnosis Fibromyalgia(Discharge Diagnosis) - 11/02/22 CAMERON (generalized anxiety disorder)(Discharge Diagnosis) - 11/02/22 Serum potassium elevated(Discharge Diagnosis) - 11/02/22 Attending Physician: Elisa Peterson NP Allergies, Adverse [...] Comment: [facility] [phone] 2Result Comment: [facility]: [phone] 3Result Comment: [facility] [phone] [facility] 5[facility] Note: [...] Maintenance, 12/17/21 15:33:00 EDT, Tablet, [facility]/pharmacy #[id number], Partial fill upon patient request if the [...] 6 Refills, Maintenance, 11/01/22 10:44:00 EST, [place], [id number], Partial fill upon patient request [...] Status Clinical Service Informant Fibromyalgia Discharge Diagnosis 11/02/22 CAMERON (generalized anxiety disorder) Discharge Diagnosis 11/02/22 Serum potassium elevated Discharge Diagnosis 11/02/22 Vital Signs Most recent to oldest [Reference Range]: 1 Height 168 cm (11/01/22 10:19 AM) Weight 63.8 kg (11/01/22 10:19 AM) Oxygen Saturation [94-100 %] 98 % (11/01/22 10:19 AM) Pulse Rate [55-90 bpm] 91 bpm *H* (11/01/22 10:19 AM) Body Mass Index [18.5-24.99 kg/m2] 22.6 kg/m2 (11/01/22 10:19 AM) Blood Pressure [90-138/55-84 mm Hg] 116/ 76mm Hg (11/01/22 10:19 AM) Temperature [96.8-100.4 DegF] 97.8 DegF (11/01/22 10:19 AM) Mode of Delivery (Oxygen) Room air (11/01/22 10:19 AM) Blood pressure sites Arm, left (11/01/22 10:19 AM) Temperature Route Temporal (11/01/22 10:19 AM) Weight Obtained Via Standing scale (11/01/22 10:19 AM) Social History Social History Type Response Smoking Status Never smoker; Tobacc o user in household: No entered on: 09/26/13 Sex Note * Miriam Sapp: PERFORM, SIGN, VERIFY Event Display: Patient Education/Instruction Authored Date: [id number] [facility] *BMP Quab Ad[facility] Med Bltn Clinical Summary Name REGULO ORLANDO Age 26 Years 1995 PCP Nicholas CAR BODY DESIGNER, Elisa Reynaga PCP Visit Date 11/01/2022 10:03:00 Additional Instructions: Scheduled Appointments?? Future Appointments ?*[facility] ?Phone:??--?Fax:??-- ?Appt. Date:??11/03/2022?2:00 PM ?Scheduled Provider:??Jesse Ascencio ?*[facility] ?Phone:??--?Fax:??-- ?Appt. Date:??11/07/2022?12:00 PM ?Scheduled Provider:??Jesse Ascencio ?*[facility]tn ?[address],??[place],??[address] ?Phone:??--?Fax:??-- ?Appt. Date:??11/22/2022?2:00 PM ?Scheduled Provider:??Nicholas EDGAR , Elisa Sweeney ?*BMP??Quab??Adlt??Med??Bltn ?[address],??[place],??[address] ?Phone:??--?Fax:??-- ?Appt. Date:??12/19/2022?2:00 PM ?Scheduled Provider:??Elisa Peterson NP Follow-Up Instructions ?? With: Address: When: Elisa Peterson [address] [place] [address], [address] [place], [place] [id number] Business (1) Comments: f/u with me in November as planned. Diagnosis Hyperkalemia; Generalized anxiety disorder; Fibromyalgia Medications: Please continue your medications until treatment is completed or stopped by your provider. Discuss any questions related to medications with your provider. Medications to Continue Taking That Have Changed [id number], [address] [place], [place] [id number], [phone] - Omeprazole (omeprazole 20 mg oral enteric coated capsule) 1 capsule Oral twice a day for 90 Days.Refills: 1. Next Dose: Medications to Continue with No Changes [id number], [address] [place], [place] [id number], [phone] Fluticasone Nasal (Flonase 50 mcg/inh nasal spray) 1 spray(s) Nares, Both twice a day. Refills: 6. Next Dose: These medications were not printed or sent to your pharmacy Diclofenac (diclofenac potassium 50 mg oral tablet) 1 tab(s) Oral 3 times a day as needed for pain. Next Dose: Ethinyl Estradiol / Norethindrone () Oral Daily. Next Dose: levocetirizine (Xyzal 5 mg oral tablet) 1 tab(s) Oral Daily in PM for 90 Days. Refills: 1. Next Dose: Lorazepam (Ativan 0.5 mg oral tablet) 1 tab(s) Oral Daily. MassPat checked. Refills: 0. Next Dose: Miscellaneous Rx (Misc Rx) bcp pill Oral Daily. Next Dose: No Longer Take the Following Medications Cyclobenzaprine (cyclobenzaprine 10 mg oral tablet) 1 tab(s) Oral 3 times a day as needed Spasm for spasm. Refills: 0. Famotidine (Pepcid 20 mg oral tablet) 1 tab(s) Oral twice a day for 7 Days. Refills: 0. Fluconazole (Diflucan 150 mg oral tablet) 1 tab(s) Oral once as needed vaginal yeast infection. Mayrepeat dose in 48-72 hours if needed.. Refills: 0. Lidocaine Topical (lidocaine 5% topical film) 1 patch(es) Topically Daily as needed Pain , Mild. remove after 12 hours. Refills: 0. Allergy Info:?? Reglan Medications Given This Visit Future Orders ?No future orders Vital Signs Height 168 cm Weight 63.8 kg BMI 22.6 kg/m2 Blood Pressure 116 mm Hg/76 mm Hg Temperature 97.8 DegF Pulse Rate 91 bpm Respiratory Rate 02 Sat Mode of Delivery 98 %/Room air You can now view a summary of your hospital visit from the comfort of your home through a free online portal called [employer] is a website that allows you to securely view your medical information including discharge summary, medications and follow-up visits. ??You can alsosend a secure electronic message to your doctor???s office to request appointments, renew medications or just ask a question. You can enroll at [email or web address] or register during your next office [...] [facility] provider by calling [facility] [employer] at [phone]. For information about the plan of care including goals and instructions for your diagnosis, please see the patient education orders section of this document. Patient Education Materials?? The content of this educational material or handout may have been modified, supplemented, or adapted from its original content and format to support your individualized medical care. Fibromyalgia Fibromyalgia is a chronic condition.??It causes pain and tenderness in connective tissues.??This causes muscle pain. Often, there are also many tender areas throughout the body.??Symptoms may also include stiffness and feelings of numbness and tingling. Symptoms may be worse upon waking up. They may increase with poor sleep, heavy activity, cold or damp weather, anxiety, or stress. People with fibromyalgia often feel tired. They may have trouble sleeping. Other symptoms include morning stiffness, headaches, and painful menstrual periods. Some people have problems with thinking clearly and changes in memory. The cause of fibromyalgia is not known.??Symptoms are similar to that of other diseases.??These include rheumatoid arthritis, low thyroid, chronic fatigue syndrome, and Lyme disease.??In some cases, these diseases may occur together. Fibromyalgia is often treated with medicines. You and your healthcare provider can discuss the medication plan that may work best for you.??You may have to try more than one medicine or combination of medicines before you find what works for you. Home care ??? If your??healthcare provider??has prescribed or recommended medicines, take them as directed. ??? Rest as needed. Try to get enough sleep. If you have trouble sleeping, discuss this with your healthcare provider. ??? Be active. Regular exercise can help manage symptoms. Some options include walking, swimming, and biking. Strengthening exercises may also be helpful. Start an exercise program gradually. Talk toyour healthcare provider about the best ways to be active. ??? Follow a healthy diet. Limit caffeine and alcohol. If you smoke, ask your??healthcare provider for help to stop. ??? Notice how your body reacts to stress. Learn to listen to your body signals. This will help youtake action before the stress becomes severe. ??? Learn relaxation techniques. Also consider joining a stress reduction program or class. ??? Talk to your healthcare provider about trying complementary treatments. These include acupuncture, hypnosis, and biofeedback. Yoga and subha chi may be helpful. ??? Ask your healthcare provider about cognitive behavioral therapy (CBT). This type of counseling can??help people with fibromyalgia cope better with their illness. Follow-up care Follow up with your healthcare provider or as advised by our staff. In many cases, fibromyalgia is best treated with a team approach. ??This may involve your primary care provider, a judicial law clerk, a physical therapist, and??a mental health professional. For more information:??National [place] of Arthritis and Musculoskeletal and Skin Diseases (NIAMS)?www.niams.nih.gov 052-474-6697 When to seek medical advice Contact your healthcare provider if any of the following occurs: ??? Symptoms getting worse or new symptoms developing ??? You feel hopeless, helpless, or lose interest in day-to-day life ?? 3712-9516 [employer]. [address] [place] [address]. All rights reserved. This information is not [...] by rest and mild pain reliever ?? 4144-9676 [employer]. [address] [place] [address], [place] [address]. All rights reserved. This information is not intended as a substitute for professional medical care. Always follow your healthcare professional's instructions. Preventing Vaginitis Vaginitis is irritation or infection of the vagina or vulva??(the outside opening of the vagina).??Vaginitis can be caused by bacteria, viruses, parasites, or yeast. Chemicals (such as in perfumes orsoaps or in spermicides) can sometimes be a cause. Vaginitis can be caused by hormone changes in pre gnancy or with menopause.??You can help prevent vaginitis. Follow the tips below. And see your health care provider if you have any symptoms. Hygiene Use mild, unscented soap when you bathe or shower to avoid irritating your vagina. ??? Avoid chemicals. Do not use vaginal sprays. Do not use scented toilet paper or tampons that arescented. Sprays and scents have chemicals that can irritate your vagina. ??? Do not douche unless you are told to by your health care provider. Douching is rarely needed. And it upsets the normal balance in the vagina. ??? Wash yourself well. Wash the outer vaginal area (vulva) every day with mild, unscented soap. Keep it as dry as possible. ??? Wipe correctly. Make sure to wipe from front to back after a bowel movement. This helps keep from spreading bacteria from your anus to your vagina. ??? Change your tampon often. During your period, make sure to change your tampon as often as directed on the package. This allows the normal flow of vaginal discharge and blood. Lifestyle ??? Limit your number of sexual partners. The more partners you have, the greater your risk of infection. Using condoms helps reduce your risk. ??? Get enough sleep. Sleep helps keep your body???s immune system healthy. This helps you fight infection. ??? Lose weight, if needed. Excess weight can reduce air circulation around your vagina. This can increase your risk of infection. ??? Exercise regularly. Regular activity helps keep your body healthy. ??? Take antibiotics only as directed.??Antibiotics can change the normal chemical balance in the vagina. Clothing ??? Don???t sit in wet clothes. Yeast thrives when it???s warm and damp. ??? Don???t wear tight pants. And don???t wear tights, leggings, or hose without a cotton crotch. These types of clothing trap warmth and moisture. ??? Wear cotton underwear. Cotton lets air circulate around the vagina. Symptoms of vaginitis ??? Irritation, swelling, or itching of the genital area ??? Vaginal discharge ??? Bad vaginal odor ??? Pain or burning during urination ?? 9420-[address] [employer]. [address] [place] [address], [place] [address]. All rights reserved. This information is not intended as a substitute for professional medical care. Always follow your healthcare professional's instructions. Bacterial Vaginosis You have a vaginal infection called bacterial vaginosis (BV). Both good and bad bacteria are present in a healthy vagina. BV occurs when these bacteria get out of balance. The number of bad bacteria increase. And the number of good bacteria decrease. BV may or may not cause symptoms. If symptoms do occur, they can include: ??? Thin, ferreira, milky-white, or sometimes green discharge ??? Unpleasant odor or ???fishy?? smell ??? Itching, burning, or pain in or around the vagina It is not known what causes BV, but certain factors can make the problem more likely. This can include: ??? Douching ??? Having sex with a new partner ??? Having sex with more than one partner BV will sometimes go away on its own. But treatment is usually recommended. This is because untreated BV can increase the risk of more serious health problems such as: ??? Pelvic inflammatory disease (PID) ??? delivery (giving to a baby early if you???re ) ??? HIV and certain other sexually transmitted diseases (STDs) ??? Infection after surgery on the reproductive organs Home care General care ??? BV is most often treated with medicines called antibiotics. These may be given as pills or as avaginal cream.??If antibiotics are prescribed, be sure to use them exactly as directed. Also, be sure to complete all of the medicine, even if your symptoms go away. ??? Avoid douching or having sex during treatment. ??? If you have sex with a female partner, ask your healthcare provider if she should also be treated. Prevention ??? Limit or avoid douching. ??? Avoid having sex. If you do have sex, then take steps to lower your risk: ??? Use condoms when having sex. ??? Limit the number of partners you have sex with. Follow-up care Follow up with your healthcare provider, or as advised. When to seek medical advice Call your healthcare provider right away if: ??? You have a fever of??100.4??F (38??C)??or higher, or as directed by your provider. ??? Your symptoms worsen, or they don???t go away within a few days of starting treatment. ??? You have new pain in the lower belly??or pelvic region. ??? You have side effects that bother you or a reaction to the pills or cream you???re prescribed. ??? You or any partners you have sex with have new symptoms, such as a rash, joint pain, or sores. ?? 9134-[address] [employer]. [address] [place] [address]. All rights reserved. This information is not intended as a substitute for professional medical care. Always follow your healthcare professional's instructions. Patient Care team information Care Team Personnel Name: Elisa Peterson NP Position: [facility] PCO Associate Professional Member Role: PCP Address: Address: [address] [place] [address] Name: Josette De Anda Position: [facility] RN Member Role: Primary Care Nurse Care Team Related Persons Name: JOHANNY HUBER Address: home [address] [place] [address] Name: JOHANNY HUBER Ronnell Address: home [address] [place] [address] Name: JOHANNY HUBER Reynaga Address: home [address] [place] [address] Name: JUAN ORLANDO Address: home [address]
--- OUTSIDE RECORDS SUMMARY | 2024-05-22 09:14 | XMS_ITS | Continuity of Care Document ---
Author [facility] [facility] Address [address] [place] [address]- Care Team Providers Care Flue Lining Dipper Name Role Phone Nicholas ENTRY LEVEL ADMINISTRATIVE ASSISTANT, Elisa M Primary Care Physician Encounter [facility] NBR [id number] Date(s): 10/09/23 - 11/08/23 [facility] Adult [address] [address]- [place] Allergies, Adverse Reactions, Alerts Substance Reaction [...] B pediatric vaccine 93 Recorded 1Result Comment: [facility] [id number] 2Result Comment: [facility]: [id number] 3Result Comment: [facility] [id number] [phone] 4[facility] 5Admin Note: [...] 1 Refills, Maintenance, 06/24/23 16:07:00 EDT, [facility], 165.1, cm, 06/12/23 14:42:00 EDT, Height, 64.3, kg, 05/19/23 19:22:00 EDT, Dry Weight Start Date: 06/24/23 Status: Ordered Xyzal 5 mg oral tablet 1 tablet = 5 mg, By Mouth, Daily in PM, # 30 tablet, 6 Refills, Maintenance, 08/30/23 14:06:00 EST,Tablet, [facility]/pharmacy #[id number], Partial fill upon patient request [...] Personnel Name: Giselle SRINIVASAN, Ulysses Thornton Position: [facility] STRAIGHT LINE EDGER MD Member Role: Lifetime STRAIGHT LINE EDGER Physician Address: Address: [address] [place] [address] [place] [address]- Name: Elisa Peterson NP Position: [facility] PCO Associate Professional Member Role: PCP Address: Address: [address] [place] [address]- Name: Josette Bhardwaj [place] Position: [facility] RN Member Role: Primary Care Nurse Care Team Related Persons Name: HUBER ORLANDO Address: home [address] [place] [address] Name: HUBER ORLANDO Address: home [address] [place] [address] Name: HUBER ORLANDO Address: home [address] [place] [address] Name: JUAN ORLANDO Address: home [address]
--- OUTSIDE RECORDS SUMMARY | 2024-05-22 09:14 | XMS_ITS | Continuity of Care Document ---
Author Organization [facility] al Address [address] [place] [address]- Care Team Providers Care Grind Operator Name Role Phone Nicholas BASIC ACOUSTIC ANALYST, Elisa M Primary Care Physician Encounter [facility] Date(s): 04/23/24 - 04/23/[address] [address]- Discharge Disposition: A-D/C Home Attending Physician: Victor Manuel Sarmiento MD Admitting Physician: Victor Manuel Sarmiento MD Referring Physician: Vicotr Manuel Sarmiento MD Allergies, Adverse Reactions, Alerts [...] B pediatric vaccine 93 Recorded 1Result Comment: [facility] [id number] 2Result Comment: [facility]: [id number] 3Result Comment: [facility] [id number] 4[facility] 5Admin Note: [...] 01/29/24 14:53:00 EDT, Route to Pharmacy Electronically, [facility]/pharmacy #[id number], Partial fill upon patient request if the [...] 6 Refills, Maintenance, 04/24/24 13:02:00 EDT, Gel, [facility]/pharmacy #[id number], Partial fill upon patient [...] 01/09/24 0:16:00 EDT, Route to Pharmacy Electronically, [facility]/pharmacy #[id number], Partial fill upon patient request if the prescrip... Start Date: 01/09/24 Status: Ordered fluticasone 50 mcg/inh nasal spray 1 sprays = 50 mcg, Nares, Both, 2 times a day, # 16 Gm, 0 Refills, Maintenance, 02/21/24 17:46:00 EDT, [place], [facility]/pharmacy #[id number], Partial fill upon patient request if the prescription is for a schedule II opioid drug., 1 sprays Nares, Both 2 times a d... Start Date: 02/21/24 Status: Ordered hydrOXYzine hydrochloride 10 mg oral tablet 1 tablet = 10 mg, By Mouth, 3 times a day, PRN for anxiety, # 42 tablet, 0 Refills, Maintenance, 01/16/24 16:47:00 EDT, Tablet, [facility]/pharmacy #[id number], Partial fill upon patient [...] 1,200 mL, 0 Refills, Maintenance,03/27/24 0:48:00 EDT, [facility]/pharmacy #[id number], Partial fill upon patient request if the prescription is for a schedule II opioid drug., 168, cm, 03/26/24 22... Start Date: 03/27/24 Status: Ordered Voltaren Arthritis Pain 1% topical gel = 2 Gm, Topically, 4 times a day, PRN Pain , Moderate, not to exceed 8 grams/day/single joint of upper extremities, # 100 Gm, 0 Refills, Maintenance, 04/12/24 10:18:00 EDT, [facility]/pharmacy #[id number], Partial fill upon patient [...] Range]: 1 2 3 Height 165 cm (04/23/24 10:52 AM) Oxygen Saturation [94-100 %] 100 % (04/23/24 12:32 PM) 100 % (04/23/24 12:27 PM) 100 % (04/23/24 12:22 PM) Pulse Rate [55-90 bpm] 89 bpm (04/23/24 10:52 AM) Blood Pressure [90-138/55-84 mm Hg] 119/89mm Hg (04/23/24 12:32 PM) 112/84mm Hg (04/23/24 12:27 PM) 109/78mm Hg (04/23/24 12:22 PM) Respiratory Rate [16-30 br/min] 17 br/min (04/23/24 12:32 PM) 17 br/min (04/23/24 12:27 PM) 11 br/min *L* (04/23/24 12:22 PM) Temperature [96.8-100.4 DegF] 97.6 DegF (04/23/24 11:52 AM) 98.5 DegF (04/23/24 10:52 AM) Mode of Delivery (Oxygen) Room air (04/23/24 12:32 PM) Room air (04/23/24 12:02 PM) Simple face mask (04/23/24 11:52 AM) Blood pressure sites Arm, left (04/23/24 10:52 AM) Temperature Route Temporal (04/23/24 11:52 AM) Temporal (04/23/24 10:52 AM) Dry Weight 60.7 kg (04/23/24 10:52 AM) Dry Weight Obtained Via Standing scale (04/23/24 10:52 AM) Social History Social History Type Response Smoking Status Never smoker; Tobacc o user in household: No entered on: 09/26/13 Sex Clinical Note * Event Display: [facility] EGD Please click on pdf link to open report History and physical note * Event Display: History and Physical Hospital Authored Date: Patient Care team information Care Team Personnel Name: Giselle SRINIVASAN, Ulysses W Position: [facility] ESTATE MANAGER MD Member Role: Lifetime ESTATE MANAGER Physician Address: Address: [address] [place] [address] [facility] [place], [place] [address] Name: Elisa Peterson NP Position: [facility] PCO Associate Professional Member Role: PCP Address: Address: [address] [place] [address] [place] Name: Josette Bhardwaj [place] Position: [facility] Office Staff Member Role: Primary Care Nurse Care Team Related Persons Name: JOHANNYHUBER Spears Address: home [address] [place] [address] Name: JOHANNY HUBER Ronnell Address: home [address] [place] [address] Name: JOHANNY HUBER M Address: home [address] [place] [address] Name: JOHANNY JUAN Address: home [address] [address]
--- OUTSIDE RECORDS SUMMARY | 2024-05-22 09:14 | XMS_ITS | Continuity of Care Document ---
Author Organization [facility] [employer] [facility] [place] [facility] Address [address] [place] [address]- Care Team Providers Care Microfilm Camera Operator Name Role Phone Nicholas MANAGER BODY, Elisa M Primary Care Physician Encounter [facility] Date(s): 12/17/21 - 01/16/22 [facility] [address] [place] [address]- [place] Allergies, Adverse Reactions, Alerts Substance Reaction [...] term) 7 09/07/94 Given 1Result Comment: [facility]: [id number] 2Result Comment: [facility] [id number] 3[facility] 4Admin Note: [...] Refills, Maintenance, 12/17/21 15:33:00 EDT, Tablet, [facility]/pharmacy #[id number], [...] 10:00:00 EST, 09/30/21 19:43:00 EST, Tablet, [facility]/pharmacy #[id number], may take 2 tablets twice a day until regularly moving bow... Start Date: 09/30/21 Stop Date: 09/30/22 Status: Ordered famotidine 20 mg oral tablet 20 mg, 1, tablet, By Mouth, 2 times a day, # 20 tablet, Refills 0, Tot. Refills 0, Maintenance, 10/07/21 8:52:00 EST, Route to Pharmacy Electronically, [facility]/pharmacy #[id number], [...]
--- OUTSIDE RECORDS SUMMARY | 2024-05-22 09:14 | XMS_ITS | Continuity of Care Document ---
Author Organization [facility] Address [address] [place] [address]- Care Team Providers Care Maintenance Aide Name Role Phone Elisa Peterson NP Primary Care Physician Encounter [facility] NBR [id number] Date(s): 07/17/20 - 07/24/20 [facility] Adult [address] [address]- Encounter Diagnosis IBS - Irritable bowel syndrome(Discharge Diagnosis) - 07/17/20 Anxiety(Discharge Diagnosis) - 07/17/20 Fasciculations(Discharge Diagnosis) - 07/17/20 Attending Physician: Elisa Peterson NP Allergies, Adverse [...] Given 1Result Comment: [facility] [id number] [phone] 2[facility] History: [facility] 3Admin Note: [...] IBS - Irritable bowel syndrome Discharge Diagnosis 07/17/20 Anxiety Discharge Diagnosis 07/17/20 Fasciculations Discharge Diagnosis 07/17/20 Vital Signs Most recent to oldest [Reference Range]: 1 Height 168 cm (07/17/20 2:03 PM) Weight 60.6 kg (07/17/20 2:03 PM) Oxygen Saturation [94-100 %] 98 % (07/17/20 2:03 PM) Pulse Rate [55-90 bpm] 64 bpm (07/17/20 2:03 PM) Body Mass Index [18.5-24.99] 21.47 (07/17/20 2:03 PM) Blood Pressure [90-138/55-84 mm Hg] 120/ 70mm Hg (07/17/20 2:03 PM) Respiratory Rate [16-30 br/min] 16 br/mi n (07/17/20 2:03 PM) Temperature [96.8-100.4 DegF] 98.5 DegF (07/17/20 2:03 PM) Mode of Delivery (Oxygen) Room air (07/17/20 2:03 PM) Blood pressure sites Arm, left (07/17/20 2:03 PM) Temperature Route Temporal (07/17/20 2:03 PM) Weight Obtained Via Standing scale (07/17/20 2:03 PM) Social History Social History Type Response Smoking Status Never smoker; Tobacc o user in household: No entered on: 09/26/13 Sex
--- OUTSIDE RECORDS SUMMARY | 2024-05-22 09:14 | XMS_ITS | Continuity of Care Document ---
Author Organization [facility] Adult Address [address] [place] [address]- Care Team Providers Care Branch Service Leader Name Role Phone Mary Ellen SRINIVASAN, Anitha Primary Care Physician Encounter [facility] Date(s): 05/07/20 - 05/14/20 [facility] Adult [address] [place] [address]- [facility] Encounter Diagnosis Anxiety(Discharge Diagnosis) - 05/07/20 Migraine(Discharge Diagnosis) - 05/07/20 Attending Physician: Anitha Hyde MD Allergies, Adverse [...] 09/07/94 Given 1Result Comment: [facility] [id number] [phone] 2Location History: [facility] 3Admin Note: [...] 05/01/20 11:14:00 EDT, Route to Pharmacy Electronically, [facility]/pharmacy #[id number], 167.64, cm, 04/25/20 0:39:00 EDT, Height, [...] Clini khushboo Service Informant Anxiety Discharge Diagnosis 05/07/20 Migraine Discharge Diagnosis 05/07/20 Vital Signs Most recent to oldest [Reference Range]: 1 Height 0 cm (05/07/20 9:22 AM) Social History Social History Type Response Smoking Status Never smoker; Tobacc o user in household: No entered on: 09/26/13 Sex
--- OUTSIDE RECORDS SUMMARY | 2024-05-22 09:14 | XMS_ITS | Continuity of Care Document ---
Author Organization [facility] Adult Address [address] [place] [address]- Care Team Providers Care Chiseler Head Name Role Phone Mary Ellen SRINIVASAN, Anitha Primary Care Physician Encounter [facility] Date(s): 09/12/19 - 09/19/[address] [address]- [facility] Encounter Diagnosis Acute sinusitis(Discharge Diagnosis) - 09/12/19 Anxiety(Discharge Diagnosis) - 09/12/19 Attending Physician: Anitha Hyde MD Allergies, Adverse [...] 1Result Comment: [facility] [id number] [phone] [id number] 2Location History: [facility] 3Admin Note: [...] 09/22/19 16:21:00 EST, 09/12/19 16:21:00 EST, Tablet, [facility]/pharmacy #[id number], 168, cm, 09/12/19 15:53:00 EST, Height, 64, kg, 09/08/19 14:41:00 EST, Dry Weight Start Date: 09/12/19 Stop Date: 09/22/19 Status: Ordered sertraline 25 mg oral tablet 1 tablet = 25 mg, By Mouth, Daily, # 30 tablet, 0 Refills, Maintenance, 09/12/19 16:21:00 EST, Tablet, [facility]/pharmacy #[id number], 168, cm, 09/12/19 15:53:00 EST, [...] Health Status Cl inical Service Informant Acute sinusitis Discharge Diagnosis 09/12/19 Anxiety Discharge Diagnosis 09/12/19 Vital Signs Most recent to oldest [Reference Range]: 1 Height 168 cm (09/12/19 3:53 PM) Weight 62.5 kg (09/12/19 3:53 PM) Oxygen Saturation [94-100 %] 99 % (09/12/19 3:53 PM) Pulse Rate [55-90 bpm] 71 bpm (09/12/19 3:53 PM) Body Mass Index [18.5-24.99] 22.14 (09/12/19 3:53 PM) Blood Pressure [90-138/55-84 mm Hg] 102/ 60mm Hg (09/12/19 3:53 PM) Temperature [96.8-100.4 DegF] 98.4 DegF (09/12/19 3:53 PM) Mode of Delivery (Oxygen) Room air (09/12/19 3:53 PM) Blood pressure sites Arm, right (09/12/19 3:53 PM) Temperature Route Oral (09/12/19 3:53 PM) Weight Obtained Via Standing scale (09/12/19 3:53 PM) Social History Social History Type Response Smoking Status Never smoker; Tobacc o user in household: No entered on: 09/26/13 Sex
--- OUTSIDE RECORDS SUMMARY | 2024-05-22 09:14 | XMS_ITS | Continuity of Care Document ---
Author Organization [facility] [employer] [facility] Address [address] [place] [address]- Care Team Providers Care Utility Worker [place] Name Role Phone Elisa Peterson NP Primary Care Physician [id number] Date(s): 06/23/21 - 06/30/21 [facility] Adult [address] [address]- [place] Encounter Diagnosis Neck pain(Discharge Diagnosis) - 06/23/21 Generalized anxiety disorder with panic attacks(Discharge Diagnosis) - 06/23/21 Viral syndrome(Discharge Diagnosis) - 06/23/21 Attending Physician: Elisa Peterson NP Allergies, Adverse [...] 09/07/94 Given 1Result Comment: [facility] [id number] [phone] 2Location History: [facility] 3Admin Note: [...] Gm, 0 Refills, Maintenance, 01/29/21 20:47:00 EDT, [place], [facility]/pharmacy #[id number], Partial fill upon [...] 0 Refills, Maintenance, 06/23/21 16:19:00 EDT, Tablet, [facility]/pharmacy #[id number], Partial fill upon [...] Effective Dates Health Status Clinical Service Informant Neck pain Discharge Diagnosis 06/23/21 Generalized anxiety disorder with panic attacks Discharge Diagnosis 06/23/21 Viral syndrome Discharge Diagnosis 06/23/21 Vital Signs Most recent to oldest [Reference Range]: 1 Height 168 cm (06/23/21 3:46 PM) Social History Social History Type Response Smoking Status Never smoker; Tobacc o user in household: No entered on: 09/26/13 Sex
--- OUTSIDE RECORDS SUMMARY | 2024-05-22 09:14 | XMS_ITS | Continuity of Care Document ---
Author Organization [facility] Adult Address [address] [place] [address]- Care Team Providers Care Laborer Car Barn Name Role Phone Nicholas SUPERVISOR CUSTOMER SERVICES, Elisa M Primary Care Physician Encounter [facility] Date(s): 09/08/20 - 10/08/20 [facility] Adult [address] [place] [address]- Attending Physician: Alejandro Lamb Admitting Physician: AdmAlejandro cooley Referring Physician: AdmAlejandro cooley Allergies, Adverse Reactions, [...] (old term) 6 09/07/94 Given 1Result Comment: [facility] [id number] [phone] 2Location History: [facility] 3Admin Note: [...]
--- OUTSIDE RECORDS SUMMARY | 2024-05-22 09:14 | XMS_ITS | Continuity of Care Document ---
Author Organization [facility] Address [address] [place] [address]- Care Team Providers Care Ceo And Co Founder Name Role Phone Elisa Peterson NP Primary Care Physician Encounter [facility] Date(s): 10/15/21 - 10/22/21 [facility] [address] [place] [address]- Encounter Diagnosis Abdominal pain(Discharge Diagnosis) - 10/15/21 Back pain(Discharge Diagnosis) - 10/15/21 Attending Physician: Not on Staff, Attending MD [...] (old term) 7 09/07/94 Given 1Result Comment: [facility]: [id number] 2Result Comment: [facility] [id number] [phone] 3Location History: [facility] 4Admin Note: [...] 09/30/22 10:00:00 EST, 09/30/21 19:43:00 EST, Tablet, [facility]/pharmacy #[id number], may take 2 tablets twice a day until regularly moving bow... Start Date: 09/30/21 Stop Date: 09/30/22 Status: Ordered famotidine 20 mg oral tablet 20 mg, 1, tablet, By Mouth, 2 times a day, # 20 tablet, Refills 0, Tot. Refills 0, Maintenance, 10/07/21 8:52:00 EST, Route to Pharmacy Electronically, [facility]/pharmacy #[id number], Partial fill upon patient request if the [...] Refills, Maintenance, 10/17/21 15:42:00 EST, EC Capsule, [facility]/pharmacy #[id number], Partial fill upon patient request if [...] Dates Health Status Cl inical Service Informant Abdominal pain Discharge Diagnosis 10/15/21 Back pain Discharge Diagnosis 10/15/21 Social History Social History Type Response Smoking Status Never smoker; Tobacc o user in household: No entered on: 09/26/13 Sex
--- OUTSIDE RECORDS SUMMARY | 2024-05-22 09:14 | XMS_ITS | Continuity of Care Document ---
Author Organization [facility] Address [address] [place] [address]- Care Team Providers Care Invas Tech Name Role Phone Elisa Peterson NP Primary Care Physician Encounter [facility] Date(s): 11/25/20 - 12/02/20 [facility] Adult [address] [address]- Encounter Diagnosis Fibromyalgia(Discharge Diagnosis) - 11/25/20 Insomnia(Discharge Diagnosis) - 11/25/20 Attending Physician: Elisa Peterson NP Allergies, Adverse [...] term) 6 09/07/94 Given 1Result Comment: [facility] [id number] [phone] 2Location History: [facility] 3Admin Note: [...] Refills, Maintenance, 11/13/20 15:14:00 EST, Gel, [id number], Partial fill upon patient request if the [...] Dates Health Status Cl inical Service Informant Fibromyalgia Discharge Diagnosis 11/25/20 Insomnia Discharge Diagnosis 11/25/20 Vital Signs Most recent to oldest [Reference Range]: 1 Height 168 cm (11/25/20 1:55 PM) Weight 58.3 kg (11/25/20 1:55 PM) Oxygen Saturation [94-100 %] 98 % (11/25/20 1:55 PM) Pulse Rate [55-90 bpm] 80 bpm (11/25/20 1:55 PM) Body Mass Index [18.5-24.99] 20.66 (11/25/20 1:55 PM) Blood Pressure [90-138/55-84 mm Hg] 110/ 64mm Hg (11/25/20 1:55 PM) Respiratory Rate [16-30 br/min] 16 br/mi n (11/25/20 1:55 PM) Temperature [96.8-100.4 DegF] 98.0 DegF (11/25/20 1:55 PM) Mode of Delivery (Oxygen) Room air (11/25/20 1:55 PM) Blood pressure sites Arm, left (11/25/20 1:55 PM) Temperature Route Temporal (11/25/20 1:55 PM) Weight Obtained Via Standing scale (11/25/20 1:55 PM) Social History Social History Type Response Smoking Status Never smoker; Tobacc o user in household: No entered on: 09/26/13 Sex
--- OUTSIDE RECORDS SUMMARY | 2024-05-22 09:14 | XMS_ITS | Continuity of Care Document ---
Author Organization [facility] Address [address] [place] [address]- Care Team Providers Care Roll Filler Name Role Phone Mary Ellen SRINIVASAN, Anitha Primary Care Physician Encounter [facility] Date(s): 09/08/19 - 09/08/[address] [address]- [facility] Attending Physician: Araseli Lopez MD Allergies, Adverse Reactions, Alerts Substance Reaction [...] Comment: [facility] [id number] [phone] 2Location History: [facility] 3Admin Note: [...] 09/04/19 13:19:00 EST, Route to Pharmacy Electronically, [facility]/pharmacy #[id number], 168, cm, 08/30/19 9:34:00 EST, Height, [...]
--- OUTSIDE RECORDS SUMMARY | 2024-05-22 09:14 | XMS_ITS | Continuity of Care Document ---
Author Organization [facility] [employer] [facility] Address [address] [place] [address]- Care Team Providers Care Machine Cage Maker Name Role Phone Nicholas CURER ACID DRUM, Elisa M Primary Care Physician Encounter [facility] Date(s): 11/25/21 - 12/02/21 [facility] [employer] [facility] [address] [place] [address]- Attending Physician: Enedina Cuenca MD Allergies, Adverse [...] term) 7 09/07/94 Given 1Result Comment: [facility]: [id number] 2Result Comment: [facility] [id number] [phone] 3Location History: [facility] 4Admin Note: [...] 10:00:00 EST, 09/30/21 19:43:00 EST, Tablet, [facility]/pharmacy #[id number], may take 2 tablets twice a day until regularly moving bow... Start Date: 09/30/21 Stop Date: 09/30/22 Status: Ordered famotidine 20 mg oral tablet 20 mg, 1, tablet, By Mouth, 2 times a day, # 20 tablet, Refills 0, Tot. Refills 0, Maintenance, 10/07/21 8:52:00 EST, Route to Pharmacy Electronically, [facility]/pharmacy #[id number], Partial fill upon patient request if the [...] Refills, Maintenance, 10/17/21 15:42:00 EST, EC Capsule, [facility]/pharmacy #[id number], Partial fill upon patient request if the [...] oldest [Reference Range]: 1 Height 168 cm (11/25/21 10:42 AM) Weight 62.3 kg (11/25/21 10:42 AM) Oxygen Saturation [94-100 %] 98 % (11/25/21 10:42 AM) Pulse Rate [55-90 bpm] 71 bpm (11/25/21 10:42 AM) Body Mass Index [18.5-24.99] 22.07 (11/25/21 10:42 AM) Blood Pressure [90-138/55-84 mm Hg] 118/ 66mm Hg (11/25/21 10:42 AM) Temperature [96.8-100.4 DegF] 97.8 DegF (11/25/21 10:42 AM) Liters per Minute 0 L/min (11/25/21 10:42 AM) Mode of Delivery (Oxygen) Room air (11/25/21 10:42 AM) Blood pressure sites Arm, left (11/25/21 10:42 AM) Temperature Route Temporal (11/25/21 10:42 AM) Weight Obtained Via Standing scale (11/25/21 10:42 AM) Social History Social History Type Response Smoking Status Never smoker; Tobacc o user in household: No entered on: 09/26/13 Sex
--- OUTSIDE RECORDS SUMMARY | 2024-05-22 09:14 | XMS_ITS | Continuity of Care Document ---
Author Organization [facility] [facility] Address [address] [place] [address]- Care Team Providers Care Risk Assessment Analyst Name Role Phone Mary Ellen SRINIVASAN, Anitha Primary Care Physician Encounter [facility] Date(s): 04/08/20 - 05/08/20 [facility] [id number] Adult Medicine [address] [place] [address]- Allergies, Adverse Reactions, Alerts Substance Reaction Severity [...] term) 6 09/07/94 Given 1Result Comment: [facility] [id number] [phone] 2Location History: [facility] 3Admin Note: [...] 05/01/20 11:14:00 EDT, Route to Pharmacy Electronically, [facility]/pharmacy #[id number], 167.64, cm, 04/25/20 0:39:00 [...]
--- OUTSIDE RECORDS SUMMARY | 2024-05-22 09:14 | XMS_ITS | Continuity of Care Document ---
Author Organization [facility] [place] Address [address] [place] [address]- Care Team Providers Care Income Tax Analyst Name Role Phone Nicholas PROFESSIONAL BUILDER, Elisa M Primary Care Physician Encounter [facility] Date(s): 06/04/20 - 07/04/20 [facility] [place] [address] [place] [address]- [facility] Allergies, Adverse Reactions, Alerts Substance Reaction Severity [...] 6 09/07/94 Given 1Result Comment: [facility] [id number] [phone] 2Location History: [facility] 3Admin Note: [...] 06/08/20 9:10:00 EDT, Route to Pharmacy Electronically, [facility]/pharmacy #[id number], 168, cm, 06/08/20 7:01:00 [...]
--- OUTSIDE RECORDS SUMMARY | 2024-05-22 09:14 | XMS_ITS | Continuity of Care Document ---
Author Organization [facility] [employer] Address [address] [place] [address]- Care Team Providers Care Flight Technician Name Role Phone Nicholas CLINICAL REHABILITATION LIAISON, Elisa M Primary Care Physician Encounter [facility] Date(s): 11/25/21 - 12/25/21 [facility] [address] [place] [address]- Attending Physician: Alejandro Lamb Admitting Physician: Alejandro [...] 7 09/07/94 Given 1Result Comment: [facility]: [id number] 2Result Comment: [facility] [id number] [phone] 3Location History: [facility] 4Admin Note: 1st dove 11/21/1995 2nd done [...] 0 Refills, Maintenance, 12/17/21 15:33:00 EDT, Tablet, [facility]/pharmacy #[id number], Partial fill upon patient request if the prescription is for a schedule II opioid drug., 168, cm, 11/25/21 10:4... Start Date: 12/17/21 Status: Ordered docusate-senna 50 mg-187 mg oral tablet See Instructions, may take 2 tablets twice a day until regularly moving bowels, then prn, # 60 tablet, 0 Refills, Acute 09/30/22 10:00:00 EST, 09/30/21 19:43:00 EST, Tablet, [facility]/pharmacy #[id number], may take 2 tablets twice a day until regularly moving bow... Start Date: 09/30/21 Stop Date: 09/30/22 Status: Ordered famotidine 20 mg oral tablet 20 mg, 1, tablet, By Mouth, 2 times a day, # 20 tablet, Refills 0, Tot. Refills 0, Maintenance, 10/07/21 8:52:00 EST, Route to Pharmacy Electronically, [facility]/pharmacy #[id number], Partial fill upon patient [...] Refills, Maintenance, 10/17/21 15:42:00 EST, EC Capsule, [facility]/pharmacy #[id number], Partial fill upon patient request if the prescription is for a scheduleII opioid drug., 168, cm, 10/17/21 12:39:00 EST He... Start Date: 10/17/21 Status: Ordered Problem [...]
--- NOTE | 2024-05-22 09:25 | PC.NURSE ---
patient was in the er yesterday for back pain and abd pain. bloodwork only was performed. nauseous at this time. no vomitting. was sent home yesterday.
[2024-05-22] MEDS: Lactated Ringers 1,000 ML 100 ML IVCONT (09:47)
[2024-05-22 09:48] LABS: UPreg QC Valid YES; Urine Pregnancy NEGATIVE (NEGATIVE)
--- NOTE | 2024-05-22 13:45 | HO.OPHTHAL ---
Ophthalmology Operative Note Date of Service: 05/22/24 Narrative: Diagnosis exotropia. Procedure bilateral lateral rectus recessions of [address] Holcomb. Anesthesia general. Complications none. The patient was brought to the operating room placed under general anesthesia. The eyes were prepped and draped in the usual sterile ophthalmic fashion. A lid speculum placed in the right eye and incisions made at bare sclera in the inferotemporal fornix. The lateral rectus muscle was hooked and secured with a double-armed Vicryl suture. The muscle was disinserted the globe and reattached to a position 4 mm behind the original insertion. Conjunctiva was closed with interrupted Vicryl sutures. An identical procedure was then performed on the left eye. The patient was then awoken from general anesthesia and discharged to postoperative recovery in good condition.
== END 2024-05-22 13:35 | disposition home or self-care (01) ==
PROVIDERS: Nurse Practitioner; PCP Nurse Practitioner Family; Visit Provider Ophthalmology
PROC: (CPT 67311; principal; 2024-05-22 10:40)
DX: H53.2 Diplopia (principal); D64.9 Anemia, unspecified; F41.1 Generalized anxiety disorder; M79.7 Fibromyalgia; M54.2 Cervicalgia; R10.9 Unspecified abdominal pain; R00.2 Palpitations; G43.909 Migraine, unspecified, not intractable, without status migrainosus; K44.9 Diaphragmatic hernia without obstruction or gangrene; Z79.899 Other long term (current) drug therapy; Z88.8 Allergy status to other drugs, medicaments and biological substances
CPT/HCPCS: 67311; 81025; J1100; J1596; J2250; J2405; J2704; J3010